=== PATIENT | female | born 1950 | race Caucasian/White ===

== ENCOUNTER 2022-09-15 20:15 | Inpatient (IN) ==
[2022-09-15 21:34] LABS: Basophils # (auto) 0.01 K/uL (0-0.2); Basophils % (auto) 0.2 %; Eosinophils # (auto) 0.09 K/uL (0-0.50); Hematocrit (blood only) 30.1 % (34.1-44.9); Hemoglobin 9.8 g/dl (12.0-16.0); Immature Granulocytes # (auto) 0.04 K/uL (0.00-0.02); Immature Granulocytes % (auto) 0.9 %; Lymphocytes # (auto) 0.78 K/uL (1.2-3.4); Lymphocytes % (auto) 17.5 %; Mean Corpuscular Hgb Conc 32.6 g/dL (32.0-36.0); Mean Corpuscular Volume 101.3 fL (80.0-100.0); Mean Platelet Volume 11.7 fL (9.4-12.3); Monocytes # (auto) 0.69 K/uL (0.24-0.82); Monocytes % (auto) 15.5 %; Neutrophils # (auto) 2.85 K/uL (1.4-6.5); Neutrophils % (auto) 63.9 %; Platelet Count 155 K/uL (130-400); RDW Coefficient of Variation 15.1 % (11.5-14.5); Red Blood Count 2.97 M/uL (3.93-5.22); White Blood Count 4.46 K/ul (4.8-10.8)
[2022-09-15 22:03] LABS: Prothrombin Time 11.1 Seconds (9.0-12.0)
[2022-09-15 22:23] LABS: Albumin Globulin Ratio 1.3 (0.9-2); Albumin Level 3.8 gm/dl (3.4-5.0); BUN Creatinine Ratio 22.9 (10-20); Bilirubin,Total 0.2 mg/dl (0.2-1.0); Calcium 8.9 mg/dl (8.5-10.1); Creatinine Clr Calc Pharmacy 23.7 ml/min; Est GFR (African American) 23.5 ml/min; Est GFR (Non-African American) 20.3 ml/min; Globulin 2.9 gm/dl (2.5-4.0); Magnesium 2.1 mg/dl (1.7-2.4); Potassium 4.8 mmol/L (3.5-5.1); Total Protein 6.7 gm/dl (6.0-8.3)
[2022-09-15] MEDS ORDERED: BUMETANIDE 2 MG in SYRINGE 0 ML IV ONE (22:28)
--- NOTE | 2022-09-15 23:08 | Emergency Department Note ---
History of Present Illness General Chief complaint: Shortness of Breath/Dyspnea Stated complaint: difficulty breathing, fluid retention Time Seen by Provider: 09/15/22 20:55 Source: patient Mode of arrival: EMS Limitations: no limitations History of Present Illness Provider complaint: Increased shortness of breath, weight gain This is a 72-year-old female presents emergency department with concern for increasing shortness of breath of the last week as well as weight gain. Patient states this is consistent with prior episodes of congestive heart failure. She states she does not get swelling in her lower extremities when this happens but her abdomen becomes enlarged. She states she does take a water pill daily and has not missed or skipped any doses. She denies any dietary indiscretions. She denies any fevers, chills, or other URI symptoms. She denies any accompanying chest pain or pressure. She states breathing is worse with any attempt at movement or exertion. Patient does have history of congestive heart failure as well as kidney problems. She states her software integration developer is in [place]. She does not recall when she last had an echo. She last saw her software integration developer back in February. Home Medications Medication Instructions Recorded Confirmed Type aspirin 81 mg tablet,delayed 81 mg PO DAILY 07/05/22 09/15/22 History release (Adult Aspirin Regimen) atorvastatin 10 mg tablet 10 mg PO DAILY 07/05/22 09/15/22 History calcitriol 0.25 mcg capsule 0.25 mcg PO DAILY 07/05/22 09/15/22 History carvedilol 12.5 mg tablet 12.5 mg PO BID 07/05/22 09/15/22 History clopidogrel 75 mg tablet 75 mg PO DAILY 07/05/22 09/15/22 History divalproex 500 mg tablet,delayed 1,000 mg PO BID 07/05/22 09/15/22 History release fluoxetine 40 mg capsule 40 mg PO BID 07/05/22 09/15/22 History hydralazine 50 mg tablet 75 mg PO BID 07/05/22 09/15/22 History insulin glargine 100 unit/mL (3 20 unit subcut BID 07/05/22 09/15/22 History mL) subcutaneous pen (Basaglar KwikPen U-100 Insulin) insulin lispro 100 unit/mL 3 unit subcut TIDM 07/05/22 09/15/22 History subcutaneous pen (Humalog KwikPen (U-100) Insulin) levetiracetam 1,000 mg tablet 1,000 mg PO BID 07/05/22 09/15/22 History levothyroxine 25 mcg capsule 25 mcg PO DAILY 07/05/22 09/15/22 History omega 1-exe-sgo-fish oil 1,000 mg 2 cap PO DAILY 07/05/22 09/15/22 History (120 mg-180 mg) capsule (Fish Oil) pantoprazole 40 mg tablet,delayed 40 mg PO DAILY 07/05/22 09/15/22 History release propranolol 10 mg tablet 10 mg PO BID #60 tabs 07/05/22 09/15/22 Rx valacyclovir 500 mg tablet 500 mg PO DAILY 07/05/22 09/15/22 History lancets 33 gauge (OneTouch Delica #100 ea 07/06/22 08/29/22 Rx Lancets) pen needle, diabetic 32 gauge x #100 ea 07/06/22 08/29/22 Rx 1/4" (BD Ultra-Fine Micro Pen Needle) blood sugar diagnostic (OneTouch #100 ea 07/19/22 08/29/22 Rx Verio test strips) biotin 5 mg tablet 5 mg PO DAILY #30 tabs 07/29/22 09/15/22 Rx dextromethorphan-guaifenesin 5 10 ml PO Q6H PRN cough #180 mL 08/24/22 09/15/22 Rx mg-100 mg/5 mL oral liquid (Mucinex Fast-Max DM Max) alprazolam 0.25 mg tablet 0.25 mg PO DAILY PRN anxiety #30 08/25/22 09/15/22 Rx tabs bumetanide 2 mg tablet 2 mg PO BID 08/29/22 09/15/22 History bumetanide 1 mg tablet 12 mg PO DAILY PRN wt gain 5LBS or 09/15/22 09/15/22 History more over 3 days magnesium oxide 400 mg PO BID 09/15/22 09/15/22 History Allergies Allergy/AdvReac Type Severity Reaction Status Date / Time MARINO Inhibitors Allergy Mild Unknown Verified 09/15/22 21:37 Interferons Allergy Mild Unknown Verified 09/15/22 21:37 Penicillins Allergy Mild Unknown Verified 09/15/22 21:37 Past Med/Surg History Medical History Amputated toe of right foot 2020 Anemia Bleeding disorder CAD (coronary artery disease) Ejaiwfm-Pumod-Ubmem syndrome CHF (congestive heart failure) CKD (chronic kidney disease) Depression with anxiety DM2 (diabetes mellitus, type 2) Gastric peptic ulcer GERD (gastroesophageal reflux disease) Gout Hepatitis C HTN (hypertension), benign Hyperlipidemia Hypothyroid Seizure disorder Tremor Surgical History H/O: section 1981 Hx of tonsillectomy S/P CABG x 4 Stented coronary artery Family History Brother Diabetes Hypertension Father Hypertension Mother Lung disease Denies family history of Breast cancer Colorectal cancer Social History Smoking Status: Former smoker Smoking End Date: 1986; Second Hand Exposure: No; Hx Alcohol Use: No Hx Substance Use: No Preferred Language: [place] Verdean 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 Required: No Beliefs That Will Affect Care: None marital status: Current Living Situation: Personal Care Facility current occupational status: retired Other Information That Helps Us Care for You: No Feels Safe at Home: Yes Safety Concerns: Feels Safe At This Time Dental Care, Regularly: Yes Physical Activity Frequency: Does not Exercise Seatbelt Use: always Assistive Devices: Walker Review of Systems A total of 10 systems reviewed and were otherwise negative All systems reviewed & are unremarkable except as noted in HPI & below Physical Exam Vital Signs Vital Signs - 24 hr 09/15/22 20:40 09/15/22 20:40 09/15/22 20:40 Temperature 36.9 C Temperature Source Oral Pulse Rate 82 Pulse Rate from SpO2 Sensor Respiratory Rate 19 Respiratory Effort / Characteristics Labored Blood Pressure 179/64 H Blood Pressure Mean 102 Pulse Oximetry 95 95 Oxygen Delivery Method Room Air Room Air Oxygen Flow Rate 0 Sepsis Recent Fever Within 48 Hours No Sepsis New/Unexplained Change in Mental Status No Sepsis Action Taken by Nursing No Action Required 09/15/22 22:05 Temperature Temperature Source Pulse Rate 69 Pulse Rate from SpO2 Sensor 71 Respiratory Rate 24 Respiratory Effort / Characteristics Blood Pressure 169/74 H Blood Pressure Mean 105 Pulse Oximetry 95 Oxygen Delivery Method Oxygen Flow Rate Sepsis Recent Fever Within 48 Hours Sepsis New/Unexplained Change in Mental Status Sepsis Action Taken by Nursing GENERAL: alert, well appearing, well nourished, no distress, non-toxic, NC in place EYE EXAM: normal conjunctiva, PERRL and EOM's grossly intact OROPHARYNX: no exudate, no erythema, lips, buccal mucosa, and tongue normal and mucous membranes are moist NECK: supple, no nuchal rigidity, no adenopathy, non-tender LUNGS: Clear to auscultation. Normal chest wall mechanics, no w/r/r HEART: no murmurs, S1 normal and S2 normal ABDOMEN: abdomen soft, non-tender, normo-active bowel sounds, no masses, no rebound or guarding. BACK: Back is symmetrical on inspection and there is no deformity, no midline tenderness, no CVA tenderness. SKIN: no rashes and no bruising UPPER EXTREMITIES: upper extremities are grossly normal. FROM, nml pulses b/l. LOWER EXTREMITIES: No pitting edema. FROM, nml pulses b/l. NEURO EXAM: Normal sensorium, cranial nerves II-XII grossly intact, normal speech, no gross weakness of arms, no gross weakness of legs. Gross sensation intact. Course Administered Medications Aspirin (Aspirin 81 Mg Ectab) 81 mg PO DAILY [facility] Stop: 10/16/22 08:59 Last Admin: 09/18/22 09:08 Dose: 81 mg Documented By: Admin: 09/17/22 08:18 Dose: 81 mg Documented By: Admin: 09/16/22 12:24 Dose: Not Given Documented By: GPF Atorvastatin Calcium (Atorvastatin 10 Mg Tab) 10 mg PO DAILY [facility] Stop: 10/16/22 08:59 Last Admin: 09/18/22 09:07 Dose: 10 mg Documented By: Admin: 09/17/22 08:15 Dose: 10 mg Documented By: Admin: 09/16/22 12:25 Dose: Not Given Documented By: GPF Calcitriol (Calcitriol 0.25 Mcg Capsule) 0.25 mcg PO DAILY [facility] Stop: 10/16/22 08:59 Last Admin: 09/18/22 09:06 Dose: 0.25 mcg Documented By: Admin: 09/17/22 08:18 Dose: 0.25 mcg Documented By: Admin: 09/16/22 12:25 Dose: Not Given Documented By: GPF Carvedilol (Carvedilol 3.125 Mg Tab) 3.125 mg PO BID [facility] Stop: 10/17/22 20:59 Last Admin: 09/18/22 09:10 Dose: 3.125 mg Documented By: Admin: 09/17/22 20:52 Dose: 3.125 mg Documented By: VK Clopidogrel Bisulfate (Clopidogrel Bisulfate 75 Mg Tab) 75 mg PO DAILY [facility] Stop: 10/16/22 08:59 Last Admin: 09/18/22 09:05 Dose: 75 mg Documented By: Admin: 09/17/22 08:17 Dose: 75 mg Documented By: Admin: 09/16/22 12:13 Dose: 75 mg Documented By: GPF Cyanocobalamin (Cyanocobalamin (B-12) 500 Mcg Tablet) 1,000 mcg PO QAM [facility] Stop: 10/16/22 12:29 Last Admin: 09/18/22 09:05 Dose: 1,000 mcg Documented By: Admin: 09/17/22 08:16 Dose: 1,000 mcg Documented By: Admin: 09/16/22 16:20 Dose: Not Given Documented By: GPF Divalproex Sodium (Divalproex Delay Release 500 Mg Tab) 1,000 mg PO BID [facility] Stop: 10/16/22 01:22 Last Admin: 09/18/22 09:08 Dose: 1,000 mg Documented By: Admin: 09/17/22 20:53 Dose: 1,000 mg Documented By: Admin: 09/17/22 08:19 Dose: 1,000 mg Documented By: Admin: 09/16/22 21:50 Dose: Not Given Documented By: Admin: 09/16/22 12:13 Dose: 1,000 mg Documented By: Admin: 09/16/22 01:59 Dose: 1,000 mg Documented By: VK Fluoxetine HCl (Fluoxetine Hcl 20 Mg Cap) 40 mg PO BID@0900,1400 [facility] Stop: 10/16/22 08:59 Last Admin: 09/18/22 07:21 Dose: 40 mg Documented By: Admin: 09/17/22 14:04 Dose: 40 mg Documented By: Admin: 09/17/22 08:16 Dose: 40 mg Documented By: Admin: 09/16/22 16:21 Dose: Not Given Documented By: GPAna Cristina Admin: 09/16/22 12:14 Dose: 40 mg Documented By: GPF Heparin Sodium (Porcine) (Heparin Sod 5,000 Unit/0.5 Ml Vial) 5,000 units SQ Q12 [facility] Stop: 10/17/22 09:49 Last Admin: 09/18/22 09:09 Dose: Not Given Documented By: Admin: 09/17/22 20:54 Dose: Not Given Documented By: Admin: 09/17/22 10:59 Dose: Not Given Documented By: SONYA Hydralazine HCl (Hydralazine Hcl 25 Mg Tab) 75 mg PO BID [facility] Stop: 10/16/22 08:59 Last Admin: 09/18/22 09:04 Dose: 75 mg Documented By: Admin: 09/17/22 20:53 Dose: 75 mg Documented By: Admin: 09/17/22 08:15 Dose: 75 mg Documented By: Admin: 09/16/22 21:50 Dose: Not Given Documented By: Admin: 09/16/22 12:13 Dose: 75 mg Documented By: NEGRITA Bumetanide 2 mg/ Syringe 8 mls @ 4 mls/min IV BID@0900,1700 [facility] Stop: 10/16/22 08:59 Last Admin: 09/16/22 09:30 Dose: 4 mls/min Documented By: NEGRITA Insulin Aspart (Insulin Aspart Per Unit) 0 units SC ACHS [facility] Stop: 10/16/22 07:29 Last Admin: 09/17/22 20:51 Dose: Not Given Documented By: Admin: 09/17/22 17:41 Dose: Not Given Documented By: Admin: 09/17/22 12:44 Dose: 5 units Documented By: SONYA Co-signed By: JUSTIN Admin: 09/17/22 10:02 Dose: 6 units Documented By: SONYA Co-signed By: GRISELDA Admin: 09/16/22 21:16 Dose: 2 units Documented By: PRIETO Co-signed By: BRITTANY Admin: 09/16/22 18:15 Dose: 2 units Documented By: NEGRITA Co-signed By: JUSTIN Admin: 09/16/22 13:16 Dose: 5 units Documented By: GPF Co-signed By: GRISELDA Admin: 09/16/22 09:30 Dose: 8 units Documented By: NEGRITA Co-signed By: JUSTIN Insulin Glargine (Lantus Per Unit Charge) 15 units SQ BID [facility] Stop: 10/17/22 20:59 Last Admin: 09/18/22 09:04 Dose: 15 units Documented By: SONYA Co-signed By: XENA Admin: 09/17/22 21:16 Dose: 15 units Documented By: PRIETO Co-signed By: JESUS Levetiracetam (Levetiracetam 500 Mg Tab) 1,000 mg PO BID [facility] Stop: 10/16/22 01:22 Last Admin: 09/18/22 09:09 Dose: 1,000 mg Documented By: Admin: 09/17/22 20:54 Dose: 1,000 mg Documented By: Admin: 09/17/22 08:18 Dose: 1,000 mg Documented By: Admin: 09/16/22 21:50 Dose: Not Given Documented By: Admin: 09/16/22 12:32 Dose: 1,000 mg Documented By: Admin: 09/16/22 01:59 Dose: 1,000 mg Documented By: PRIETO Levothyroxine Sodium (Levothyroxine Sodium 25 Mcg Tablet) 25 mcg PO DAILYBB [facility] Stop: 10/16/22 06:29 Last Admin: 09/18/22 05:29 Dose: 25 mcg Documented By: Admin: 09/17/22 06:19 Dose: 25 mcg Documented By: Admin: 09/16/22 07:45 Dose: 25 mcg Documented By: GPAna Cristina Magnesium Oxide (Magnesium Oxide 400 Mg Tab) 400 mg PO BID [facility] Stop: 10/16/22 08:59 Last Admin: 09/18/22 09:07 Dose: 400 mg Documented By: Admin: 09/17/22 20:54 Dose: 400 mg Documented By: Admin: 09/17/22 08:17 Dose: 400 mg Documented By: Admin: 09/16/22 21:50 Dose: Not Given Documented By: Admin: 09/16/22 12:32 Dose: Not Given Documented By: GPAna Cristina Miscellaneous (Carbohydrates For Hypoglycemia ) 15 - 30 gm PO UD PRN PRN Reason: Hypoglycemia Protocol Stop: 10/16/22 01:22 Last Admin: 09/17/22 17:22 Dose: 15 gm Documented By: Admin: 09/17/22 17:03 Dose: 30 gm Documented By: SONYA Ondansetron HCl (Ondansetron Inj 2 Mg/Ml 2 Ml Vial) 4 mg IV Q6H PRN PRN Reason: Nausea Stop: 10/16/22 01:22 Last Admin: 09/16/22 16:35 Dose: 4 mg Documented By: Admin: 09/16/22 07:46 Dose: 4 mg Documented By: Admin: 09/16/22 03:53 Dose: 4 mg Documented By: PRIETO Pantoprazole Sodium (Pantoprazole 40 Mg Tab) 40 mg PO DAILY [facility] Stop: 10/16/22 08:59 Last Admin: 09/18/22 09:07 Dose: 40 mg Documented By: Admin: 09/17/22 08:18 Dose: 40 mg Documented By: Admin: 09/16/22 07:45 Dose: 40 mg Documented By: NEGRITA Propranolol HCl (Propranolol Hcl 10 Mg Tab) 10 mg PO BID [facility] Stop: 10/16/22 08:59 Last Admin: 09/18/22 09:06 Dose: 10 mg Documented By: Admin: 09/17/22 20:52 Dose: 10 mg Documented By: Admin: 09/17/22 08:17 Dose: 10 mg Documented By: Admin: 09/16/22 21:50 Dose: Not Given Documented By: Admin: 09/16/22 12:13 Dose: 10 mg Documented By: NEGRITA Valacyclovir HCl (Valacyclovir Hcl 500 Mg Tablet) 500 mg PO Q2D@0900 [facility]; Protocol Stop: 10/16/22 08:59 Last Admin: 09/18/22 09:06 Dose: 500 mg Documented By: Admin: 09/16/22 13:16 Dose: 500 mg Documented By: NEGRITA Discontinued Medications Carvedilol (Carvedilol 12.5 Mg Tab) 12.5 mg PO BID [facility] Stop: 10/16/22 08:59 Last Admin: 09/16/22 12:14 Dose: 12.5 mg Documented By: GPAna Cristina Carvedilol (Carvedilol 6.25 Mg Tab) 6.25 mg PO BID [facility] Stop: 10/16/22 20:59 Last Admin: 09/17/22 08:16 Dose: 6.25 mg Documented By: Admin: 09/16/22 21:50 Dose: Not Given Documented By: PRIETO Bumetanide 2 mg/ Syringe 8 mls @ 4 mls/min IV ONE ONE Stop: 09/15/22 22:29 Last Admin: 09/15/22 23:24 Dose: 4 mls/min Documented By: UZIEL Sodium Chloride (Nss 1000ml) 250 mls @ 999 mls/hr IV .Q16M ONE Stop: 09/16/22 18:18 Last Infusion: 09/16/22 19:05 Dose: 0 mls/hr Documented By: Admin: 09/16/22 18:21 Dose: 999 mls/hr Documented By: NEGRITA Sodium Chloride (Nss) 500 mls @ 50 mls/hr IV .Q10H [facility] Stop: 09/18/22 01:44 Last Infusion: 09/18/22 02:30 Dose: 0 mls/hr Documented By: Admin: 09/17/22 16:04 Dose: 50 mls/hr Documented By: SONYA Insulin Glargine (Lantus Per Unit Charge) 20 units SQ BID [facility] Stop: 10/16/22 08:59 Last Admin: 09/17/22 09:00 Dose: 20 units Documented By: SONYA Co-signed By: GRISELDA Admin: 09/16/22 21:16 Dose: 20 units Documented By: PRIETO Co-signed By: BRITTANY Admin: 09/16/22 09:33 Dose: 20 units Documented By: NEGRITA Co-signed By: JUSTIN Insulin Human Regular (Novolin-R Insulin Per Unit Charge) 6 units SC NOW STA Stop: 09/15/22 23:37 Last Admin: 09/15/22 23:44 Dose: 6 units Documented By: UZIEL Co-signed By: JORGE Medical Decision Making Differential Diagnosis Differential diagnoses includes but is not limited to pneumonia, bronchitis, COPD/Asthma exacerbation, pneumothorax, pulmonary embolism, congestive heart failure, acute coronary syndrome Medical Records Attestation: I reviewed the patient's medical records. Home Medications Current Medication List: was personally reviewed by me Laboratory Data Attestation: I reviewed the patient's lab results. Result diagrams: 09/18/22 04:34 09/18/22 04:34 Lab Results 09/15/22 09/15/22 09/15/22 Range/Units 20:36 20:36 20:36 WBC 4.46 L (4.8-10.8) K/ul RBC 2.97 L (3.93-5.22) M/uL Hgb 9.8 L (12.0-16.0) g/dl Hct 30.1 L (34.1-44.9) % MCV 101.3 H (80.0-100.0) fL MCH 33.0 (25.0-34.0) pg MCHC 32.6 (32.0-36.0) g/dL RDW Std Deviation 56.0 H (36.4-46.3) fL RDW Coeff of Ana 15.1 H (11.5-14.5) % Plt Count 155 (130-400) K/uL MPV 11.7 (9.4-12.3) fL Immature Gran % (Auto) 0.9 % Neut % (Auto) 63.9 % Lymph % (Auto) 17.5 % [place] % (Auto) 15.5 % Eos % (Auto) 2.0 % Baso % (Auto) 0.2 % Neut # (Auto) 2.85 (1.4-6.5) K/uL Lymph # (Auto) 0.78 L (1.2-3.4) K/uL [place] # (Auto) 0.69 (0.24-0.82) K/uL Eos # (Auto) 0.09 (0-0.50) K/uL Baso # (Auto) 0.01 (0-0.2) K/uL Immature Gran # (Auto) 0.04 H (0.00-0.02) K/uL PT 11.1 (9.0-12.0) Seconds INR 1.0 (0.9-1.1) Sodium 139 (136-145) mmol/L Potassium 4.8 (3.5-5.1) mmol/L Chloride 102 (98-107) mmol/L Carbon Dioxide 27 (21-32) mmol/L Anion Gap 10 (3-11) BUN 53 H (6-23) mg/dl Creatinine 2.31 H (0.6-1.2) mg/dl Est Cr Clr Drug Dosing 23.7 ml/min Est GFR ( Amer) 23.5 ml/min Est GFR (Non-Af Amer) 20.3 ml/min BUN/Creatinine Ratio 22.9 H (10-20) Glucose 311 H* (70-99(Fasting)) mg/dl Calcium 8.9 (8.5-10.1) mg/dl Magnesium 2.1 (1.7-2.4) mg/dl Total Bilirubin 0.2 (0.2-1.0) mg/dl AST 14 (13-39) U/L ALT 6 L (7-52) U/L Alkaline Phosphatase 45 (34-104) U/L Troponin I High Sens 27.0 H (0-14) pg/ml B-Natriuretic Peptide (0-100) pg/ml Total Protein 6.7 (6.0-8.3) gm/dl Albumin 3.8 (3.4-5.0) gm/dl Globulin 2.9 (2.5-4.0) gm/dl Albumin/Globulin Ratio 1.3 (0.9-2) Lipase 68 (11-82) U/L SARS-CoV-2 (PCR) (Negative) Influenza Type A (PCR) (Neg) Influenza Type B (PCR) (Neg) RSV (RT-PCR) (Neg) 09/15/22 09/15/22 Range/Units 20:36 22:48 WBC (4.8-10.8) K/ul RBC (3.93-5.22) M/uL Hgb (12.0-16.0) g/dl Hct (34.1-44.9) % MCV (80.0-100.0) fL MCH (25.0-34.0) pg MCHC (32.0-36.0) g/dL RDW Std Deviation (36.4-46.3) fL RDW Coeff of Ana (11.5-14.5) % Plt Count (130-400) K/uL MPV (9.4-12.3) fL Immature Gran % (Auto) % Neut % (Auto) % Lymph % (Auto) % [place] % (Auto) % Eos % (Auto) % Baso % (Auto) % Neut # (Auto) (1.4-6.5) K/uL Lymph # (Auto) (1.2-3.4) K/uL [place] # (Auto) (0.24-0.82) K/uL Eos # (Auto) (0-0.50) K/uL Baso # (Auto) (0-0.2) K/uL Immature Gran # (Auto) (0.00-0.02) K/uL PT (9.0-12.0) Seconds INR (0.9-1.1) Sodium (136-145) mmol/L Potassium (3.5-5.1) mmol/L Chloride (98-107) mmol/L Carbon Dioxide (21-32) mmol/L Anion Gap (3-11) BUN (6-23) mg/dl Creatinine (0.6-1.2) mg/dl Est Cr Clr Drug Dosing ml/min Est GFR ( Amer) ml/min Est GFR (Non-Af Amer) ml/min BUN/Creatinine Ratio (10-20) Glucose (70-99(Fasting)) mg/dl Calcium (8.5-10.1) mg/dl Magnesium (1.7-2.4) mg/dl Total Bilirubin (0.2-1.0) mg/dl AST (13-39) U/L ALT (7-52) U/L Alkaline Phosphatase (34-104) U/L Troponin I High Sens (0-14) pg/ml B-Natriuretic Peptide 923 H (0-100) pg/ml Total Protein (6.0-8.3) gm/dl Albumin (3.4-5.0) gm/dl Globulin (2.5-4.0) gm/dl Albumin/Globulin Ratio (0.9-2) Lipase (11-82) U/L SARS-CoV-2 (PCR) NEGATIVE (Negative) Influenza Type A (PCR) Negative (Neg) Influenza Type B (PCR) Negative (Neg) RSV (RT-PCR) Negative (Neg) Imaging Data My Impression: X-ray: I interpreted the following studies. Chest: A single view study of the chest was reviewed and was negative for cardiomegaly, focal infiltrate, effusion,or wide mediastinum. Appearance of evolving b/l pulmonary edema noted. Sternotomy wires noted. ECG Data Attestation: I personally reviewed and interpreted this ECG as follows: Indication: + SOB/dyspnea Rate (beats per minute): 70 Rhythm: + normal sinus ECG Intervals/blocks: + Right Bundle branch block and + Normal QT ECG [place]: + Left axis deviation ECG ST segments: + Nonspecific ST abnormalities MDM Narrative An order was placed for continuous cardiac monitoring. The monitor shows a rate of _66__ with _normal sinus__ rhythm. This is a 72-year-old female with a complicated past medical history per her report although no prior records here for comparison. Patient concern for recurrent pulmonary edema/congestive heart failure which she has had previously. She states she has had increased shortness of breath, particularly with exertion and accompanying orthopnea over the last several days despite taking her diuretic daily. She denies missing or skipping any doses and denies any dietary indiscretion. Patient with elevated creatinine, elevated troponin, and elevated BNP. Patient was maintained on oxygen for subjective improvement although she was not overtly hypoxic on arrival. Patient given additional dose of IV Bumex and case discussed with hospitalist for additional evaluation and management. Patient had no complaints of shortness of breath or chest discomfort while at rest. Patient also noted to have hyperglycemia and was given a dose of subcu insulin while in the emergency department. No evidence for DKA. Impression & Plan Dyspnea, Elevated brain natriuretic peptide (BNP) level, Hyperglycemia, Elevated troponin Discharge Plan Visit Data Chief Complaint: Shortness of Breath/Dyspnea Stated Complaint: difficulty breathing, fluid retention ED Provider: Janelle Quan Discharge Problem: Dyspnea, Elevated brain natriuretic peptide (BNP) level, Hyperglycemia, Elevated troponin Patient Disposition: Admitted As Inpatient Discharge Instructions Interventions: ED Discharge Assessment Last Done: 09/16/22 00:36
[2022-09-15] MEDS ORDERED: NovoLIN-R INSULIN PER UNIT CHARGE SC STA (23:36)
[2022-09-15 23:37] LABS: Influenza A virus by PCR Negative (Neg); Influenza B virus by PCR Negative (Neg); RSV by PCR Negative (Neg); SARS CoV2 RNA(COVID-19)Cepheid NEGATIVE (Negative)
--- NOTE | 2022-09-16 00:01 | History & Physical Report ---
Date of Service September 16, 2022 Assessment & Plan (1) CHF exacerbation: Plan: CHF exacerbation/CAD/hypertension/cardiomyopathy- The patient will be admitted to telemetry for serial cardiac enzymes, serial EKG's, and cardiac rhythm monitoring Given Bumex 2 mg IV in the ED, will continue twice daily, holding oral dose Outpatient cardiology notes refer to metolazone to be taken as needed, however, this medication is not on her present med list. Follow daily weights, serial BMP and magnesium levels Echocardiogram performed at another facility on 05/13/2022 shows EF of 45-50% Continue aspirin, carvedilol, clopidogrel, hydralazine, propranolol and magnesium oxide (2) HTN (hypertension), benign: Plan: See above (3) DM2 (diabetes mellitus, type 2): Plan: Continue insulin glargine 20 units subcu twice daily Hold standing order for lispro with meals Placed on Accu-Cheks with NovoLog coverage per scale Check hemoglobin A1c (4) Seizure disorder: Plan: Continue divalproex and levetiracetam (5) Hyperlipidemia: Plan: Continue atorvastatin 10 mg daily (6) GERD (gastroesophageal reflux disease): Plan: GERD/peptic ulcer- Continue pantoprazole (7) Hypothyroid: Plan: Continue levothyroxine 25 mcg daily (8) Gastric peptic ulcer: (9) CAD (coronary artery disease): (10) CKD (chronic kidney disease): (11) Depression with anxiety: History of Present Illness Chief Complaint: The patient presents to the emergency department with complaint of shortness of breath and weight gain since last week [facility]. Primary Care Provider: Rola Vazquez The patient is a 72-year-old female with a past medical history including right toe amputation, seizure disorder, hypothyroidism, hypertension, hyperlipidemia, gout, GERD, gastric peptic ulcer, diabetes mellitus, status post CABG x4, CAD, CHF, CKD, bleeding disorder and depression with anxiety. The patient presents to the emergency department as noted above, which she reports symptoms are consistent with previous episodes of CHF. She has been on Bumex and has been taking it as directed. She denies any change in recent dietary habits or activity patterns. Allergies Allergy/AdvReac Type Severity Reaction Status Date / Time MARINO Inhibitors Allergy Mild Unknown Verified 09/15/22 21:37 Interferons Allergy Mild Unknown Verified 09/15/22 21:37 Penicillins Allergy Mild Unknown Verified 09/15/22 21:37 Home Medications Medication Instructions Recorded Confirmed Type aspirin 81 mg tablet,delayed 81 mg PO DAILY 07/05/22 09/15/22 History release (Adult Aspirin Regimen) atorvastatin 10 mg tablet 10 mg PO DAILY 07/05/22 09/15/22 History calcitriol 0.25 mcg capsule 0.25 mcg PO DAILY 07/05/22 09/15/22 History carvedilol 12.5 mg tablet 12.5 mg PO BID 07/05/22 09/15/22 History clopidogrel 75 mg tablet 75 mg PO DAILY 07/05/22 09/15/22 History divalproex 500 mg tablet,delayed 1,000 mg PO BID 07/05/22 09/15/22 History release fluoxetine 40 mg capsule 40 mg PO BID 07/05/22 09/15/22 History hydralazine 50 mg tablet 75 mg PO BID 07/05/22 09/15/22 History insulin glargine 100 unit/mL (3 20 unit subcut BID 07/05/22 09/15/22 History mL) subcutaneous pen (Basaglar KwikPen U-100 Insulin) insulin lispro 100 unit/mL 3 unit subcut TIDM 07/05/22 09/15/22 History subcutaneous pen (Humalog KwikPen (U-100) Insulin) levetiracetam 1,000 mg tablet 1,000 mg PO BID 07/05/22 09/15/22 History levothyroxine 25 mcg capsule 25 mcg PO DAILY 07/05/22 09/15/22 History omega 6-zah-iyy-fish oil 1,000 mg 2 cap PO DAILY 07/05/22 09/15/22 History (120 mg-180 mg) capsule (Fish Oil) pantoprazole 40 mg tablet,delayed 40 mg PO DAILY 07/05/22 09/15/22 History release propranolol 10 mg tablet 10 mg PO BID #60 tabs 07/05/22 09/15/22 Rx valacyclovir 500 mg tablet 500 mg PO DAILY 07/05/22 09/15/22 History lancets 33 gauge (OneTouch Delica #100 ea 07/06/22 08/29/22 Rx Lancets) pen needle, diabetic 32 gauge x #100 ea 07/06/22 08/29/22 Rx 1/4" (BD Ultra-Fine Micro Pen Needle) blood sugar diagnostic (OneTouch #100 ea 07/19/22 08/29/22 Rx Verio test strips) biotin 5 mg tablet 5 mg PO DAILY #30 tabs 07/29/22 09/15/22 Rx dextromethorphan-guaifenesin 5 10 ml PO Q6H PRN cough #180 mL 08/24/22 09/15/22 Rx mg-100 mg/5 mL oral liquid (Mucinex Fast-Max DM Max) alprazolam 0.25 mg tablet 0.25 mg PO DAILY PRN anxiety #30 08/25/22 09/15/22 Rx tabs bumetanide 2 mg tablet 2 mg PO BID 08/29/22 09/15/22 History bumetanide 1 mg tablet 12 mg PO DAILY PRN wt gain 5LBS or 09/15/22 09/15/22 History more over 3 days magnesium oxide 400 mg PO BID 09/15/22 09/15/22 History Past Med/Surg History Medical History Amputated toe of right foot 2020 Anemia Bleeding disorder CAD (coronary artery disease) Wsrulvc-Mtxkv-Hzcme syndrome CHF (congestive heart failure) CKD (chronic kidney disease) Depression with anxiety DM2 (diabetes mellitus, type 2) Gastric peptic ulcer GERD (gastroesophageal reflux disease) Gout Hepatitis C HTN (hypertension), benign Hyperlipidemia Hypothyroid Seizure disorder Tremor Surgical History H/O: section 1981 Hx of tonsillectomy S/P CABG x 4 Stented coronary artery Family History Brother Diabetes Hypertension Father Hypertension Mother Lung disease Denies family history of Breast cancer Colorectal cancer Social History Smoking Status: Former smoker Smoking End Date: 1986; Second Hand Exposure: No; Hx Alcohol Use: No Hx Substance Use: No Preferred Language: Dutch Communication Ability: Effective Correspondence Coordinator Required: No Beliefs That Will Affect Care: None marital status: Current Living Situation: Personal Care Facility current occupational status: retired Other Information That Helps Us Care for You: No Feels Safe at Home: Yes Safety Concerns: Feels Safe At This Time Dental Care, Regularly: Yes Physical Activity Frequency: Does not Exercise Seatbelt Use: always Assistive Devices: Walker Review of Systems Review of Systems: The patient denies chest pains, palpitations, cough, sore throat, fevers, chills, sweats, nausea, vomiting, diarrhea , constipation, abdominal pain, pelvic pain, blood in urine or stool, dysuria, urinary frequency or urgency, lightheadedness, dizziness, headache, memory loss, loss of consciousness, rash, abnormal bruising or bleeding, focal weakness, numbness or tingling in arms or legs, generalized arthralgias or myalgias, back or neck pain, or night sweats. The review of systems is otherwise negative other than for that already noted above, and at least 10 systems have been reviewed. Physical Exam Physical Exam: The patient is awake, alert and oriented 3, well developed and well nourished, normocephalic and atraumatic, lying in bed and in no acute distress. HEENT--PERRL, EOMI, mucous membranes and oropharynx normal Neck--supple. No JVD. No bruits. Thyroid normal, trachea midline, no adenopathy. Heart--normal S1 and S2. No murmurs, rubs or gallops. Lungs--clear bilaterally, no respiratory distress, no accessory muscle use. Abdomen--normal bowel sounds and soft. Nontender. Nondistended. Morbidly obese Extremities--no cyanosis or clubbing. 1+ bilateral pretibial pitting edema. Dermatologic--normal skin turgor, normal color, no abnormal lymph nodes, no rash. Neurologic--cranial nerves II through XII grossly intact. Rheumatologic--limited exam Psychiatric--normal affect. Results & Data Results & Data ([facility]) Vital Signs (Past 12 Hours) Vital Signs Temp Pulse Pulse Resp BP BP Pulse Ox 09/15/22 23:14 64 20 168/82 H 99 09/15/22 22:05 69 24 169/74 H 95 09/15/22 20:40 95 09/15/22 20:40 36.9 C 82 19 179/64 H 95 O2 Del Method O2 Flow Rate 09/15/22 23:14 Room Air 09/15/22 22:05 09/15/22 20:40 Room Air 0 09/15/22 20:40 Room Air Laboratory Results Laboratory Results WBC 3.94 K/ul (4.8-10.8) L 09/16/22 01:55 RBC 2.84 M/uL (3.93-5.22) L 09/16/22 01:55 Hgb 9.3 g/dl (12.0-16.0) L 09/16/22 01:55 Hct 28.9 % (34.1-44.9) L 09/16/22 01:55 MCV 101.8 fL (80.0-100.0) H 09/16/22 01:55 MCH 32.7 pg (25.0-34.0) 09/16/22 01:55 MCHC 32.2 g/dL (32.0-36.0) 09/16/22 01:55 RDW Std Deviation 55.1 fL (36.4-46.3) H 09/16/22 01:55 RDW Coeff of Ana 14.8 % (11.5-14.5) H 09/16/22 01:55 Plt Count 136 K/uL (130-400) 09/16/22 01:55 MPV 11.2 fL (9.4-12.3) 09/16/22 01:55 Immature Gran % (Auto) 0.3 % 09/16/22 01:55 Neut % (Auto) 70.0 % 09/16/22 01:55 Lymph % (Auto) 15.2 % 09/16/22 01:55 Woods % (Auto) 12.7 % 09/16/22 01:55 Eos % (Auto) 1.8 % 09/16/22 01:55 Baso % (Auto) 0.0 % 09/16/22 01:55 Neut # (Auto) 2.76 K/uL (1.4-6.5) 09/16/22 01:55 Lymph # (Auto) 0.60 K/uL (1.2-3.4) L 09/16/22 01:55 Woods # (Auto) 0.50 K/uL (0.24-0.82) 09/16/22 01:55 Eos # (Auto) 0.07 K/uL (0-0.50) 09/16/22 01:55 Baso # (Auto) 0.00 K/uL (0-0.2) 09/16/22 01:55 Immature Gran # (Auto) 0.01 K/uL (0.00-0.02) 09/16/22 01:55 PT 11.1 Seconds (9.0-12.0) 09/15/22 20:36 INR 1.0 (0.9-1.1) 09/15/22 20:36 Sodium 140 mmol/L (136-145) 09/16/22 01:55 Potassium 3.9 mmol/L (3.5-5.1) 09/16/22 01:55 Chloride 103 mmol/L (98-107) 09/16/22 01:55 Carbon Dioxide 29 mmol/L (21-32) 09/16/22 01:55 Anion Gap 8 (3-11) 09/16/22 01:55 BUN 53 mg/dl (6-23) H 09/16/22 01:55 Creatinine 2.15 mg/dl (0.6-1.2) H 09/16/22 01:55 Est Cr Clr Drug Dosing 26.6 ml/min 09/16/22 01:55 Est GFR ( Amer) 25.7 ml/min 09/16/22 01:55 Est GFR (Non-Af Amer) 22.1 ml/min 09/16/22 01:55 BUN/Creatinine Ratio 24.7 (10-20) H 09/16/22 01:55 Glucose 186 mg/dl (70-99(Fasting)) H 09/16/22 01:55 Calcium 8.8 mg/dl (8.5-10.1) 09/16/22 01:55 Phosphorus 3.2 mg/dl (2.5-4.9) 09/16/22 01:55 Magnesium 2.1 mg/dl (1.7-2.4) 09/15/22 20:36 Total Bilirubin 0.2 mg/dl (0.2-1.0) 09/15/22 20:36 AST 14 U/L (13-39) 09/15/22 20:36 ALT 6 U/L (7-52) L 09/15/22 20:36 Alkaline Phosphatase 45 U/L (34-104) 09/15/22 20:36 Troponin I High Sens 28.0 pg/ml (0-14) H 09/16/22 01:55 B-Natriuretic Peptide 923 pg/ml (0-100) H 09/15/22 20:36 Total Protein 6.7 gm/dl (6.0-8.3) 09/15/22 20:36 Albumin 3.6 gm/dl (3.4-5.0) 09/16/22 01:55 Globulin 2.9 gm/dl (2.5-4.0) 09/15/22 20:36 Albumin/Globulin Ratio 1.3 (0.9-2) 09/15/22 20:36 Lipase 68 U/L (11-82) 09/15/22 20:36 SARS-CoV-2 (PCR) NEGATIVE (Negative) 09/15/22 22:48 Influenza Type A (PCR) Negative (Neg) 09/15/22 22:48 Influenza Type B (PCR) Negative (Neg) 09/15/22 22:48 RSV (RT-PCR) Negative (Neg) 09/15/22 22:48 Code Status & VTE Plan Code Status Full code VTE Prophylaxis Plan VTE Prophylaxis will be ordered: Yes
[2022-09-16] MEDS ORDERED: ACETAMINOPHEN 325 MG TAB PO PRN (01:23)
[2022-09-16] MEDS ORDERED: GLUCOSE 10 TAB/TUBE PO PRN (01:23)
[2022-09-16] MEDS ORDERED: GLUCOSE 40% GEL 15 GM TUBE PO PRN (01:23)
[2022-09-16] MEDS ORDERED: ALPRAZolam 0.25 MG TABLET PO PRN (01:23)
[2022-09-16] MEDS ORDERED: DEXTROSE 50% 50 ML SYRINGE IV PRN (01:23)
[2022-09-16] MEDS ORDERED: GLUCAGON FOR INJ 1 MG VIAL SQ PRN (01:23)
[2022-09-16] MEDS: DIVALPROEX DELAY RELEASE 500 MG TAB PO SCH ×3 (01:59→21:50)
[2022-09-16] MEDS: levETIRAcetam 500 MG TAB PO SCH ×3 (01:59→21:50)
[2022-09-16 02:11] LABS: Eosinophils # (auto) 0.07 K/uL (0-0.50); Eosinophils % (auto) 1.8 %; Hematocrit (blood only) 28.9 % (34.1-44.9); Hemoglobin 9.3 g/dl (12.0-16.0); Immature Granulocytes # (auto) 0.01 K/uL (0.00-0.02); Immature Granulocytes % (auto) 0.3 %; Lymphocytes % (auto) 15.2 %; Mean Corpuscular Hemoglobin 32.7 pg (25.0-34.0); Mean Corpuscular Hgb Conc 32.2 g/dL (32.0-36.0); Mean Corpuscular Volume 101.8 fL (80.0-100.0); Mean Platelet Volume 11.2 fL (9.4-12.3); Monocytes % (auto) 12.7 %; Neutrophils # (auto) 2.76 K/uL (1.4-6.5); Platelet Count 136 K/uL (130-400); RDW Coefficient of Variation 14.8 % (11.5-14.5); RDW Standard Deviation 55.1 fL (36.4-46.3); Red Blood Count 2.84 M/uL (3.93-5.22); White Blood Count 3.94 K/ul (4.8-10.8)
[2022-09-16 02:33] LABS: Albumin Level 3.6 gm/dl (3.4-5.0); BUN Creatinine Ratio 24.7 (10-20); Calcium 8.8 mg/dl (8.5-10.1); Creatinine Clr Calc Pharmacy 26.6 ml/min; Est GFR (African American) 25.7 ml/min; Est GFR (Non-African American) 22.1 ml/min; Phosphorus 3.2 mg/dl (2.5-4.9); Potassium 3.9 mmol/L (3.5-5.1)
[2022-09-16] MEDS: ONDANSETRON INJ 2 MG/ML 2 ML VIAL IV PRN ×3 (03:53→16:35)
--- NOTE | 2022-09-16 04:45 | Billing Data ---
Date of Service September 16, 2022 Coding Level of Care Code 83661 Initial Inpt Care Lvl 3
--- NOTE | 2022-09-16 06:53 | XRay Report ---
SINGLE VIEW CHEST CLINICAL HISTORY: Dyspnea. FINDINGS: An AP, portable, upright chest radiograph is obtained. No prior studies are available for c omparison at the time of dictation. The patient is status post midline sternotomy. The heart is enlar ged noting atherosclerotic calcification of the thoracic aorta. The pulmonary vasculature is not roma ested. Interstitial thickening is likely chronic. There is mild elevation of the right hemidiaphragm with bibasilar scarring/atelectasis. The lungs and pleural spaces are otherwise clear. No pneumothora x is seen. The skeletal structures are osteopenic. The bony thorax is grossly intact. IMPRESSION: Cardiomegaly with no acute cardiopulmonary abnormality identified. ACT 112: Negative or not required by law. Electronically signed by: Cristopher Hammond M.D. 09/16/2022 6:52 AM
[2022-09-16] MEDS: PANTOprazole 40 MG TAB PO SCH (07:45)
[2022-09-16] MEDS: LEVOTHYROXINE SODIUM 25 MCG TABLET PO SCH (07:45)
[2022-09-16 08:08] LABS: Estimated Average Glucose 197 mg/dl; Hemoglobin A1C 8.5 % (4.5-5.6)
[2022-09-16] MEDS ORDERED: carvediloL 12.5 MG TAB PO SCH (09:00)
[2022-09-16] MEDS ORDERED: BUMETANIDE 2 MG in SYRINGE 0 ML IV SCH (09:00)
[2022-09-16] MEDS: INSULIN ASPART PER UNIT SC SCH ×4 (09:30→21:16)
[2022-09-16] MEDS: LANTUS PER UNIT CHARGE SQ SCH ×2 (09:33→21:16)
[2022-09-16] MEDS: hydrALAZINE HCL 25 MG TAB PO SCH ×2 (12:13→21:50)
[2022-09-16] MEDS: CLOPIDOGREL BISULFATE 75 MG TAB PO SCH (12:13)
[2022-09-16] MEDS: PROPRANOLOL HCL 10 MG TAB PO SCH ×2 (12:13→21:50)
[2022-09-16] MEDS: FLUoxetine HCL 20 MG CAP PO SCH ×2 (12:14→16:21)
[2022-09-16] MEDS: ASPIRIN 81 MG ECTAB PO SCH (12:24)
[2022-09-16] MEDS: ATORVASTATIN 10 MG TAB PO SCH (12:25)
[2022-09-16] MEDS: CALCITRIOL 0.25 MCG CAPSULE PO SCH (12:25)
[2022-09-16] MEDS: MAGNESIUM OXIDE 400 MG TAB PO SCH ×2 (12:32→21:50)
[2022-09-16] MEDS: valACYclovir HCL 500 MG TABLET PO SCH (13:16)
--- NOTE | 2022-09-16 15:23 | Electrocardiogram Report ---
Test Reason : Blood Pressure : / mmHG Vent. Rate : 070 BPM Atrial Rate : 070 BPM P-R Int : 170 ms QRS Dur : 130 ms QT Int : 448 ms P-R-T Axes : 057 -49 226 degrees QTc Int : 483 ms Normal sinus rhythm Left axis deviation Right bundle branch block Left ventricular hypertrophy with repolarization abnormality Inferior infarct , age undetermined Anterolateral infarct , age undetermined Abnormal ECG No previous ECGs available Confirmed by Nadir Juarez ([id number]) on 09/16/2022 3:23:22 PM Referred By: REFERRED SELF Confirmed By:Nadir Juarez
[2022-09-16] MEDS: CYANOCOBALAMIN (B-12) 500 MCG TABLET PO SCH (16:20)
--- NOTE | 2022-09-16 16:22 | XRay Report ---
XR chest 1V portable HISTORY: b/l rales, flu-like symptoms; eval pneumonia COMPARISON: Chest 09/15/2022. FINDINGS: No pneumothorax. No pleural effusions. The cardiac silhouette remains enlarged. There are l ow lung volumes with mild elevation of the right hemidiaphragm, unchanged. Poststernotomy changes are again noted. Interval improvement in the pulmonary vascular congestion compared to the prior study. No evidence for pulmonary edema. No new focal lung consolidations to suggest a pneumonia. IMPRESSION: Cardiomegaly with interval improvement in the pulmonary vascular congestion. ACT 112: Negative or not required by law. Electronically signed by: Alcon Parker M.D. 09/16/2022 4:21 PM
[2022-09-16 17:47] LABS: BUN Creatinine Ratio 27.9 (10-20); Calcium 8.7 mg/dl (8.5-10.1); Creatinine Clr Calc Pharmacy 25.7 ml/min; Est GFR (African American) 24.7 ml/min; Est GFR (Non-African American) 21.3 ml/min; Potassium 4.6 mmol/L (3.5-5.1)
[2022-09-16] MEDS ORDERED: SODIUM CHLORIDE 0.9% 1000ML 250 ML IV ONE (18:03)
--- NOTE | 2022-09-16 20:01 | Hospitalist Progress Note ---
Date of Service September 16, 2022 Assessment & Plan (1) Nausea, vomiting and diarrhea: Plan: The pt's main symptoms are GI in origin, but she also has viral syndrome type symptoms including fatigue, weakness, nasal congestion, cough, body aches, chills, etc. RSV/flu/COVID testing last pm was negative. Elected to repeat a more comprehensive [facility] respiratory panel - this returned negative. Check c diff test. Repeat cxr this evening without discrete pneumonia. Lactate minimally elevated - she appears volume contracted - gave small fluid bolus (250cc). Holding diuretics. Cont PPI. Cont zofran prn. Check blood cx's; send u/a and urine culture. Hold on systemic antibiotics for now. (2) Pancytopenia: Plan: Uncertain of chronicity. Could be acute due to infectious process. TSH wnl. B12 level low-normal -- supplement B12 1000mcg daily. Folate wnl. Repeat CBC with diff in am. If the CBC continues to worsen then obtain SPEP, UPEP, peripheral smear, etc. (3) Chronic systolic CHF (congestive heart failure): Plan: Echo obtained at [facility] in [facility] in May 2022 with the following - EF 45-50% multiple wall motion abnormalities grade 2 diastolic dysfunction mod-severe MR mod-severe Will lower coreg to 6.25mg BID. Hold diuretics - appears volume contracted from #1. Inderal 10mg BID - for chronic tremor? Not on MARINO/ARB/Entresto due to CKD. Cont hydralazine for now. (4) CKD (chronic kidney disease) stage 4, GFR 15-29 ml/min: Plan: Baseline CrCl appears to be 20s. Baseline creatinine low 2's? BMP am. (5) HTN (hypertension), benign: Plan: Controlled. Lowered coreg by 1/2. Cont hydralazine. Hold diuretics. (6) DM2 (diabetes mellitus, type 2): Plan: a1c noted - 8.5% cont lantus 20 units BID adjust novolog correction & carb ratio coverage (7) Seizure disorder: Plan: Continue divalproex and levetiracetam Checked depakote level -- returned at 99 LFTS wnl (8) Hyperlipidemia: Plan: Continue atorvastatin 10 mg daily (9) GERD (gastroesophageal reflux disease): Plan: Continue pantoprazole (10) Hypothyroid: Plan: Continue levothyroxine 25 mcg daily TSH wnl (11) Gastric peptic ulcer: Plan: h/o cont PPI (12) CAD (coronary artery disease): Plan: s/p CABG x 4 with h/o stents as well no evidence of ischemia mild troponin elevation likely myocardial demand ischemia in setting of illness (13) Depression with anxiety: Plan: Cont fluoxetine BID Cont xanax prn (14) DVT prophylaxis: Plan: add low-dose heparin BID in am tomorrow Plan no contacts listed in chart to communicate with family will inquire with patient tomorrow if she wants me to update any family or contacts Admission and Anticipated Discharge Date Admission Date: September 16, 2022 Subjective patient "feels terrible" had copious diarrhea this am - this has gotten better through the day she has had nausea with emesis very little appetite has cold chills mild cough myalgias eyes are irritated; also with nasal congestion denies dyspnea at rest denies cp denies abdominal pain has tremors - these are chronic tele - NSR Review of Systems Review of Systems: gen - very tired, weak, fatigued cv - no orthopnea pulm - no wheezing GI - no pain, no blood per rectum - no foul-smelling urine; very little UOP throughout the day despite diuretics Physical Exam Physical Exam: gen - sickly appearing, looks dehydrated, weak-appearing; but awake/alert eyes - conjunctiva/sclera injected b/l mouth - MM pasty neck - no JVD heart - RRR, s1 s2, 2/6 systolic murmur LSB lungs - mild, fine b/l basilar rales; no wheeze; no increased work of breathing abd - soft NT ND BS+ ext - pulses 2+ b/l, trace edema b/l neuro - tremors arms noted Results & Data Results & Data ([facility]) Vital Signs (Past 12 Hours) Vital Signs Temp Pulse Resp BP Pulse Ox O2 Del Method 09/16/22 19:58 36.6 C 73 20 161/67 H 95 Room Air 09/16/22 15:39 36.9 C 76 18 125/71 90 Room Air 09/16/22 11:33 36.9 C 67 20 182/75 H 90 Room Air Laboratory Results Laboratory Results - last 24 hr 09/16/22 09/16/22 09/16/22 01:55 07:54 07:55 WBC RBC Hgb Hct MCV MCH MCHC RDW Std Deviation RDW Coeff of Ana Plt Count MPV Immature Gran % (Auto) Neut % (Auto) Lymph % (Auto) [place] % (Auto) Eos % (Auto) Baso % (Auto) Neut # (Auto) Lymph # (Auto) [place] # (Auto) Eos # (Auto) Baso # (Auto) Immature Gran # (Auto) Sodium Potassium Chloride Carbon Dioxide Anion Gap BUN Creatinine Est Cr Clr Drug Dosing Est GFR ( Amer) Est GFR (Non-Af Amer) BUN/Creatinine Ratio Glucose POC Glucose 312 H* 312 H* Estimat Average Glucose 197 Hemoglobin A1c 8.5 H Lactate Calcium Phosphorus Troponin I High Sens Albumin Vitamin B12 Folate Procalcitonin TSH Valproic Acid Adenovirus (PCR) B. pertussis DNA (PCR) B.parapertussis DNA PCR C. pneumoniae DNA (PCR) Coronavirus OC43 (PCR) Coronavirus HKU1 (PCR) Coronavirus 229E (PCR) SARS-CoV-2 (PCR) Coronavirus NL63 (PCR) Human Metapneumovir PCR Influenza Type A (PCR) Influenza Type B (PCR) M. pneumoniae (PCR) Parainfluenza 1 (PCR) Parainfluenza 2 (PCR) Parainfluenza 3 (PCR) Parainfluenza 4 (PCR) RSV (PCR) Entero/Rhino (PCR) 09/16/22 09/16/22 09/16/22 07:57 08:28 08:32 WBC RBC Hgb Hct MCV MCH MCHC RDW Std Deviation RDW Coeff of Ana Plt Count MPV Immature Gran % (Auto) Neut % (Auto) Lymph % (Auto) [place] % (Auto) Eos % (Auto) Baso % (Auto) Neut # (Auto) Lymph # (Auto) [place] # (Auto) Eos # (Auto) Baso # (Auto) Immature Gran # (Auto) Sodium Potassium Chloride Carbon Dioxide Anion Gap BUN Creatinine Est Cr Clr Drug Dosing Est GFR ( Amer) Est GFR (Non-Af Amer) BUN/Creatinine Ratio Glucose POC Glucose 329 H* Estimat Average Glucose Hemoglobin A1c Lactate Calcium Phosphorus Troponin I High Sens 24.8 H Albumin Vitamin B12 251 Folate 10.25 Procalcitonin TSH Valproic Acid Adenovirus (PCR) B. pertussis DNA (PCR) B.parapertussis DNA PCR C. pneumoniae DNA (PCR) Coronavirus OC43 (PCR) Coronavirus HKU1 (PCR) Coronavirus 229E (PCR) SARS-CoV-2 (PCR) Coronavirus NL63 (PCR) Human Metapneumovir PCR Influenza Type A (PCR) Influenza Type B (PCR) M. pneumoniae (PCR) Parainfluenza 1 (PCR) Parainfluenza 2 (PCR) Parainfluenza 3 (PCR) Parainfluenza 4 (PCR) RSV (PCR) Entero/Rhino (PCR) 09/16/22 09/16/22 09/16/22 08:32 11:56 14:02 WBC RBC Hgb Hct MCV MCH MCHC RDW Std Deviation RDW Coeff of Ana Plt Count MPV Immature Gran % (Auto) Neut % (Auto) Lymph % (Auto) [place] % (Auto) Eos % (Auto) Baso % (Auto) Neut # (Auto) Lymph # (Auto) [place] # (Auto) Eos # (Auto) Baso # (Auto) Immature Gran # (Auto) Sodium Potassium Chloride Carbon Dioxide Anion Gap BUN Creatinine Est Cr Clr Drug Dosing Est GFR ( Amer) Est GFR (Non-Af Amer) BUN/Creatinine Ratio Glucose POC Glucose 244 H Estimat Average Glucose Hemoglobin A1c Lactate Calcium Phosphorus Troponin I High Sens 21.9 H Albumin Vitamin B12 Folate Procalcitonin TSH 3.100 Valproic Acid Adenovirus (PCR) B. pertussis DNA (PCR) B.parapertussis DNA PCR C. pneumoniae DNA (PCR) Coronavirus OC43 (PCR) Coronavirus HKU1 (PCR) Coronavirus 229E (PCR) SARS-CoV-2 (PCR) Coronavirus NL63 (PCR) Human Metapneumovir PCR Influenza Type A (PCR) Influenza Type B (PCR) M. pneumoniae (PCR) Parainfluenza 1 (PCR) Parainfluenza 2 (PCR) Parainfluenza 3 (PCR) Parainfluenza 4 (PCR) RSV (PCR) Entero/Rhino (PCR) 09/16/22 09/16/22 09/16/22 16:32 16:32 16:32 WBC RBC Hgb Hct MCV MCH MCHC RDW Std Deviation RDW Coeff of Ana Plt Count MPV Immature Gran % (Auto) Neut % (Auto) Lymph % (Auto) [place] % (Auto) Eos % (Auto) Baso % (Auto) Neut # (Auto) Lymph # (Auto) [place] # (Auto) Eos # (Auto) Baso # (Auto) Immature Gran # (Auto) Sodium 142 Potassium 4.6 Chloride 103 Carbon Dioxide 29 Anion Gap 10 BUN 62 H Creatinine 2.22 H Est Cr Clr Drug Dosing 25.7 Est GFR ( Amer) 24.7 Est GFR (Non-Af Amer) 21.3 BUN/Creatinine Ratio 27.9 H Glucose 194 H POC Glucose Estimat Average Glucose Hemoglobin A1c Lactate 2.4 H* Calcium 8.7 Phosphorus Troponin I High Sens Albumin Vitamin B12 Folate Procalcitonin < 0.05 TSH Valproic Acid Adenovirus (PCR) B. pertussis DNA (PCR) B.parapertussis DNA PCR C. pneumoniae DNA (PCR) Coronavirus OC43 (PCR) Coronavirus HKU1 (PCR) Coronavirus 229E (PCR) SARS-CoV-2 (PCR) Coronavirus NL63 (PCR) Human Metapneumovir PCR Influenza Type A (PCR) Influenza Type B (PCR) M. pneumoniae (PCR) Parainfluenza 1 (PCR) Parainfluenza 2 (PCR) Parainfluenza 3 (PCR) Parainfluenza 4 (PCR) RSV (PCR) Entero/Rhino (PCR) 09/16/22 09/16/22 09/16/22 16:32 16:41 20:05 WBC RBC Hgb Hct MCV MCH MCHC RDW Std Deviation RDW Coeff of Ana Plt Count MPV Immature Gran % (Auto) Neut % (Auto) Lymph % (Auto) [place] % (Auto) Eos % (Auto) Baso % (Auto) Neut # (Auto) Lymph # (Auto) [place] # (Auto) Eos # (Auto) Baso # (Auto) Immature Gran # (Auto) Sodium Potassium Chloride Carbon Dioxide Anion Gap BUN Creatinine Est Cr Clr Drug Dosing Est GFR ( Amer) Est GFR (Non-Af Amer) BUN/Creatinine Ratio Glucose POC Glucose 184 H 179 H Estimat Average Glucose Hemoglobin A1c Lactate Calcium Phosphorus Troponin I High Sens Albumin Vitamin B12 Folate Procalcitonin TSH Valproic Acid 99 Adenovirus (PCR) B. pertussis DNA (PCR) B.parapertussis DNA PCR C. pneumoniae DNA (PCR) Coronavirus OC43 (PCR) Coronavirus HKU1 (PCR) Coronavirus 229E (PCR) SARS-CoV-2 (PCR) Coronavirus NL63 (PCR) Human Metapneumovir PCR Influenza Type A (PCR) Influenza Type B (PCR) M. pneumoniae (PCR) Parainfluenza 1 (PCR) Parainfluenza 2 (PCR) Parainfluenza 3 (PCR) Parainfluenza 4 (PCR) RSV (PCR) Entero/Rhino (PCR) 09/16/22 09/16/22 09/17/22 20:36 21:30 04:04 WBC 3.87 L RBC 2.80 L Hgb 9.1 L Hct 28.3 L MCV 101.1 H MCH 32.5 MCHC 32.2 RDW Std Deviation 56.0 H RDW Coeff of Ana 15.1 H Plt Count 145 MPV 11.4 Immature Gran % (Auto) 0.5 Neut % (Auto) 68.0 Lymph % (Auto) 15.2 Amelia % (Auto) 15.0 Eos % (Auto) 1.0 Baso % (Auto) 0.3 Neut # (Auto) 2.63 Lymph # (Auto) 0.59 L [place] # (Auto) 0.58 Eos # (Auto) 0.04 Baso # (Auto) 0.01 Immature Gran # (Auto) 0.02 Sodium Potassium Chloride Carbon Dioxide Anion Gap BUN Creatinine Est Cr Clr Drug Dosing Est GFR ( Amer) Est GFR (Non-Af Amer) BUN/Creatinine Ratio Glucose POC Glucose Estimat Average Glucose Hemoglobin A1c Lactate Calcium Phosphorus Troponin I High Sens 24.8 H Albumin Vitamin B12 Folate Procalcitonin TSH Valproic Acid Adenovirus (PCR) Not Detected B. pertussis DNA (PCR) Not Detected B.parapertussis DNA PCR Not Detected C. pneumoniae DNA (PCR) Not Detected Coronavirus OC43 (PCR) Not Detected Coronavirus HKU1 (PCR) Not Detected Coronavirus 229E (PCR) Not Detected SARS-CoV-2 (PCR) Not Detected Coronavirus NL63 (PCR) Not Detected Human Metapneumovir PCR Not Detected Influenza Type A (PCR) Not Detected Influenza Type B (PCR) Not Detected M. pneumoniae (PCR) Not Detected Parainfluenza 1 (PCR) Not Detected Parainfluenza 2 (PCR) Not Detected Parainfluenza 3 (PCR) Not Detected Parainfluenza 4 (PCR) Not Detected RSV (PCR) Not Detected Entero/Rhino (PCR) Not Detected 09/17/22 04:04 WBC RBC Hgb Hct MCV MCH MCHC RDW Std Deviation RDW Coeff of Ana Plt Count MPV Immature Gran % (Auto) Neut % (Auto) Lymph % (Auto) Amelia % (Auto) Eos % (Auto) Baso % (Auto) Neut # (Auto) Lymph # (Auto) [place]elia # (Auto) Eos # (Auto) Baso # (Auto) Immature Gran # (Auto) Sodium 141 Potassium 4.5 Chloride 104 Carbon Dioxide 29 Anion Gap 8 BUN 66 H Creatinine 2.46 H Est Cr Clr Drug Dosing 23.2 Est GFR ( Amer) 21.8 Est GFR (Non-Af Amer) 18.8 BUN/Creatinine Ratio 26.8 H Glucose 103 H POC Glucose Estimat Average Glucose Hemoglobin A1c Lactate Calcium 8.4 L Phosphorus 3.5 Troponin I High Sens Albumin 3.4 Vitamin B12 Folate Procalcitonin TSH Valproic Acid Adenovirus (PCR) B. pertussis DNA (PCR) B.parapertussis DNA PCR C. pneumoniae DNA (PCR) Coronavirus OC43 (PCR) Coronavirus HKU1 (PCR) Coronavirus 229E (PCR) SARS-CoV-2 (PCR) Coronavirus NL63 (PCR) Human Metapneumovir PCR Influenza Type A (PCR) Influenza Type B (PCR) M. pneumoniae (PCR) Parainfluenza 1 (PCR) Parainfluenza 2 (PCR) Parainfluenza 3 (PCR) Parainfluenza 4 (PCR) RSV (PCR) Entero/Rhino (PCR) PG Care Time/CCT Total # of Minutes Spent Total Time Spent with Patient: Total time spent is greater than 50% in coordination of care (as documented) at patient's floor/unit and/or counseling patient: Coding Level of Care Code 44078 Subseq Hosp Care Lvl 3 Diagnoses Nausea, vomiting and diarrhea R11.2; R19.7 Pancytopenia D61.818 Chronic systolic CHF (congestive heart failure) I50.22 CKD (chronic kidney disease) stage 4, GFR 15-29 ml/min N18.4 HTN (hypertension), benign I10 DM2 (diabetes mellitus, type 2) E11.9 Seizure disorder G40.909 Hyperlipidemia E78.5 GERD (gastroesophageal reflux disease) K21.9 Hypothyroid E03.9 Gastric peptic ulcer K25.9 CAD (coronary artery disease) I25.10 Depression with anxiety F41.8 DVT prophylaxis Z29.9
[2022-09-16] MEDS: carvediloL 6.25 MG TAB PO SCH (21:50)
[2022-09-16 22:26] LABS: Adenovirus PCR Not Detected (NotDetected); Bordetella parapertussis PCR Not Detected (NotDetected); Bordetella pertussis PCR Not Detected (NotDetected); Chlamydia pneumoniae PCR Not Detected (NotDetected); Coronavirus 229E PCR Not Detected (NotDetected); Coronavirus CoV-2 (COVID19)PCR Not Detected (NotDetected); Coronavirus HKU1 PCR Not Detected (NotDetected); Coronavirus NL63 PCR Not Detected (NotDetected); Coronavirus OC43PCR Not Detected (NotDetected); Human Metapneumovirus PCR Not Detected (NotDetected); Influenza A PCR Not Detected (NotDetected); Influenza B PCR Not Detected (NotDetected); Mycoplasma pneumoniae PCR Not Detected (NotDetected); Parainfluenza Virus 1 PCR Not Detected (NotDetected); Parainfluenza Virus 2 PCR Not Detected (NotDetected); Parainfluenza Virus 3 PCR Not Detected (NotDetected); Parainfluenza Virus 4 PCR Not Detected (NotDetected); Respiratory Syncytial VirusPCR Not Detected (NotDetected); Rhinovirus/Enterovirus PCR Not Detected (NotDetected)
[2022-09-17 04:19] LABS: Basophils # (auto) 0.01 K/uL (0-0.2); Basophils % (auto) 0.3 %; Eosinophils # (auto) 0.04 K/uL (0-0.50); Hematocrit (blood only) 28.3 % (34.1-44.9); Hemoglobin 9.1 g/dl (12.0-16.0); Immature Granulocytes # (auto) 0.02 K/uL (0.00-0.02); Immature Granulocytes % (auto) 0.5 %; Lymphocytes # (auto) 0.59 K/uL (1.2-3.4); Lymphocytes % (auto) 15.2 %; Mean Corpuscular Hemoglobin 32.5 pg (25.0-34.0); Mean Corpuscular Hgb Conc 32.2 g/dL (32.0-36.0); Mean Corpuscular Volume 101.1 fL (80.0-100.0); Mean Platelet Volume 11.4 fL (9.4-12.3); Monocytes # (auto) 0.58 K/uL (0.24-0.82); Neutrophils # (auto) 2.63 K/uL (1.4-6.5); Platelet Count 145 K/uL (130-400); RDW Coefficient of Variation 15.1 % (11.5-14.5); White Blood Count 3.87 K/ul (4.8-10.8)
[2022-09-17 04:42] LABS: Albumin Level 3.4 gm/dl (3.4-5.0); BUN Creatinine Ratio 26.8 (10-20); Calcium 8.4 mg/dl (8.5-10.1); Creatinine Clr Calc Pharmacy 23.2 ml/min; Est GFR (African American) 21.8 ml/min; Est GFR (Non-African American) 18.8 ml/min; Phosphorus 3.5 mg/dl (2.5-4.9); Potassium 4.5 mmol/L (3.5-5.1)
[2022-09-17] MEDS: LEVOTHYROXINE SODIUM 25 MCG TABLET PO SCH (06:19)
[2022-09-17 06:50] LABS: Appearance Urine Turbid (Clear); Bacteria Urine Automated 4+ (Negative); Bilirubin Urine Negative (Negative); Blood Urine Negative (Negative); Cast Urine Automated 0 /lpf (0-5); Color Urine Yellow; Epithelial Cell Urine Auto >30 /lpf (0-5); Glucose Urine UA Negative (Negative); Ketones Urine Negative (Negative); Leukocyte Esterase Urine 3+ (Negative); Nitrite Urine Negative (Negative); Protein Urine 1+ (Negative); RBC Urine Automated 0-4 /hpf (0-4); Specific Gravity Urine 1.015 (1.000-1.030); Urobilinogen Urine Negative (Negative); WBC Urine Automated >30 /hpf (0-5)
[2022-09-17] MEDS: ATORVASTATIN 10 MG TAB PO SCH (08:15)
[2022-09-17] MEDS: hydrALAZINE HCL 25 MG TAB PO SCH ×2 (08:15→20:53)
[2022-09-17] MEDS: carvediloL 6.25 MG TAB PO SCH (08:16)
[2022-09-17] MEDS: CYANOCOBALAMIN (B-12) 500 MCG TABLET PO SCH (08:16)
[2022-09-17] MEDS: FLUoxetine HCL 20 MG CAP PO SCH ×2 (08:16→14:04)
[2022-09-17] MEDS: CLOPIDOGREL BISULFATE 75 MG TAB PO SCH (08:17)
[2022-09-17] MEDS: PROPRANOLOL HCL 10 MG TAB PO SCH ×2 (08:17→20:52)
[2022-09-17] MEDS: MAGNESIUM OXIDE 400 MG TAB PO SCH ×2 (08:17→20:54)
[2022-09-17] MEDS: levETIRAcetam 500 MG TAB PO SCH ×2 (08:18→20:54)
[2022-09-17] MEDS: CALCITRIOL 0.25 MCG CAPSULE PO SCH (08:18)
[2022-09-17] MEDS: PANTOprazole 40 MG TAB PO SCH (08:18)
[2022-09-17] MEDS: ASPIRIN 81 MG ECTAB PO SCH (08:18)
[2022-09-17] MEDS: DIVALPROEX DELAY RELEASE 500 MG TAB PO SCH ×2 (08:19→20:53)
[2022-09-17] MEDS: LANTUS PER UNIT CHARGE SQ SCH ×2 (09:00→21:16)
[2022-09-17] MEDS: INSULIN ASPART PER UNIT SC SCH ×4 (10:02→20:51)
[2022-09-17] MEDS: HEPARIN SOD 5,000 UNIT/0.5 ML VIAL SQ SCH ×2 (10:59→20:54)
[2022-09-17] MEDS ORDERED: SODIUM CHLORIDE 0.9% 500 ML IV SCH (15:45)
[2022-09-17] MEDS: CARBOHYDRATES FOR HYPOGLYCEMIA PO PRN ×2 (17:03→17:22)
--- NOTE | 2022-09-17 20:08 | Hospitalist Progress Note ---
Date of Service September 17, 2022 Assessment & Plan (1) Nausea, vomiting and diarrhea: Plan: Vomiting resolved; nausea, poor appetite, diarrhea persist. RSV/flu/COVID testing negative at admission. [facility] respiratory panel - fully negative. C diff negative. Repeat cxr without discrete pneumonia. ?UTI - will follow culture. Blood cx's negative. Send [facility] stool panel - r/o e.coli, salmonella, etc. Cont PPI. Cont zofran prn. Hold on systemic antibiotics for now. Pt volume contracted on exam today - cont to hold bumex, reduce dose of beta laura, and give 500cc slowly overnight. re-eval tomorrow. diet as tolerated. (2) Pancytopenia: Plan: Uncertain of chronicity. Could be acute due to infectious process. TSH wnl. B12 level low-normal -- supplement B12 1000mcg daily. Folate wnl. Repeat CBC with diff today stable. If the CBC continues to worsen or persists then obtain SPEP, UPEP, peripheral smear, etc. (3) Chronic systolic CHF (congestive heart failure): Plan: Echo obtained at [facility] in [facility] in May 2022 with the following - EF 45-50% multiple wall motion abnormalities grade 2 diastolic dysfunction mod-severe MR mod-severe Will lower coreg to 3.125mg BID as BPs remain normal or low-normal. Hold diuretics - continues to appear volume contracted from #1. Inderal 10mg BID - suspect this is for chronic tremor; unusual to be on 2 beta blockers concurrently. Not on MARINO/ARB/Entresto due to CKD. Cont hydralazine for now. (4) CKD (chronic kidney disease) stage 4, GFR 15-29 ml/min: Plan: Baseline CrCl appears to be 20s. Baseline creatinine low 2's? BMP am for stability. (5) HTN (hypertension), benign: Plan: Controlled. Lower coreg dose again. Cont hydralazine. Hold diuretics. (6) DM2 (diabetes mellitus, type 2): Plan: a1c noted - 8.5% BSGs trended low today thus, cut back lantus to 15 units BID adjust novolog correction & carb ratio coverage (7) Seizure disorder: Plan: Continue divalproex and levetiracetam Checked depakote level -- returned at 99 LFTS wnl (8) Hyperlipidemia: Plan: Continue atorvastatin 10 mg daily (9) GERD (gastroesophageal reflux disease): Plan: Continue pantoprazole (10) Hypothyroid: Plan: Continue levothyroxine 25 mcg daily TSH wnl (11) Gastric peptic ulcer: Plan: h/o cont PPI (12) CAD (coronary artery disease): Plan: s/p CABG x 4 with h/o stents as well no evidence of ischemia mild troponin elevation likely myocardial demand ischemia in setting of illness (13) Depression with anxiety: Plan: Cont fluoxetine BID Cont xanax prn (14) DVT prophylaxis: Plan: low-dose heparin BID Plan no contacts listed in chart to communicate with family I asked permission to contact her son or other family - patient declines such will ask PT/OT to eval patient came from [facility] ([facility]) Admission and Anticipated Discharge Date Admission Date: September 16, 2022 Subjective patient continues to feel poorly fatigued, tired, poor oral intake liquids and solids I saw her mid-afternoon and she had only drank 1 thermos of beverage today continues with nausea, diarrhea (pure liquid) no further vomiting no dyspnea at rest denies abd pain tele overnight wnl Review of Systems Review of Systems: gen - no fevers; fatigue/poor appetite cv - no orthopnea pulm - no cough GI - no blood per rectum - incontinent of urine musculo - still w/ myalgias declines the offer for me to contact her son or other family Physical Exam Physical Exam: gen - sickly appearing, still looks dehydrated, weak-appearing; but awake/alert/oriented eyes - conjunctiva/sclera remain injected b/l but slightly improved mouth - MM still dry neck - no JVD heart - RRR, s1 s2, 2/6 systolic murmur LSB lungs - mild, fine b/l basilar rales; no wheeze; no increased work of breathing abd - soft NT ND BS+ ext - pulses 2+ b/l, trace edema b/l neuro - tremors arms unchanged Results & Data Results & Data ([facility]) Vital Signs (Past 12 Hours) Vital Signs Temp Pulse Pulse Resp BP Pulse Ox O2 Del Method 09/17/22 19:42 36.6 C 63 16 116/55 L 97 Room Air 09/17/22 16:00 36.7 C 62 16 150/77 H 99 Room Air 09/17/22 15:23 63 09/17/22 11:38 37 C 65 16 103/55 L 95 Nasal Cannula 09/17/22 10:53 63 09/17/22 10:46 Nasal Cannula O2 Flow Rate 09/17/22 19:42 09/17/22 16:00 09/17/22 15:23 09/17/22 11:38 1 09/17/22 10:53 09/17/22 10:46 2 Laboratory Results Laboratory Results - last 24 hr 09/16/22 09/16/22 09/17/22 20:36 21:30 04:04 WBC 3.87 L RBC 2.80 L Hgb 9.1 L Hct 28.3 L MCV 101.1 H MCH 32.5 MCHC 32.2 RDW Std Deviation 56.0 H RDW Coeff of Ana 15.1 H Plt Count 145 MPV 11.4 Immature Gran % (Auto) 0.5 Neut % (Auto) 68.0 Lymph % (Auto) 15.2 [place] % (Auto) 15.0 Eos % (Auto) 1.0 Baso % (Auto) 0.3 Neut # (Auto) 2.63 Lymph # (Auto) 0.59 L [place] # (Auto) 0.58 Eos # (Auto) 0.04 Baso # (Auto) 0.01 Immature Gran # (Auto) 0.02 Sodium Potassium Chloride Carbon Dioxide Anion Gap BUN Creatinine Est Cr Clr Drug Dosing Est GFR ( Amer) Est GFR (Non-Af Amer) BUN/Creatinine Ratio Glucose POC Glucose Calcium Phosphorus Troponin I High Sens 24.8 H Albumin Urine Color Urine Appearance Urine pH Ur Specific [place] Urine Protein Urine Glucose (UA) Urine Ketones Urine Blood Urine Nitrite Urine Bilirubin Urine Urobilinogen Ur Leukocyte Esterase Urine WBC (Auto) Urine RBC (Auto) U Hyaline Cast (Auto) U Epithel Cells (Auto) Urine Bacteria (Auto) Stl C. diff Tox B Gene Adenovirus (PCR) Not Detected B. pertussis DNA (PCR) Not Detected B.parapertussis DNA PCR Not Detected C. pneumoniae DNA (PCR) Not Detected Coronavirus OC43 (PCR) Not Detected Coronavirus HKU1 (PCR) Not Detected Coronavirus 229E (PCR) Not Detected SARS-CoV-2 (PCR) Not Detected Coronavirus NL63 (PCR) Not Detected Human Metapneumovir PCR Not Detected Influenza Type A (PCR) Not Detected Influenza Type B (PCR) Not Detected M. pneumoniae (PCR) Not Detected Parainfluenza 1 (PCR) Not Detected Parainfluenza 2 (PCR) Not Detected Parainfluenza 3 (PCR) Not Detected Parainfluenza 4 (PCR) Not Detected RSV (PCR) Not Detected Entero/Rhino (PCR) Not Detected 09/17/22 09/17/22 09/17/22 04:04 06:20 07:38 WBC RBC Hgb Hct MCV MCH MCHC RDW Std Deviation RDW Coeff of Ana Plt Count MPV Immature Gran % (Auto) Neut % (Auto) Lymph % (Auto) [place] % (Auto) Eos % (Auto) Baso % (Auto) Neut # (Auto) Lymph # (Auto) [place] # (Auto) Eos # (Auto) Baso # (Auto) Immature Gran # (Auto) Sodium 141 Potassium 4.5 Chloride 104 Carbon Dioxide 29 Anion Gap 8 BUN 66 H Creatinine 2.46 H Est Cr Clr Drug Dosing 23.2 Est GFR ( Amer) 21.8 Est GFR (Non-Af Amer) 18.8 BUN/Creatinine Ratio 26.8 H Glucose 103 H POC Glucose 103 H Calcium 8.4 L Phosphorus 3.5 Troponin I High Sens Albumin 3.4 Urine Color Yellow Urine Appearance Turbid A Urine pH 5.0 Ur Specific [place] 1.015 Urine Protein 1+ H Urine Glucose (UA) Negative Urine Ketones Negative Urine Blood Negative Urine Nitrite Negative Urine Bilirubin Negative Urine Urobilinogen Negative Ur Leukocyte Esterase 3+ H Urine WBC (Auto) >30 H Urine RBC (Auto) 0-4 U Hyaline Cast (Auto) 0 U Epithel Cells (Auto) >30 H Urine Bacteria (Auto) 4+ H Stl C. diff Tox B Gene Adenovirus (PCR) B. pertussis DNA (PCR) B.parapertussis DNA PCR C. pneumoniae DNA (PCR) Coronavirus OC43 (PCR) Coronavirus HKU1 (PCR) Coronavirus 229E (PCR) SARS-CoV-2 (PCR) Coronavirus NL63 (PCR) Human Metapneumovir PCR Influenza Type A (PCR) Influenza Type B (PCR) M. pneumoniae (PCR) Parainfluenza 1 (PCR) Parainfluenza 2 (PCR) Parainfluenza 3 (PCR) Parainfluenza 4 (PCR) RSV (PCR) Entero/Rhino (PCR) 09/17/22 09/17/22 09/17/22 11:46 12:30 16:57 WBC RBC Hgb Hct MCV MCH MCHC RDW Std Deviation RDW Coeff of Ana Plt Count MPV Immature Gran % (Auto) Neut % (Auto) Lymph % (Auto) [place] % (Auto) Eos % (Auto) Baso % (Auto) Neut # (Auto) Lymph # (Auto) [place] # (Auto) Eos # (Auto) Baso # (Auto) Immature Gran # (Auto) Sodium Potassium Chloride Carbon Dioxide Anion Gap BUN Creatinine Est Cr Clr Drug Dosing Est GFR ( Amer) Est GFR (Non-Af Amer) BUN/Creatinine Ratio Glucose POC Glucose 96 56 L* Calcium Phosphorus Troponin I High Sens Albumin Urine Color Urine Appearance Urine pH Ur Specific [place] Urine Protein Urine Glucose (UA) Urine Ketones Urine Blood Urine Nitrite Urine Bilirubin Urine Urobilinogen Ur Leukocyte Esterase Urine WBC (Auto) Urine RBC (Auto) U Hyaline Cast (Auto) U Epithel Cells (Auto) Urine Bacteria (Auto) Stl C. diff Tox B Gene Negative Cdiff Gene Adenovirus (PCR) B. pertussis DNA (PCR) B.parapertussis DNA PCR C. pneumoniae DNA (PCR) Coronavirus OC43 (PCR) Coronavirus HKU1 (PCR) Coronavirus 229E (PCR) SARS-CoV-2 (PCR) Coronavirus NL63 (PCR) Human Metapneumovir PCR Influenza Type A (PCR) Influenza Type B (PCR) M. pneumoniae (PCR) Parainfluenza 1 (PCR) Parainfluenza 2 (PCR) Parainfluenza 3 (PCR) Parainfluenza 4 (PCR) RSV (PCR) Entero/Rhino (PCR) 09/17/22 09/17/22 09/17/22 17:00 17:18 17:38 WBC RBC Hgb Hct MCV MCH MCHC RDW Std Deviation RDW Coeff of Ana Plt Count MPV Immature Gran % (Auto) Neut % (Auto) Lymph % (Auto) [place] % (Auto) Eos % (Auto) Baso % (Auto) Neut # (Auto) Lymph # (Auto) [place] # (Auto) Eos # (Auto) Baso # (Auto) Immature Gran # (Auto) Sodium Potassium Chloride Carbon Dioxide Anion Gap BUN Creatinine Est Cr Clr Drug Dosing Est GFR ( Amer) Est GFR (Non-Af Amer) BUN/Creatinine Ratio Glucose POC Glucose 53 L* 64 L* 86 Calcium Phosphorus Troponin I High Sens Albumin Urine Color Urine Appearance Urine pH Ur Specific [place] Urine Protein Urine Glucose (UA) Urine Ketones Urine Blood Urine Nitrite Urine Bilirubin Urine Urobilinogen Ur Leukocyte Esterase Urine WBC (Auto) Urine RBC (Auto) U Hyaline Cast (Auto) U Epithel Cells (Auto) Urine Bacteria (Auto) Stl C. diff Tox B Gene Adenovirus (PCR) B. pertussis DNA (PCR) B.parapertussis DNA PCR C. pneumoniae DNA (PCR) Coronavirus OC43 (PCR) Coronavirus HKU1 (PCR) Coronavirus 229E (PCR) SARS-CoV-2 (PCR) Coronavirus NL63 (PCR) Human Metapneumovir PCR Influenza Type A (PCR) Influenza Type B (PCR) M. pneumoniae (PCR) Parainfluenza 1 (PCR) Parainfluenza 2 (PCR) Parainfluenza 3 (PCR) Parainfluenza 4 (PCR) RSV (PCR) Entero/Rhino (PCR) PG Care Time/CCT Total # of Minutes Spent Total Time Spent with Patient: Total time spent is greater than 50% in coordination of care (as documented) at patient's floor/unit and/or counseling patient: Coding Level of Care Code 36936 Subseq Hosp Care Lvl 3 Diagnoses Nausea, vomiting and diarrhea R11.2; R19.7 Pancytopenia D61.818 Chronic systolic CHF (congestive heart failure) I50.22 CKD (chronic kidney disease) stage 4, GFR 15-29 ml/min N18.4 HTN (hypertension), benign I10 DM2 (diabetes mellitus, type 2) E11.9 Seizure disorder G40.909 Hyperlipidemia E78.5 GERD (gastroesophageal reflux disease) K21.9 Hypothyroid E03.9 Gastric peptic ulcer K25.9 CAD (coronary artery disease) I25.10 Depression with anxiety F41.8 DVT prophylaxis Z29.9
[2022-09-17] MEDS: carvediloL 3.125 MG TAB PO SCH (20:52)
[2022-09-18 04:53] LABS: Basophils # (auto) 0.01 K/uL (0-0.2); Basophils % (auto) 0.3 %; Eosinophils % (auto) 2.6 %; Hematocrit (blood only) 28.1 % (34.1-44.9); Hemoglobin 9.1 g/dl (12.0-16.0); Immature Granulocytes # (auto) 0.02 K/uL (0.00-0.02); Immature Granulocytes % (auto) 0.5 %; Lymphocytes # (auto) 0.77 K/uL (1.2-3.4); Lymphocytes % (auto) 20.1 %; Mean Corpuscular Hgb Conc 32.4 g/dL (32.0-36.0); Mean Corpuscular Volume 98.9 fL (80.0-100.0); Mean Platelet Volume 11.1 fL (9.4-12.3); Monocytes # (auto) 0.67 K/uL (0.24-0.82); Monocytes % (auto) 17.5 %; Neutrophils # (auto) 2.26 K/uL (1.4-6.5); Platelet Count 137 K/uL (130-400); RDW Coefficient of Variation 15.1 % (11.5-14.5); Red Blood Count 2.84 M/uL (3.93-5.22); White Blood Count 3.83 K/ul (4.8-10.8)
[2022-09-18 05:15] LABS: Albumin Level 3.2 gm/dl (3.4-5.0); BUN Creatinine Ratio 28.3 (10-20); Calcium 8.4 mg/dl (8.5-10.1); Creatinine Clr Calc Pharmacy 24.9 ml/min; Est GFR (African American) 24.2 ml/min; Est GFR (Non-African American) 20.8 ml/min; Phosphorus 3.8 mg/dl (2.5-4.9); Potassium 3.8 mmol/L (3.5-5.1)
[2022-09-18] MEDS: LEVOTHYROXINE SODIUM 25 MCG TABLET PO SCH (05:29)
[2022-09-18] MEDS: FLUoxetine HCL 20 MG CAP PO SCH ×2 (07:21→13:58)
[2022-09-18] MEDS: hydrALAZINE HCL 25 MG TAB PO SCH ×2 (09:04→21:01)
[2022-09-18] MEDS: LANTUS PER UNIT CHARGE SQ SCH ×2 (09:04→21:04)
[2022-09-18] MEDS: CYANOCOBALAMIN (B-12) 500 MCG TABLET PO SCH (09:05)
[2022-09-18] MEDS: CLOPIDOGREL BISULFATE 75 MG TAB PO SCH (09:05)
[2022-09-18] MEDS: PROPRANOLOL HCL 10 MG TAB PO SCH ×2 (09:06→21:00)
[2022-09-18] MEDS: CALCITRIOL 0.25 MCG CAPSULE PO SCH (09:06)
[2022-09-18] MEDS: valACYclovir HCL 500 MG TABLET PO SCH (09:06)
[2022-09-18] MEDS: MAGNESIUM OXIDE 400 MG TAB PO SCH ×2 (09:07→21:00)
[2022-09-18] MEDS: PANTOprazole 40 MG TAB PO SCH (09:07)
[2022-09-18] MEDS: ATORVASTATIN 10 MG TAB PO SCH (09:07)
[2022-09-18] MEDS: DIVALPROEX DELAY RELEASE 500 MG TAB PO SCH ×2 (09:08→21:01)
[2022-09-18] MEDS: ASPIRIN 81 MG ECTAB PO SCH (09:08)
[2022-09-18] MEDS: levETIRAcetam 500 MG TAB PO SCH ×2 (09:09→21:00)
[2022-09-18] MEDS: HEPARIN SOD 5,000 UNIT/0.5 ML VIAL SQ SCH ×2 (09:09→21:02)
[2022-09-18] MEDS: carvediloL 3.125 MG TAB PO SCH ×2 (09:10→21:01)
[2022-09-18] MEDS: INSULIN ASPART PER UNIT SC SCH ×4 (09:32→20:35)
[2022-09-18] MEDS: ONDANSETRON INJ 2 MG/ML 2 ML VIAL IV PRN (14:57)
[2022-09-19] MEDS: LEVOTHYROXINE SODIUM 25 MCG TABLET PO SCH (05:53)
[2022-09-19 06:12] LABS: Basophils # (auto) 0.01 K/uL (0-0.2); Basophils % (auto) 0.2 %; Eosinophils % (auto) 2.1 %; Hematocrit (blood only) 29.2 % (34.1-44.9); Hemoglobin 9.6 g/dl (12.0-16.0); Immature Granulocytes # (auto) 0.01 K/uL (0.00-0.02); Immature Granulocytes % (auto) 0.2 %; Lymphocytes # (auto) 0.97 K/uL (1.2-3.4); Lymphocytes % (auto) 20.8 %; Mean Corpuscular Hemoglobin 32.3 pg (25.0-34.0); Mean Corpuscular Hgb Conc 32.9 g/dL (32.0-36.0); Mean Corpuscular Volume 98.3 fL (80.0-100.0); Mean Platelet Volume 11.6 fL (9.4-12.3); Monocytes # (auto) 0.89 K/uL (0.24-0.82); Monocytes % (auto) 19.1 %; Neutrophils # (auto) 2.69 K/uL (1.4-6.5); Neutrophils % (auto) 57.6 %; Platelet Count 139 K/uL (130-400); RDW Coefficient of Variation 15.1 % (11.5-14.5); RDW Standard Deviation 54.6 fL (36.4-46.3); Red Blood Count 2.97 M/uL (3.93-5.22); White Blood Count 4.67 K/ul (4.8-10.8)
[2022-09-19 06:40] LABS: BUN Creatinine Ratio 29.9 (10-20); Calcium 8.5 mg/dl (8.5-10.1); Creatinine Clr Calc Pharmacy 26.5 ml/min; Est GFR (African American) 26.2 ml/min; Est GFR (Non-African American) 22.6 ml/min; Potassium 3.9 mmol/L (3.5-5.1)
[2022-09-19 07:18] LABS: Ovalocytes 1+
[2022-09-19] MEDS: INSULIN ASPART PER UNIT SC SCH ×4 (08:58→20:53)
[2022-09-19] MEDS: LANTUS PER UNIT CHARGE SQ SCH ×2 (08:58→21:03)
[2022-09-19] MEDS: DIVALPROEX DELAY RELEASE 500 MG TAB PO SCH ×2 (08:59→20:02)
[2022-09-19] MEDS: hydrALAZINE HCL 25 MG TAB PO SCH ×2 (08:59→20:01)
[2022-09-19] MEDS: MAGNESIUM OXIDE 400 MG TAB PO SCH ×2 (08:59→20:02)
[2022-09-19] MEDS: ASPIRIN 81 MG ECTAB PO SCH (08:59)
[2022-09-19] MEDS: carvediloL 3.125 MG TAB PO SCH ×2 (08:59→20:02)
[2022-09-19] MEDS: levETIRAcetam 500 MG TAB PO SCH ×2 (09:00→20:02)
[2022-09-19] MEDS: FLUoxetine HCL 20 MG CAP PO SCH ×2 (09:00→13:21)
[2022-09-19] MEDS: CALCITRIOL 0.25 MCG CAPSULE PO SCH (09:00)
[2022-09-19] MEDS: PROPRANOLOL HCL 10 MG TAB PO SCH ×2 (09:00→20:02)
[2022-09-19] MEDS: ATORVASTATIN 10 MG TAB PO SCH (09:01)
[2022-09-19] MEDS: CYANOCOBALAMIN (B-12) 500 MCG TABLET PO SCH (09:01)
[2022-09-19] MEDS: CLOPIDOGREL BISULFATE 75 MG TAB PO SCH (09:01)
[2022-09-19] MEDS: PANTOprazole 40 MG TAB PO SCH (09:02)
[2022-09-19] MEDS: HEPARIN SOD 5,000 UNIT/0.5 ML VIAL SQ SCH ×2 (09:02→20:02)
--- NOTE | 2022-09-19 10:37 | Hospitalist Progress Note ---
Date of Service September 18, 2022 Assessment & Plan (1) Nausea, vomiting and diarrhea: Plan: resolved. was likely a viral process. by the time stool biofire was ordered the diarrhea had resolved. RSV/flu/COVID testing negative at admission. Biofire respiratory panel - fully negative. C diff negative. Repeat cxr without discrete pneumonia. urine & blood cx's negative. Cont PPI. Cont zofran prn. NO indication for systemic antibiotics. tolerating diet. supportive care. (2) Pancytopenia: Plan: Uncertain of chronicity. Could be acute due to infectious process. TSH wnl. B12 level low-normal -- supplement B12 1000mcg daily. Folate wnl. Repeat CBC with diff tomorrow am and also obtain formal pathology peripheral smear. Consider SPEP, UPEP. (3) Chronic systolic CHF (congestive heart failure): Plan: Echo obtained at hospital in [facility] in May 2022 with the following - EF 45-50% multiple wall motion abnormalities grade 2 diastolic dysfunction mod-severe MR mod-severe Will lower coreg to 3.125mg BID as BPs remain normal or low-normal. Hold diuretics 1 more day - consider resuming 09/19. Inderal 10mg BID - suspect this is for chronic tremor; unusual to be on 2 beta blockers concurrently. Not on MARINO/ARB/Entresto due to CKD. Cont hydralazine for now. (4) CKD (chronic kidney disease) stage 4, GFR 15-29 ml/min: Plan: Baseline CrCl appears to be 20s. Baseline creatinine low 2's? BMP am for stability. (5) HTN (hypertension), benign: Plan: Controlled. Cont the lower coreg dose again. Cont hydralazine. Hold diuretics until the am. (6) DM2 (diabetes mellitus, type 2): Plan: a1c noted - 8.5% BSGs again low today cut back lantus cut back novolog (7) Seizure disorder: Plan: Continue divalproex and levetiracetam Checked depakote level -- returned at 99 LFTS wnl (8) Hyperlipidemia: Plan: Continue atorvastatin 10 mg daily (9) GERD (gastroesophageal reflux disease): Plan: Continue pantoprazole (10) Hypothyroid: Plan: Continue levothyroxine 25 mcg daily TSH wnl (11) Gastric peptic ulcer: Plan: h/o cont PPI (12) CAD (coronary artery disease): Plan: s/p CABG x 4 with h/o stents as well no evidence of ischemia mild troponin elevation likely myocardial demand ischemia in setting of illness (13) Depression with anxiety: Plan: Cont fluoxetine BID Cont xanax prn (14) DVT prophylaxis: Plan: low-dose heparin BID Plan no contacts listed in chart to communicate with family I asked permission to contact her son or other family - patient declines such will ask PT/OT to eval patient came from [facility] ([facility]) progressing Admission and Anticipated Discharge Date Admission Date: September 16, 2022 Subjective patient feels MUCH better today able to tolerate meals without nausea or emesis diarrhea has stopped fatigue improved minimal dyspnea no fevers or chills no abd pain tele overnight wnl Review of Systems Review of Systems: gen - better energy cv - no orthopnea or pain pulm - no cough GI - no blood per rectum or ongoing diarrhea musculo - myalgias have resolved neuro - chronic R arm tremor at baseline she asks if she can go live in her home in [place] rather than return to [facility] Physical Exam Physical Exam: gen - looks much better today, sitting in chair, pleasant eyes - conjunctiva/sclera injection resolved mouth - MMM neck - no JVD heart - RRR, s1 s2, 2/6 systolic murmur LSB lungs - minimal, fine b/l basilar rales; no wheeze; no increased work of breathing abd - soft NT ND BS+ ext - pulses 2+ b/l, trace edema b/l neuro - tremors R arm at baseline psych - a/o x 3 Results & Data Results & Data ([facility]) Vital Signs (Past 12 Hours) Vital Signs Temp Pulse Pulse Resp BP BP Pulse Ox 09/19/22 08:00 09/19/22 08:03 36.6 C 59 L 18 143/77 H 93 09/19/22 03:33 36.7 C 61 18 149/77 H 93 09/19/22 01:00 09/18/22 23:52 36.8 C 67 18 154/77 H 92 09/18/22 23:00 66 Pulse Ox O2 Del Method O2 Del Method 09/19/22 08:00 Room Air 09/19/22 08:03 Room Air 09/19/22 03:33 Room Air 09/19/22 01:00 91 Room Air 09/18/22 23:52 Room Air 09/18/22 23:00 Laboratory Results Cr 2.2 today urine cx neg blood cx's neg PG Care Time/CCT Total # of Minutes Spent Total Time Spent with Patient: Total time spent is greater than 50% in coordination of care (as documented) at patient's floor/unit and/or counseling patient: Coding Level of Care Code 19668 Subseq Hosp Care Lvl 2 Diagnoses Nausea, vomiting and diarrhea R11.2; R19.7 Pancytopenia D61.818 Chronic systolic CHF (congestive heart failure) I50.22 CKD (chronic kidney disease) stage 4, GFR 15-29 ml/min N18.4 HTN (hypertension), benign I10 DM2 (diabetes mellitus, type 2) E11.9 Seizure disorder G40.909 Hyperlipidemia E78.5 GERD (gastroesophageal reflux disease) K21.9 Hypothyroid E03.9 Gastric peptic ulcer K25.9 CAD (coronary artery disease) I25.10 Depression with anxiety F41.8 DVT prophylaxis Z29.9
--- NOTE | 2022-09-19 19:41 | Hospitalist Progress Note ---
Date of Service September 19, 2022 Assessment & Plan (1) Nausea, vomiting and diarrhea: Plan: resolved. was likely a viral process. by the time stool biofire was ordered the diarrhea had resolved. RSV/flu/COVID testing negative at admission. Biofire respiratory panel - fully negative. C diff negative. Repeat cxr without discrete pneumonia. urine & blood cx's negative. Cont PPI. Cont zofran prn. NO indication for systemic antibiotics. tolerating diet. supportive care. (2) Pancytopenia: Plan: Uncertain of chronicity. Could be acute due to infectious process. TSH wnl. B12 level low-normal -- supplement B12 1000mcg daily. Folate wnl. Peripheral smear completed - no suspicious features of bone marrow problem. Fe studies advised by pathology. If the pancytopenia persists consider SPEP, UPEP. (3) Chronic systolic CHF (congestive heart failure): Plan: Echo obtained at [facility] in [facility] in May 2022 with the following - EF 45-50% multiple wall motion abnormalities grade 2 diastolic dysfunction mod-severe MR mod-severe Have lowered coreg to 3.125mg BID as BPs were low-normal first part of her [facility] stay. Hold diuretics 1 more day - resume tomorrow, 09/20. Inderal 10mg BID - suspect this is for chronic tremor; unusual to be on 2 beta blockers concurrently. Not on MARINO/ARB/Entresto due to CKD. Cont hydralazine for now. (4) CKD (chronic kidney disease) stage 4, GFR 15-29 ml/min: Plan: Baseline CrCl appears to be 20s. Baseline creatinine low 2's? BMP am for stability. (5) HTN (hypertension), benign: Plan: Controlled. Cont the lower coreg dose again. Cont hydralazine. Hold diuretics until the am. Likely we will need to increase the coreg dose soon back to outpatient dosing. (6) DM2 (diabetes mellitus, type 2): Plan: a1c noted - 8.5% BSGs again low or low-normal tdaoy cut back lantus again cut back novolog again (7) Seizure disorder: Plan: Continue divalproex and levetiracetam Checked depakote level -- returned at 99 Is depakote contributing to fatigue?? Consider mild dose adjustment downward if fatigue persists LFTS wnl (8) Hyperlipidemia: Plan: Continue atorvastatin 10 mg daily (9) GERD (gastroesophageal reflux disease): Plan: Continue pantoprazole (10) Hypothyroid: Plan: Continue levothyroxine 25 mcg daily TSH wnl (11) Gastric peptic ulcer: Plan: h/o cont PPI (12) CAD (coronary artery disease): Plan: s/p CABG x 4 with h/o stents as well no evidence of ischemia mild troponin elevation likely was myocardial demand ischemia in setting of il lness (13) Depression with anxiety: Plan: Cont fluoxetine BID Cont xanax prn patient voicing depression - would benefit from outpatient counseling (has very poor support from family, etc) consider psychiatry consult for med management (14) DVT prophylaxis: Plan: low-dose heparin BID Plan attempted to contact Selena Tasia - a friend of Ms Brandon Taylor gave permission yesterday for us to contact Ms Dozier phone - [phone] left message on her voicemail 09/19/22 PM dispo - PT/OT report she can return to [facility] tomorrow ? Admission and Anticipated Discharge Date Admission Date: September 16, 2022 Subjective patient continues to feel better tired & fatigued but no further nausea, emesis or diarrhea no abd pain she again voices she wants to "go home" she previously lived in [place] alone in a house sometime early in 2021 her son - who lives in [facility] - asked her to move to [place] she did so but only stayed a few months she has been estranged from her son since coming back to [facility] upon return to [facility] she has been living at [facility] she doesn't like [facility] - wants to live indepently again she voices depression Review of Systems Review of Systems: gen - no fevers or chills cv - no orthopnea pulm - no dyspnea GI - no further diarrhea - no voiding symptoms Physical Exam Physical Exam: gen - laying in bed flat comfortably without dyspnea; looks tired, but NAD, and a/o x 3 eyes - conjunctiva/sclera injection resolved mouth - MMM neck - no JVD heart - RRR, s1 s2, 2/6 systolic murmur lungs - minimal, fine b/l basilar rales; no wheeze; no increased work of breathing abd - protuberan but soft NT ND BS+ ext - pulses 2+ b/l, no edema neuro - tremors R arm psych - a/o x 3, restricted affect Results & Data Results & Data ([facility]) Vital Signs (Past 12 Hours) Vital Signs Temp Pulse Resp BP Pulse Ox O2 Del Method 09/19/22 16:34 36.6 C 62 18 133/67 91 Room Air 09/19/22 12:40 36.7 C 61 17 131/73 93 Room Air 09/19/22 08:00 Room Air 09/19/22 08:03 36.6 C 59 L 18 143/77 H 93 Room Air Laboratory Results Laboratory Results - last 24 hr 09/18/22 09/19/22 09/19/22 20:16 05:39 05:39 WBC 4.67 L RBC 2.97 L Hgb 9.6 L Hct 29.2 L MCV 98.3 MCH 32.3 MCHC 32.9 RDW Std Deviation 54.6 H RDW Coeff of Ana 15.1 H Plt Count 139 MPV 11.6 Immature Gran % (Auto) 0.2 Neut % (Auto) 57.6 Lymph % (Auto) 20.8 Fisher % (Auto) 19.1 Eos % (Auto) 2.1 Baso % (Auto) 0.2 Neut # (Auto) 2.69 Lymph # (Auto) 0.97 L Fisher # (Auto) 0.89 H Eos # (Auto) 0.10 Baso # (Auto) 0.01 Immature Gran # (Auto) 0.01 Ovalocytes 1+ Peripher Smr Path Cons Sodium 139 Potassium 3.9 Chloride 104 Carbon Dioxide 28 Anion Gap 7 BUN 63 H Creatinine 2.11 H Est Cr Clr Drug Dosing 26.5 Est GFR ( Amer) 26.2 Est GFR (Non-Af Amer) 22.6 BUN/Creatinine Ratio 29.9 H Glucose 69 L POC Glucose 106 H Calcium 8.5 09/19/22 09/19/22 09/19/22 07:38 11:53 16:26 WBC RBC Hgb Hct MCV MCH MCHC RDW Std Deviation RDW Coeff of Ana Plt Count MPV Immature Gran % (Auto) Neut % (Auto) Lymph % (Auto) Fisher % (Auto) Eos % (Auto) Baso % (Auto) Neut # (Auto) Lymph # (Auto) Fisher # (Auto) Eos # (Auto) Baso # (Auto) Immature Gran # (Auto) Ovalocytes Peripher Smr Path Cons Sodium Potassium Chloride Carbon Dioxide Anion Gap BUN Creatinine Est Cr Clr Drug Dosing Est GFR ( Amer) Est GFR (Non-Af Amer) BUN/Creatinine Ratio Glucose POC Glucose 74 103 H 84 Calcium PG Care Time/CCT Total # of Minutes Spent Total Time Spent with Patient: Total time spent is greater than 50% in coordination of care (as documented) at patient's floor/unit and/or counseling patient: Coding Level of Care Code 51117 Subseq Hosp Care Lvl 2 Diagnoses Nausea, vomiting and diarrhea R11.2; R19.7 Pancytopenia D61.818 Chronic systolic CHF (congestive heart failure) I50.22 CKD (chronic kidney disease) stage 4, GFR 15-29 ml/min N18.4 HTN (hypertension), benign I10 DM2 (diabetes mellitus, type 2) E11.9 Seizure disorder G40.909 Hyperlipidemia E78.5 GERD (gastroesophageal reflux disease) K21.9 Hypothyroid E03.9 Gastric peptic ulcer K25.9 CAD (coronary artery disease) I25.10 Depression with anxiety F41.8 DVT prophylaxis Z29.9
[2022-09-19] MEDS ORDERED: LANTUS PER UNIT CHARGE SQ SCH (21:00)
[2022-09-20] MEDS: LEVOTHYROXINE SODIUM 25 MCG TABLET PO SCH (05:50)
[2022-09-20 06:27] LABS: BUN Creatinine Ratio 26.4 (10-20); Calcium 8.2 mg/dl (8.5-10.1); Creatinine Clr Calc Pharmacy 26.9 ml/min; Est GFR (African American) 26.7 ml/min
[2022-09-20 06:42] LABS: Ferritin 49.1 ng/ml (8-388)
[2022-09-20] MEDS: carvediloL 3.125 MG TAB PO SCH (09:18)
[2022-09-20] MEDS: DIVALPROEX DELAY RELEASE 500 MG TAB PO SCH (09:19)
[2022-09-20] MEDS: MAGNESIUM OXIDE 400 MG TAB PO SCH (09:19)
[2022-09-20] MEDS: valACYclovir HCL 500 MG TABLET PO SCH (09:19)
[2022-09-20] MEDS: levETIRAcetam 500 MG TAB PO SCH (09:19)
[2022-09-20] MEDS: FLUoxetine HCL 20 MG CAP PO SCH ×2 (09:20→13:50)
[2022-09-20] MEDS: ASPIRIN 81 MG ECTAB PO SCH (09:21)
[2022-09-20] MEDS: ATORVASTATIN 10 MG TAB PO SCH (09:21)
[2022-09-20] MEDS: PANTOprazole 40 MG TAB PO SCH (09:21)
[2022-09-20] MEDS: CALCITRIOL 0.25 MCG CAPSULE PO SCH (09:21)
[2022-09-20] MEDS: CLOPIDOGREL BISULFATE 75 MG TAB PO SCH (09:21)
[2022-09-20] MEDS: PROPRANOLOL HCL 10 MG TAB PO SCH (09:21)
[2022-09-20] MEDS: hydrALAZINE HCL 25 MG TAB PO SCH (09:21)
[2022-09-20] MEDS: HEPARIN SOD 5,000 UNIT/0.5 ML VIAL SQ SCH ×2 (09:22→09:43)
[2022-09-20] MEDS: CYANOCOBALAMIN (B-12) 500 MCG TABLET PO SCH (09:22)
[2022-09-20] MEDS: INSULIN ASPART PER UNIT SC SCH ×2 (09:32→13:50)
[2022-09-20] MEDS: LANTUS PER UNIT CHARGE SQ SCH (09:35)
--- NOTE | 2022-09-20 13:56 | Discharge Summary ---
Date of Service September 20, 2022 Admission HPI Per Admitting Provider The patient is a 72-year-old female with a past medical history including right toe amputation, seizure disorder, hypothyroidism, hypertension, hyperlipidemia, gout, GERD, gastric peptic ulcer, diabetes mellitus, status post CABG x4, CAD, CHF, CKD, bleeding disorder and depression with anxiety. The patient presents to the emergency department as noted above, which she reports symptoms are consistent with previous episodes of CHF. She has been on Bumex and has been taking it as directed. She denies any change in recent dietary habits or activity patterns. Principal Diagnosis Viral gastroenteritis Discharge Exam gen - laying in bed flat comfortably without dyspnea; NAD, and a/o x 3 eyes - conjunctiva/sclera injection resolved heart - RRR, s1 s2, 2/6 systolic murmur lungs -CTAB, unlabored breathing abd - protuberan but soft NT ND BS+ ext - pulses 2+ b/l, no edema neuro - tremors R arm and face psych - a/o x 3, restricted affect Discharge Data Allergies Allergy/AdvReac Type Severity Reaction Status Date / Time MARINO Inhibitors Allergy Mild Unknown Verified 09/15/22 21:37 Interferons Allergy Mild Unknown Verified 09/15/22 21:37 Penicillins Allergy Mild Unknown Verified 09/15/22 21:37 Consultations 09/15/22 23:17 ED Decision to Admit Stat Hospital Course (1) Nausea, vomiting and diarrhea: resolved. was likely a viral process. by the time stool biofire was ordered the diarrhea had resolved. RSV/flu/COVID testing negative at admission. Biofire respiratory panel - fully negative. C diff negative. Repeat cxr without discrete pneumonia. urine & blood cx's negative. Cont PPI. Cont zofran prn. NO indication for systemic antibiotics. tolerating diet. held diuretics but can now resume on discharge (2) Pancytopenia: Uncertain of chronicity. Could be acute due to infectious process. Consistent with anemia of chronic kidney disease TSH wnl. B12 level low-normal -- supplement B12 1000mcg daily. Folate wnl. Peripheral smear completed - no suspicious features of bone marrow problem. Fe studies advised by pathology. With transferrin sat 13%--> add on FeSO4 325mmg po once daily If the pancytopenia persists consider SPEP, UPEP as na outpt f/u with PCP (3) Chronic systolic CHF (congestive heart failure): Echo obtained at hospital in [facility] in May 2022 with the following - EF 45-50% multiple wall motion abnormalities grade 2 diastolic dysfunction mod-severe MR mod-severe Initially lowered coreg to 3.125mg BID as BPs were low-normal first part of her hospital stay. Ok to resume usual dose on discharge Held diuretics but can now restart Inderal 10mg BID - suspect this is for chronic tremor; unusual to be on 2 beta blockers concurrently. Not on MARINO/ARB/Entresto due to CKD. Cont hydralazine (4) CKD (chronic kidney disease) stage 4, GFR 15-29 ml/min: Baseline CrCl appears to be 20s. Baseline creatinine low 2's? At [facility] ok to resume Bumex (5) HTN (hypertension), benign: Controlled. Cont coreg dose Cont hydralazine. -restart Bumex (6) DM2 (diabetes mellitus, type 2): a1c noted - 8.5% had low glucose here and Lantus lowered With high A1C 8.2%--> restart usual doses of insulin on discharge as she is now eating normally again (7) Seizure disorder: Continue divalproex and levetiracetam Checked depakote level -- returned at 99 Is depakote contributing to fatigue?? Consider mild dose adjustment downward if fatigue persists LFTS wnl (8) Hyperlipidemia: Continue atorvastatin 10 mg daily (9) GERD (gastroesophageal reflux disease): Continue pantoprazole (10) Hypothyroid: Continue levothyroxine 25 mcg daily TSH wnl (11) Gastric peptic ulcer: h/o cont PPI (12) CAD (coronary artery disease): s/p CABG x 4 with h/o stents as well no evidence of ischemia mild troponin elevation likely was myocardial demand ischemia in setting of illness (13) Depression with anxiety: Cont fluoxetine BID Cont xanax prn patient voicing depression - would benefit from outpatient counseling (has very poor support from family, etc) consider psychiatry consult for med management as an outpt (14) DVT prophylaxis: low-dose heparin BID Plan dispo - PT/OT report she can return to [facility]-discharge today Total Time Total Time Spent Total Time Spent (In Minutes): 35 min Discharge Plan Discharge Items Patient Disposition: Personal Long Term Reason For Visit: CHF EX Discharge Diagnosis: Viral gastroenteritis Iron deficiency anemia Activity: Resume your previous activity Non-emergency contact: Primary Care Provider Call non-emergency contact if: you have any medication questions and your symptoms worsen Follow-up/Referrals: Taylor Sigala [Primary Care Provider] - (Follow up within 1 week.) Diet: Carb Consistent or DM2 and Low Sodium (2gm) Addtl Attending Provider Instructions: You were admitted with a likely viral gastroenteritis with nausea/vomiting, and diarrhea. This improved. Your medications will remain the same on discharge. You should talk to your doctor about improved treatment of your depression and the possibility of seeing a therapist. Pending Studies at Discharge: Yes (Final blood cultures-no growth to date) Stand-Alone Forms: My [facility] Skilled Items Patient informed of condition?: Yes DNR: No Discharge Level of Care: Other Communicable Disease: No Discharge Prognosis: Improving Lines: None Urinary Catheter: No Medications and DC Order Prescriptions: New cyanocobalamin (vitamin B-12) 1,000 mcg capsule 1,000 mcg PO DAILY Qty: 30 0RF ferrous sulfate 325 mg (65 mg iron) tablet 325 mg PO DAILY Qty: 30 0RF Continued (DME) lancets [OneTouch Delica Lancets] 33 gauge misc See Rx Instructions .Route Qty: 100 5RF Rx Instructions: Test 3 times a day with meals and PRN up to 3 times E11.9 (DME) pen needle, diabetic [BD Ultra-Fine Micro Pen Needle] 32 gauge x 1/4" needle See Rx Instructions .Route Qty: 100 5RF Rx Instructions: 5 times a day E11.9 (DME) OneTouch Verio test strips Strip See Rx Instructions .Route Qty: 100 5RF Rx Instructions: Test 3 times a day with meals and PRN with a max of 3 times- E11.9 biotin 5 mg tablet 5 mg PO DAILY Qty: 30 0RF Mucinex Fast-Max DM Max 5-100 mg/5 mL liquid 10 ml PO Q6H PRN (Reason: cough) Qty: 180 0RF alprazolam 0.25 mg tablet 0.25 mg PO DAILY PRN (Reason: anxiety) Qty: 30 0RF propranolol 10 mg tablet 10 mg PO BID Qty: 60 2RF aspirin [Adult Aspirin Regimen] 81 mg tablet,delayed release (DR/EC) 81 mg PO DAILY atorvastatin 10 mg tablet 10 mg PO DAILY insulin glargine [Basaglar KwikPen U-100 Insulin] 100 unit/mL (3 mL) insulin pen 20 unit subcut BID calcitriol 0.25 mcg capsule 0.25 mcg PO DAILY carvedilol 12.5 mg tablet 12.5 mg PO BID Rx Instructions: must administer with a meal/food clopidogrel 75 mg tablet 75 mg PO DAILY divalproex 500 mg tablet,delayed release (DR/EC) 1,000 mg PO BID fluoxetine 40 mg capsule 40 mg PO BID Rx Instructions: administer in the morning and at noon/midday insulin lispro [Humalog KwikPen Insulin] 100 unit/mL insulin pen 3 unit subcut TIDM hydralazine 50 mg tablet 75 mg PO BID Rx Instructions: 1 & 1/2 tablet dose levetiracetam 1,000 mg tablet 1,000 mg PO BID levothyroxine 25 mcg capsule 25 mcg PO DAILY omega [id number] oil [Fish Oil] 1,000 mg (120 mg-180 mg) capsule 2 cap PO DAILY pantoprazole 40 mg tablet,delayed release (DR/EC) 40 mg PO DAILY valacyclovir 500 mg tablet 500 mg PO DAILY bumetanide 2 mg tablet 2 mg PO BID magnesium oxide 400 mg magnesium Tablet 400 mg PO BID bumetanide 1 mg Tablet 12 mg PO DAILY PRN (Reason: wt gain 5LBS or more over 3 days) Discharge Orders: Discharge Order (Routine); Ordered 09/20/22 Ordered By: Nika Flores/Other Patient Handouts: High Blood Sugar (Hyperglycemia), Managing Type 2 Diabetes Admission Data Admit Date/Time: 09/16/22 00:00 Attending Provider: Nika Santiago Admit Provider: Mike Cisneros Primary Care Provider: Taylor Sigala Other Providers: Mike Cisneros Coding Level of Care Code D/C DAY MANAGEMENT >30 MINS Diagnoses Nausea, vomiting and diarrhea R11.2; R19.7 Pancytopenia D61.818 Chronic systolic CHF (congestive heart failure) I50.22 CKD (chronic kidney disease) stage 4, GFR 15-29 ml/min N18.4 HTN (hypertension), benign I10 DM2 (diabetes mellitus, type 2) E11.9 Seizure disorder G40.909 Hyperlipidemia E78.5 GERD (gastroesophageal reflux disease) K21.9 Hypothyroid E03.9 Gastric peptic ulcer K25.9 CAD (coronary artery disease) I25.10 Depression with anxiety F41.8 DVT prophylaxis Z29.9
[2022-09-20] MEDS ORDERED: BUMETANIDE 1 MG TAB PO STA (15:06)
== END 2022-09-20 15:50 | disposition home or self-care (01) | DRG 392 ==
LOC: ED 20:15 → 4W 09-16 → SUATTDRO 09-16 → 4W 09-16 00:36

== ENCOUNTER 2022-12-29 17:25 | Inpatient (IN) ==
--- NOTE | 2022-12-29 17:52 | Emergency Department Note ---
Impression & Plan Depression, Elevated troponin I level, Abnormal EKG, Urinary tract infection ED Provider Note NAME: MARTHA RODRIGUES AGE: 72 SEX: F : 1950 ARRIVES VIA: Ambulance INFORMANT: Patient, ED PROVIDER(S): Nadir Stearns DO CHIEF COMPLAINT: Mental health evaluation HPI: The patient is a 72-year-old female who presented to the emergency depart ment by ambulance from her personal group home. The patient has been having problems with depression. She is mostly depressed because of her underlying medical conditions. It sounds though she has not been able to eat properly. She has decreased p.o. intake. She is also had problems sleeping. She was evaluated by the nursing staff and sent to the emergency department for further evaluation. The patient has no history of previous mental health admissions. She states that she has been compliant with her outpatient medications which include medication for a history of seizure disorder hypothyroidism hypertension diabetes as well as heart failure in the past. She has had a history of bypass. She denies any acute issues with her chronic conditions at this time. She denies having any chest pain. She denies having any shortness of breath. She denies having any headache or weakness. ROS: See above HPI for pertinent positives & negatives. A total of 10 systems reviewed and were otherwise negative. PAST MEDICAL HISTORY: See Below PAST SURGICAL HISTORY: See Below FAMILY HISTORY: See Below SOCIAL HISTORY: See Below HOME MEDICATIONS: See Below ALLERGIES: See Below VITALS: See Below PHYSICAL EXAMINATION: GENERAL: The patient is awake and alert. She is somewhat listless appearing. She is not anxious. EYES: The conjunctivae are clear. The pupils are round and reactive. EARS, NOSE, MOUTH AND THROAT: The nose is without any evidence of any deformity. NECK: The neck is nontender and supple. RESPIRATORY: Normal respiratory effort is noted there is no evidence of wheezing rhonchi or rales CARDIOVASCULAR: Regular rate and rhythm noted there no murmurs rubs or gallops normal S1 normal S2. GASTROINTESTINAL: The abdomen is soft. Abdomen is nontender. MUSCULOSKELETAL/EXTREMITIES: There is no evidence of gross deformity full range of motion is noted in the hips and shoulders. SKIN: There is no obvious evidence of any rash. There are no petechiae, pallor or cyanosis noted. NEUROLOGIC: Patient is awake alert and oriented x3 PSYCH: The patient makes poor eye contact at times. Her affect is very flat. She is currently denying any suicidal homicidal ideation. MEDICAL DECISION MAKING: The patient is a 72-year-old female who presented to the emergency department for an evaluation of mental health issues. The patient resides in a personal group home. She is been having worsening depression symptoms especially over the course of the last few days. She has had decreased p.o. intake. She was sent to the emergency department for further evaluation medical clearance. The patient was not able to be medically cleared in the emergency department. She appears to have an elevation in her troponin. She does have ischemic changes on her EKG but these appear old. I discussed patient's laboratory and radiographic studies with her. She was also treated with an antibiotic for presumed urinary tract infection noted on urinalysis. I discussed her condition with the on-call [facility] hospitalist group. They have agreed to evaluate the patient in the emergency department for further management and disposition. Triage Nursing notes reviewed. Prior medical records reviewed Vital Signs: reviewed and remarkable for elevated blood pressure. Differential diagnosis: Mood disorder, infection, hypoglycemia, electrolyte abnormalities, cardiac sources, intracerebral event, toxicologic, trauma, neurologic, as well as other pathologies. ER treatment provided: See below Diagnostics interpreted by me: ECG: EKG was obtained in the emergency department. My interpretation is normal sinus rhythm at 72 bpm. Right bundle branch block pattern was favored. Diffuse ST segment depressions were noted. This was compared to a tracing from September 15, 2022. There was some increase in the ST abnormalities otherwise no significant changes were noted. Cardiac Monitoring: An order was placed for continuous cardiac monitoring. The monitor shows a rate of 72 bpm with sinus rhythm. Laboratory studies: As stated above and show below. Imaging studies: See below. Radiographic imaging was reviewed by myself Consultation(s): I discussed this case with Dr Little ED COURSE: The patient was evaluated with the mental health case managers. The patient had a medical clearance ordered as she would like to evaluate the possibility of inpatient treatment. There was recommendation that a CAT scan of the head be ordered given the possibility she may require inpatient geropsych treatment. Past Med/Surg History Medical History Amputated toe of right foot 2020 Anemia B12 deficiency Bleeding disorder CAD (coronary artery disease) Rogkmml-Klvvf-Cuqja syndrome CHF (congestive heart failure) Depression with anxiety DM2 (diabetes mellitus, type 2) Gastric peptic ulcer GERD (gastroesophageal reflux disease) GI bleed Gout HTN (hypertension), benign Hx of hepatitis C Hyperlipidemia Hypothyroid Iron deficiency anemia Lives in senior facility [facility] Seizure disorder first seizure spring 2020 Stage 4 chronic kidney disease Tremor Surgical History H/O: section 1981 Hx of tonsillectomy S/P CABG x 4 Stented coronary artery Family History Brother Diabetes Hypertension Father Hypertension Mother Lung disease Denies family history of Breast cancer Colorectal cancer Social History Smoking Status: Former smoker Hx Alcohol Use: No Hx Substance Use: No Preferred Language: Armenian Communication Ability: Effective Channeler Required: No Beliefs That Will Affect Care: None marital status: Current Living Situation: Personal Care Facility Current Living Situation Comment: [facility] current occupational status: retired Feels Safe at Home: Yes Dental Care, Regularly: Yes Physical Activity Frequency: Does not Exercise Seatbelt Use: always Assistive Devices: Walker Allergies Allergies Allergy/AdvReac Type Severity Reaction Status Date / Time MARINO Inhibitors Allergy Mild Unknown Verified 12/05/22 09:39 Interferons Allergy Mild Unknown Verified 12/05/22 09:39 Penicillins Allergy Mild Unknown Verified 12/05/22 09:39 Home Meds Home Medications Medication Instructions Recorded Confirmed aspirin 81 mg tablet,delayed 81 mg PO 1600 07/05/22 12/05/22 release (Adult Aspirin Regimen) insulin glargine 100 unit/mL (3 20 unit subcut BID 07/05/22 12/05/22 mL) subcutaneous pen (Basaglar KwikPen U-100 Insulin) insulin lispro 100 unit/mL 3 unit subcut TIDM 07/05/22 12/05/22 subcutaneous pen (Humalog KwikPen (U-100) Insulin) omega 2-rww-utw-fish oil 1,000 mg 2 cap PO DAILY 07/05/22 12/29/22 (120 mg-180 mg) capsule (Fish Oil) magnesium oxide 400 mg PO BID 09/15/22 12/29/22 bumetanide 1 mg tablet 2 mg PO DAILY PRN wt gain 5LBS or 11/09/22 12/29/22 more over 3 days Previous Rx's Medication Instructions Recorded lancets 33 gauge (OneTouch Delica #100 ea 07/06/22 Lancets) blood sugar diagnostic (OneTouch #100 ea 07/19/22 Verio test strips) biotin 5 mg tablet 5 mg PO DAILY #30 tabs 07/29/22 dextromethorphan-guaifenesin 5 10 ml PO Q6H PRN cough #180 mL 08/24/22 mg-100 mg/5 mL oral liquid (Mucinex Fast-Max DM Max) alprazolam 0.25 mg tablet 0.25 mg PO DAILY PRN anxiety #30 08/25/22 tabs cyanocobalamin (vitamin B-12) 1,000 mcg PO DAILY #30 caps 09/20/22 1,000 mcg capsule triamcinolone acetonide 0.1 % 1 applic topical BID PRN rash #15 09/26/22 topical cream grams ferrous sulfate 325 mg (65 mg 325 mg PO DAILY #30 tabs 10/21/22 iron) tablet carbidopa 25 mg-levodopa 100 mg 0.5 tab PO TID #90 tabs 11/09/22 tablet divalproex 500 mg tablet,extended 500 mg PO BID #60 tabs 11/09/22 release 24 hr levetiracetam 1,000 mg tablet 1,000 mg PO BID #60 tabs 11/09/22 acetaminophen 500 mg tablet 500 mg PO QID PRN pain #90 tabs 11/23/22 (Tylenol Extra Strength) atorvastatin 10 mg tablet 10 mg PO DAILY #90 tabs 11/28/22 bumetanide 2 mg tablet 2 mg PO BID #180 tabs 11/28/22 calcitriol 0.25 mcg capsule 0.25 mcg PO DAILY #90 caps 11/28/22 carvedilol 12.5 mg tablet 12.5 mg PO BID #180 tabs 11/28/22 clopidogrel 75 mg tablet 75 mg PO DAILY #90 tabs 11/28/22 hydralazine 50 mg tablet 75 mg PO BID #135 tabs 11/28/22 levothyroxine 25 mcg capsule 25 mcg PO DAILY #90 caps 11/28/22 propranolol 10 mg tablet 10 mg PO BID #60 tabs 11/28/22 valacyclovir 500 mg tablet 500 mg PO DAILY #30 tabs 11/28/22 escitalopram oxalate 10 mg tablet 10 mg PO DAILY #30 tabs 12/06/22 (Lexapro) pantoprazole 40 mg tablet,delayed 40 mg PO DAILY #90 tabs 12/21/22 release pen needle, diabetic 32 gauge x #100 ea 12/28/2211/09" (BD Ultra-Fine Micro Pen Needle) Results & Data (ED) Vital Signs Vital Signs - 24 hr 12/29/22 17:30 12/29/22 20:10 12/29/22 20:49 Temperature 36.5 C 37.0 C Temperature Source Oral Oral Pulse Rate 76 Pulse Rate [Right Finger] 72 Pulse Rhythm [Right Finger] Regular Pulse Strength [Right Finger] Normal Respiratory Rate 16 20 Respiratory Effort / Characteristics Non-Labored Respiratory Depth Normal Respiratory Pattern Regular Blood Pressure 154/76 H Blood Pressure [Right Arm] 211/98 H 197/80 H Blood Pressure Mean 102 Blood Pressure Mean [Right Arm] 135 119 Blood Pressure Position Lying Blood Pressure Position [Right Arm] Lying Pulse Oximetry 99 96 Oxygen Delivery Method Room Air Room Air Sepsis Recent Fever Within 48 Hours No Sepsis New/Unexplained Change in Mental Status No Sepsis Action Taken by Nursing No Action Required Home Medications Current Medication List: was personally reviewed by me Laboratory Data Attestation: I reviewed the patient's lab results. 12/29/22 17:44 12/29/22 17:44 Lab Results 12/29/22 12/29/22 12/29/22 Range/Units 17:44 17:44 17:44 WBC 4.52 L (4.8-10.8) K/ul RBC 2.84 L (4.20-5.40) M/uL Hgb 9.8 L (12.0-16.0) g/dl Hct 29.5 L (37.0-47.0) % MCV 103.9 H (80.0-100.0) fL MCH 34.5 H (25.0-34.0) pg MCHC 33.2 (32.0-36.0) g/dL RDW Std Deviation 58.8 H (36.4-46.3) fL RDW Coeff of Ana 15.8 H (11.5-14.5) % Plt Count 171 (130-400) K/uL MPV 11.5 (9.4-12.4) fL Immature Gran % (Auto) 0.7 % Neut % (Auto) 67.6 % Lymph % (Auto) 18.4 % [place] % (Auto) 11.1 % Eos % (Auto) 1.8 % Baso % (Auto) 0.4 % Neut # (Auto) 3.06 (1.40-6.50) K/uL Lymph # (Auto) 0.83 L (1.2-3.4) K/uL Brewster # (Auto) 0.50 (0.11-0.59) K/uL Eos # (Auto) 0.08 (0-0.50) K/uL Baso # (Auto) 0.02 (0-0.2) K/uL Immature Gran # (Auto) 0.03 (0.01-0.20) K/uL Absolute Nucleated RBC 0.02 (0-0.12) K/uL Nucleated RBC % (auto) 0.4 % PT 10.8 (9.0-12.0) Seconds INR 1.0 (0.9-1.1) APTT 21.9 (21.0-31.0) Seconds PTT Ratio 0.8 Sodium 141 (136-145) mmol/L Potassium 4.6 (3.5-5.1) mmol/L Chloride 97 L (98-107) mmol/L Carbon Dioxide 37 H (21-32) mmol/L Anion Gap 7 (3-11) BUN 53 H (6-23) mg/dl Creatinine 2.16 H (0.6-1.2) mg/dl Est Cr Clr Drug Dosing 25.7 ml/min Est GFR ( Amer) 25.5 ml/min Est GFR (Non-Af Amer) 22.0 ml/min BUN/Creatinine Ratio 24.5 H (10-20) Glucose 233 H (70-99(Fasting)) mg/dl Calcium 9.7 (8.5-10.1) mg/dl Total Bilirubin 0.3 (0.2-1.0) mg/dl AST 11 L (13-39) U/L ALT 5 L (7-52) U/L Alkaline Phosphatase 48 (34-104) U/L Troponin I High Sens 158.0 H* (0-14) pg/ml Total Protein 7.0 (6.0-8.3) gm/dl Albumin 4.0 (3.4-5.0) gm/dl Globulin 3.0 (2.5-4.0) gm/dl Albumin/Globulin Ratio 1.3 (0.9-2) TSH (0.300-4.500) uIu/ml Urine Color Urine Appearance (Clear) Urine pH (4.5-7.5) Ur Specific [place] (1.000-1.030) Urine Protein (Negative) Urine Glucose (UA) (Negative) Urine Ketones (Negative) Urine Blood (Negative) Urine Nitrite (Negative) Urine Bilirubin (Negative) Urine Urobilinogen (Negative) Ur Leukocyte Esterase (Negative) Urine WBC (Auto) (0-5) /hpf Urine RBC (Auto) (0-4) /hpf U Hyaline Cast (Auto) (0-5) /lpf U Epithel Cells (Auto) (0-5) /lpf Urine Bacteria (Auto) (Negative) Urine Yeast Salicylates (3.0-30) mg/dl Urine Opiates Screen (Neg) Ur Methadone, Qual (Neg) Acetaminophen (10-30) ug/ml Urine Barbiturates (Neg) Valproic Acid (50-100) mcg/ml Ur Phencyclidine (PCP) (Neg) U Amphetamin/Meth Scrn (Neg) MDMA (Ecstasy) Screen (Neg) U Benzodiazepines Scrn (Neg) Ur Cocaine Metabolite (Neg) U Marijuana (THC) Screen (Neg) Ethyl Alcohol mg/dL (<10.0) mg/dl SARS-CoV-2, RNA, NAAT (NEGATIVE) 12/29/22 12/29/22 12/29/22 Range/Units 17:44 17:44 17:44 WBC (4.8-10.8) K/ul RBC (4.20-5.40) M/uL Hgb (12.0-16.0) g/dl Hct (37.0-47.0) % MCV (80.0-100.0) fL MCH (25.0-34.0) pg MCHC (32.0-36.0) g/dL RDW Std Deviation (36.4-46.3) fL RDW Coeff of Ana (11.5-14.5) % Plt Count (130-400) K/uL MPV (9.4-12.4) fL Immature Gran % (Auto) % Neut % (Auto) % Lymph % (Auto) % Brewster % (Auto) % Eos % (Auto) % Baso % (Auto) % Neut # (Auto) (1.40-6.50) K/uL Lymph # (Auto) (1.2-3.4) K/uL Brewster # (Auto) (0.11-0.59) K/uL Eos # (Auto) (0-0.50) K/uL Baso # (Auto) (0-0.2) K/uL Immature Gran # (Auto) (0.01-0.20) K/uL Absolute Nucleated RBC (0-0.12) K/uL Nucleated RBC % (auto) % PT (9.0-12.0) Seconds INR (0.9-1.1) APTT (21.0-31.0) Seconds PTT Ratio Sodium (136-145) mmol/L Potassium (3.5-5.1) mmol/L Chloride (98-107) mmol/L Carbon Dioxide (21-32) mmol/L Anion Gap (3-11) BUN (6-23) mg/dl Creatinine (0.6-1.2) mg/dl Est Cr Clr Drug Dosing ml/min Est GFR ( Amer) ml/min Est GFR (Non-Af Amer) ml/min BUN/Creatinine Ratio (10-20) Glucose (70-99(Fasting)) mg/dl Calcium (8.5-10.1) mg/dl Total Bilirubin (0.2-1.0) mg/dl AST (13-39) U/L ALT (7-52) U/L Alkaline Phosphatase (34-104) U/L Troponin I High Sens (0-14) pg/ml Total Protein (6.0-8.3) gm/dl Albumin (3.4-5.0) gm/dl Globulin (2.5-4.0) gm/dl Albumin/Globulin Ratio (0.9-2) TSH 2.883 (0.300-4.500) uIu/ml Urine Color Urine Appearance (Clear) Urine pH (4.5-7.5) Ur Specific [place] (1.000-1.030) Urine Protein (Negative) Urine Glucose (UA) (Negative) Urine Ketones (Negative) Urine Blood (Negative) Urine Nitrite (Negative) Urine Bilirubin (Negative) Urine Urobilinogen (Negative) Ur Leukocyte Esterase (Negative) Urine WBC (Auto) (0-5) /hpf Urine RBC (Auto) (0-4) /hpf U Hyaline Cast (Auto) (0-5) /lpf U Epithel Cells (Auto) (0-5) /lpf Urine Bacteria (Auto) (Negative) Urine Yeast Salicylates < 3.0 L (3.0-30) mg/dl Urine Opiates Screen (Neg) Ur Methadone, Qual (Neg) Acetaminophen < 3 L (10-30) ug/ml Urine Barbiturates (Neg) Valproic Acid 50 (50-100) mcg/ml Ur Phencyclidine (PCP) (Neg) U Amphetamin/Meth Scrn (Neg) MDMA (Ecstasy) Screen (Neg) U Benzodiazepines Scrn (Neg) Ur Cocaine Metabolite (Neg) U Marijuana (THC) Screen (Neg) Ethyl Alcohol mg/dL < 10.0 (<10.0) mg/dl SARS-CoV-2, RNA, NAAT (NEGATIVE) 12/29/22 12/29/22 12/29/22 Range/Units 17:50 18:57 18:57 WBC (4.8-10.8) K/ul RBC (4.20-5.40) M/uL Hgb (12.0-16.0) g/dl Hct (37.0-47.0) % MCV (80.0-100.0) fL MCH (25.0-34.0) pg MCHC (32.0-36.0) g/dL RDW Std Deviation (36.4-46.3) fL RDW Coeff of Ana (11.5-14.5) % Plt Count (130-400) K/uL MPV (9.4-12.4) fL Immature Gran % (Auto) % Neut % (Auto) % Lymph % (Auto) % Brew[place] % (Auto) % Eos % (Auto) % Baso % (Auto) % Neut # (Auto) (1.40-6.50) K/uL Lymph # (Auto) (1.2-3.4) K/uL Brew[place] # (Auto) (0.11-0.59) K/uL Eos # (Auto) (0-0.50) K/uL Baso # (Auto) (0-0.2) K/uL Immature Gran # (Auto) (0.01-0.20) K/uL Absolute Nucleated RBC (0-0.12) K/uL Nucleated RBC % (auto) % PT (9.0-12.0) Seconds INR (0.9-1.1) APTT (21.0-31.0) Seconds PTT Ratio Sodium (136-145) mmol/L Potassium (3.5-5.1) mmol/L Chloride (98-107) mmol/L Carbon Dioxide (21-32) mmol/L Anion Gap (3-11) BUN (6-23) mg/dl Creatinine (0.6-1.2) mg/dl Est Cr Clr Drug Dosing ml/min Est GFR ( Amer) ml/min Est GFR (Non-Af Amer) ml/min BUN/Creatinine Ratio (10-20) Glucose (70-99(Fasting)) mg/dl Calcium (8.5-10.1) mg/dl Total Bilirubin (0.2-1.0) mg/dl AST (13-39) U/L ALT (7-52) U/L Alkaline Phosphatase (34-104) U/L Troponin I High Sens (0-14) pg/ml Total Protein (6.0-8.3) gm/dl Albumin (3.4-5.0) gm/dl Globulin (2.5-4.0) gm/dl Albumin/Globulin Ratio (0.9-2) TSH (0.300-4.500) uIu/ml Urine Color Yellow Urine Appearance Turbid A (Clear) Urine pH 8.0 H (4.5-7.5) Ur Specific [place] 1.009 (1.000-1.030) Urine Protein 1+ H (Negative) Urine Glucose (UA) Negative (Negative) Urine Ketones Negative (Negative) Urine Blood Trace H (Negative) Urine Nitrite Negative (Negative) Urine Bilirubin Negative (Negative) Urine Urobilinogen Negative (Negative) Ur Leukocyte Esterase 3+ H (Negative) Urine WBC (Auto) >30 H (0-5) /hpf Urine RBC (Auto) 0-4 (0-4) /hpf U Hyaline Cast (Auto) 1-5 (0-5) /lpf U Epithel Cells (Auto) 5-10 H (0-5) /lpf Urine Bacteria (Auto) 2+ H (Negative) Urine Yeast Not Reportable Salicylates (3.0-30) mg/dl Urine Opiates Screen Neg (Neg) Ur Methadone, Qual Neg (Neg) Acetaminophen (10-30) ug/ml Urine Barbiturates Neg (Neg) Valproic Acid (50-100) mcg/ml Ur Phencyclidine (PCP) Neg (Neg) U Amphetamin/Meth Scrn Neg (Neg) MDMA (Ecstasy) Screen Neg (Neg) U Benzodiazepines Scrn Neg (Neg) Ur Cocaine Metabolite Neg (Neg) U Marijuana (THC) Screen Neg (Neg) Ethyl Alcohol mg/dL (<10.0) mg/dl SARS-CoV-2, RNA, NAAT NEGATIVE (NEGATIVE) Administered Medications Discontinued Medications Carbidopa/Levodopa (Carbidopa/Levodopa 25/100mg Tab) 0.5 tab PO NOW STA Stop: 12/29/22 20:25 Last Admin: 12/29/22 21:13 Dose: 0.5 tab Documented By: OLIVER Carvedilol (Carvedilol 12.5 Mg Tab) 12.5 mg PO NOW ONE Stop: 12/29/22 20:25 Last Admin: 12/29/22 21:13 Dose: 12.5 mg Documented By: OLIVER Cefdinir (Cefdinir 300 Mg Cap) 600 mg PO ONE STA Stop: 12/29/22 19:23 Last Admin: 12/29/22 19:27 Dose: 600 mg Documented By: JORGE Hydralazine HCl (Hydralazine Hcl 25 Mg Tab) 75 mg PO NOW STA Stop: 12/29/22 20:25 Last Admin: 12/29/22 21:17 Dose: 75 mg Documented By: OLIVER Levetiracetam (Levetiracetam 500 Mg Tab) 1,000 mg PO NOW STA Stop: 12/29/22 20:25 Last Admin: 12/29/22 21:14 Dose: 1,000 mg Documented By: OLIVER Imaging Data Radiologist's Impression: Chest X-Ray 12/29/22 17:44 XR chest 1V portable CLINICAL HISTORY: Medical clearance COMPARISON STUDY: Chest radiograph September 16, 2022. FINDINGS: Median sternotomy wires are noted. Moderate cardiomegaly is unchanged. There is no evidence for pulmonary edema. Mild elevation/eventration of the right hemidiaphragm is unchanged. No consolidation is identified. There is no pneumothorax or pleural effusion. There has been no change in appearance of the chest. IMPRESSION: No acute cardiopulmonary findings. Cardiomegaly. ACT 112: Negative or not required by law. Electronically signed by: Zachariah Vogel M.D. 12/29/2022 8:[address] 12/29/22 17:44 CT OF THE HEAD WITHOUT CONTRAST CLINICAL HISTORY: Medical clearance. COMPARISON STUDY: No previous studies for comparison. CT DOSE: 614.27 mGy.cm TECHNIQUE: Helical axial images of the head were obtained without IV contrast. Automated exposure control was utilized for the study. A dose lowering technique was utilized adhering to the principles of ALARA. FINDINGS: No acute intracranial hemorrhage, midline shift or mass effect is present. White matter hypodensities favor small vessel disease. The ventricular system is unremarkable. The basal cisterns are patent. No extra-axial collections are present. There are no findings to suggest acute dural sinus thrombosis or acute territorial infarct. No significant calvarial abnormalities are present. Visualized portions of the sinuses and mastoid air cells are clear. IMPRESSION: No acute intracranial findings. ACT 112: Negative or not required by law. Electronically signed by: Zachariah Vogel M.D. 12/29/2022 7:04 PM Discharge Plan Visit Data Chief Complaint: Mental Health Evaluation Stated Complaint: [facility] ED Provider: Nadir Stearns Discharge Problem: Depression, Elevated troponin I level, Abnormal EKG, Urinary tract infection Patient Disposition: Being Evaluated by Hospitalist Forms Stand Alone Forms: [facility], Suicide Prevention Resources Prescriptions Prescriptions: No Action (DME) lancets [OneTouch Delica Lancets] 33 gauge misc See Rx Instructions .Route Qty: 100 5RF Rx Instructions: Test 3 times a day with meals and PRN up to 3 times E11.9 (DME) OneTouch Verio test strips Strip See Rx Instructions .Route Qty: 100 5RF Rx Instructions: Test 3 times a day with meals and PRN with a max of 3 times- E11.9 biotin 5 mg tablet 5 mg PO DAILY Qty: 30 0RF Mucinex Fast-Max DM Max 5-100 mg/5 mL liquid 10 ml PO Q6H PRN (Reason: cough) Qty: 180 0RF alprazolam 0.25 mg tablet 0.25 mg PO DAILY PRN (Reason: anxiety) Qty: 30 0RF ferrous sulfate 325 mg (65 mg iron) tablet 325 mg PO DAILY Qty: 30 5RF acetaminophen [Tylenol Extra Strength] 500 mg tablet 500 mg PO QID PRN (Reason: pain) Qty: 90 0RF bumetanide 2 mg tablet 2 mg PO BID Qty: 180 1RF clopidogrel 75 mg tablet 75 mg PO DAILY Qty: 90 1RF carvedilol 12.5 mg tablet 12.5 mg PO BID Qty: 180 1RF Rx Instructions: must administer with a meal/food hydralazine 50 mg tablet 75 mg PO BID Qty: 135 1RF Rx Instructions: 1 & 1/2 tablet dose valacyclovir 500 mg tablet 500 mg PO DAILY Qty: 30 5RF propranolol 10 mg tablet 10 mg PO BID Qty: 60 2RF atorvastatin 10 mg tablet 10 mg PO DAILY Qty: 90 1RF levothyroxine 25 mcg capsule 25 mcg PO DAILY Qty: 90 1RF calcitriol 0.25 mcg capsule 0.25 mcg PO DAILY Qty: 90 1RF escitalopram oxalate [Lexapro] 10 mg tablet 10 mg PO DAILY Qty: 30 2RF pantoprazole 40 mg tablet,delayed release (DR/EC) 40 mg PO DAILY Qty: 90 1RF (DME) pen needle, diabetic [BD Ultra-Fine Micro Pen Needle] 32 gauge x 1/4" needle See Rx Instructions .Route Qty: 100 5RF Rx Instructions: 5 times a day E11.9 aspirin [Adult Aspirin Regimen] 81 mg tablet,delayed release (DR/EC) 81 mg PO 1600 insulin glargine [Basaglar KwikPen U-100 Insulin] 100 unit/mL (3 mL) insulin pen 20 unit subcut BID insulin lispro [Humalog KwikPen Insulin] 100 unit/mL insulin pen 3 unit subcut TIDM omega [id number]-fish oil [Fish Oil] 1,000 mg (120 mg-180 mg) capsule 2 cap PO DAILY triamcinolone acetonide 0.1 % cream 1 applic topical BID PRN (Reason: rash) Qty: 15 0RF levetiracetam 1,000 mg tablet 1,000 mg PO BID Qty: 60 5RF carbidopa-levodopa 25-100 mg tablet 0.5 tab PO TID Qty: 90 3RF divalproex 500 mg tablet extended release 24 hr 500 mg PO BID Qty: 60 2RF magnesium oxide 400 mg magnesium Tablet 400 mg PO BID cyanocobalamin (vitamin B-12) 1,000 mcg capsule 1,000 mcg PO DAILY Qty: 30 0RF bumetanide 1 mg tablet 2 mg PO DAILY PRN (Reason: wt gain 5LBS or more over 3 days) Referrals Referrals: Taylor Sigala [Primary Care Provider] -
[2022-12-29 18:32] LABS: Basophils # (auto) 0.02 K/uL (0-0.2); Basophils % (auto) 0.4 %; Eosinophils # (auto) 0.08 K/uL (0-0.50); Eosinophils % (auto) 1.8 %; Hematocrit (blood only) 29.5 % (37.0-47.0); Hemoglobin 9.8 g/dl (12.0-16.0); Immature Granulocytes # (auto) 0.03 K/uL (0.01-0.20); Immature Granulocytes % (auto) 0.7 %; Lymphocytes # (auto) 0.83 K/uL (1.2-3.4); Lymphocytes % (auto) 18.4 %; Mean Corpuscular Hemoglobin 34.5 pg (25.0-34.0); Mean Corpuscular Hgb Conc 33.2 g/dL (32.0-36.0); Mean Corpuscular Volume 103.9 fL (80.0-100.0); Mean Platelet Volume 11.5 fL (9.4-12.4); Monocytes % (auto) 11.1 %; Neutrophils # (auto) 3.06 K/uL (1.40-6.50); Neutrophils % (auto) 67.6 %; Nucleated RBC # (auto) 0.02 K/uL (0-0.12); Nucleated RBC % (auto) 0.4 %; Platelet Count 171 K/uL (130-400); RDW Coefficient of Variation 15.8 % (11.5-14.5); RDW Standard Deviation 58.8 fL (36.4-46.3); Red Blood Count 2.84 M/uL (4.20-5.40); White Blood Count 4.52 K/ul (4.8-10.8)
[2022-12-29 18:46] LABS: Albumin Globulin Ratio 1.3 (0.9-2); BUN Creatinine Ratio 24.5 (10-20); Bilirubin,Total 0.3 mg/dl (0.2-1.0); Calcium 9.7 mg/dl (8.5-10.1); Creatinine Clr Calc Pharmacy 25.7 ml/min; Est GFR (African American) 25.5 ml/min; Potassium 4.6 mmol/L (3.5-5.1)
[2022-12-29 18:50] LABS: Acetaminophen < 3 ug/ml (10-30); Salicylate < 3.0 mg/dl (3.0-30); Valproic Acid 50 mcg/ml (50-100)
[2022-12-29 18:57] LABS: Partial Thromboplastin Ratio 0.8; Partial Thromboplastin Time 21.9 Seconds (21.0-31.0); Prothrombin Time 10.8 Seconds (9.0-12.0)
--- NOTE | 2022-12-29 19:05 | CT Scan Report ---
CT OF THE HEAD WITHOUT CONTRAST CLINICAL HISTORY: Medical clearance. COMPARISON STUDY: No previous studies for comparison. CT DOSE: 614.27 mGy.cm TECHNIQUE: Helical axial images of the head were obtained without IV contrast. Automated exposure con trol was utilized for the study. A dose lowering technique was utilized adhering to the principles o f ALARA. FINDINGS: No acute intracranial hemorrhage, midline shift or mass effect is present. White matter hyp odensities favor small vessel disease. The ventricular system is unremarkable. The basal cisterns are patent. No extra-axial collections are present. There are no findings to suggest acute dural sinus t hrombosis or acute territorial infarct. No significant calvarial abnormalities are present. Visualize d portions of the sinuses and mastoid air cells are clear. IMPRESSION: No acute intracranial findings. ACT 112: Negative or not required by law. Electronically signed by: Zachariah Vogel M.D. 12/29/2022 7:04 PM
[2022-12-29 19:16] LABS: Appearance Urine Turbid (Clear); Bacteria Urine Automated 2+ (Negative); Bilirubin Urine Negative (Negative); Blood Urine Trace (Negative); Color Urine Yellow; Glucose Urine UA Negative (Negative); Ketones Urine Negative (Negative); Leukocyte Esterase Urine 3+ (Negative); Nitrite Urine Negative (Negative); RBC Urine Automated 0-4 /hpf (0-4); Specific Gravity Urine 1.009 (1.000-1.030); Urobilinogen Urine Negative (Negative); WBC Urine Automated >30 /hpf (0-5)
[2022-12-29 19:18] LABS: Protein Urine 1+ (Negative)
[2022-12-29] MEDS ORDERED: CEFDINIR 300 MG CAP PO STA (19:22)
--- NOTE | 2022-12-29 20:00 | History & Physical Report ---
Date of Service December 29, 2022 Assessment & Plan (1) Elevated troponin I level: Plan: 72-year-old female with history of coronary artery disease status post CABG x4 vessel and 2014, CHF, diabetes, hypertension, hyperlipidemia presenting from her personal intermediate with worsening depression. ER work-up revealed mild elevation of troponin = 158. Initial EKG with some ST segment deviations, overall this appeared similar to prior study from September 2022. Patient denies chest pain, palpitations, cough or shortness of breath. Do not highly suspect ACS at this point. Admit to medical with telemetry Trend troponin Continue home cardiac medications, aspirin 81 mg p.o. daily, atorvastatin 10 mg p.o. daily, carvedilol 12.5 mg p.o. twice daily, Plavix 75 mg p.o. daily Check 2D echo in the morning (2) Urinary tract infection: Plan: Patient reports several days of increased urinary urgency, frequency as well as incontinence. Her urinalysis is turbid with 3+ leukocyte esterase and 2+ bacteria. She was administered cefdinir 600 mg p.o. x1 dose in the ER. Patient is afebrile, hemodynamically stable, nontoxic in appearance. We will continue antibiotic coverage with ceftriaxone 2 g IV daily Follow urine culture (3) Depression with anxiety: Plan: Patient ultimately presenting with worsening depressive symptoms ongoing since February 2022. She admits to acute worsening in her depression after her son asked her to move out and she moved into a new personal care facility. She is quite unhappy with her current living situation. She admits to increased fatigue, poor appetite as well as anhedonia. She has had some suicidal ideations as well, no plan, no history of prior SI or suicide attempt. Ultimately patient may benefit from a [facility] psych bed after medical clearance. Continue escitalopram 10 mg p.o. daily Psychiatry consultation appreciated Patient verbally contracted for safety. She denies feeling suicidal at this time. Will place on suicide precautions with one-to-one sitter for overnight. (4) CHF (congestive heart failure): Plan: Patient with history of chronic combined systolic and diastolic heart failure (EF 45 to 50%, grade 2 diastolic dysfunction, significant RV failure, mild to moderate left atrial enlargement, mild mitral stenosis, moderate to severe mitral regurgitation, moderate to severe aortic stenosis, and severe pulmonary hypertension). Patient presently appears euvolemic. Denies shortness of breath, cough, edema or weight gain. Patient follows with cardiology. Last seen on 12/05/2022. Continue Bumex 2 mg p.o. twice daily Monitor intake and output as well as daily standing weights. Continue carvedilol 12.5 mg p.o. twice daily Continue hydralazine 75 mg p.o. twice daily Patient has not been on MARINO/ARB/Entresto secondary to history of chronic renal insufficiency Check 2D echo (5) CAD (coronary artery disease): Plan: Patient with coronary artery disease status post CABG x4 vessel performed at [place] in 2013. She had recent cardiac stenting. Was recently seen by cardiology on 12/05/2022. At that time patient on aspirin as well as Plavix. Records were to be obtained to understand specifics of her stenting in regards to continued need for dual antiplatelet therapy. No records present in chart. Patient does have mild elevation of troponin of 158. EKG appears to have more chronic changes, no acute ischemia. She denies history of chest pain, palpitations, shortness of breath or dizziness. For now we will continue aspirin 81 mg p.o. daily as well as Plavix 75 mg p.o. daily We will request cardiology records from [place] Continue carvedilol 12.5 mg p.o. twice daily Continue atorvastatin 10 mg p.o. daily (6) DM2 (diabetes mellitus, type 2): Plan: Patient with diabetes, poorly controlled. Last hemoglobin A1c on 09/16/2022 = 8.5. She is on home insulin therapy. Will provide Lantus 15 units twice daily Insulin sliding scale Goal blood sugar [id number] (7) GERD (gastroesophageal reflux disease): Plan: Chronic. Stable. Continue Protonix 40 mg p.o. twice daily (8) Hyperlipidemia: Plan: Chronic. Stable. Continue atorvastatin 10 mg p.o. daily (9) Hypothyroid: Plan: TSH within normal range = 2.883 on 12/29/2022 Continue Synthroid 25 mcg p.o. daily (10) HTN (hypertension), benign: Plan: Blood pressure elevated in ER to 211/98. Patient without symptoms, denies headache, visual disturbance, chest pain or shortness of breath. We will administer evening medications nowcarvedilol, hydralazine. Repeat blood pressure Monitor blood pressure Continue carvedilol and hydralazine (11) Parkinsons disease: Plan: Patient reports recently being diagnosed with Parkinson's. Continue carbidopalevodopa 25 mg / 100 mg 0.5 tablets p.o. 3 times daily History of Present Illness Chief Complaint: Worsening depression [facility] is a 70-year-old female with multiple medical problems to include hypertension, hyperlipidemia, diabetes, CAD status post CABG in 2013, CHF as well as depression and Parkinson's disease presenting from her personal intermediate with complaint of overall doing poorly. Patient started feeling unwell in February 2022 after having a seizure. She was hospitalized for a short while and subsequently discharged to [facility]. She then got COVID 19 and was sent to another intermediate for short time. [place] Her son then informed her that she was too difficult to take care of and she was moved into [facility] personal-intermediate in spring. Patient is overall very unhappy with her personal intermediate she says "that place is horrible" she describes them as "incompetent and dishonest". She reports worsening mood and increased depression since her son asked her to move out. She reports poor appetitehas not eaten anything for 4 days. She reports feeling sad. She has occasional suicidal ideations stating "if I had away I would do something to hurt myself". Patient with no prior SI or suicide attempts. No HI, no VH/AH. Additionally, patient reports some diffuse abdominal pain as well as nausea. She has increased urinary frequency and incontinence. She denies chest pain, palpitations, cough, shortness of breath, diarrhea. No additional complaints at this time In the ER she is afebrile, mildly hypertensive otherwise hemodynamically stable. No respiratory distress. Adequate oxygenation on room air. Discussion with ER attending and case managementpatient will possibly need a [facility] psych bed but due to mild elevation in troponin and acute UTI she will need to be medically cleared first. ER course: Cefdinir 60 mg p.o. Allergies Allergy/AdvReac Type Severity Reaction Status Date / Time MARINO Inhibitors Allergy Mild Unknown Verified 12/05/22 09:39 Interferons Allergy Mild Unknown Verified 12/05/22 09:39 Penicillins Allergy Mild Unknown Verified 12/05/22 09:39 Home Medications Medication Instructions Recorded Confirmed Type aspirin 81 mg tablet,delayed 81 mg PO 1600 07/05/22 12/05/22 History release (Adult Aspirin Regimen) insulin glargine 100 unit/mL (3 20 unit subcut BID 07/05/22 12/05/22 History mL) subcutaneous pen (Basaglar KwikPen U-100 Insulin) insulin lispro 100 unit/mL 3 unit subcut TIDM 07/05/22 12/05/22 History subcutaneous pen (Humalog KwikPen (U-100) Insulin) omega 0-ijd-xaf-fish oil 1,000 mg 2 cap PO DAILY 07/05/22 12/29/22 History (120 mg-180 mg) capsule (Fish Oil) lancets 33 [facility]a 07/06/22 12/05/22 Rx Lancets) blood sugar diagnostic ([facility] 07/19/22 12/05/22 Rx Verio test strips) biotin 5 mg tablet 5 mg PO DAILY #30 tabs 07/29/22 12/29/22 Rx dextromethorphan-guaifenesin 5 10 ml PO Q6H PRN cough #180 mL 08/24/22 12/05/22 Rx mg-100 mg/5 mL oral liquid (Mucinex Fast-Max DM Max) alprazolam 0.25 mg tablet 0.25 mg PO DAILY PRN anxiety #30 08/25/22 12/05/22 Rx tabs magnesium oxide 400 mg PO BID 09/15/22 12/29/22 History cyanocobalamin (vitamin B-12) 1,000 mcg PO DAILY #30 caps 09/20/22 12/05/22 Rx 1,000 mcg capsule triamcinolone acetonide 0.1 % 1 applic topical BID PRN rash #15 09/26/22 12/05/22 Rx topical cream grams ferrous sulfate 325 mg (65 mg 325 mg PO DAILY #30 tabs 10/21/22 12/05/22 Rx iron) tablet bumetanide 1 mg tablet 2 mg PO DAILY PRN wt gain 5LBS or 11/09/22 12/29/22 History more over 3 days carbidopa 25 mg-levodopa 100 mg 0.5 tab PO TID #90 tabs 11/09/22 12/29/22 Rx tablet divalproex 500 mg tablet,extended 500 mg PO BID #60 tabs 11/09/22 12/05/22 Rx release 24 hr levetiracetam 1,000 mg tablet 1,000 mg PO BID #60 tabs 11/09/22 12/05/22 Rx acetaminophen 500 mg tablet 500 mg PO QID PRN pain #90 tabs 11/23/22 12/05/22 Rx (Tylenol Extra Strength) atorvastatin 10 mg tablet 10 mg PO DAILY #90 tabs 11/28/22 12/29/22 Rx bumetanide 2 mg tablet 2 mg PO BID #180 tabs 11/28/22 12/29/22 Rx calcitriol 0.25 mcg capsule 0.25 mcg PO DAILY #90 caps 11/28/22 12/05/22 Rx carvedilol 12.5 mg tablet 12.5 mg PO BID #180 tabs 11/28/22 12/29/22 Rx clopidogrel 75 mg tablet 75 mg PO DAILY #90 tabs 11/28/22 12/29/22 Rx hydralazine 50 mg tablet 75 mg PO BID #135 tabs 11/28/22 12/05/22 Rx levothyroxine 25 mcg capsule 25 mcg PO DAILY #90 caps 11/28/22 12/29/22 Rx propranolol 10 mg tablet 10 mg PO BID #60 tabs 11/28/22 12/29/22 Rx valacyclovir 500 mg tablet 500 mg PO DAILY #30 tabs 11/28/22 12/29/22 Rx escitalopram oxalate 10 mg tablet 10 mg PO DAILY #30 tabs 12/06/22 Rx (Lexapro) pantoprazole 40 mg tablet,delayed 40 mg PO DAILY #90 tabs 12/21/22 12/29/22 Rx release pen needle, diabetic 32 gauge x #100 ea 12/28/22 Rx 1/" (BD Ultra-Fine Micro Pen Needle) Past Med/Surg History Medical History Amputated toe of right foot 2020 Anemia B12 deficiency Bleeding disorder CAD (coronary artery disease) Wrevlie-Pnbay-Yzgjz syndrome CHF (congestive heart failure) Depression with anxiety DM2 (diabetes mellitus, type 2) Gastric peptic ulcer GERD (gastroesophageal reflux disease) GI bleed Gout HTN (hypertension), benign Hx of hepatitis C Hyperlipidemia Hypothyroid Iron deficiency anemia Lives in senior facility [facility] Seizure disorder first seizure spring 2020 Stage 4 chronic kidney disease Tremor Surgical History H/O: section 1981 Hx of tonsillectomy S/P CABG x 4 Stented coronary artery Family History Brother Diabetes Hypertension Father Hypertension Mother Lung disease Denies family history of Breast cancer Colorectal cancer Social History Smoking Status: Former smoker Hx Alcohol Use: No Hx Substance Use: No Preferred Language: Ukrainian Communication Ability: Effective Pin Sorter And Bagger Required: No Beliefs That Will Affect Care: None marital status: Current Living Situation: Personal Care Facility Current Living Situation Comment: [facility] current occupational status: retired Feels Safe at Home: Yes Dental Care, Regularly: Yes Physical Activity Frequency: Does not Exercise Seatbelt Use: always Assistive Devices: Walker Review of Systems Review of Systems: All systems reviewed & are unremarkable except as noted in HPI & below Physical Exam Physical Exam: General: Elderly female patient resting comfortably, NAD, non-toxic in appearance, AA&O x 4 Skin: warm, dry, intact, no rashes or lesions HEENT: NC/AT, PERRL, EOMI, anicteric sclera, conjunctiva without injection, external ear normal to inspection and nontender, nares patent, moist mucus membranes, dentition intact, no oropharyngeal lesions, neck supple, trachea midline, no LAD, no thyromegaly, no JVD Heart: +S1/S2, regular, no 3/6 systolic ejection murmur at right second intercostal space with radiation to bilateral carotids, systolic ejection murmur present at cardiac apex as well Lungs: equal air entry bilaterally, no rales/rhonchi/wheezes Abd: +BS, soft, NT/ND, no masses/organomegaly/ascites Ext: warm, 2+ pulses in UE/LE bilaterally, no clubbing/cyanosis or edema Neuro: nonfocal, patient AA&O x 4, speech intact, no facial droop, moving all extremities on command with equal strength 5/5, tremor noted in right hand, some cogwheel rigidity noted with motion of bilateral wrists Results & Data Results & Data ([facility]) Vital Signs (Past 12 Hours) Vital Signs Temp Pulse Resp BP Pulse Ox O2 Del Method 12/29/22 17:30 36.5 C 76 16 154/76 H 99 Room Air Laboratory Results Laboratory Results WBC 4.52 K/ul (4.8-10.8) L 12/29/22 17:44 RBC 2.84 M/uL (4.20-5.40) L 12/29/22 17:44 Hgb 9.8 g/dl (12.0-16.0) L 12/29/22 17:44 Hct 29.5 % (37.0-47.0) L 12/29/22 17:44 MCV 103.9 fL (80.0-100.0) H 12/29/22 17:44 MCH 34.5 pg (25.0-34.0) H 12/29/22 17:44 MCHC 33.2 g/dL (32.0-36.0) 12/29/22 17:44 RDW Std Deviation 58.8 fL (36.4-46.3) H 12/29/22 17:44 RDW Coeff of Ana 15.8 % (11.5-14.5) H 12/29/22 17:44 Plt Count 171 K/uL (130-400) 12/29/22 17:44 MPV 11.5 fL (9.4-12.4) 12/29/22 17:44 Immature Gran % (Auto) 0.7 % 12/29/22 17:44 Neut % (Auto) 67.6 % 12/29/22 17:44 Lymph % (Auto) 18.4 % 12/29/22 17:44 Mellette % (Auto) 11.1 % 12/29/22 17:44 Eos % (Auto) 1.8 % 12/29/22 17:44 Baso % (Auto) 0.4 % 12/29/22 17:44 Neut # (Auto) 3.06 K/uL (1.40-6.50) 12/29/22 17:44 Lymph # (Auto) 0.83 K/uL (1.2-3.4) L 12/29/22 17:44 Mellette # (Auto) 0.50 K/uL (0.11-0.59) 12/29/22 17:44 Eos # (Auto) 0.08 K/uL (0-0.50) 12/29/22 17:44 Baso # (Auto) 0.02 K/uL (0-0.2) 12/29/22 17:44 Immature Gran # (Auto) 0.03 K/uL (0.01-0.20) 12/29/22 17:44 Absolute Nucleated RBC 0.02 K/uL (0-0.12) 12/29/22 17:44 Nucleated RBC % (auto) 0.4 % 12/29/22 17:44 PT 10.8 Seconds (9.0-12.0) 12/29/22 17:44 INR 1.0 (0.9-1.1) 12/29/22 17:44 APTT 21.9 Seconds (21.0-31.0) 12/29/22 17:44 PTT Ratio 0.8 12/29/22 17:44 Sodium 141 mmol/L (136-145) 12/29/22 17:44 Potassium 4.6 mmol/L (3.5-5.1) 12/29/22 17:44 Chloride 97 mmol/L (98-107) L 12/29/22 17:44 Carbon Dioxide 37 mmol/L (21-32) H 12/29/22 17:44 Anion Gap 7 (3-11) 12/29/22 17:44 BUN 53 mg/dl (6-23) H 12/29/22 17:44 Creatinine 2.16 mg/dl (0.6-1.2) H 12/29/22 17:44 Est Cr Clr Drug Dosing 25.7 ml/min 12/29/22 17:44 Est GFR ( Amer) 25.5 ml/min 12/29/22 17:44 Est GFR (Non-Af Amer) 22.0 ml/min 12/29/22 17:44 BUN/Creatinine Ratio 24.5 (10-20) H 12/29/22 17:44 Glucose 233 mg/dl (70-99(Fasting)) H 12/29/22 17:44 Calcium 9.7 mg/dl (8.5-10.1) 12/29/22 17:44 Total Bilirubin 0.3 mg/dl (0.2-1.0) 12/29/22 17:44 AST 11 U/L (13-39) L 12/29/22 17:44 ALT 5 U/L (7-52) L 12/29/22 17:44 Alkaline Phosphatase 48 U/L (34-104) 12/29/22 17:44 Troponin I High Sens 158.0 pg/ml (0-14) H* 12/29/22 17:44 Total Protein 7.0 gm/dl (6.0-8.3) 12/29/22 17:44 Albumin 4.0 gm/dl (3.4-5.0) 12/29/22 17:44 Globulin 3.0 gm/dl (2.5-4.0) 12/29/22 17:44 Albumin/Globulin Ratio 1.3 (0.9-2) 12/29/22 17:44 TSH 2.883 uIu/ml (0.300-4.500) 12/29/22 17:44 Urine Color Yellow 12/29/22 18:57 Urine Appearance Turbid (Clear) A 12/29/22 18:57 Urine pH 8.0 (4.5-7.5) H 12/29/22 18:57 Ur Specific Simpson 1.009 (1.000-1.030) 12/29/22 18:57 Urine Protein 1+ (Negative) H 12/29/22 18:57 Urine Glucose (UA) Negative (Negative) 12/29/22 18:57 Urine Ketones Negative (Negative) 12/29/22 18:57 Urine Blood Trace (Negative) H 12/29/22 18:57 Urine Nitrite Negative (Negative) 12/29/22 18:57 Urine Bilirubin Negative (Negative) 12/29/22 18:57 Urine Urobilinogen Negative (Negative) 12/29/22 18:57 Ur Leukocyte Esterase 3+ (Negative) H 12/29/22 18:57 Urine WBC (Auto) >30 /hpf (0-5) H 12/29/22 18:57 Urine RBC (Auto) 0-4 /hpf (0-4) 12/29/22 18:57 U Hyaline Cast (Auto) 1-5 /lpf (0-5) 12/29/22 18:57 U Epithel Cells (Auto) 5-10 /lpf (0-5) H 12/29/22 18:57 Urine Bacteria (Auto) 2+ (Negative) H 12/29/22 18:57 Urine Yeast Not Reportable 12/29/22 18:57 Salicylates < 3.0 mg/dl (3.0-30) L 12/29/22 17:44 Urine Opiates Screen Neg (Neg) 12/29/22 18:57 Ur Methadone, Qual Neg (Neg) 12/29/22 18:57 Acetaminophen < 3 ug/ml (10-30) L 12/29/22 17:44 Urine Barbiturates Neg (Neg) 12/29/22 18:57 Valproic Acid 50 mcg/ml (50-100) 12/29/22 17:44 Ur Phencyclidine (PCP) Neg (Neg) 12/29/22 18:57 U Amphetamin/Meth Scrn Neg (Neg) 12/29/22 18:57 MDMA (Ecstasy) Screen Neg (Neg) 12/29/22 18:57 U Benzodiazepines Scrn Neg (Neg) 12/29/22 18:57 Ur Cocaine Metabolite Neg (Neg) 12/29/22 18:57 U Marijuana (THC) Screen Neg (Neg) 12/29/22 18:57 Ethyl Alcohol mg/dL < 10.0 mg/dl (<10.0) 12/29/22 17:44 SARS-CoV-2, RNA, NAAT NEGATIVE (NEGATIVE) 12/29/22 17:50 Impressions Chest X-Ray 12/29/22 17:44 XR chest 1V portable CLINICAL HISTORY: Medical clearance COMPARISON STUDY: Chest radiograph September 16, 2022. FINDINGS: Median sternotomy wires are noted. Moderate cardiomegaly is unchanged. There is no evidence for pulmonary edema. Mild elevation/eventration of the right hemidiaphragm is unchanged. No consolidation is identified. There is no pneumothorax or pleural effusion. There has been no change in appearance of the chest. IMPRESSION: No acute cardiopulmonary findings. Cardiomegaly. ACT 112: Negative or not required by law. Electronically signed by: Zachariah Vogel M.D. 12/29/2022 8:[address] 12/29/22 17:44 CT OF THE HEAD WITHOUT CONTRAST CLINICAL HISTORY: Medical clearance. COMPARISON STUDY: No previous studies for comparison. CT DOSE: 614.27 mGy.cm TECHNIQUE: Helical axial images of the head were obtained without IV contrast. Automated exposure control was utilized for the study. A dose lowering technique was utilized adhering to the principles of ALARA. FINDINGS: No acute intracranial hemorrhage, midline shift or mass effect is present. White matter hypodensities favor small vessel disease. The ventricular system is unremarkable. The basal cisterns are patent. No extra-axial collections are present. There are no findings to suggest acute dural sinus thrombosis or acute territorial infarct. No significant calvarial abnormalities are present. Visualized portions of the sinuses and mastoid air cells are clear. IMPRESSION: No acute intracranial findings. ACT 112: Negative or not required by law. Electronically signed by: Zachariah Vogel M.D. 12/29/2022 7:04 PM PG Care Time/CCT Total # of Minutes Spent Total Time Spent with Patient: Total time spent is greater than 50% in coordination of care (as documented) at patient's floor/unit and/or counseling patient: Coding Level of Care Code 47927 INT INP/OBS CARE 3/75MIN Diagnoses Elevated troponin I level R77.8 Urinary tract infection N39.0 Hematuria presence: without hematuria Urinary tract infection type: site unspecified Depression with anxiety F41.8 CHF (congestive heart failure) I50.9 CAD (coronary artery disease) I25.10 DM2 (diabetes mellitus, type 2) E11.9 GERD (gastroesophageal reflux disease) K21.9 Hyperlipidemia E78.5 Hypothyroid E03.9 HTN (hypertension), benign I10 Parkinsons disease G20 (2) Urinary tract infection Hematuria presence: without hematuria Urinary tract infection type: site unspecified Qualified Code(s): N39.0 - Urinary tract infection, site not specified
[2022-12-29 20:01] LABS: Amphetamines+Metham, Urine Neg (Neg); Barbiturates, Urine Neg (Neg); Benzodiazepine, Urine Neg (Neg); Cocaine, Urine Neg (Neg); MDMA (Ecstacy), Urine Neg (Neg); Methadone, Urine Neg (Neg); Opiate, Urine Neg (Neg); Phencyclidine, Urine Neg (Neg)
--- NOTE | 2022-12-29 20:15 | XRay Report ---
XR chest 1V portable CLINICAL HISTORY: Medical clearance COMPARISON STUDY: Chest radiograph September 16, 2022. FINDINGS: Median sternotomy wires are noted. Moderate cardiomegaly is unchanged. There is no evidence for pulmonary edema. Mild elevation/eventration of the right hemidiaphragm is unchanged. No consolid ation is identified. There is no pneumothorax or pleural effusion. There has been no change in appear ance of the chest. IMPRESSION: No acute cardiopulmonary findings. Cardiomegaly. ACT 112: Negative or not required by law. Electronically signed by: Zachariah Vogel M.D. 12/29/2022 8:13 PM
[2022-12-29] MEDS ORDERED: hydrALAZINE HCL 25 MG TAB PO STA (20:24)
[2022-12-29] MEDS ORDERED: levETIRAcetam 500 MG TAB PO STA (20:24)
[2022-12-29] MEDS ORDERED: CARBIDOPA/LEVODOPA 25/100MG TAB PO STA (20:24)
[2022-12-29] MEDS ORDERED: carvediloL 12.5 MG TAB PO ONE (20:24)
[2022-12-30] MEDS ORDERED: ACETAMINOPHEN 500 MG TAB PO PRN (01:15)
[2022-12-30] MEDS ORDERED: GLUCAGON FOR INJ 1 MG VIAL SQ PRN (01:15)
[2022-12-30] MEDS ORDERED: GLUCOSE 10 TAB/TUBE PO PRN (01:15)
[2022-12-30] MEDS ORDERED: CARBOHYDRATES FOR HYPOGLYCEMIA PO PRN (01:15)
[2022-12-30] MEDS ORDERED: ACETAMINOPHEN 325 MG TAB PO PRN (01:15)
[2022-12-30] MEDS ORDERED: GLUCOSE 40% GEL 15 GM TUBE PO PRN (01:15)
[2022-12-30] MEDS ORDERED: BUMETANIDE 1 MG TAB PO SCH (01:15)
[2022-12-30] MEDS ORDERED: DEXTROSE 50% 50 ML SYRINGE IV PRN (01:15)
[2022-12-30] MEDS: carvediloL 12.5 MG TAB PO SCH ×3 (01:24→21:15)
[2022-12-30] MEDS: hydrALAZINE HCL 25 MG TAB PO SCH ×3 (01:24→21:15)
[2022-12-30] MEDS: INSULIN ASPART PER UNIT SC SCH ×5 (01:52→21:24)
[2022-12-30] MEDS: PROPRANOLOL HCL 10 MG TAB PO SCH ×3 (01:52→21:17)
[2022-12-30] MEDS: levETIRAcetam 500 MG TAB PO SCH ×3 (01:52→21:16)
[2022-12-30] MEDS: LANTUS PER UNIT CHARGE SQ SCH ×3 (01:53→21:24)
[2022-12-30] MEDS: DIVALPROEX EXTENDED RELEASE 500 MG TAB PO SCH ×3 (02:07→21:16)
[2022-12-30] MEDS: LEVOTHYROXINE SODIUM 25 MCG TABLET PO SCH (05:20)
[2022-12-30] MEDS: cefTRIAXone SODIUM 2,000 MG in DEXTROSE 5% 50 ML IV SCH (05:20)
[2022-12-30 08:11] LABS: Hematocrit (blood only) 28.2 % (37.0-47.0); Hemoglobin 9.4 g/dl (12.0-16.0); Mean Corpuscular Hemoglobin 34.6 pg (25.0-34.0); Mean Corpuscular Hgb Conc 33.3 g/dL (32.0-36.0); Mean Corpuscular Volume 103.7 fL (80.0-100.0); Mean Platelet Volume 11.8 fL (9.4-12.4); Platelet Count 163 K/uL (130-400); RDW Coefficient of Variation 16.2 % (11.5-14.5); RDW Standard Deviation 60.3 fL (36.4-46.3); Red Blood Count 2.72 M/uL (4.20-5.40)
[2022-12-30 08:22] LABS: BUN Creatinine Ratio 25.1 (10-20); Calcium 9.5 mg/dl (8.5-10.1); Creatinine Clr Calc Pharmacy 28.9 ml/min; Est GFR (African American) 28.9 ml/min; Est GFR (Non-African American) 24.9 ml/min; Potassium 3.9 mmol/L (3.5-5.1)
[2022-12-30] MEDS ORDERED: ESCITALOPRAM OXALATE 10 MG TAB PO SCH (09:00)
[2022-12-30] MEDS: PANTOprazole 40 MG TAB PO SCH (09:01)
[2022-12-30] MEDS: ATORVASTATIN 10 MG TAB PO SCH (09:01)
[2022-12-30] MEDS: CLOPIDOGREL BISULFATE 75 MG TAB PO SCH (09:01)
[2022-12-30] MEDS: valACYclovir HCL 500 MG TABLET PO SCH (09:01)
[2022-12-30] MEDS: CALCITRIOL 0.25 MCG CAPSULE PO SCH (09:02)
[2022-12-30] MEDS: CARBIDOPA/LEVODOPA 25/100MG TAB PO SCH ×3 (09:03→21:17)
[2022-12-30] MEDS: BUMETANIDE 1 MG TAB PO SCH ×2 (10:44→17:31)
--- NOTE | 2022-12-30 10:51 | Hospitalist Progress Note ---
Date of Service December 30, 2022 Assessment & Plan (1) Depression with anxiety: Plan: Patient presenting from a personal detention with worsening depressive symptoms ongoing since February 2022. She admits to acute worsening in her depression after her son asked her to move out and she moved into a new personal care facility. She is quite unhappy with her current living situation. She admits to increased fatigue, poor appetite as well as anhedonia. She has had some suicidal ideations as well, no plan, no history of prior SI or suicide attempt. Continue escitalopram 10 mg p.o. daily Psychiatry consultation appreciated Patient verbally contracted for safety. She denies feeling suicidal at this time. (2) Elevated troponin I level: Plan: 72-year-old female with history of coronary artery disease status post CABG x4 vessel and 2014, CHF, diabetes, hypertension, hyperlipidemia presenting from her personal detention with worsening depression. ER work-up revealed mild elevation of troponin = 158. Initial EKG with some ST segment deviations, overall this appeared similar to prior study from September 2022. Patient denies chest pain, palpitations, cough or shortness of breath. Do not highly suspect ACS at this point. - Most likely Type 2 IN from acute infection, UTI Trend troponin Continue home cardiac medications, aspirin 81 mg p.o. daily, atorvastatin 10 mg p.o. daily, carvedilol 12.5 mg p.o. twice daily, Plavix 75 mg p.o. daily (3) Urinary tract infection: Plan: Patient reports several days of increased urinary urgency, frequency as well as incontinence. Her urinalysis is turbid with 3+ leukocyte esterase and 2+ bacteria. She was administered cefdinir 600 mg p.o. x1 dose in the ER. Patient is afebrile, hemodynamically stable, nontoxic in appearance. We will continue antibiotic coverage with ceftriaxone 2 g IV daily Follow urine culture (4) CHF (congestive heart failure): Plan: Patient with history of chronic combined systolic and diastolic heart failure (EF 45 to 50%, grade 2 diastolic dysfunction, significant RV failure, mild to moderate left atrial enlargement, mild mitral stenosis, moderate to severe mitral regurgitation, moderate to severe aortic stenosis, and severe pulmonary hypertension). -She appears compensated and euvolemic - Patient follows with cardiology. Last seen on 12/05/2022. Continue Bumex 2 mg p.o. twice daily Monitor intake and output as well as daily standing weights. Continue carvedilol 12.5 mg p.o. twice daily Continue hydralazine 75 mg p.o. twice daily Patient has not been on MARINO/ARB/Entresto secondary to history of chronic renal insufficiency (5) CAD (coronary artery disease): Plan: Patient with coronary artery disease status post CABG x4 vessel performed at [facility] in 2013. She had recent cardiac stenting. Was recently seen by cardiology on 12/05/2022. At that time patient on aspirin as well as Plavix. Records were to be obtained to understand specifics of her stenting in regards to continued need for dual antiplatelet therapy. No records present in chart. Patient does have mild elevation of troponin of 158. EKG appears to have more chronic changes, no acute ischemia. She denies history of chest pain, palpitations, shortness of breath or dizziness. For now we will continue aspirin 81 mg p.o. daily as well as Plavix 75 mg p.o. daily We will request cardiology records from [facility] Continue carvedilol 12.5 mg p.o. twice daily Continue atorvastatin 10 mg p.o. daily (6) DM2 (diabetes mellitus, type 2): Plan: Patient with diabetes, poorly controlled. Last hemoglobin A1c on 09/16/2022 = 8.5. She is on home insulin therapy. Will provide Lantus 15 units twice daily Insulin sliding scale Goal blood sugar [id number] (7) GERD (gastroesophageal reflux disease): Plan: Chronic. Stable. Continue Protonix 40 mg p.o. twice daily (8) Hyperlipidemia: Plan: Chronic. Stable. Continue atorvastatin 10 mg p.o. daily (9) Hypothyroid: Plan: TSH within normal range = 2.883 on 12/29/2022 Continue Synthroid 25 mcg p.o. daily (10) HTN (hypertension), benign: Plan: BP now under better control compared to admission Monitor blood pressure Continue carvedilol and hydralazine (11) Parkinsons disease: Plan: Patient reports recently being diagnosed with Parkinson's. Continue carbidopalevodopa 25 mg / 100 mg 0.5 tablets p.o. 3 times daily Plan continue hospitalization Admission and Anticipated Discharge Date Admission Date: December 29, 2022 Subjective patient seen and examined, still feels very low in spirit Review of Systems Review of Systems: All systems reviewed are negative, apart from the ones contained in the history. Physical Exam Physical Exam: The patient is awake, alert and oriented 3, well developed and well nourished, normocephalic and atraumatic, lying in bed and in no acute distress. HEENT--PERRL, EOMI, mucous membranes and oropharynx mildly dry Neck--supple. No JVD. No bruits. Thyroid normal, trachea midline, no adenopathy. Heart--normal S1 and S2. No murmurs, rubs or gallops. Lungs--clear bilaterally, no respiratory distress, no accessory muscle use. Abdomen--normal bowel sounds and soft. Mild epigastric and left sided abdominal pain Extremities--no cyanosis or clubbing. No edema. Dermatologic--normal skin turgor, normal color, no abnormal lymph nodes, no rash. Neurologic--cranial nerves II through XII grossly intact. Rheumatologic--normal range of motion. Psychiatric--flat affect. Results & Data Results & Data ([facility]) Vital Signs (Past 12 Hours) Vital Signs Temp Pulse Pulse Resp BP BP Pulse Ox 12/30/22 07:13 97.7 F 69 19 163/83 H 93 12/30/22 03:11 99.1 F 66 16 146/75 H 93 12/30/22 01:36 67 12/30/22 01:25 98.2 F 68 16 152/86 H 96 12/29/22 23:31 74 15 137/70 96 O2 Del Method 12/30/22 07:13 Room Air 12/30/22 03:11 Room Air 12/30/22 01:36 12/30/22 01:25 Room Air 12/29/22 23:31 Room Air PG Care Time/CCT Total # of Minutes Spent Total Time Spent with Patient: Total time spent is greater than 50% in coordination of care (as documented) at patient's floor/unit and/or counseling patient: Coding Level of Care Code 34156 SUB INP/OBS CARE 2/35MIN Diagnoses Depression with anxiety F41.8 Elevated troponin I level R77.8 Urinary tract infection N39.0 Hematuria presence: without hematuria Urinary tract infection type: site unspecified CHF (congestive heart failure) I50.9 CAD (coronary artery disease) I25.10 DM2 (diabetes mellitus, type 2) E11.9 GERD (gastroesophageal reflux disease) K21.9 Hyperlipidemia E78.5 Hypothyroid E03.9 HTN (hypertension), benign I10 Parkinsons disease G20 Time Spent (min) 35 (3) Urinary tract infection Hematuria presence: without hematuria Urinary tract infection type: site unspecified Qualified Code(s): N39.0 - Urinary tract infection, site not specified
--- NOTE | 2022-12-30 11:10 | XCELERA ---
[id number]
--- NOTE | 2022-12-30 11:34 | Electrocardiogram Report ---
Test Reason : Blood Pressure : / mmHG Vent. Rate : 072 BPM Atrial Rate : 072 BPM P-R Int : 164 ms QRS Dur : 130 ms QT Int : 486 ms P-R-T Axes : 067 -48 247 degrees QTc Int : 532 ms Normal sinus rhythm Left axis deviation Right bundle branch block Left ventricular hypertrophy with repolarization abnormality Inferior infarct (cited on or before 15-SEP-2022) Anterior infarct (cited on or before 15-SEP-2022) Abnormal ECG When compared with ECG of 15-SEP-2022 20:27, Confirmed by Aaron Augustin ([id number]) on 12/30/2022 11:34:46 AM Referred By: REFERRED SELF Confirmed By:Tim Augustin
--- NOTE | 2022-12-30 14:31 | Psychiatric Consultation ---
Date of Consultation December 30, 2022 Impression / Recommendations Impression 72 yo woman with increased depression and passive SI in context of situational stress of living in a personal long-term with loss of previous independence and limited socialization opportunities with her friends. Diagnostically consistent with adjustment disorder with depressed mood versus major depressive disorder. Unfortunately her QTc is very prolonged-532ms on EKG on 12/29/2022 which significantly limits pharmacotherapy options. However, given that her depression is largely driven by situational stressors/stage of life conflict with loss of independence, medication is unlikely to offer substantial benefit anyway. Once QTc improves/or if deemed to be stable then SSRI or mirtazapine (though has been sleeping a lot) could help with appetite though this seems to be driven by dislike of food options (lots of potatoes)/how it's prepared at her personal long-term rather than lack of appetite due to depression. She feels the most helpful intervention for her mood would be getting to talk so discussed that psychiatric liaisons will try to round daily, and more frequently if possible, to provide support which she is appreciative of. Ideally there would be more ways to increase socialization such as zoom calls with her friends in the community or ways to attend more community events to help with social isolation and low mood. Acute risk of self-harm is deemed to be low. She is having passive SI but no active SI, plan nor intent, no history of prior attempts or prior psych hospitalizations and she lives at personal long-term with supervision and thus limited access to lethal/harmful means and no access to guns. She is future- oriented and can speak to reasons for living including her family and friends. Once medically stable can return to her personal long-term. Overall, I spent a total of 60 minutes with this case including review of chart records, review of labwork, review of EKG QTc, direct evaluation of the patient at bedside, counseling the patient, discussion of the patient with the hospitalist provider, discussion with the psychiatric liason during clinical rounds and documentation in the electronic health record. (1) Parkinsons disease: (2) Depression: Depression Type: unspecified Qualified Code(s): F32.A - Depression, unspecified (3) Abnormal EKG: Plan -Would consider holding escitalopram given prolonged QTc >500ms, but defer to hospitalist and/or cardiology on safety of this -Ideally would discontinue Xanax given high risks of benzodiazepine use in those over age 65 (increased fall risk, can worsen cognition, increases risk of delirium) -Psych liaisons to offer support and explore any possible outpatient therapy options -If QTc improves could consider slow titration of escitalopram versus alterative medication trial, for now will focus on non-pharmacological interventions to help with coping skills and processing loss of independence/role transitions -Not felt to require 1-on-1 or suicide safety measures, discussed with hospitalist Psych History Identifying Data 72 yo woman who lives at [facility] with a history of Parkinson's disease, early stages of dementia/cognitive changes, CHF, CAD, DM t ype II admitted medically for depression, increased sleep and elevated troponin. Psychiatry consulted for recommendations for depression. Chief Complaint "I just want to be at my old home". History of Present Illness Sarah was admitted medically for elevated troponin and worsening depression with increased sleep at her personal long-term. Due to excessive sleep her trazodone was recently discontinued and escitalopram was started at 5mg daily and recently titrated to 10mg daily to help with her mood. She reports ongoing depression due to her worsening health, loss of her apartment, dislike of her personal long-term and social isolation. Tells me "I'm depressed because my life sucks" and expands this is due to "I'm very lonely". Explains her dislike of [facility] as she doesn't like the food they serve (lots of potatoes which she hates) and feels the other residents are all "older and more impaired" so she doesn't feel like she "fits in very well". She has a roommate but states they only talk "on occasion". She endorses passive SI but adamantly denies any active SI, plan nor intent. Can speak to reasons to live including her son and her friends from when she lived near [place]. Says her friends feel [facility] is too far away so they don't come to visit her. She endorses depressive symptoms of increased sleep and decreased appetite though attributes this to not liking the food. 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 Now feels sad if she watching the food network or cooking shows because it reminds of her what she's lost. Did eat breakfast this morning but didn't eat much lunch expressing that she found her chicken sandwich to be "over cooked and too dry". She feels safe in the hospital and states if she were to develop any active SI or feel unable to remain safe that she would let the nurses know. Shows me how she could contact the nurses by utilizing call button. Psychiatric history notable for no history of prior suicide attempts, no history of prior psych hospitalization. History of substance use many years ago (40 yrs ). Allergies Allergy/AdvReac Type Severity Reaction Status Date / Time MARINO Inhibitors Allergy Mild Unknown Verified 12/05/22 09:39 Interferons Allergy Mild Unknown Verified 12/05/22 09:39 Penicillins Allergy Mild Unknown Verified 12/05/22 09:39 Home Medications Medication Instructions Recorded Confirmed Type aspirin 81 mg tablet,delayed 81 mg PO 1600 07/05/22 12/29/22 History release (Adult Aspirin Regimen) insulin glargine 100 unit/mL (3 20 unit subcut BID 07/05/22 12/29/22 History mL) subcutaneous pen (Basaglar KwikPen U-100 Insulin) insulin lispro 100 unit/mL 3 unit subcut TIDM 07/05/22 12/29/22 History subcutaneous pen (Humalog KwikPen (U-100) Insulin) omega 3-grr-rld-fish oil 1,000 mg 2 cap PO DAILY 07/05/22 12/29/22 History (120 mg-180 mg) capsule (Fish Oil) lancets 33 gauge (LytroTouch Delica #100 ea 07/06/22 12/05/22 Rx Lancets) blood sugar diagnostic (LytroTouch #100 ea 07/19/22 12/05/22 Rx Verio test strips) biotin 5 mg tablet 5 mg PO DAILY #30 tabs 07/29/22 12/29/22 Rx dextromethorphan-guaifenesin 5 10 ml PO Q6H PRN cough #180 mL 08/24/22 12/29/22 Rx mg-100 mg/5 mL oral liquid (Mucinex Fast-Max DM Max) alprazolam 0.25 mg tablet 0.25 mg PO DAILY PRN anxiety #30 08/25/22 12/29/22 Rx tabs magnesium oxide 400 mg PO BID 09/15/22 12/29/22 History cyanocobalamin (vitamin B-12) 1,000 mcg PO DAILY #30 caps 09/20/22 12/29/22 Rx 1,000 mcg capsule triamcinolone acetonide 0.1 % 1 applic topical BID PRN rash #15 09/26/22 12/29/22 Rx topical cream grams ferrous sulfate 325 mg (65 mg 325 mg PO DAILY #30 tabs 10/21/22 12/29/22 Rx iron) tablet bumetanide 1 mg tablet 2 mg PO DAILY PRN wt gain 5LBS or 11/09/22 12/29/22 History more over 3 days carbidopa 25 mg-levodopa 100 mg 0.5 tab PO TID #90 tabs 11/09/22 12/29/22 Rx tablet divalproex 500 mg tablet,extended 500 mg PO BID #60 tabs 11/09/22 12/29/22 Rx release 24 hr levetiracetam 1,000 mg tablet 1,000 mg PO BID #60 tabs 11/09/22 12/29/22 Rx acetaminophen 500 mg tablet 500 mg PO QID PRN pain #90 tabs 11/23/22 12/29/22 Rx (Tylenol Extra Strength) atorvastatin 10 mg tablet 10 mg PO DAILY #90 tabs 11/28/22 12/29/22 Rx bumetanide 2 mg tablet 2 mg PO BID #180 tabs 11/28/22 12/29/22 Rx calcitriol 0.25 mcg capsule 0.25 mcg PO DAILY #90 caps 11/28/22 12/29/22 Rx carvedilol 12.5 mg tablet 12.5 mg PO BID #180 tabs 11/28/22 12/29/22 Rx clopidogrel 75 mg tablet 75 mg PO DAILY #90 tabs 11/28/22 12/29/22 Rx hydralazine 50 mg tablet 75 mg PO BID #135 tabs 11/28/22 12/29/22 Rx levothyroxine 25 mcg capsule 25 mcg PO DAILY #90 caps 11/28/22 12/29/22 Rx propranolol 10 mg tablet 10 mg PO BID #60 tabs 11/28/22 12/29/22 Rx valacyclovir 500 mg tablet 500 mg PO DAILY #30 tabs 11/28/22 12/29/22 Rx escitalopram oxalate 10 mg tablet 10 mg PO DAILY #30 tabs 12/06/22 12/29/22 Rx (Lexapro) pantoprazole 40 mg tablet,delayed 40 mg PO DAILY #90 tabs 12/21/22 12/29/22 Rx release pen needle, diabetic 32 gauge x #100 ea 12/28/22 Rx 1/4" (BD Ultra-Fine Micro Pen Needle) Patient History Medical History Amputated toe of right foot 2020 Anemia B12 deficiency Bleeding disorder CAD (coronary artery disease) Ctpklzg-Wganp-Wlphd syndrome CHF (congestive heart failure) Depression with anxiety DM2 (diabetes mellitus, type 2) Gastric peptic ulcer GERD (gastroesophageal reflux disease) GI bleed Gout HTN (hypertension), benign Hx of hepatitis C Hyperlipidemia Hypothyroid Iron deficiency anemia Lives in senior facility [facility] resident Seizure disorder first seizure spring 2020 Stage 4 chronic kidney disease Tremor Surgical History H/O: section 1981 Hx of tonsillectomy S/P CABG x 4 Stented coronary artery Family History Brother Diabetes Hypertension Father Hypertension Mother Lung disease Denies family history of Breast cancer Colorectal cancer Social History Smoking Status: Former smoker Hx Alcohol Use: No Hx Substance Use: No Preferred Language: Kyrgyz Communication Ability: Effective Animal Stunner Required: No Beliefs That Will Affect Care: None marital status: Current Living Situation: Personal Care Facility Current Living Situation Comment: [facility] current occupational status: retired Other Information That Helps Us Care for You: No Feels Safe at Home: Yes Safety Concerns: Feels Safe At This Time Dental Care, Regularly: Yes Physical Activity Frequency: Does not Exercise Seatbelt Use: always Assistive Devices: [facility] Physical Exam Psychiatric: Orientation: alert and oriented x 3 Apperance: appropriately dressed and appropriately groomed Eye Contact: good eye contact Motor Behavior: no abnormal motor movements Speech: normal rate/rhythm/volume of speech Affect: + constricted affect Mood: + depressed mood Thought Process: goal directed thought process Thought Content: reality based without delusions Suicidal Thoughts: denies suicidal plan and denies suicidal intent; + reports suicidal thoughts (intermittent passive SI, denies any active SI) Homicidal Thoughts: denies homicidal thoughts Hallucinations: no auditory hallucinations and no visual hallucinations Cognition: attention grossly intact and language grossly intact Estimated Intelligence: consistent with education level Insight: + limited insight Judgment: + limited judgement Vital Signs (Past 24 Hours): Last Vital Signs Temp 36.8 C 12/30/22 11:58 Pulse 70 12/30/22 11:58 Resp 20 12/30/22 11:58 BP 165/77 H 12/30/22 11:58 Pulse Ox 94 12/30/22 11:58 O2 Del Method Room Air 12/30/22 11:58 Review of Systems All systems reviewed & are unremarkable except as noted in HPI & below Results & Data (PSY) Diagnostic Findings QTc 532ms on EKG on 12/29/2022 Medications Administered Atorvastatin Calcium (Atorvastatin 10 Mg Tab) 10 mg PO DAILY [facility] Stop: 01/29/23 08:59 Last Admin: 12/30/22 09:01 Dose: 10 mg Documented By: RASHID Bumetanide (Bumetanide 1 Mg Tab) 2 mg PO BID17 [facility] Stop: 01/29/23 01:14 Last Admin: 12/30/22 10:44 Dose: 2 mg Documented By: MEG Calcitriol (Calcitriol 0.25 Mcg Capsule) 0.25 mcg PO DAILY [facility] Stop: 01/29/23 08:59 Last Admin: 12/30/22 09:02 Dose: 0.25 mcg Documented By: RASHID Carbidopa/Levodopa (Carbidopa/Levodopa 25/100mg Tab) 0.5 tab PO TID [facility] Stop: 01/29/23 08:59 Last Admin: 12/30/22 09:03 Dose: 0.5 tab Documented By: RASHID Carvedilol (Carvedilol 12.5 Mg Tab) 12.5 mg PO BID [facility] Stop: 01/29/23 01:14 Last Admin: 12/30/22 09:03 Dose: 12.5 mg Documented By: Admin: 12/30/22 01:24 Dose: Not Given Documented By: LORIN Clopidogrel Bisulfate (Clopidogrel Bisulfate 75 Mg Tab) 75 mg PO DAILY [facility] Stop: 01/29/23 08:59 Last Admin: 12/30/22 09:01 Dose: 75 mg Documented By: RASHID Divalproex Sodium (Divalproex Extended Release 500 Mg Tab) 500 mg PO BID [facility] Stop: 01/29/23 01:14 Last Admin: 12/30/22 09:03 Dose: 500 mg Documented By: Admin: 12/30/22 02:07 Dose: 500 mg Documented By: LORIN Escitalopram Oxalate (Escitalopram Oxalate 10 Mg Tab) 10 mg PO DAILY [facility] Stop: 01/29/23 08:59 Last Admin: 12/30/22 09:01 Dose: 10 mg Documented By: RASHID Hydralazine HCl (Hydralazine Hcl 25 Mg Tab) 75 mg PO BID [facility] Stop: 01/29/23 01:14 Last Admin: 12/30/22 09:02 Dose: 75 mg Documented By: Admin: 12/30/22 01:24 Dose: Not Given Documented By: LORIN Ceftriaxone Sodium 2,000 mg/ (Dextrose) 70 mls @ 100 mls/hr IV Q24H [facility]; Protocol Stop: 01/04/23 05:59 Last Infusion: 12/30/22 06:04 Dose: 0 mls/hr Documented By: Admin: 12/30/22 05:20 Dose: 100 mls/hr Documented By: LORIN Insulin Aspart (Insulin Aspart Per Unit) 0 units SC ACHS [facility] Stop: 01/29/23 01:14 Last Admin: 12/30/22 12:13 Dose: 4 units Documented By: MEG Co-signed By: MARIFER Admin: 12/30/22 09:12 Dose: 3 units Documented By: RASHID Co-signed By: MARIFER Admin: 12/30/22 01:52 Dose: 2 units Documented By: LORIN Co-signed By: ROSA MARIA Insulin Glargine (Lantus Per Unit Charge) 15 units SQ BID [facility] Stop: 01/29/23 01:14 Last Admin: 12/30/22 09:12 Dose: 15 units Documented By: RASHID Co-signed By: MARIFER Admin: 12/30/22 01:53 Dose: 15 units Documented By: LORIN Co-signed By: ROSA MARIA Levetiracetam (Levetiracetam 500 Mg Tab) 1,000 mg PO BID [facility] Stop: 01/29/23 01:14 Last Admin: 12/30/22 09:02 Dose: 1,000 mg Documented By: Admin: 12/30/22 01:52 Dose: Not Given Documented By: LORIN Levothyroxine Sodium (Levothyroxine Sodium 25 Mcg Tablet) 25 mcg PO DAILYBB [facility] Stop: 01/29/23 06:29 Last Admin: 12/30/22 05:20 Dose: 25 mcg Documented By: LORIN Pantoprazole Sodium (Pantoprazole 40 Mg Tab) 40 mg PO DAILY [facility] Stop: 01/29/23 08:59 Last Admin: 12/30/22 09:01 Dose: 40 mg Documented By: RASHID Propranolol HCl (Propranolol Hcl 10 Mg Tab) 10 mg PO BID [facility] Stop: 01/29/23 01:14 Last Admin: 12/30/22 09:02 Dose: 10 mg Documented By: Admin: 12/30/22 01:52 Dose: Not Given Documented By: LORIN Valacyclovir HCl (Valacyclovir Hcl 500 Mg Tablet) 500 mg PO DAILY [facility] Stop: 01/29/23 08:59 Last Admin: 12/30/22 09:01 Dose: 500 mg Documented By: RASHID Coding Level of Care Code INP/OBS CONSULT LVL 4, 60 MIN Diagnoses Parkinsons disease G20 Depression F32.A Depression Type: unspecified Abnormal EKG R94.31 Time Spent (min) 60
[2022-12-30] MEDS: ASPIRIN 81 MG ECTAB PO SCH (15:25)
[2022-12-30] MEDS: ALPRAZolam 0.25 MG TABLET PO PRN (21:44)
[2022-12-31] MEDS: MELATONIN 3 MG TAB PO PRN ×2 (00:09→21:11)
[2022-12-31] MEDS: cefTRIAXone SODIUM 2,000 MG in DEXTROSE 5% 50 ML IV SCH (04:55)
[2022-12-31] MEDS: LEVOTHYROXINE SODIUM 25 MCG TABLET PO SCH (04:55)
[2022-12-31 05:56] LABS: Hematocrit (blood only) 26.1 % (37.0-47.0); Hemoglobin 8.9 g/dl (12.0-16.0); Mean Corpuscular Hgb Conc 34.1 g/dL (32.0-36.0); Mean Corpuscular Volume 102.8 fL (80.0-100.0); Mean Platelet Volume 11.3 fL (9.4-12.4); Platelet Count 145 K/uL (130-400); RDW Standard Deviation 61.3 fL (36.4-46.3); Red Blood Count 2.54 M/uL (4.20-5.40); White Blood Count 5.84 K/ul (4.8-10.8)
[2022-12-31 06:11] LABS: BUN Creatinine Ratio 23.4 (10-20); Calcium 9.3 mg/dl (8.5-10.1); Creatinine Clr Calc Pharmacy 29.2 ml/min; Est GFR (African American) 28.5 ml/min; Est GFR (Non-African American) 24.6 ml/min; Potassium 4.1 mmol/L (3.5-5.1)
[2022-12-31] MEDS: INSULIN ASPART PER UNIT SC SCH ×4 (08:49→21:23)
[2022-12-31] MEDS: CALCITRIOL 0.25 MCG CAPSULE PO SCH (08:50)
[2022-12-31] MEDS: ATORVASTATIN 10 MG TAB PO SCH (08:50)
[2022-12-31] MEDS: valACYclovir HCL 500 MG TABLET PO SCH (08:50)
[2022-12-31] MEDS: CLOPIDOGREL BISULFATE 75 MG TAB PO SCH (08:50)
[2022-12-31] MEDS: PANTOprazole 40 MG TAB PO SCH (08:50)
[2022-12-31] MEDS: CARBIDOPA/LEVODOPA 25/100MG TAB PO SCH ×3 (08:51→21:15)
[2022-12-31] MEDS: levETIRAcetam 500 MG TAB PO SCH ×2 (08:51→21:12)
[2022-12-31] MEDS: DIVALPROEX EXTENDED RELEASE 500 MG TAB PO SCH ×2 (08:51→21:14)
[2022-12-31] MEDS: BUMETANIDE 1 MG TAB PO SCH ×2 (08:52→16:56)
[2022-12-31] MEDS: hydrALAZINE HCL 25 MG TAB PO SCH ×2 (08:52→21:13)
[2022-12-31] MEDS: PROPRANOLOL HCL 10 MG TAB PO SCH ×2 (08:52→21:13)
[2022-12-31] MEDS: carvediloL 12.5 MG TAB PO SCH ×2 (08:52→21:16)
[2022-12-31] MEDS: LANTUS PER UNIT CHARGE SQ SCH ×2 (08:53→21:23)
--- NOTE | 2022-12-31 10:13 | Electrocardiogram Report ---
Test Reason : Blood Pressure : / mmHG Vent. Rate : 063 BPM Atrial Rate : 063 BPM P-R Int : 178 ms QRS Dur : 124 ms QT Int : 480 ms P-R-T Axes : 060 -47 213 degrees QTc Int : 491 ms Normal sinus rhythm Left axis deviation Left ventricular hypertrophy with QRS widening Inferior infarct (cited on or before 15-SEP-2022) Anteroseptal infarct (cited on or before 15-SEP-2022) Abnormal ECG When compared with ECG of 29-DEC-2022 18:12, Right bundle branch block is no longer Present Questionable change in initial forces of Septal leads Confirmed by Pito Ruiz ([id number]) on 12/31/2022 10:13:12 AM Referred By: REFERRED SELF Confirmed By:Pito Ruiz
--- NOTE | 2022-12-31 12:56 | Hospitalist Progress Note ---
Date of Service December 31, 2022 Assessment & Plan (1) Depression with anxiety: Plan: Patient presenting from a personal correction with worsening depressive symptoms ongoing since February 2022. She admits to acute worsening in her depression after her son asked her to move out and she moved into a new personal care facility. She is quite unhappy with her current living situation. She admits to increased fatigue, poor appetite as well as anhedonia. She has had some suicidal ideations as well, no plan, no history of prior SI or suicide attempt. Psychiatry consultation appreciated Patient verbally contracted for safety. She denies feeling suicidal at this time. -1:! has been discontinued -Patient is medically stable and medically cleared for inpatient psych -EKG is now wnl, GTc has shortened (2) Elevated troponin I level: Plan: 72-year-old female with history of coronary artery disease status post CABG x4 vessel and 2014, CHF, diabetes, hypertension, hyperlipidemia presenting from her personal correction with worsening depression. ER work-up revealed mild elevation of troponin = 158. Initial EKG with some ST segment deviations, overall this appeared similar to prior study from September 2022. Patient denies chest pain, palpitations, cough or shortness of breath. Do not highly suspect ACS at this point. - Most likely Type 2 UT from acute infection, UTI Trend troponin Continue home cardiac medications, aspirin 81 mg p.o. daily, atorvastatin 10 mg p.o. daily, carvedilol 12.5 mg p.o. twice daily, Plavix 75 mg p.o. daily (3) Urinary tract infection: Plan: Patient reports several days of increased urinary urgency, frequency as well as incontinence. Her urinalysis is turbid with 3+ leukocyte esterase and 2+ bacteria. She was administered cefdinir 600 mg p.o. x1 dose in the ER. Patient is afebrile, hemodynamically stable, nontoxic in appearance. We will continue antibiotic coverage with ceftriaxone 2 g IV daily Follow urine culture (4) CHF (congestive heart failure): Plan: Patient with history of chronic combined systolic and diastolic heart failure (EF 45 to 50%, grade 2 diastolic dysfunction, significant RV failure, mild to moderate left atrial enlargement, mild mitral stenosis, moderate to severe mitral regurgitation, moderate to severe aortic stenosis, and severe pulmonary hypertension). -She appears compensated and euvolemic - Patient follows with cardiology. Last seen on 12/05/2022. Continue Bumex 2 mg p.o. twice daily Monitor intake and output as well as daily standing weights. Continue carvedilol 12.5 mg p.o. twice daily Continue hydralazine 75 mg p.o. twice daily Patient has not been on MARINO/ARB/Entresto secondary to history of chronic renal insufficiency (5) CAD (coronary artery disease): Plan: Patient with coronary artery disease status post CABG x4 vessel performed at [facility] in 2013. She had recent cardiac stenting. Was recently seen by cardiology on 12/05/2022. At that time patient on aspirin as well as Plavix. Records were to be obtained to understand specifics of her stenting in regards to continued need for dual antiplatelet therapy. No records present in chart. Patient does have mild elevation of troponin of 158. EKG appears to have more chronic changes, no acute ischemia. She denies history of chest pain, palpitations, shortness of breath or dizziness. For now we will continue aspirin 81 mg p.o. daily as well as Plavix 75 mg p.o. daily We will request cardiology records from [facility] Continue carvedilol 12.5 mg p.o. twice daily Continue atorvastatin 10 mg p.o. daily (6) DM2 (diabetes mellitus, type 2): Plan: Patient with diabetes, poorly controlled. Last hemoglobin A1c on 09/16/2022 = 8.5. She is on home insulin therapy. Will provide Lantus 15 units twice daily Insulin sliding scale Goal blood sugar 380290 (7) GERD (gastroesophageal reflux disease): Plan: Chronic. Stable. Continue Protonix 40 mg p.o. twice daily (8) Hyperlipidemia: Plan: Chronic. Stable. Continue atorvastatin 10 mg p.o. daily (9) Hypothyroid: Plan: TSH within normal range = 2.883 on 12/29/2022 Continue Synthroid 25 mcg p.o. daily (10) HTN (hypertension), benign: Plan: BP now under better control compared to admission Monitor blood pressure Continue carvedilol and hydralazine (11) Parkinsons disease: Plan: Patient reports recently being diagnosed with Parkinson's. Continue carbidopalevodopa 25 mg / 100 mg 0.5 tablets p.o. 3 times daily Plan Patient is medically stable and medically cleared for inpatient psych Admission and Anticipated Discharge Date Admission Date: December 29, 2022 Subjective patient seen and examined, still feels very depressed Review of Systems Review of Systems: All systems reviewed are negative, apart from the ones contained in the history. Physical Exam Physical Exam: The patient is awake, alert and oriented 3, well developed and well nourished, normocephalic and atraumatic, lying in bed and in no acute distress. HEENT--PERRL, EOMI, mucous membranes and oropharynx mildly dry Neck--supple. No JVD. No bruits. Thyroid normal, trachea midline, no adenopathy. Heart--normal S1 and S2. No murmurs, rubs or gallops. Lungs--clear bilaterally, no respiratory distress, no accessory muscle use. Abdomen--normal bowel sounds and soft. Mild epigastric and left sided abdominal pain Extremities--no cyanosis or clubbing. No edema. Dermatologic--normal skin turgor, normal color, no abnormal lymph nodes, no rash. Neurologic--cranial nerves II through XII grossly intact. Rheumatologic--normal range of motion. Psychiatric--flat affect. Results & Data Results & Data ([facility]) Vital Signs (Past 12 Hours) Vital Signs Temp Pulse Pulse Resp BP Pulse Ox O2 Del Method 12/31/22 11:56 97.9 F 104 H 18 165/73 H 99 Room Air 12/31/22 07:56 97.5 F L 62 16 176/69 H 93 Room Air 12/31/22 07:16 63 12/31/22 06:04 97.9 F 62 18 143/78 H 94 Room Air 12/31/22 01:14 71 PG Care Time/CCT Total # of Minutes Spent Total Time Spent with Patient: Total time spent is greater than 50% in coordination of care (as documented) at patient's floor/unit and/or counseling patient: Coding Level of Care Code 87251 SUB INP/OBS CARE 2/35MIN Diagnoses Depression with anxiety F41.8 Elevated troponin I level R77.8 Urinary tract infection N39.0 Hematuria presence: without hematuria Urinary tract infection type: site unspecified CHF (congestive heart failure) I50.9 CAD (coronary artery disease) I25.10 DM2 (diabetes mellitus, type 2) E11.9 GERD (gastroesophageal reflux disease) K21.9 Hyperlipidemia E78.5 Hypothyroid E03.9 HTN (hypertension), benign I10 Parkinsons disease G20 Time Spent (min) 35 (3) Urinary tract infection Hematuria presence: without hematuria Urinary tract infection type: site unspecified Qualified Code(s): N39.0 - Urinary tract infection, site not specified
[2022-12-31] MEDS: ASPIRIN 81 MG ECTAB PO SCH (16:56)
[2023-01-01] MEDS: ALPRAZolam 0.25 MG TABLET PO PRN (04:23)
[2023-01-01] MEDS: cefTRIAXone SODIUM 2,000 MG in DEXTROSE 5% 50 ML IV SCH (05:42)
[2023-01-01] MEDS: LEVOTHYROXINE SODIUM 25 MCG TABLET PO SCH (05:45)
[2023-01-01] MEDS: INSULIN ASPART PER UNIT SC SCH ×2 (08:48→12:16)
[2023-01-01] MEDS: BUMETANIDE 1 MG TAB PO SCH (08:49)
[2023-01-01] MEDS: PROPRANOLOL HCL 10 MG TAB PO SCH (08:49)
[2023-01-01] MEDS: LANTUS PER UNIT CHARGE SQ SCH (08:49)
[2023-01-01] MEDS: DIVALPROEX EXTENDED RELEASE 500 MG TAB PO SCH (08:49)
[2023-01-01] MEDS: CALCITRIOL 0.25 MCG CAPSULE PO SCH (08:49)
[2023-01-01] MEDS: hydrALAZINE HCL 25 MG TAB PO SCH (08:50)
[2023-01-01] MEDS: CARBIDOPA/LEVODOPA 25/100MG TAB PO SCH ×2 (08:50→13:17)
[2023-01-01] MEDS: valACYclovir HCL 500 MG TABLET PO SCH (08:50)
[2023-01-01] MEDS: carvediloL 12.5 MG TAB PO SCH (08:50)
[2023-01-01] MEDS: CLOPIDOGREL BISULFATE 75 MG TAB PO SCH (08:51)
[2023-01-01] MEDS: ATORVASTATIN 10 MG TAB PO SCH (08:51)
[2023-01-01] MEDS: PANTOprazole 40 MG TAB PO SCH (08:51)
[2023-01-01] MEDS: levETIRAcetam 500 MG TAB PO SCH (08:51)
--- NOTE | 2023-01-01 12:17 | Discharge Summary ---
Date of Service January 01, 2023 Admission HPI Per Admitting Provider Sarah Taylor is a 70-year-old female with multiple medical problems to include hypertension, hyperlipidemia, diabetes, CAD status post CABG in 2013, CHF as well as depression and Parkinson's disease presenting from her personal fdc with complaint of overall doing poorly. Patient started feeling unwell in February 2022 after having a seizure. She was hospitalized for a short while and subsequently discharged to [facility]. She then got COVID 19 and was sent to another fdc for short time. [place] son then informed her that she was too difficult to take care of and she was moved into [facility] personal-fdc in spring. Patient is overall very unhappy with her personal fdc she says "that place is horrible" she describes them as "incompetent and dishonest". She reports worsening mood and increased depression since her son asked her to move out. She reports poor appetitehas not eaten anything for 4 days. She reports feeling sad. She has occasional suicidal ideations stating "if I had away I would do something to hurt myself". Patient with no prior SI or suicide attempts. No HI, no VH/AH. Additionally, patient reports some diffuse abdominal pain as well as nausea. She has increased urinary frequency and incontinence. She denies chest pain, palpitations, cough, shortness of breath, diarrhea. No additional complaints at this time In the ER she is afebrile, mildly hypertensive otherwise hemodynamically stable. No respiratory distress. Adequate oxygenation on room air. Discussion with ER attending and case managementpatient will possibly need a [facility] psych bed but due to mild elevation in troponin and acute UTI she will need to be medically cleared first. ER course: Cefdinir 60 mg p.o. Principal Diagnosis Depression Discharge Exam The patient is awake, alert and oriented 3, well developed and well nourished, normocephalic and atraumatic, lying in bed and in no acute distress. HEENT--PERRL, EOMI, mucous membranes and oropharynx mildly dry Neck--supple. No JVD. No bruits. Thyroid normal, trachea midline, no adenopathy. Heart--normal S1 and S2. No murmurs, rubs or gallops. Lungs--clear bilaterally, no respiratory distress, no accessory muscle use. Abdomen--normal bowel sounds and soft. Mild epigastric and left sided abdominal pain Extremities--no cyanosis or clubbing. No edema. Dermatologic--normal skin turgor, normal color, no abnormal lymph nodes, no ra sh. Neurologic--cranial nerves II through XII grossly intact. Rheumatologic--normal range of motion. Psychiatric--flat affect. Discharge Data Allergies Allergy/AdvReac Type Severity Reaction Status Date / Time MARINO Inhibitors Allergy Mild Unknown Verified 12/05/22 09:39 Interferons Allergy Mild Unknown Verified 12/05/22 09:39 Penicillins Allergy Mild Unknown Verified 12/05/22 09:39 Consultations 12/29/22 19:37 ED Decision to Admit Stat 12/30/22 01:15 Consult Psychiatry Routine 12/30/22 01:36 Consult Psychiatry Routine Ordered Studies 12/29/22 17:44 CT head/brain wo con Stat Hospital Course (1) Depression with anxiety: Patient presenting from a personal fdc with worsening depressive symptoms ongoing since February 2022. She admits to acute worsening in her depression after her son asked her to move out and she moved into a new personal care facility. She is quite unhappy with her current living situation. She admits to increased fatigue, poor appetite as well as anhedonia. She has had some suicidal ideations as well, no plan, no history of prior SI or suicide attempt. Psychiatry consultation appreciated Patient verbally contracted for safety. She denies feeling suicidal at this time. -1:! has been discontinued -Patient is medically stable and medically cleared for inpatient psych -EKG is now wnl, GTc has shortened, however Lexapro has been discontinued at the suggestion of Psych -However, psych determined that patient did not meet the criteria for involuntary psych admission, patient resfused voluntary admission -She will be discharged back to her home (2) Elevated troponin I level: 72-year-old female with history of coronary artery disease status post CABG x4 vessel and 2014, CHF, diabetes, hypertension, hyperlipidemia presenting from her personal fdc with worsening depression. ER work-up revealed mild elevation of troponin = 158. Initial EKG with some ST segment deviations, overall this appeared similar to prior study from September 2022. Patient denies chest pain, palpitations, cough or shortness of breath. Do not highly suspect ACS at this point. - Most likely Type 2 TX from acute infection, UTI Trend troponin Continue home cardiac medications, aspirin 81 mg p.o. daily, atorvastatin 10 mg p.o. daily, carvedilol 12.5 mg p.o. twice daily, Plavix 75 mg p.o. daily (3) Urinary tract infection: Patient reports several days of increased urinary urgency, frequency as well as incontinence. Her urinalysis is turbid with 3+ leukocyte esterase and 2+ bacteria. She was administered cefdinir 600 mg p.o. x1 dose in the ER. Patient is afebrile, hemodynamically stable, nontoxic in appearance. We will continue antibiotic coverage with ceftriaxone 2 g IV daily Follow urine culture (4) CHF (congestive heart failure): Patient with history of chronic combined systolic and diastolic heart failure (EF 45 to 50%, grade 2 diastolic dysfunction, significant RV failure, mild to moderate left atrial enlargement, mild mitral stenosis, moderate to severe mitral regurgitation, moderate to severe aortic stenosis, and severe pulmonary hypertension). -She appears compensated and euvolemic - Patient follows with cardiology. Last seen on 12/05/2022. Continue Bumex 2 mg p.o. twice daily Monitor intake and output as well as daily standing weights. Continue carvedilol 12.5 mg p.o. twice daily Continue hydralazine 75 mg p.o. twice daily Patient has not been on MARINO/ARB/Entresto secondary to history of chronic renal insufficiency (5) CAD (coronary artery disease): Patient with coronary artery disease status post CABG x4 vessel performed at [facility] in 2013. She had recent cardiac stenting. Was recently seen by cardiology on 12/05/2022. At that time patient on aspirin as well as Plavix. Records were to be obtained to understand specifics of her stenting in regards to continued need for dual antiplatelet therapy. No records present in chart. Patient does have mild elevation of troponin of 158. EKG appears to have more chronic changes, no acute ischemia. She denies history of chest pain, palpitations, shortness of breath or dizziness. For now we will continue aspirin 81 mg p.o. daily as well as Plavix 75 mg p.o. daily We will request cardiology records from [place] Continue carvedilol 12.5 mg p.o. twice daily Continue atorvastatin 10 mg p.o. daily (6) DM2 (diabetes mellitus, type 2): Patient with diabetes, poorly controlled. Last hemoglobin A1c on 09/16/2022 = 8.5. She is on home insulin therapy. Will provide Lantus 15 units twice daily Insulin sliding scale Goal blood sugar 354294 (7) GERD (gastroesophageal reflux disease): Chronic. Stable. Continue Protonix 40 mg p.o. twice daily (8) Hyperlipidemia: Chronic. Stable. Continue atorvastatin 10 mg p.o. daily (9) Hypothyroid: TSH within normal range = 2.883 on 12/29/2022 Continue Synthroid 25 mcg p.o. daily (10) HTN (hypertension), benign: BP now under better control compared to admission Monitor blood pressure Continue carvedilol and hydralazine (11) Parkinsons disease: Patient reports recently being diagnosed with Parkinson's. Continue carbidopalevodopa 25 mg / 100 mg 0.5 tablets p.o. 3 times daily Plan Patient is medically stable and medically cleared for inpatient psych Total Time Total Time Spent Total Time Spent (In Minutes): 35 Discharge Plan Discharge Items Patient Disposition: Personal [facility] Reason For Visit: WORSENING DEPRESSION, UTI, ELEVATED TROPONIN Discharge Diagnosis: Depression Activity: Resume your previous activity Non-emergency contact: Primary Care Provider and Psychiatrist Call non-emergency contact if: you have any medication questions and your symptoms worsen Follow-up/Referrals: Taylor Sigala [Primary Care Provider] - Diet: Regular Addtl Attending Provider Instructions: Please make appointment to follow up with Psychiatry Pending Studies at Discharge: No Stand-Alone Forms: My [employer], Smoking Cessation Skilled Items Patient informed of condition?: Yes DNR: Yes Discharge Level of Care: Other Communicable Disease: No Discharge Prognosis: Stable Lines: None Urinary Catheter: No Medications and DC Order Prescriptions: Continued (DME) lancets [OneTouch Delica Lancets] 33 gauge misc See Rx Instructions .Route Qty: 100 5RF Rx Instructions: Test 3 times a day with meals and PRN up to 3 times E11.9 (DME) OneTouch Verio test strips Strip See Rx Instructions .Route Qty: 100 5RF Rx Instructions: Test 3 times a day with meals and PRN with a max of 3 times- E11.9 biotin 5 mg tablet 5 mg PO DAILY Qty: 30 0RF Mucinex Fast-Max DM Max 5-100 mg/5 mL liquid 10 ml PO Q6H PRN (Reason: cough) Qty: 180 0RF alprazolam 0.25 mg tablet 0.25 mg PO DAILY PRN (Reason: anxiety) Qty: 30 0RF ferrous sulfate 325 mg (65 mg iron) tablet 325 mg PO DAILY Qty: 30 5RF acetaminophen [Tylenol Extra Strength] 500 mg tablet 500 mg PO QID PRN (Reason: pain) Qty: 90 0RF bumetanide 2 mg tablet 2 mg PO BID Qty: 180 1RF clopidogrel 75 mg tablet 75 mg PO DAILY Qty: 90 1RF carvedilol 12.5 mg tablet 12.5 mg PO BID Qty: 180 1RF Rx Instructions: must administer with a meal/food hydralazine 50 mg tablet 75 mg PO BID Qty: 135 1RF Rx Instructions: 1 & 1/2 tablet dose valacyclovir 500 mg tablet 500 mg PO DAILY Qty: 30 5RF propranolol 10 mg tablet 10 mg PO BID Qty: 60 2RF atorvastatin 10 mg tablet 10 mg PO DAILY Qty: 90 1RF levothyroxine 25 mcg capsule 25 mcg PO DAILY Qty: 90 1RF calcitriol 0.25 mcg capsule 0.25 mcg PO DAILY Qty: 90 1RF pantoprazole 40 mg tablet,delayed release (DR/EC) 40 mg PO DAILY Qty: 90 1RF (DME) pen needle, diabetic [BD Ultra-Fine Micro Pen Needle] 32 gauge x 1/4" needle See Rx Instructions .Route Qty: 100 5RF Rx Instructions: 5 times a day E11.9 aspirin [Adult Aspirin Regimen] 81 mg tablet,delayed release (DR/EC) 81 mg PO 1600 insulin glargine [Basaglar KwikPen U-100 Insulin] 100 unit/mL (3 mL) insulin pen 20 unit subcut BID insulin lispro [Humalog KwikPen Insulin] 100 unit/mL insulin pen 3 unit subcut TIDM omega [id number] oil [Fish Oil] 1,000 mg (120 mg-180 mg) capsule 2 cap PO DAILY triamcinolone acetonide 0.1 % cream 1 applic topical BID PRN (Reason: rash) Qty: 15 0RF levetiracetam 1,000 mg tablet 1,000 mg PO BID Qty: 60 5RF carbidopa-levodopa 25-100 mg tablet 0.5 tab PO TID Qty: 90 3RF divalproex 500 mg tablet extended release 24 hr 500 mg PO BID Qty: 60 2RF magnesium oxide 400 mg magnesium Tablet 400 mg PO BID cyanocobalamin (vitamin B-12) 1,000 mcg capsule 1,000 mcg PO DAILY Qty: 30 0RF bumetanide 1 mg tablet 2 mg PO DAILY PRN (Reason: wt gain 5LBS or more over 3 days) Discontinued escitalopram oxalate [Lexapro] 10 mg tablet 10 mg PO DAILY Qty: 30 2RF Discharge Orders: Discharge Order (Routine); Ordered 01/01/23 Ordered By: Kelly Childers Admission Data Admit Date/Time: 12/29/22 20:00 Attending Provider: Kelly Childers Admit Provider: Dimple Little Primary Care Provider: Taylor Sigala Other Providers: Dimple Little ; Lyla Brand ; Che Mathews ; Rolf Tovar Coding Level of Care Code HOSP INP/OBS DISCH >30 MIN Diagnoses Depression with anxiety F41.8 Elevated troponin I level R77.8 Urinary tract infection N39.0 Hematuria presence: without hematuria Urinary tract infection type: site unspecified CHF (congestive heart failure) I50.9 CAD (coronary artery disease) I25.10 DM2 (diabetes mellitus, type 2) E11.9 GERD (gastroesophageal reflux disease) K21.9 Hyperlipidemia E78.5 Hypothyroid E03.9 HTN (hypertension), benign I10 Parkinsons disease G20 Time Spent (min) 35
== END 2023-01-01 15:35 | disposition home or self-care (01) | DRG 689 ==
LOC: ED 17:25 → SUATTDRO 20:00 → 2N 20:00

== ENCOUNTER 2023-02-25 01:38 | Inpatient (IN) ==
--- NOTE | 2023-02-25 01:58 | Emergency Department Note ---
History of Present Illness General Chief complaint: Fall Stated complaint: Fall Time Seen by Provider: 02/25/23 01:40 History of Present Illness 72-year-old female presents emergency department with generalized weakness from [facility]. Reportedly she was recently evaluated in our hospital for fall with tailbone injury and had recently returned to [facility] and falling. Patient fell this evening but did not hit her head. Patient denies any chest pain shortness of breath abdominal pain nausea vomiting diarrhea. Patient has no recent infections. Patient is a poor historian to her presentation. Patient states that she typically uses a walker. Home Medications Medication Instructions Recorded Confirmed Type aspirin 81 mg tablet,delayed 81 mg PO .DAILY @ 1600 07/05/22 02/25/23 History release (Adult Aspirin Regimen) omega 0-qce-xcf-fish oil 1,000 mg 2 cap PO DAILY 07/05/22 02/25/23 History (120 mg-180 mg) capsule (Fish Oil) lancets 33 gauge (OneTouch Delica #100 ea 07/06/22 02/14/23 Rx Lancets) biotin 5 mg tablet 5 mg PO DAILY #30 tabs 07/29/22 02/25/23 Rx dextromethorphan-guaifenesin 5 10 ml PO Q6H PRN cough #180 mL 08/24/22 02/25/23 Rx mg-100 mg/5 mL oral liquid (Mucinex Fast-Max DM Max) alprazolam 0.25 mg tablet 0.25 mg PO DAILY PRN anxiety #30 08/25/22 02/25/23 Rx tabs magnesium oxide 400 mg PO BID 09/15/22 02/25/23 History cyanocobalamin (vitamin B-12) 1,000 mcg PO DAILY #30 caps 09/20/22 02/25/23 Rx 1,000 mcg capsule triamcinolone acetonide 0.1 % 1 applic topical BID PRN rash #15 09/26/22 02/25/23 Rx topical cream grams bumetanide 1 mg tablet 2 mg PO DAILY PRN wt gain 5LBS or 11/09/22 02/25/23 History more over 3 days acetaminophen 500 mg tablet 500 mg PO QID PRN pain #90 tabs 11/23/22 02/25/23 Rx (Tylenol Extra Strength) bumetanide 2 mg tablet 2 mg PO BID #180 tabs 11/28/22 02/25/23 Rx calcitriol 0.25 mcg capsule 0.25 mcg PO DAILY #90 caps 11/28/22 02/25/23 Rx carvedilol 12.5 mg tablet 12.5 mg PO BID #180 tabs 11/28/22 02/25/23 Rx clopidogrel 75 mg tablet 75 mg PO DAILY #90 tabs 11/28/22 02/25/23 Rx levothyroxine 25 mcg capsule 25 mcg PO DAILY #90 caps 11/28/22 02/25/23 Rx propranolol 10 mg tablet 10 mg PO BID #60 tabs 11/28/22 02/25/23 Rx valacyclovir 500 mg tablet 500 mg PO DAILY #30 tabs 11/28/22 02/25/23 Rx pantoprazole 40 mg tablet,delayed 40 mg PO DAILY #90 tabs 12/21/22 02/25/23 Rx release pen needle, diabetic 32 gauge x #100 ea 12/28/22 02/14/23 Rx 1/4" (BD Ultra-Fine Micro Pen Needle) insulin lispro 100 unit/mL 3 unit (0.03 mL) subcut TIDM #15 mL 01/02/23 02/25/23 Rx subcutaneous pen (Humalog KwikPen (U-100) Insulin) divalproex 500 mg tablet,extended 500 mg PO BID #56 tabs 01/23/23 02/25/23 Rx release 24 hr blood sugar diagnostic (OneTouch #100 ea 01/27/23 02/14/23 Rx Verio test strips) insulin glargine 100 unit/mL (3 25 unit (0.25 mL) subcut BID #15 mL 01/27/23 02/25/23 Rx mL) subcutaneous pen (Basaglar KwikPen U-100 Insulin) lamotrigine 25 mg tablet (Lamictal) 25 mg PO BID 30 days #60 tabs 02/10/23 02/25/23 Rx levetiracetam 500 mg tablet 500 mg PO BID 30 days #60 tabs 02/10/23 02/25/23 Rx carbidopa 25 mg-levodopa 100 mg 1 tab PO TID #90 tabs 02/14/23 02/25/23 Rx tablet hydralazine 50 mg tablet 75 mg PO BID #135 tabs 02/15/23 02/25/23 Rx sertraline 50 mg tablet 50 mg PO DAILY #30 tabs 02/15/23 02/25/23 Rx atorvastatin 10 mg tablet 10 mg PO QAM 02/25/23 02/25/23 History ferrous sulfate 325 mg (65 mg 325 mg PO QDD 02/25/23 02/25/23 History iron) tablet trazodone 50 mg tablet 50 - 100 mg PO HS PRN insomnia 02/25/23 02/25/23 History Allergies Allergy/AdvReac Type Severity Reaction Status Date / Time MARINO Inhibitors Allergy Unknown [facility] Verified 02/25/23 02:10 MED LIST Interferons Allergy Unknown ON [facility] Verified 02/25/23 02:10 MED LIST Penicillins Allergy Unknown ON [facility] Verified 02/25/23 02:10 MED LIST Past Med/Surg History Medical History Amputated toe of right foot 2020 Anemia B12 deficiency Bleeding disorder CAD (coronary artery disease) Ietolpd-Haxvj-Xossf syndrome CHF (congestive heart failure) Depression with anxiety DM2 (diabetes mellitus, type 2) Gastric peptic ulcer GERD (gastroesophageal reflux disease) GI bleed Gout HTN (hypertension), benign Hx of hepatitis C Hyperlipidemia Hypothyroid Iron deficiency anemia Lives in senior facility [facility] Seizure disorder first seizure spring 2020 Stage 4 chronic kidney disease Tremor Surgical History H/O: section 1981 Hx of tonsillectomy S/P CABG x 4 Stented coronary artery Family History Brother Diabetes Hypertension Father Hypertension Mother Lung disease Denies family history of Breast cancer Colorectal cancer Social History Smoking Status: Former smoker Hx Alcohol Use: No Hx Substance Use: No Preferred Language: [place] Citizen Communication Ability: Effective Radiation Oncology Nurse Required: No Beliefs That Will Affect Care: None marital status: Current Living Situation: Personal Care Facility Current Living Situation Comment: [facility] current occupational status: retired Feels Safe at Home: Yes Dental Care, Regularly: Yes Physical Activity Frequency: Does not Exercise Seatbelt Use: always Assistive Devices: Walker Review of Systems A total of 10 systems reviewed and were otherwise negative Cardiovascular: no chest pain Gastrointestinal: no abdominal pain Physical Exam Vital Signs Vital Signs - 24 hr 02/25/23 01:52 02/25/23 02:01 02/25/23 02:26 Temperature 37.2 C Temperature Source Oral Pulse Rate 102 H 109 H 100 H Pulse Rate from SpO2 Sensor 100 H Pulse Strength Normal Respiratory Rate 18 20 Respiratory Effort / Characteristics Non-Labored Spontaneous Respiratory Depth Normal Respiratory Pattern Regular Blood Pressure 113/44 L 134/60 Blood Pressure Mean 67 84 Blood Pressure Position Lying Pulse Oximetry 88 L 99 Oxygen Delivery Method Room Air Nasal Cannula Oxygen Flow Rate 2 Sepsis Recent Fever Within 48 Hours No Sepsis New/Unexplained Change in Mental Status N/A Sepsis Action Taken by Nursing No Action Required 02/25/23 02:30 02/25/23 03:00 02/25/23 03:34 Temperature 37.1 C Temperature Source Oral Pulse Rate 100 H 80 Pulse Rate from SpO2 Sensor 100 H Pulse Strength Respiratory Rate 19 16 Respiratory Effort / Characteristics Respiratory Depth Respiratory Pattern Blood Pressure 141/75 H 141/59 H Blood Pressure Mean 97 86 Blood Pressure Position Pulse Oximetry 100 100 Oxygen Delivery Method Nasal Cannula Nasal Cannula Oxygen Flow Rate 2 2 Sepsis Recent Fever Within 48 Hours Sepsis New/Unexplained Change in Mental Status Sepsis Action Taken by Nursing 02/25/23 03:30 Temperature Temperature Source Pulse Rate 80 Pulse Rate from SpO2 Sensor Pulse Strength Respiratory Rate Respiratory Effort / Characteristics Respiratory Depth Respiratory Pattern Blood Pressure 135/56 L Blood Pressure Mean 82 Blood Pressure Position Pulse Oximetry 100 Oxygen Delivery Method Nasal Cannula Oxygen Flow Rate 2 Sepsis Recent Fever Within 48 Hours Sepsis New/Unexplained Change in Mental Status Sepsis Action Taken by Nursing GENERAL: Patient is awake alert in no acute distress patient is resting comfo rtably and showing no signs of anxiety EYES: The conjunctivae are clear. The pupils are round and reactive. Head exam normocephalic atraumatic EARS, NOSE, MOUTH AND THROAT: The nose is without any evidence of any deformity. Mucous membranes are moist. Tongue is midline. NECK: The neck is nontender and supple. RESPIRATORY: Normal respiratory effort is noted there is no evidence of wheezing rhonchi or rales CARDIOVASCULAR: Regular rate and rhythm noted there no murmurs rubs or gallops normal S1 normal S2. GASTROINTESTINAL: The abdomen is soft. Abdomen is nontender. There is bruising reportedly from subcutaneous injections to her abdomen PELVIS: The Pelvis is stable. No tenderness to palpation is noted. BACK: No midline tenderness or or step-off noted range of motion in flexion extension as well as rotation no signs of muscle spasm noted ; there is a small area of ecchymosis to the left lower lumbar region MUSCULOSKELETAL/EXTREMITIES: There is no evidence of gross deformity full range of motion is noted in the hips and shoulders. SKIN: There is no obvious evidence of any rash. There are no petechiae, pallor or cyanosis noted. NEUROLOGIC: Patient is awake alert and oriented x3 strength is symmetric; GCS of 15 Course Reevaluation(s) Reevaluation #1: Patient was started on IV fluids, IV Rocephin Time: 03:37 Reevaluation #2: Patient has normal vital signs no evidence of septic shock Time: 03:37 Consultations [facility]ation #1: [facility] Time: 03:45 Administered Medications Ceftriaxone Sodium (Rocephin) 2,000 mg in 70 mls @ 140 mls/hr IV NOW STA Stop: 02/25/23 03:50 Last Admin: 02/25/23 03:33 Dose: 140 mls/hr Documented By: TANIYA Medical Decision Making Medical Records Attestation: I reviewed the patient's medical records. Home Medications Current Medication List: was personally reviewed by me Laboratory Data Attestation: I reviewed the patient's lab results. Labs reviewed by me patient has a urinary tract infection 02/25/23 01:54 02/25/23 01:54 Lab Results 02/25/23 02/25/23 02/25/23 Range/Units 01:54 01:54 01:54 WBC 6.61 (4.8-10.8) K/ul RBC 2.93 L (4.20-5.40) M/uL Hgb 10.1 L (12.0-16.0) g/dl Hct 30.3 L (37.0-47.0) % MCV 103.4 H (80.0-100.0) fL MCH 34.5 H (25.0-34.0) pg MCHC 33.3 (32.0-36.0) g/dL RDW Std Deviation 54.9 H (36.4-46.3) fL RDW Coeff of Ana 14.5 (11.5-14.5) % Plt Count 108 L (130-400) K/uL MPV 12.5 H (9.4-12.4) fL Immature Gran % (Auto) 0.6 % Neut % (Auto) 71.5 % Lymph % (Auto) 12.3 % [place] % (Auto) 10.7 % Eos % (Auto) 4.7 % Baso % (Auto) 0.2 % Neut # (Auto) 4.73 (1.40-6.50) K/uL Lymph # (Auto) 0.81 L (1.2-3.4) K/uL [place] # (Auto) 0.71 H (0.11-0.59) K/uL Eos # (Auto) 0.31 (0-0.50) K/uL Baso # (Auto) 0.01 (0-0.2) K/uL Immature Gran # (Auto) 0.04 (0.01-0.20) K/uL Sodium 137 (136-145) mmol/L Potassium 4.7 (3.5-5.1) mmol/L Chloride 98 (98-107) mmol/L Carbon Dioxide 31 (21-32) mmol/L Anion Gap 8 (3-11) BUN 52 H (6-23) mg/dl Creatinine 2.30 H (0.6-1.2) mg/dl Est Cr Clr Drug Dosing 24.8 ml/min Est GFR ( Amer) 23.6 ml/min Est GFR (Non-Af Amer) 20.4 ml/min BUN/Creatinine Ratio 22.6 H (10-20) Glucose 178 H (70-99(Fasting)) mg/dl Lactate 1.4 (0.4-2.0) mmol/L Calcium 9.4 (8.6-10.3) mg/dl Magnesium 2.2 (1.7-2.4) mg/dl Total Bilirubin 0.3 (0.2-1.0) mg/dl Direct Bilirubin 0.1 (0-0.2) mg/dl AST 8 L (13-39) U/L ALT 3 L (7-52) U/L Alkaline Phosphatase 47 (34-104) U/L Troponin I High Sens 33.4 H (0-14) pg/ml Total Protein 7.0 (6.0-8.3) gm/dl Albumin 3.7 (3.4-5.0) gm/dl Procalcitonin (0-0.5) ng/ml Urine Color Urine Appearance (Clear) Urine pH (4.5-7.5) Ur Specific [place] (1.000-1.030) Urine Protein (Negative) Urine Glucose (UA) (Negative) Urine Ketones (Negative) Urine Blood (Negative) Urine Nitrite (Negative) Urine Bilirubin (Negative) Urine Urobilinogen (Negative) Ur Leukocyte Esterase (Negative) Urine WBC (Auto) (0-5) /hpf Urine RBC (Auto) (0-4) /hpf U Hyaline Cast (Auto) (0-5) /lpf U Epithel Cells (Auto) (0-5) /lpf Urine Bacteria (Auto) (Negative) SARS-CoV-2, RNA, NAAT (NEGATIVE) 02/25/23 02/25/23 02/25/23 Range/Units 01:54 02:01 02:15 WBC (4.8-10.8) K/ul RBC (4.20-5.40) M/uL Hgb (12.0-16.0) g/dl Hct (37.0-47.0) % MCV (80.0-100.0) fL MCH (25.0-34.0) pg MCHC (32.0-36.0) g/dL RDW Std Deviation (36.4-46.3) fL RDW Coeff of Ana (11.5-14.5) % Plt Count (130-400) K/uL MPV (9.4-12.4) fL Immature Gran % (Auto) % Neut % (Auto) % Lymph % (Auto) % [place] % (Auto) % Eos % (Auto) % Baso % (Auto) % Neut # (Auto) (1.40-6.50) K/uL Lymph # (Auto) (1.2-3.4) K/uL [place] # (Auto) (0.11-0.59) K/uL Eos # (Auto) (0-0.50) K/uL Baso # (Auto) (0-0.2) K/uL Immature Gran # (Auto) (0.01-0.20) K/uL Sodium (136-145) mmol/L Potassium (3.5-5.1) mmol/L Chloride (98-107) mmol/L Carbon Dioxide (21-32) mmol/L Anion Gap (3-11) BUN (6-23) mg/dl Creatinine (0.6-1.2) mg/dl Est Cr Clr Drug Dosing ml/min Est GFR ( Amer) ml/min Est GFR (Non-Af Amer) ml/min BUN/Creatinine Ratio (10-20) Glucose (70-99(Fasting)) mg/dl Lactate (0.4-2.0) mmol/L Calcium (8.6-10.3) mg/dl Magnesium (1.7-2.4) mg/dl Total Bilirubin (0.2-1.0) mg/dl Direct Bilirubin (0-0.2) mg/dl AST (13-39) U/L ALT (7-52) U/L Alkaline Phosphatase (34-104) U/L Troponin I High Sens (0-14) pg/ml Total Protein (6.0-8.3) gm/dl Albumin (3.4-5.0) gm/dl Procalcitonin < 0.05 (0-0.5) ng/ml Urine Color Yellow Urine Appearance Cloudy A (Clear) Urine pH 6.0 (4.5-7.5) Ur Specific [place] 1.010 (1.000-1.030) Urine Protein 1+ H (Negative) Urine Glucose (UA) Negative (Negative) Urine Ketones Negative (Negative) Urine Blood Negative (Negative) Urine Nitrite Negative (Negative) Urine Bilirubin Negative (Negative) Urine Urobilinogen Negative (Negative) Ur Leukocyte Esterase 2+ H (Negative) Urine WBC (Auto) >30 H (0-5) /hpf Urine RBC (Auto) 0-4 (0-4) /hpf U Hyaline Cast (Auto) 1-5 (0-5) /lpf U Epithel Cells (Auto) 0-5 (0-5) /lpf Urine Bacteria (Auto) 1+ H (Negative) SARS-CoV-2, RNA, NAAT NEGATIVE (NEGATIVE) Imaging Data Attestation: I personally reviewed and interpreted this imaging study as follows: My Impression: Chest x-ray interpreted by me negative for infiltrate ECG Data Attestation: I personally reviewed and interpreted this ECG as follows: Additional Comments: EKG interpreted by me sinus tachycardia rate of 103 left axis deviation right bundle branch block is present there is no obvious ST segment elevation or depression Telemetry was ordered by me, interpreted as sinus tachycardia rate of 103 MDM Narrative Medical decision making differential diagnosis includes urinary tract infection, metabolic derangement, dehydration, deconditioning Plan is to check labs, EKG, sepsis protocol Prior medical records were reviewed by me EMS gave me bedside report Patient is very weak, patient has a urinary tract infection, patient has no current evidence of septic shock. Patient was given IV fluids and IV Rocephin, patient will be admitted to the the hospitalist program Impression & Plan Acute UTI (urinary tract infection), Falls, Weakness Discharge Plan Visit Data Chief Complaint: Fall Stated Complaint: Fall ED Provider: Ryland Kuhn Discharge Problem: Acute UTI (urinary tract infection), Falls, Weakness Patient Disposition: Admitted As Inpatient Forms Stand Alone Forms: [facility] Prescriptions Prescriptions: No Action (DME) lancets [OneTouch Delica Lancets] 33 gauge misc See Rx Instructions .Route Qty: 100 5RF Rx Instructions: Test 3 times a day with meals and PRN up to 3 times E11.9 biotin 5 mg tablet 5 mg PO DAILY Qty: 30 0RF Mucinex Fast-Max DM Max 5-100 mg/5 mL liquid 10 ml PO Q6H PRN (Reason: cough) Qty: 180 0RF alprazolam 0.25 mg tablet 0.25 mg PO DAILY PRN (Reason: anxiety) Qty: 30 0RF acetaminophen [Tylenol Extra Strength] 500 mg tablet 500 mg PO QID MDD 3 GRAMS APAP/24 HOURS PRN (Reason: pain) Qty: 90 0RF bumetanide 2 mg tablet 2 mg PO BID Qty: 180 1RF Rx Instructions: TAKES AT 0830 & 1500 clopidogrel 75 mg tablet 75 mg PO DAILY Qty: 90 1RF carvedilol 12.5 mg tablet 12.5 mg PO BID Qty: 180 1RF Rx Instructions: must administer with a meal/food valacyclovir 500 mg tablet 500 mg PO DAILY Qty: 30 5RF propranolol 10 mg tablet 10 mg PO BID Qty: 60 2RF levothyroxine 25 mcg capsule 25 mcg PO DAILY Qty: 90 1RF calcitriol 0.25 mcg capsule 0.25 mcg PO DAILY Qty: 90 1RF pantoprazole 40 mg tablet,delayed release (DR/EC) 40 mg PO DAILY Qty: 90 1RF (DME) pen needle, diabetic [BD Ultra-Fine Micro Pen Needle] 32 gauge x 1/4" needle See Rx Instructions .Route Qty: 100 5RF Rx Instructions: 5 times a day E11.9 insulin lispro [Humalog KwikPen Insulin] 100 unit/mL insulin pen 3 unit subcut TIDM Qty: 15 1RF divalproex 500 mg tablet extended release 24 hr 500 mg PO BID Qty: 56 1RF (DME) OneTouch Verio test strips Strip See Rx Instructions .Route Qty: 100 5RF Rx Instructions: Test 3 times a day with meals and PRN with a max of 3 times- E11.9 insulin glargine [Basaglar KwikPen U-100 Insulin] 100 unit/mL (3 mL) insulin pen 25 unit subcut BID Qty: 15 1RF lamotrigine [Lamictal] 25 mg tablet 25 mg PO BID 30 Days Qty: 60 5RF levetiracetam 500 mg tablet 500 mg PO BID 30 Days Qty: 60 5RF hydralazine 50 mg tablet 75 mg PO BID Qty: 135 1RF Rx Instructions: 1 & 1/2 tablet dose sertraline 50 mg tablet 50 mg PO DAILY Qty: 30 2RF carbidopa-levodopa 25-100 mg tablet 1 tab PO TID Qty: 90 5RF Rx Instructions: avoid iron 2 hours prior and after each dose aspirin [Adult Aspirin Regimen] 81 mg tablet,delayed release (DR/EC) 81 mg PO .DAILY @ 1600 omega 2-sro-fmi-fish oil [Fish Oil] 1,000 mg (120 mg-180 mg) capsule 2 cap PO DAILY triamcinolone acetonide 0.1 % cream 1 applic topical BID PRN (Reason: rash) Qty: 15 0RF trazodone 50 mg tablet 50 - 100 mg PO HS PRN (Reason: insomnia) Rx Instructions: 1 to 2 tabs orally at bedtime; PRN; atorvastatin 10 mg tablet 10 mg PO QAM ferrous sulfate 325 mg (65 mg iron) tablet 325 mg PO QDD magnesium oxide 400 mg magnesium Tablet 400 mg PO BID cyanocobalamin (vitamin B-12) 1,000 mcg capsule 1,000 mcg PO DAILY Qty: 30 0RF bumetanide 1 mg tablet 2 mg PO DAILY PRN (Reason: wt gain 5LBS or more over 3 days) Referrals Referrals: Taylor Sigala [Primary Care Provider] -
[2023-02-25 02:18] LABS: Basophils # (auto) 0.01 K/uL (0-0.2); Basophils % (auto) 0.2 %; Eosinophils # (auto) 0.31 K/uL (0-0.50); Eosinophils % (auto) 4.7 %; Hematocrit (blood only) 30.3 % (37.0-47.0); Hemoglobin 10.1 g/dl (12.0-16.0); Immature Granulocytes # (auto) 0.04 K/uL (0.01-0.20); Immature Granulocytes % (auto) 0.6 %; Lymphocytes # (auto) 0.81 K/uL (1.2-3.4); Lymphocytes % (auto) 12.3 %; Mean Corpuscular Hemoglobin 34.5 pg (25.0-34.0); Mean Corpuscular Hgb Conc 33.3 g/dL (32.0-36.0); Mean Corpuscular Volume 103.4 fL (80.0-100.0); Mean Platelet Volume 12.5 fL (9.4-12.4); Monocytes # (auto) 0.71 K/uL (0.11-0.59); Monocytes % (auto) 10.7 %; Neutrophils # (auto) 4.73 K/uL (1.40-6.50); Neutrophils % (auto) 71.5 %; Platelet Count 108 K/uL (130-400); RDW Coefficient of Variation 14.5 % (11.5-14.5); RDW Standard Deviation 54.9 fL (36.4-46.3); Red Blood Count 2.93 M/uL (4.20-5.40); White Blood Count 6.61 K/ul (4.8-10.8)
[2023-02-25 02:27] LABS: Albumin Level 3.7 gm/dl (3.4-5.0); BUN Creatinine Ratio 22.6 (10-20); Bilirubin Direct 0.1 mg/dl (0-0.2); Bilirubin,Total 0.3 mg/dl (0.2-1.0); Calcium 9.4 mg/dl (8.6-10.3); Creatinine Clr Calc Pharmacy 24.8 ml/min; Est GFR (African American) 23.6 ml/min; Est GFR (Non-African American) 20.4 ml/min; Magnesium 2.2 mg/dl (1.7-2.4); Potassium 4.7 mmol/L (3.5-5.1)
[2023-02-25 02:33] LABS: Troponin I High Sensitivity 33.4 pg/ml (0-14)
[2023-02-25 02:43] LABS: Appearance Urine Cloudy (Clear); Bacteria Urine Automated 1+ (Negative); Bilirubin Urine Negative (Negative); Blood Urine Negative (Negative); Color Urine Yellow; Epithelial Cell Urine Auto 0-5 /lpf (0-5); Glucose Urine UA Negative (Negative); Ketones Urine Negative (Negative); Leukocyte Esterase Urine 2+ (Negative); Nitrite Urine Negative (Negative); Protein Urine 1+ (Negative); RBC Urine Automated 0-4 /hpf (0-4); Urobilinogen Urine Negative (Negative); WBC Urine Automated >30 /hpf (0-5)
[2023-02-25] MEDS ORDERED: cefTRIAXone SODIUM 2,000 MG/70 ML BAG IV STA (03:21)
--- NOTE | 2023-02-25 04:12 | History & Physical Report ---
Date of Service February 25, 2023 Assessment & Plan (1) Acute UTI (urinary tract infection): Plan: Urinary tract infection: Urinalysis suggestive of infection. Prior urine culture with mixed yon and lactobacillus species. Patient is afebrile, hemodynamically stable, nontoxic in appearance. We will continue antibiotic coverage with ceftriaxone 2 g IV daily Follow urine culture CHF (congestive heart failure): Patient with history of chronic combined systolic and diastolic heart failure (EF 45 to 50%, grade 2 diastolic dysfunction, significant RV failure, mild to moderate left atrial enlargement, mild mitral stenosis, moderate to severe mitral regurgitation, moderate to severe aortic stenosis, and severe pulmonary hypertension). -She appears compensated and euvolemic - Patient follows with cardiology. Last seen on 12/05/2022. We will hold Bumex for now Monitor intake and output as well as daily standing weights. Continue carvedilol 12.5 mg p.o. twice daily Continue hydralazine 75 mg p.o. twice daily Patient has not been on MARINO/ARB/Entresto secondary to history of chronic renal insufficiency CAD (coronary artery disease): Patient with coronary artery disease status post CABG x4 vessel performed at [place] in 2013. She had recent cardiac stenting. Was recently seen by cardiology on 12/05/2022. At that time patient on aspirin as well as Plavix. Records were to be obtained to understand specifics of her stenting in regards to continued need for dual antiplatelet therapy. No records present in chart. Patient does have mild elevation of troponin of 158. EKG appears to have more chronic changes, no acute ischemia. She denies history of chest pain, palpitations, shortness of breath or dizziness. Continue aspirin 81 mg p.o. daily Continue Plavix 75 mg p.o. daily Continue carvedilol 12.5 mg p.o. twice daily Continue atorvastatin 10 mg p.o. daily DM2 (diabetes mellitus, type 2): Patient with diabetes Last hemoglobin A1c on 01/10/2023 = 7.8. She is on home insulin therapy. Will provide Lantus 18 units twice daily Insulin sliding scale Goal blood sugar 404850 GERD (gastroesophageal reflux disease): Chronic. Stable. Continue Protonix 40 mg p.o. daily Hyperlipidemia: Chronic. Stable. Continue atorvastatin 10 mg p.o. daily Hypothyroid: TSH within normal range = 2.883 on 12/29/2022 Continue Synthroid 25 mcg p.o. daily HTN (hypertension), benign: BP well controlled Monitor blood pressure Continue carvedilol and hydralazine Parkinsons disease: Patient reports recently being diagnosed with Parkinson's. Continue carbidopalevodopa 25 mg / 100 mg 0.5 tablets p.o. 3 times daily Seizure disorder. Patient seizure-free Continue Keppra 500 mg p.o. twice daily Continue Depakote extended release 500 mg p.o. twice daily Continue Lamictal 25 mg p.o. twice daily (2) Weakness: (3) Depression with anxiety: (4) CKD (chronic kidney disease): (5) CHF (congestive heart failure): (6) CAD (coronary artery disease): (7) DM2 (diabetes mellitus, type 2): (8) GERD (gastroesophageal reflux disease): (9) Hyperlipidemia: (10) HTN (hypertension), benign: (11) Hypothyroid: (12) Seizure disorder: History of Present Illness Chief Complaint: Fall, lethargy Primary Care Provider: Rola Vazquez Sarah Taylor is a 72-year-old female with multiple medical problems to include coronary artery disease, congestive heart failure, diabetes, GERD, gout, hypertension, hyperlipidemia, hypothyroidism, CKD and seizure disorder pres [facility]ing from [facility] a [facility]. Patient also with worsening generalized weakness. In the ER she is afebrile, hemodynamically stable, no acute distress Very somnolent. Wants to sleep. She wakes briefly to answer some questions then drifts back off She does deny chest pain, cough, shortness of breath. Denies abdominal pain ER work-up suggestive of UTI. She was administered ceftriaxone Allergies Allergy/AdvReac Type Severity Reaction Status Date / Time MARINO Inhibitors Allergy Unknown ON [facility] Verified 02/25/23 02:10 MED LIST Interferons Allergy Unknown ON [facility] Verified 02/25/23 02:10 MED LIST Penicillins Allergy Unknown ON [facility] Verified 02/25/23 02:10 MED LIST Home Medications Medication Instructions Recorded Confirmed Type aspirin 81 mg tablet,delayed 81 mg PO .DAILY @ 1600 07/05/22 02/25/23 History release (Adult Aspirin Regimen) omega 5-qld-ail-fish oil 1,000 mg 2 cap PO DAILY 07/05/22 02/25/23 History (120 mg-180 mg) capsule (Fish Oil) lancets 33 gauge (OneTouch Delica #100 ea 07/06/22 02/14/23 Rx Lancets) biotin 5 mg tablet 5 mg PO DAILY #30 tabs 07/29/22 02/25/23 Rx dextromethorphan-guaifenesin 5 10 ml PO Q6H PRN cough #180 mL 08/24/22 02/25/23 Rx mg-100 mg/5 mL oral liquid (Mucinex Fast-Max DM Max) alprazolam 0.25 mg tablet 0.25 mg PO DAILY PRN anxiety #30 08/25/22 02/25/23 Rx tabs magnesium oxide 400 mg PO BID 09/15/22 02/25/23 History cyanocobalamin (vitamin B-12) 1,000 mcg PO DAILY #30 caps 09/20/22 02/25/23 Rx 1,000 mcg capsule triamcinolone acetonide 0.1 % 1 applic topical BID PRN rash #15 09/26/22 02/25/23 Rx topical cream grams bumetanide 1 mg tablet 2 mg PO DAILY PRN wt gain 5LBS or 11/09/22 02/25/23 History more over 3 days acetaminophen 500 mg tablet 500 mg PO QID PRN pain #90 tabs 11/23/22 02/25/23 Rx (Tylenol Extra Strength) bumetanide 2 mg tablet 2 mg PO BID #180 tabs 11/28/22 02/25/23 Rx calcitriol 0.25 mcg capsule 0.25 mcg PO DAILY #90 caps 11/28/22 02/25/23 Rx carvedilol 12.5 mg tablet 12.5 mg PO BID #180 tabs 11/28/22 02/25/23 Rx clopidogrel 75 mg tablet 75 mg PO DAILY #90 tabs 11/28/22 02/25/23 Rx levothyroxine 25 mcg capsule 25 mcg PO DAILY #90 caps 11/28/22 02/25/23 Rx propranolol 10 mg tablet 10 mg PO BID #60 tabs 11/28/22 02/25/23 Rx valacyclovir 500 mg tablet 500 mg PO DAILY #30 tabs 11/28/22 02/25/23 Rx pantoprazole 40 mg tablet,delayed 40 mg PO DAILY #90 tabs 02/15/23 04/22/23 Rx release pen needle, diabetic 32 gauge x #100 ea 12/28/22 02/14/23 Rx 1/4" (BD Ultra-Fine Micro Pen Needle) insulin lispro 100 unit/mL 3 unit (0.03 mL) subcut TIDM #15 mL 01/02/23 02/25/23 Rx subcutaneous pen (Humalog KwikPen (U-100) Insulin) divalproex 500 mg tablet,extended 500 mg PO BID #56 tabs 01/23/23 02/25/23 Rx release 24 hr blood sugar diagnostic (OneTouch #100 ea 01/27/23 02/14/23 Rx Verio test strips) insulin glargine 100 unit/mL (3 25 unit (0.25 mL) subcut BID #15 mL 01/27/23 02/25/23 Rx mL) subcutaneous pen (Basaglar KwikPen U-100 Insulin) lamotrigine 25 mg tablet (Lamictal) 25 mg PO BID 30 days #60 tabs 02/10/23 02/25/23 Rx levetiracetam 500 mg tablet 500 mg PO BID 30 days #60 tabs 02/10/23 02/25/23 Rx carbidopa 25 mg-levodopa 100 mg 1 tab PO TID #90 tabs 02/14/23 02/25/23 Rx tablet hydralazine 50 mg tablet 75 mg PO BID #135 tabs 02/15/23 02/25/23 Rx sertraline 50 mg tablet 50 mg PO DAILY #30 tabs 02/15/23 02/25/23 Rx atorvastatin 10 mg tablet 10 mg PO QAM 02/25/23 02/25/23 History ferrous sulfate 325 mg (65 mg 325 mg PO QDD 02/25/23 02/25/23 History iron) tablet trazodone 50 mg tablet 50 - 100 mg PO HS PRN insomnia 02/25/23 02/25/23 History Past Med/Surg History Medical History Amputated toe of right foot 2020 Anemia B12 deficiency Bleeding disorder CAD (coronary artery disease) Usyldyf-Qvhjf-Zbvkc syndrome CHF (congestive heart failure) Depression with anxiety DM2 (diabetes mellitus, type 2) Gastric peptic ulcer GERD (gastroesophageal reflux disease) GI bleed Gout HTN (hypertension), benign Hx of hepatitis C Hyperlipidemia Hypothyroid Iron deficiency anemia Lives in senior facility [facility] Seizure disorder first seizure spring 2020 Stage 4 chronic kidney disease Tremor Surgical History H/O: section 1981 Hx of tonsillectomy S/P CABG x 4 Stented coronary artery Family History Brother Diabetes Hypertension Father Hypertension Mother Lung disease Denies family history of Breast cancer Colorectal cancer Social History Smoking Status: Former smoker Hx Alcohol Use: No Hx Substance Use: No Preferred Language: Bermudian Communication Ability: Effective Insurance Adjustor Required: No Beliefs That Will Affect Care: None marital status: Current Living Situation: Personal Care Facility Current Living Situation Comment: [facility] current occupational status: retired Feels Safe at Home: Yes Dental Care, Regularly: Yes Physical Activity Frequency: Does not Exercise Seatbelt Use: always Assistive Devices: Walker Review of Systems Review of Systems: Other Patient mumbled no when asked standard review of system questions. Physical Exam Physical Exam: General: patient somnolent, answers some questions then falls back asleep. Nontoxic Skin: warm, dry, intact, no rashes or lesions HEENT: NC/AT, PERRL, EOMI, anicteric sclera, conjunctiva without injection, external ear normal to inspection and nontender, nares patent, moist mucus membranes, dentition intact, no oropharyngeal lesions, neck supple, trachea midline, no LAD, no thyromegaly, no JVD Heart: +S1/S2, regular, no m/r/g Lungs: equal air entry bilaterally, no rales/rhonchi/wheezes Abd: +BS, soft, NT/ND, no masses/organomegaly/ascites Ext: warm, 2+ pulses in UE/LE bilaterally, no clubbing/cyanosis or edema Neuro: nonfocal Results & Data Results & Data Vital Signs (Past 12 Hours) Vital Signs Temp Pulse Resp BP Pulse Ox O2 Del Method O2 Flow Rate 02/25/23 03:30 80 135/56 L 100 Nasal Cannula 2 02/25/23 03:34 37.1 C 02/25/23 03:00 80 16 141/59 H 100 Nasal Cannula 2 02/25/23 02:30 100 H 19 141/75 H 100 Nasal Cannula 2 02/25/23 02:26 100 H 20 134/60 99 Nasal Cannula 2 02/25/23 02:01 37.2 C 109 H 18 113/44 L 88 L Room Air 02/25/23 01:52 102 H Laboratory Results Laboratory Results WBC 6.61 K/ul (4.8-10.8) 02/25/23 01:54 RBC 2.93 M/uL (4.20-5.40) L 02/25/23 01:54 Hgb 10.1 g/dl (12.0-16.0) L 02/25/23 01:54 Hct 30.3 % (37.0-47.0) L 02/25/23 01:54 MCV 103.4 fL (80.0-100.0) H 02/25/23 01:54 MCH 34.5 pg (25.0-34.0) H 02/25/23 01:54 MCHC 33.3 g/dL (32.0-36.0) 02/25/23 01:54 RDW Std Deviation 54.9 fL (36.4-46.3) H 02/25/23 01:54 RDW Coeff of Ana 14.5 % (11.5-14.5) 02/25/23 01:54 Plt Count 108 K/uL (130-400) L 02/25/23 01:54 MPV 12.5 fL (9.4-12.4) H 02/25/23 01:54 Immature Gran % (Auto) 0.6 % 02/25/23 01:54 Neut % (Auto) 71.5 % 02/25/23 01:54 Lymph % (Auto) 12.3 % 02/25/23 01:54 [place]ilton % (Auto) 10.7 % 02/25/23 01:54 Eos % (Auto) 4.7 % 02/25/23 01:54 Baso % (Auto) 0.2 % 02/25/23 01:54 Neut # (Auto) 4.73 K/uL (1.40-6.50) 02/25/23 01:54 Lymph # (Auto) 0.81 K/uL (1.2-3.4) L 02/25/23 01:54 Chilton # (Auto) 0.71 K/uL (0.11-0.59) H 02/25/23 01:54 Eos # (Auto) 0.31 K/uL (0-0.50) 02/25/23 01:54 Baso # (Auto) 0.01 K/uL (0-0.2) 02/25/23 01:54 Immature Gran # (Auto) 0.04 K/uL (0.01-0.20) 02/25/23 01:54 Sodium 137 mmol/L (136-145) 02/25/23 01:54 Potassium 4.7 mmol/L (3.5-5.1) 02/25/23 01:54 Chloride 98 mmol/L (98-107) 02/25/23 01:54 Carbon Dioxide 31 mmol/L (21-32) 02/25/23 01:54 Anion Gap 8 (3-11) 02/25/23 01:54 BUN 52 mg/dl (6-23) H 02/25/23 01:54 Creatinine 2.30 mg/dl (0.6-1.2) H 02/25/23 01:54 Est Cr Clr Drug Dosing 24.8 ml/min 02/25/23 01:54 Est GFR ( Amer) 23.6 ml/min 02/25/23 01:54 Est GFR (Non-Af Amer) 20.4 ml/min 02/25/23 01:54 BUN/Creatinine Ratio 22.6 (10-20) H 02/25/23 01:54 Glucose 178 mg/dl (70-99(Fasting)) H 02/25/23 01:54 Lactate 1.4 mmol/L (0.4-2.0) 02/25/23 01:54 Calcium 9.4 mg/dl (8.6-10.3) 02/25/23 01:54 Magnesium 2.2 mg/dl (1.7-2.4) 02/25/23 01:54 Total Bilirubin 0.3 mg/dl (0.2-1.0) 02/25/23 01:54 Direct Bilirubin 0.1 mg/dl (0-0.2) 02/25/23 01:54 AST 8 U/L (13-39) L 02/25/23 01:54 ALT 3 U/L (7-52) L 02/25/23 01:54 Alkaline Phosphatase 47 U/L (34-104) 02/25/23 01:54 Troponin I High Sens 33.4 pg/ml (0-14) H 02/25/23 01:54 Total Protein 7.0 gm/dl (6.0-8.3) 02/25/23 01:54 Albumin 3.7 gm/dl (3.4-5.0) 02/25/23 01:54 Procalcitonin < 0.05 ng/ml (0-0.5) 02/25/23 01:54 Urine Color Yellow 02/25/23 02:15 Urine Appearance Cloudy (Clear) A 02/25/23 02:15 Urine pH 6.0 (4.5-7.5) 02/25/23 02:15 Ur Specific Douglas 1.010 (1.000-1.030) 02/25/23 02:15 Urine Protein 1+ (Negative) H 02/25/23 02:15 Urine Glucose (UA) Negative (Negative) 02/25/23 02:15 Urine Ketones Negative (Negative) 02/25/23 02:15 Urine Blood Negative (Negative) 02/25/23 02:15 Urine Nitrite Negative (Negative) 02/25/23 02:15 Urine Bilirubin Negative (Negative) 02/25/23 02:15 Urine Urobilinogen Negative (Negative) 02/25/23 02:15 Ur Leukocyte Esterase 2+ (Negative) H 02/25/23 02:15 Urine WBC (Auto) >30 /hpf (0-5) H 02/25/23 02:15 Urine RBC (Auto) 0-4 /hpf (0-4) 02/25/23 02:15 U Hyaline Cast (Auto) 1-5 /lpf (0-5) 02/25/23 02:15 U Epithel Cells (Auto) 0-5 /lpf (0-5) 02/25/23 02:15 Urine Bacteria (Auto) 1+ (Negative) H 02/25/23 02:15 SARS-CoV-2, RNA, NAAT NEGATIVE (NEGATIVE) 02/25/23 02:01 PG Care Time/CCT Total # of Minutes Spent Total Time Spent with Patient: Total time spent is greater than 50% in coordination of care (as documented) at patient's floor/unit and/or counseling patient: Coding Level of Care Code 17339 INT INP/OBS CARE 75MIN Diagnoses Acute UTI (urinary tract infection) N39.0 Weakness R53.1 Depression with anxiety F41.8 CKD (chronic kidney disease) N18.9 CHF (congestive heart failure) I50.9 CAD (coronary artery disease) I25.10 DM2 (diabetes mellitus, type 2) E11.9 GERD (gastroesophageal reflux disease) K21.9 Hyperlipidemia E78.5 HTN (hypertension), benign I10 Hypothyroid E03.9 Seizure disorder G40.909
[2023-02-25] MEDS ORDERED: GLUCOSE 10 TAB/TUBE PO PRN (06:02)
[2023-02-25] MEDS ORDERED: GLUCOSE 40% GEL 15 GM TUBE PO PRN (06:02)
[2023-02-25] MEDS ORDERED: traZODone HCL 50 MG TAB PO PRN (06:02)
[2023-02-25] MEDS ORDERED: SODIUM CHLORIDE 0.9% 1000ML 1,000 ML IV SCH (06:02)
[2023-02-25] MEDS ORDERED: DEXTROSE 50% 50 ML SYRINGE IV PRN (06:02)
[2023-02-25] MEDS ORDERED: CARBOHYDRATES FOR HYPOGLYCEMIA PO PRN (06:02)
[2023-02-25] MEDS ORDERED: ALPRAZolam 0.25 MG TABLET PO PRN (06:02)
[2023-02-25] MEDS ORDERED: GLUCAGON FOR INJ 1 MG VIAL SQ PRN (06:02)
--- NOTE | 2023-02-25 07:40 | XRay Report ---
XR chest 1V portable HISTORY: 72 years-old Female Sepsis acute sepsis COMPARISON: 12/29/2022 TECHNIQUE: AP view of the chest FINDINGS: Cardiac silhouette is enlarged. Unchanged right hemidiaphragmatic elevation. Prior median sternotomy. No pneumothorax, pleural effusion, airspace consolidation or overt pulmonary edema. Degenerative jennifer nges of the shoulders and spine. IMPRESSION: Cardiomegaly without acute process. ACT 112: Negative or not required by law. The above report was generated using voice recognition software. It may contain grammatical, syntax o r spelling errors. Electronically signed by: Tod Armenta M.D. 02/25/2023 7:39 AM
[2023-02-25] MEDS: carvediloL 12.5 MG TAB PO SCH ×2 (08:10→21:18)
[2023-02-25] MEDS: PROPRANOLOL HCL 10 MG TAB PO SCH ×2 (08:10→21:19)
[2023-02-25] MEDS: hydrALAZINE HCL 25 MG TAB PO SCH ×2 (08:10→21:19)
[2023-02-25] MEDS: levETIRAcetam 500 MG TAB PO SCH ×2 (08:11→21:19)
[2023-02-25] MEDS: CALCITRIOL 0.25 MCG CAPSULE PO SCH (08:11)
[2023-02-25] MEDS: valACYclovir HCL 500 MG TABLET PO SCH (08:11)
[2023-02-25] MEDS: ATORVASTATIN 10 MG TAB PO SCH (08:11)
[2023-02-25] MEDS: lamoTRIgine 25 MG TAB PO SCH ×2 (08:12→21:19)
[2023-02-25] MEDS: PANTOprazole 40 MG TAB PO SCH (08:12)
[2023-02-25] MEDS: DIVALPROEX EXTENDED RELEASE 500 MG TAB PO SCH ×2 (08:12→21:18)
[2023-02-25] MEDS: SERTRALINE HCL 50 MG TABLET PO SCH (08:12)
[2023-02-25] MEDS: LEVOTHYROXINE SODIUM 25 MCG TABLET PO SCH (08:12)
[2023-02-25] MEDS: CLOPIDOGREL BISULFATE 75 MG TAB PO SCH (08:12)
[2023-02-25] MEDS: CARBIDOPA/LEVODOPA 25/100MG TAB PO SCH ×3 (08:12→21:17)
[2023-02-25] MEDS: LANTUS PER UNIT CHARGE SQ SCH ×2 (09:34→21:20)
[2023-02-25] MEDS: INSULIN ASPART PER UNIT CHARGE SC SCH ×4 (09:35→21:20)
--- NOTE | 2023-02-25 12:10 | History & Physical Bridge Note ---
Date of Service February 25, 2023 History & Physical Bridge Note I have examined the patient, reviewed the History & Physical and in the interval since the performance of the History & Physical I have noted the following changes of clinical significance: no changes noted Patient evelyn in room 359-1. Fatigued appearing and wanting to rest. No chest pain/shortness of breath reported. Does have some slight LE edema, reports she retains her fluid in her abdomen. With Cr elevation 2.3, slightly above baseline, ordered 1L IVF, however was borderline hypotensive on admit w/ systolic 110s. Could have been from some ATN, however no granular casts on UA Checking BNP w/ repeat chemistries for this afternoon. Currently 91% on RA and appears diminished in the bases. CXR "negative" on admit, elevated hemidiaphragm Incentive spirometer ordered Also of note, recently had her sinemet increased for tremors, which she denies being very effective. Will also check ammonia given tremors/abdominal distension. LFTs do not appear to be elevated on review.No prior known hx cirrhosis. Considering stopping fluids and resuming her bumex for this evening but will monitor repeat chemistries. Given EKG w/ sinus tachy on admit, RBB, LAHB will move to monitored bed. Repeat trop w/ chemistries as well, repeating limited echo to look at LV wall motion Supervising Physician Co-Signing Physician Notes The patient was not seen by me. The chart was reviewed. Case discussed with DURAN Salinas. Agree with assessment and plan
[2023-02-25 12:55] LABS: Creatinine Clr Calc Pharmacy 24.4 ml/min; Est GFR (Non-African American) 19.9 ml/min; Potassium 4.6 mmol/L (3.5-5.1)
--- NOTE | 2023-02-25 13:07 | Electrocardiogram Report ---
Test Reason : Blood Pressure : / mmHG Vent. Rate : 103 BPM Atrial Rate : 103 BPM P-R Int : 172 ms QRS Dur : 126 ms QT Int : 376 ms P-R-T Axes : 061 -50 103 degrees QTc Int : 492 ms Sinus tachycardia Possible Left atrial enlargement Left axis deviation Right bundle branch block Left ventricular hypertrophy with repolarization abnormality Inferior infarct (cited on or before 15-SEP-2022) Anterior infarct (cited on or before 15-SEP-2022) Abnormal ECG When compared with ECG of 31-DEC-2022 04:49, Vent. rate has increased BY 40 BPM Right bundle branch block is now Present Questionable change in initial forces of Septal leads Confirmed by Nadir Juarez ([id number]) on 02/25/2023 1:07:00 PM Referred By: REFERRED SELF Confirmed By:Nadir Juarez
[2023-02-25] MEDS: ASPIRIN 81 MG ECTAB PO SCH (15:37)
[2023-02-25] MEDS: BUMETANIDE 2 MG in SYRINGE 0 ML IV SCH (16:54)
--- NOTE | 2023-02-25 17:19 | Communication Note ---
Date of Service: February 25, 2023 Order for bladder scan as UOP not yet recorded. Discussed w/ nursing and bladder scanned post void for ~400+cc urine. Order for dahl to be placed for retention. Renal US also ordered to look for any obstruction causing worsening renal function as well Of note, prior keppra level in February elevated- did have her keppra decreased to 500mg BID as well. Repeat keppra level added to labs for morning as well. To be transferred to monitored bed this evening, room 216. Repeat ECHO pending to look for any new wma, also consulted cards for morning. Appears her most recent stent in February last year, and could potentially be off her plavix given her underlying anemia. Did have hx gastric ulcer/bleeding requiring transfusion in the past. Per outpatient notes, she had been placed on daily protonix. She is also on oral iron supplementation which will need to verify when taking w/ patient due to increased sinemet dosing w/ neuro outpatient for her parkinson s/tremor to ensure not reducing efficacy.
[2023-02-25] MEDS: ACETAMINOPHEN 500 MG TAB PO PRN (23:39)
[2023-02-26] MEDS: cefTRIAXone SODIUM 2,000 MG in DEXTROSE 5% 50 ML IV SCH (05:55)
[2023-02-26] MEDS: LEVOTHYROXINE SODIUM 25 MCG TABLET PO SCH (05:56)
[2023-02-26 08:00] LABS: BUN Creatinine Ratio 23.4 (10-20); Creatinine Clr Calc Pharmacy 24.8 ml/min; Est GFR (African American) 23.5 ml/min; Est GFR (Non-African American) 20.3 ml/min; Magnesium 2.3 mg/dl (1.7-2.4); Potassium 4.6 mmol/L (3.5-5.1)
--- NOTE | 2023-02-26 08:05 | Hospitalist Progress Note ---
Date of Service February 26, 2023 Assessment & Plan (1) Weakness: Plan: Suspected UTI on admission, placed on ceftriaxone 2gm IV daily and monitoring cultures (also has sacral/coccyx fracture) Patient did have elevation in Cr 2.3, slightly above baseline, ordered 1L IVF on admit however appears some borderline hypotension on admit and ?ATN, however no granular casts noted on UA Had been 91% on RA and appeared diminished in the bases and incentive spirometer ordered Sinemet increased by neurology (will need to see if taking w/ her iron/decreased efficacy -- she doesn't do her medications -- will need to clarify on dc instructions to [facility]). --her keppra level prior elevated as well and keppra decreased to 500mg BID outpatient and lamictal had been recently added -> repeat keppra level pending w/ AM labs Ammonia not elevated given tremor. No known hx cirrhosis (however did have hep C s/p Harvoni treatment in the past) Resumed her bumex last evening as well, BNP 690 (was 900s last admission) --> transitioned to 2mg PO BID for today Monitor I&O, daily weights Patient w/ retention after voiding for ~400cc and dahl order placed Moved to monitored bed 02/25 (some PVCs in 70s, this morning, now NSR in 70-80s) Repeat echo obtained to look for any new wma pending cards consulted for this morning -- per Dr Juarez, Dr Cox to see in AM (consider stopping the plavix) Does have hx gastric ulcer/bleeding, on asa/plavix for stent in February last year -- appears could potentiall d/c plavix at this time --defer to cards. Hgb stable at present. Defer occult blood testing given patient on iron at baseline but will increase her protonix to BID Trop trended down on repeat (further elevated most recent admission). Hx CABG/recent PCI 02/2022 PT/OT consults (2) Acute UTI (urinary tract infection): Plan: Urinalysis suggestive of infection. Prior urine culture with mixed yon and lactobacillus species. On ceftriaxone 2gm IV daily Monitor cultures --> repeat collection recommended Will send repeat urine cx from catheter given cloudy appearance of urine Continue ceftriaxone for now CHF (congestive heart failure)/CAD Hx chronic combined systolic and diastolic heart failure, as well as CAD/cardiomyopathy/s/p CABG x 4 in 2013 w/ remote NSTEMI February 2022 in [facility] and is s/p RANDY to vein graft to LAD on Aspirin/Plavix (also hx GI bleeding) Most recent ECHO w/ EF 45 to 50%, grade 2 diastolic dysfunction, significant RV failure, mild to moderate left atrial enlargement, mild mitral stenosis, moderate to severe mitral regurgitation, moderate to severe aortic stenosis, and severe pulmonary hypertension). BNP checked and elevated, IVF discontinued, bumex 2mg IV BID ordered (States her abdomen is where she has fluid retention) Monitor daily weights/I&Os Dahl placed for urinary retention Will place on fluid restriction 1500ml/day change to AHA/DM diet Convert bumex to 2mg PO BID for today (of note, she had used metolazone in the past) Cards consulted for AM Continue carvedilol BID, hydralazine. No MARINO/ARB given progressive CKD CAD (coronary artery disease): Patient with coronary artery disease status post CABG x4 vessel performed at [place] in 2013. She had recent cardiac stenting. Was recently seen by cardiology on 12/05/2022. At that time patient on aspirin as well as Plavix. Records were to be obtained to understand specifics of her stenting in regards to continued need for dual antiplatelet therapy. Does appear DAPT therapy x 1 year (which would be this month) -- defer to cards consult in AM about ability to dc her Plavix given prior elevations in trop to 158 in Feburary this year Trop 33.4 on admit, repeat trended down to 28, no further checks/reports of chest pain Repeat ECHO to look for any new WNL given such Continue DAPT, BB, statin for now Monitor on telemetry DM2 (diabetes mellitus, type 2): Patient with diabetes Last hemoglobin A1c on 01/10/2023 = 7.8. She is on home insulin therapy. Lantus 18u BID, sliding scale BSGs acceptable and will monitor GERD (gastroesophageal reflux disease): Chronic. Hx gastric ulcers/bleed. Denies overt blood in stool but is on iron. Prior outpatient notes w/ reflux symptoms, she reports worse in the morning will increase to BID Hyperlipidemia: Chronic. Stable. Continue atorvastatin 10 mg p.o. daily for now --> Check lipids in AM, given recent stenting/NSTEMi, patient ideally should be on high dose statin HTN (hypertension) BP controlled, continue BB/hydralazine Currently 120/66 Hypothyroid: TSH wnl, continues on synthroid 25mcg daily Parkinsons disease: Patient reports recently being diagnosed with Parkinson's. Continue carbidopalevodopa 25 mg / 100 mg 0.5 tablets p.o. 3 times daily --> neurology increased this to 1tablet TID. Changed to such. Also, patient will ne ed to take apart from her oral iron supplementation Seizure disorder. Patient seizure-free Continue Keppra 500 mg p.o. twice daily Continue Depakote extended release 500 mg p.o. twice daily Continue Lamictal 25 mg p.o. twice daily Repeat keppra level pending given prior elevation in f/u neuro and recent reduction Seizure precautions, however no recent activity reported (3) Depression with anxiety: (4) CKD (chronic kidney disease): (5) CHF (congestive heart failure): (6) CAD (coronary artery disease): (7) DM2 (diabetes mellitus, type 2): (8) GERD (gastroesophageal reflux disease): (9) Hyperlipidemia: (10) HTN (hypertension), benign: (11) Hypothyroid: (12) Seizure disorder: Admission and Anticipated Discharge Date Admission Date: February 25, 2023 Supervising Physician Co-Signing Physician Notes The patient was not seen by me. The chart was reviewed. Case discussed with DURAN Salinas. Agree with assessment and plan Subjective evaluated this morning, took her pills, ate breakfast. picking at lunch. No having any abdominal pain but notes she does have nausea in the mornings. Hx GI bleed but does not feel similar. Will increase reflux medication to twice daily and monitor response. Decent appetite No fever/chills. Discussed monitoring urine cx/continues on antibiotics at present. Got up this morning, working with therapy. Keeps eyes closed a lot of the time, does endorse depression over the past year but no plans/HI/SI at present. Denies any pain at present. Questions/concerns addressed at present. Physical Exam Physical Exam: General: obese female resting in bed, eyes closed for the most part but when asked to open, she was able to without any issues, NAD, but fatigued appearing HEENT: head normocephalic, atraumatic, mm slightly dry, trachea midline Resp: diminished in the bases, poor effort, CV: RRR, +murmur, no significant LE edema, calves nontender GI: +BS, soft, obese, no overt tenderness to palpation, no guarding : dalh w/ cloudy yellow urine MSK/Neuro: no focal deficit, no slurred speech Psych: depressed affect. alert to person/place/time Results & Data Results & Data Vital Signs (Past 12 Hours) Vital Signs Temp Pulse Pulse Resp BP Pulse Ox O2 Del Method 02/26/23 07:56 36.6 C 71 18 121/76 94 Room Air 02/25/23 21:59 82 02/25/23 22:42 37.2 C 79 18 137/69 94 Nasal Cannula O2 Flow Rate 02/26/23 07:56 02/25/23 21:59 02/25/23 22:42 2 Laboratory Results 02/26/23 02/26/23 02/26/23 Range/Units 11:31 07:30 07:30 WBC 4.29 L (4.8-10.8) K/ul RBC 2.48 L (4.20-5.40) M/uL Hgb 8.6 L (12.0-16.0) g/dl Hct 26.2 L (37.0-47.0) % MCV 105.6 H (80.0-100.0) fL MCH 34.7 H (25.0-34.0) pg MCHC 32.8 (32.0-36.0) g/dL RDW Std Deviation 55.4 H (36.4-46.3) fL RDW Coeff of Ana 14.5 (11.5-14.5) % Plt Count 95 L (130-400) K/uL MPV 11.8 (9.4-12.4) fL Platelet Estimate Decreased L (Normal) Sodium (136-145) mmol/L Potassium (3.5-5.1) mmol/L Chloride (98-107) mmol/L Carbon Dioxide (21-32) mmol/L Anion Gap (3-11) BUN (6-23) mg/dl Creatinine (0.6-1.2) mg/dl Est Cr Clr Drug Dosing ml/min Est GFR ( Amer) ml/min Est GFR (Non-Af Amer) ml/min BUN/Creatinine Ratio (10-20) Glucose (70-99(Fasting)) mg/dl POC Glucose 189 H (70-99) mg/dl Calcium (8.6-10.3) mg/dl Magnesium (1.7-2.4) mg/dl Iron (35-150) mcg/dl TIBC (250-450) mcg/dl Unsaturated IBC (155-355) mcg/dl Transferrin % Sat (15-50) % Ferritin (8-388) ng/ml Ammonia (18-72) umol/L Troponin I High Sens (0-14) pg/ml B-Natriuretic Peptide (0-100) pg/ml TSH (0.300-4.500) uIu/ml Lyme Disease IgG Ab Negative (Negative) Lyme Disease IgM Ab Negative (Negative) 02/26/23 02/26/23 02/26/23 Range/Units 07:30 07:30 07:19 WBC (4.8-10.8) K/ul RBC (4.20-5.40) M/uL Hgb (12.0-16.0) g/dl Hct (37.0-47.0) % MCV (80.0-100.0) fL MCH (25.0-34.0) pg MCHC (32.0-36.0) g/dL RDW Std Deviation (36.4-46.3) fL RDW Coeff of Ana (11.5-14.5) % Plt Count (130-400) K/uL MPV (9.4-12.4) fL Platelet Estimate (Normal) Sodium 139 (136-145) mmol/L Potassium 4.6 (3.5-5.1) mmol/L Chloride 100 (98-107) mmol/L Carbon Dioxide 31 (21-32) mmol/L Anion Gap 8 (3-11) BUN 54 H (6-23) mg/dl Creatinine 2.31 H (0.6-1.2) mg/dl Est Cr Clr Drug Dosing 24.8 ml/min Est GFR ( Amer) 23.5 ml/min Est GFR (Non-Af Amer) 20.3 ml/min BUN/Creatinine Ratio 23.4 H (10-20) Glucose 144 H (70-99(Fasting)) mg/dl POC Glucose 139 H (70-99) mg/dl Calcium 9.0 (8.6-10.3) mg/dl Magnesium 2.3 (1.7-2.4) mg/dl Iron 33 L (35-150) mcg/dl TIBC 200 L (250-450) mcg/dl Unsaturated IBC 167 (155-355) mcg/dl Transferrin % Sat 17 (15-50) % Ferritin 103.9 (8-388) ng/ml Ammonia (18-72) umol/L Troponin I High Sens (0-14) pg/ml B-Natriuretic Peptide (0-100) pg/ml TSH 3.839 (0.300-4.500) uIu/ml Lyme Disease IgG Ab (Negative) Lyme Disease IgM Ab (Negative) 02/25/23 02/25/23 02/25/23 Range/Units 20:06 16:32 12:30 WBC (4.8-10.8) K/ul RBC (4.20-5.40) M/uL Hgb (12.0-16.0) g/dl Hct (37.0-47.0) % MCV (80.0-100.0) fL MCH (25.0-34.0) pg MCHC (32.0-36.0) g/dL RDW Std Deviation (36.4-46.3) fL RDW Coeff of Ana (11.5-14.5) % Plt Count (130-400) K/uL MPV (9.4-12.4) fL Platelet Estimate (Normal) Sodium (136-145) mmol/L Potassium (3.5-5.1) mmol/L Chloride (98-107) mmol/L Carbon Dioxide (21-32) mmol/L Anion Gap (3-11) BUN (6-23) mg/dl Creatinine (0.6-1.2) mg/dl Est Cr Clr Drug Dosing ml/min Est GFR ( Amer) ml/min Est GFR (Non-Af Amer) ml/min BUN/Creatinine Ratio (10-20) Glucose (70-99(Fasting)) mg/dl POC Glucose 166 H 148 H 187 H (70-99) mg/dl Calcium (8.6-10.3) mg/dl Magnesium (1.7-2.4) mg/dl Iron (35-150) mcg/dl TIBC (250-450) mcg/dl Unsaturated IBC (155-355) mcg/dl Transferrin % Sat (15-50) % Ferritin (8-388) ng/ml Ammonia (18-72) umol/L Troponin I High Sens (0-14) pg/ml B-Natriuretic Peptide (0-100) pg/ml TSH (0.300-4.500) uIu/ml Lyme Disease IgG Ab (Negative) Lyme Disease IgM Ab (Negative) 02/25/23 02/25/23 02/25/23 Range/Units 12: 12: 12:22 WBC (4.8-10.8) K/ul RBC (4.20-5.40) M/uL Hgb (12.0-16.0) g/dl Hct (37.0-47.0) % MCV (80.0-100.0) fL MCH (25.0-34.0) pg MCHC (32.0-36.0) g/dL RDW Std Deviation (36.4-46.3) fL RDW Coeff of Ana (11.5-14.5) % Plt Count (130-400) K/uL MPV (9.4-12.4) fL Platelet Estimate (Normal) Sodium 138 (136-145) mmol/L Potassium 4.6 (3.5-5.1) mmol/L Chloride 100 (98-107) mmol/L Carbon Dioxide 29 (21-32) mmol/L Anion Gap 9 (3-11) BUN 54 H (6-23) mg/dl Creatinine 2.35 H (0.6-1.2) mg/dl Est Cr Clr Drug Dosing 24.4 ml/min Est GFR ( Amer) 23.0 ml/min Est GFR (Non-Af Amer) 19.9 ml/min BUN/Creatinine Ratio 23.0 H (10-20) Glucose 197 H (70-99(Fasting)) mg/dl POC Glucose (70-99) mg/dl Calcium 9.0 (8.6-10.3) mg/dl Magnesium (1.7-2.4) mg/dl Iron (35-150) mcg/dl TIBC (250-450) mcg/dl Unsaturated IBC (155-355) mcg/dl Transferrin % Sat (15-50) % Ferritin (8-388) ng/ml Ammonia 20.0 (18-72) umol/L Troponin I High Sens 28.0 H (0-14) pg/ml B-Natriuretic Peptide 690 H (0-100) pg/ml TSH (0.300-4.500) uIu/ml Lyme Disease IgG Ab (Negative) Lyme Disease IgM Ab (Negative) Diagnostic Findings Renal Ultrasound 02/25/23 16:14 RENAL ULTRASOUND HISTORY: Acute kidney injury kasandra, eval obstructive process COMPARISON: None. FINDINGS: Right kidney: 9.5 x 4.9 x 4.6 cm. No hydronephrosis. Mild diffuse cortical thinning. No suspicious renal mass lesions.. Left kidney: 11.4 x 5.8 x 5.3 cm. No hydronephrosis. Mild diffuse cortical thinning. No suspicious renal mass lesions. Bladder: Decompressed urinary bladder. Limited exam secondary to patient condition and body habitus. IMPRESSION: Cortical thinning of the kidneys without renal calculi or hydronephrosis. ACT 112: Negative or not required by law. Electronically signed by: Tod Armenta M.D. 02/26/2023 8:04 AM PG Care Time/CCT Total # of Minutes Spent Total Time Spent with Patient: Total time spent is greater than 50% in coordination of care (as documented) at patient's floor/unit and/or counseling patient: Coding Level of Care Code 74659 SUB INP/OBS CARE 3/50MIN Diagnoses Weakness R53.1 Acute UTI (urinary tract infection) N39.0 Depression with anxiety F41.8 CKD (chronic kidney disease) N18.9 CHF (congestive heart failure) I50.9 CAD (coronary artery disease) I25.10 DM2 (diabetes mellitus, type 2) E11.9 GERD (gastroesophageal reflux disease) K21.9 Hyperlipidemia E78.5 HTN (hypertension), benign I10 Hypothyroid E03.9 Seizure disorder G40.909
[2023-02-26 08:12] LABS: Hematocrit (blood only) 26.2 % (37.0-47.0); Hemoglobin 8.6 g/dl (12.0-16.0); Mean Corpuscular Hemoglobin 34.7 pg (25.0-34.0); Mean Corpuscular Hgb Conc 32.8 g/dL (32.0-36.0); Mean Corpuscular Volume 105.6 fL (80.0-100.0); Mean Platelet Volume 11.8 fL (9.4-12.4); Platelet Count 95 K/uL (130-400); Platelet Estimate Decreased (Normal); RDW Coefficient of Variation 14.5 % (11.5-14.5); RDW Standard Deviation 55.4 fL (36.4-46.3); Red Blood Count 2.48 M/uL (4.20-5.40); White Blood Count 4.29 K/ul (4.8-10.8)
[2023-02-26 08:19] LABS: Ferritin 103.9 ng/ml (8-388)
[2023-02-26 08:21] LABS: Lyme Ab IgG w/WB Rflx Negative (Negative); Lyme Ab IgM w/WB Rflx Negative (Negative)
[2023-02-26] MEDS: INSULIN ASPART PER UNIT CHARGE SC SCH ×4 (08:28→20:48)
[2023-02-26] MEDS: SERTRALINE HCL 50 MG TABLET PO SCH (10:21)
[2023-02-26] MEDS: carvediloL 12.5 MG TAB PO SCH ×2 (10:21→20:47)
[2023-02-26] MEDS: DIVALPROEX EXTENDED RELEASE 500 MG TAB PO SCH ×2 (10:21→20:46)
[2023-02-26] MEDS: valACYclovir HCL 500 MG TABLET PO SCH (10:22)
[2023-02-26] MEDS: PANTOprazole 40 MG TAB PO SCH ×2 (10:22→20:47)
[2023-02-26] MEDS: levETIRAcetam 500 MG TAB PO SCH ×2 (10:22→20:45)
[2023-02-26] MEDS: CLOPIDOGREL BISULFATE 75 MG TAB PO SCH (10:22)
[2023-02-26] MEDS: ATORVASTATIN 10 MG TAB PO SCH (10:22)
[2023-02-26] MEDS: hydrALAZINE HCL 25 MG TAB PO SCH ×2 (10:23→20:46)
[2023-02-26] MEDS: CARBIDOPA/LEVODOPA 25/100MG TAB PO SCH ×3 (10:23→20:46)
[2023-02-26] MEDS: PROPRANOLOL HCL 10 MG TAB PO SCH ×2 (10:23→20:45)
[2023-02-26] MEDS: lamoTRIgine 25 MG TAB PO SCH ×2 (10:23→20:45)
[2023-02-26] MEDS: CALCITRIOL 0.25 MCG CAPSULE PO SCH (10:24)
[2023-02-26] MEDS: LANTUS PER UNIT CHARGE SQ SCH ×2 (10:31→20:47)
[2023-02-26] MEDS: BUMETANIDE 2 MG in SYRINGE 0 ML IV SCH (11:25)
--- NOTE | 2023-02-26 13:33 | XCELERA ---
[id number]
[2023-02-26] MEDS: ASPIRIN 81 MG ECTAB PO SCH (16:42)
[2023-02-26] MEDS: BUMETANIDE 1 MG TAB PO SCH (16:42)
[2023-02-27] MEDS: ACETAMINOPHEN 500 MG TAB PO PRN ×2 (03:31→19:52)
[2023-02-27] MEDS: cefTRIAXone SODIUM 2,000 MG in DEXTROSE 5% 50 ML IV SCH (03:33)
[2023-02-27] MEDS: LEVOTHYROXINE SODIUM 25 MCG TABLET PO SCH (06:06)
[2023-02-27 07:27] LABS: Hematocrit (blood only) 24.8 % (37.0-47.0); Hemoglobin 8.1 g/dl (12.0-16.0); Mean Corpuscular Hgb Conc 32.7 g/dL (32.0-36.0); Mean Corpuscular Volume 104.2 fL (80.0-100.0); Platelet Count 101 K/uL (130-400); RDW Coefficient of Variation 14.6 % (11.5-14.5); RDW Standard Deviation 55.6 fL (36.4-46.3); Red Blood Count 2.38 M/uL (4.20-5.40)
[2023-02-27 07:38] LABS: Anion Gap 8 (3-11); BUN Creatinine Ratio 22.3 (10-20); Blood Urea Nitrogen 55 mg/dl (6-23); Calcium 8.6 mg/dl (8.6-10.3); Carbon Dioxide 32 mmol/L (21-32); Chloride 99 mmol/L (98-107); Creatinine Clr Calc Pharmacy 21.5 ml/min; Est GFR (African American) 21.7 ml/min; Est GFR (Non-African American) 18.7 ml/min; Glucose 92 mg/dl (70-99(Fasting)); Potassium 4.2 mmol/L (3.5-5.1); Sodium 139 mmol/L (136-145)
[2023-02-27 07:45] LABS: Alanine Aminotransferase < 3 U/L (7-52); Alkaline Phosphatase 30 U/L (34-104); Aspartate Aminotransferase 7 U/L (13-39); Bilirubin,Total 0.2 mg/dl (0.2-1.0); Chol HDL Ratio 5.2 (0-5); Cholesterol 89 mg/dl (0-200); Globulin 2.9 gm/dl (2.5-4.0); HDL Cholesterol 17 mg/dl; LDL Cholesterol Calculated 38 mg/dl; Magnesium 2.2 mg/dl (1.7-2.4); Total Protein 5.9 gm/dl (6.0-8.3); Triglycerides 170 mg/dl (0-150); VLDL Cholesterol 34 mg/dl (0-30)
[2023-02-27] MEDS: BUMETANIDE 1 MG TAB PO SCH ×2 (07:53→17:07)
[2023-02-27] MEDS: valACYclovir HCL 500 MG TABLET PO SCH (07:53)
[2023-02-27] MEDS: PANTOprazole 40 MG TAB PO SCH ×2 (07:53→19:53)
[2023-02-27] MEDS: carvediloL 12.5 MG TAB PO SCH ×2 (07:53→19:52)
[2023-02-27] MEDS: CALCITRIOL 0.25 MCG CAPSULE PO SCH (07:53)
[2023-02-27] MEDS: hydrALAZINE HCL 25 MG TAB PO SCH ×2 (07:53→19:53)
[2023-02-27] MEDS: CLOPIDOGREL BISULFATE 75 MG TAB PO SCH (07:53)
[2023-02-27] MEDS: SERTRALINE HCL 50 MG TABLET PO SCH (07:53)
[2023-02-27] MEDS: ATORVASTATIN 10 MG TAB PO SCH (07:53)
[2023-02-27] MEDS: CARBIDOPA/LEVODOPA 25/100MG TAB PO SCH ×3 (07:54→19:52)
[2023-02-27] MEDS: levETIRAcetam 500 MG TAB PO SCH ×2 (07:54→19:53)
[2023-02-27] MEDS: DIVALPROEX EXTENDED RELEASE 500 MG TAB PO SCH ×2 (07:54→19:52)
[2023-02-27] MEDS: lamoTRIgine 25 MG TAB PO SCH ×2 (07:54→19:52)
[2023-02-27] MEDS: PROPRANOLOL HCL 10 MG TAB PO SCH ×2 (07:54→19:53)
[2023-02-27] MEDS: INSULIN ASPART PER UNIT CHARGE SC SCH ×4 (07:58→20:03)
[2023-02-27] MEDS: LANTUS PER UNIT CHARGE SQ SCH ×2 (08:09→20:09)
--- NOTE | 2023-02-27 14:03 | Cardiology Consultation ---
Date of Consultation February 27, 2023 Assessment & Plan (1) CHF (congestive heart failure): Acute on chronic combined systolic and diastolic (grade 2 diastolic dysfunction and multivalve disease). Currently she appears euvolemic. In fact, her chest x-ray yesterday did not suggest significant volume overload and the BNP while slightly elevated was not as high as it had been in the past. This is consistent with her known underlying cardiac disease. At this time she should remain on Bumex 2 mg p.o. twice daily but we will need to carefully follow her renal function. Her overall renal function is slightly worse than it was on previous admission. Chronic heart failure regimen currently includes carvedilol 12.5 mg p.o. twice daily and at the Bumex. She previously had low EF but this has significantly improved. We may still want to consider an SGLT2 inhibitor. Does not appear that she would tolerate or need Entresto at this time. Besides, her renal function precludes use of an angiotensin receptor laura. The addition of SGLT2 inhibitor can be performed as an outpatient. From heart failu re standpoint she appears optimized clinically at this time. (2) CAD (coronary artery disease): Prior four-vessel CABG. Severe [place] vessel disease including left main, LAD, obtuse marginal branch of the circumflex, and RCA. Also including occluded vein graft, prior stenting of the SVG to PDA, and more recent stenting of the SVG to LAD. Given the extent of her left main and LAD disease as well as stenting of the SVG to LAD it would be optimal for her to maintain dual antiplatelet therapy lifelong. At least up to 2 years post PCI would be optimal to prevent stent t hrombosis of the SVG to LAD. Such an insult would cause significant problems given the importance of this bypass graft. It has been 1 year since stenting of that graft, therefore, if needed we could temporarily hold the dual antiplatelet therapy for urgent procedures. She will need to continue on guideline directed medical therapy for secondary prevention of coronary artery disease. This curre ntly includes low-dose aspirin, carvedilol, and low-dose atorvastatin. (3) Hyperlipidemia: She is high risk. High intensity statin therapy is recommended. Her LDL was 38 on current dose of atorvastatin. That is more than adequate and we will make no changes at this time. (4) HTN (hypertension), benign: Blood pressure has been creeping up today. Agree with elizabetilol and hydralazine. Consider the addition of long-acting nitrate such as Imdur 30 mg daily. (5) Aortic stenosis: The severity of the aortic stenosis has varied based upon her hemodynamic status at the time of the echocardiogram. For example, mild with low EF but higher degree of aortic stenosis with improved EF. This is typical because low cardiac output can underestimate the severity of aortic stenosis. To a lesser degree the mitral regurgitation calculation can also vary with hemodynamic status. The echocardiogram initially performed on this admission did not measure valvular gradients and so is inadequate with regard to evaluation of . I have reviewed her limited echo which did evaluate the valve more closely. Based on that study her EF is low normal, she seems to have no more than mild to moderate aortic stenosis (some echo criteria moderate some mild), and her mitral regurgitation appears to be at least moderate but it is somewhat eccentric with multiple jets and may be severe. We will settle on moderate to severe mitral regurgitation. These are chronic issues and will be followed as an outpatient. (6) Anemia: This is not new but may be slightly worse. Previous history of GI bleed. However, unless she has significant GI bleed or rapid drop in her H&H I would not discontinue the dual antiplatelet therapy. I would recommend GI evaluation if the stool is positive for blood. Plan At this time, from a cardiovascular standpoint the patient is appropriate for discharge. I would like to see her in follow-up within 2 to 3 weeks. History of Present Illness Attending Physician: Nika Santiago MD History of Present Illness This is a 72-year-old female whom I have seen once in the past at our office. She has a complex past cardiac history and previously followed at [facility] with Dr. Miguel Owen (heart failure/transplant cardiology) and had cardiac catheterization and PCI performed by Dr. Clay Huffman. She presents at this time for recurrent fall. Patient's prior records are available within the chart. They were not available to me when I saw her previously. My review reveals that she has a history of four-vessel coronary artery bypass grafting performed in 2013. At that time she had an SVG to the LAD, SVG to the PDA, SVG to the obtuse marginal, and SVG to the diagonal. She subsequently returned to the hospital with congestive heart failure exacerbation. At that time, her EF was determined to be low by left ventriculogram (20%). She had a cardiac catheterization in January 2022. The right heart cath demonstrated elevated wedge pressure of 32, PA systolic pressure of 68 with a diastolic pressure of 25. The RV pressure was similarly elevated at 62 over 3 mmHg and the right atrial pressure was mildly elevated at 11 mmHg. Left heart cath demonstrated LVEDP of 26. Cardiac output as determined by the method of Andrey was 3.45 L/min with a cardiac index of 1.75 L/min/m. The coronary angiography demonstrated diffuse left main disease of 90%, chronic total occlusion of the proximal LAD, chronic total occlusion of the proximal obtuse marginal branch of the circumflex, and severely diseased RCA. Bypass graft angiography at that time revealed a patent SVG to PDA graft with a previously placed stent which was also patent. The SVG to diagonal was 100% occluded. The SVG to obtuse marginal branch was patent. The SVG to LAD was found to have a 99% occlusion and the patient subsequently had PCI of the SVG to LAD with a 3.5 x 28 mm drug-eluting stent. Per report, the SVG to PDA was stented in March 2018. Subsequent echocardiograms have demonstrated improvement in the patient's ejection fraction. Initial echo from February 2022 showed mild LVH, EF 32%, moderately decreased RV function, left atrial enlargement with left atrial volume index of 41, moderate mitral regurgitation, moderate tricuspid regurgitation, estimated PA systolic pressure of 55 mmHg, and mild aortic stenosis with low cardiac output. A subsequent echocardiogram from May 2022 showed improved EF after PCI and optimization of medical therapy. The EF was 45 to 50%. She had grade 2 diastolic dysfunction, moderate to severe RV systolic dysfunction, moderate to severe mitral regurgitation, and moderate to severe aortic stenosis. The pulmonary hypertension continues to be severe at 72 mmHg systolic pressure. There continue to be at least moderate left atrial enlargement and moderate tricuspid regurgitation. An event monitor done in March 2022 showed only brief episodes of PSVT up to 7 beats. All other abnormalities were isolated ectopic beats of infrequent occurrence. Patient's comorbid disease includes chronic kidney disease, hypertension, ischemic cardiomyopathy (ACC stage III, [place] heart association class III) valvular heart disease, peripheral arterial disease with chronic total occlusion of the left internal carotid artery, hepatitis C, type 2 diabetes for which she requires insulin, and history of GI bleed. She has consistently demonstrated evidence of cor pulmonale secondary to severe pulmonary hypertension with reduced RV systolic function and dilatation of the right ventricle. Today the patient denies any chest pain or shortness of breath. She tells me she typically has fluid retention manifested by increased abdominal girth as well as shortness of breath with fluid in the lungs. She does not typically have lower extremity edema. She is feeling well at this time. She denies any anginal chest pain, dyspnea at rest, syncope, near syncope, orthopnea, PND, racing heartbeat, palpitations, or edema. She voices no other complaints or concerns at this time. She tells me she was admitted because she fell again. No loss of consciousness. Allergies Allergy/AdvReac Type Severity Reaction Status Date / Time MARINO Inhibitors Allergy Unknown ON [facility] Verified 02/25/23 02:10 MED LIST Interferons Allergy Unknown ON [facility] Verified 02/25/23 02:10 MED LIST Penicillins Allergy Unknown ON [facility] Verified 02/25/23 02:10 MED LIST Home Medications Medication Instructions Recorded Confirmed Type aspirin 81 mg tablet,delayed 81 mg PO .DAILY @ 1600 07/05/22 02/25/23 History release (Adult Aspirin Regimen) omega 1-vde-gvw-fish oil 1,000 mg 2 cap PO DAILY 07/05/22 02/25/23 History (120 mg-180 mg) capsule (Fish Oil) lancets 33 gauge (OneTouch Delica #100 ea 07/06/22 02/14/23 Rx Lancets) biotin 5 mg tablet 5 mg PO DAILY #30 tabs 07/29/22 02/25/23 Rx dextromethorphan-guaifenesin 5 10 ml PO Q6H PRN cough #180 mL 08/24/22 02/25/23 Rx mg-100 mg/5 mL oral liquid (Mucinex Fast-Max DM Max) alprazolam 0.25 mg tablet 0.25 mg PO DAILY PRN anxiety #30 08/25/22 02/25/23 Rx tabs magnesium oxide 400 mg PO BID 09/15/22 02/25/23 History cyanocobalamin (vitamin B-12) 1,000 mcg PO DAILY #30 caps 09/20/22 02/25/23 Rx 1,000 mcg capsule triamcinolone acetonide 0.1 % 1 applic topical BID PRN rash #15 09/26/22 02/25/23 Rx topical cream grams bumetanide 1 mg tablet 2 mg PO DAILY PRN wt gain 5LBS or 11/09/22 02/25/23 History more over 3 days acetaminophen 500 mg tablet 500 mg PO QID PRN pain #90 tabs 11/23/22 02/25/23 Rx (Tylenol Extra Strength) bumetanide 2 mg tablet 2 mg PO BID #180 tabs 11/28/22 02/25/23 Rx calcitriol 0.25 mcg capsule 0.25 mcg PO DAILY #90 caps 11/28/22 02/25/23 Rx carvedilol 12.5 mg tablet 12.5 mg PO BID #180 tabs 11/28/22 02/25/23 Rx clopidogrel 75 mg tablet 75 mg PO DAILY #90 tabs 11/28/22 02/25/23 Rx levothyroxine 25 mcg capsule 25 mcg PO DAILY #90 caps 11/28/22 02/25/23 Rx propranolol 10 mg tablet 10 mg PO BID #60 tabs 11/28/22 02/25/23 Rx valacyclovir 500 mg tablet 500 mg PO DAILY #30 tabs 11/28/22 02/25/23 Rx pantoprazole 40 mg tablet,delayed 40 mg PO DAILY #90 tabs 12/21/22 02/25/23 Rx release pen needle, diabetic 32 gauge x #100 ea 12/28/22 02/14/23 Rx 1/4" (BD Ultra-Fine Micro Pen Needle) insulin lispro 100 unit/mL 3 unit (0.03 mL) subcut TIDM #15 mL 01/02/23 02/25/23 Rx subcutaneous pen (Humalog KwikPen (U-100) Insulin) divalproex 500 mg tablet,extended 500 mg PO BID #56 tabs 01/23/23 02/25/23 Rx release 24 hr blood sugar diagnostic (OneTouch #100 ea 01/27/23 02/14/23 Rx Verio test strips) insulin glargine 100 unit/mL (3 25 unit (0.25 mL) subcut BID #15 mL 01/27/23 02/25/23 Rx mL) subcutaneous pen (Basaglar KwikPen U-100 Insulin) lamotrigine 25 mg tablet (Lamictal) 25 mg PO BID 30 days #60 tabs 02/10/23 02/25/23 Rx levetiracetam 500 mg tablet 500 mg PO BID 30 days #60 tabs 02/10/23 02/25/23 Rx carbidopa 25 mg-levodopa 100 mg 1 tab PO TID #90 tabs 02/14/23 02/25/23 Rx tablet hydralazine 50 mg tablet 75 mg PO BID #135 tabs 02/15/23 02/25/23 Rx sertraline 50 mg tablet 50 mg PO DAILY #30 tabs 02/15/23 02/25/23 Rx atorvastatin 10 mg tablet 10 mg PO QAM 02/25/23 02/25/23 History ferrous sulfate 325 mg (65 mg 325 mg PO QDD 02/25/23 02/25/23 History iron) tablet trazodone 50 mg tablet 50 - 100 mg PO HS PRN insomnia 02/25/23 02/25/23 History Patient History Medical History (Updated 02/27/23 @ 17:57 by Hernandez Cox MD, PhD) Amputated toe of right foot 2020 Anemia B12 deficiency Bleeding disorder CAD (coronary artery disease) Whqimph-Gmvae-Vcndz syndrome CHF (congestive heart failure) Depression with anxiety DM2 (diabetes mellitus, type 2) Gastric peptic ulcer GERD (gastroesophageal reflux disease) GI bleed Gout HTN (hypertension), benign Hx of hepatitis C Hyperlipidemia Hypothyroid Iron deficiency anemia Lives in [facility] resident Seizure disorder first seizure spring 2020 Stage 4 chronic kidney disease Tremor Surgical History H/O: section 1981 Hx of tonsillectomy S/P CABG x 4 Stented coronary artery Family History Brother Diabetes Hypertension Father Hypertension Mother Lung disease Denies family history of Breast cancer Colorectal cancer Social History Smoking Status: Former smoker Second Hand Exposure: No; Do You Dip or Chew Tobacco: No; Hx Alcohol Use: No Hx Substance Use: No Preferred Language: Emirati Communication Ability: Effective Rehabilitation Team Lead Required: No Beliefs That Will Affect Care: None marital status: Current Living Situation: Personal Care Facility Current Living Situation Comment: [facility] current occupational status: retired Other Information That Helps Us Care for You: No Feels Safe at Home: Yes Safety Concerns: Feels Safe At This Time Dental Care, Regularly: Yes Physical Activity Frequency: Does not Exercise Seatbelt Use: always Assistive Devices: Walker Review of Systems Review of Systems: Negative except as per HPI Physical Exam Constitutional: WD/WN, vitals as above (Morbidly obese chronically ill- appearing pale) Eyes: Extraocular muscles intact. Sclera are anicteric. ENMT: Oral mucosa is pink, moist, and intact Neck: Thick. No JVD. Soft bilateral bruits transmitted from heart Respiratory: Poor air movement. Do not appreciate any crackles or wheezing. Cardiovascular: Regular rate and rhythm. Grade 2 out of 6 to 3 out of 6 systolic murmur heard throughout the precordium. The PMI is displaced towards the left axilla. S4 gallop. No rubs. No lower extremity edema. Gastrointestinal (Abdomen): Abdomen is very large but soft. Normal bowel sounds Neurologic: Cognition is intact. Speech is fluent. No focal deficits. Moves 4 extremities voluntarily. She has a fairly profound right upper extremity tremor at rest. Psychiatric: A+Ox3, euthymic affect Results & Data Vital Signs (Past 12 Hours) Vital Signs Temp Pulse Resp BP Pulse Ox O2 Del Method O2 Flow Rate 02/27/23 11:56 36.9 C 70 17 155/80 H 97 Nasal Cannula 1 02/27/23 07:20 36.6 C 64 17 149/75 H 97 Nasal Cannula 1 02/27/23 07:00 70 02/27/23 03:00 36.6 C 75 18 130/71 97 Nasal Cannula 1 02/27/23 01:58 Nasal Cannula 1 PG Care Time/CCT Total # of Minutes Spent Total Time Spent with Patient: Total time spent is greater than 50% in coordination of care (as documented) at patient's floor/unit and/or counseling patient: Coding Level of Care Code 04258 INT INP/OBS CARE 3/75MIN Diagnoses CHF (congestive heart failure) I50.9 CAD (coronary artery disease) I25.10 Hyperlipidemia E78.5 HTN (hypertension), benign I10 Aortic stenosis I35.0 Anemia D64.9
[2023-02-27] MEDS: ASPIRIN 81 MG ECTAB PO SCH (17:05)
--- NOTE | 2023-02-27 17:40 | Hospitalist Progress Note ---
Date of Service February 27, 2023 Assessment & Plan (1) Weakness: Plan: Suspected UTI on admission, placed on ceftriaxone 2gm IV daily and monitoring cultures Patient did have elevation in Cr 2.3, slightly above baseline, ordered 1L IVF on admit however appears some borderline hypotension on admit and ?ATN, however no granular casts noted on UA Had been 91% on RA and appeared diminished in the bases and incentive spirometer ordered Sinemet increased by neurology (will need to see if taking w/ her iron/decreased efficacy -- she doesn't do her medications -- will need to clarify on dc instructions to [facility]). --her keppra level prior elevated as well and keppra decreased to 500mg BID outpatient and lamictal had been recently added -> repeat keppra level pending w/ AM labs Ammonia not elevated-checked given tremor. No known hx cirrhosis (however did have hep C s/p Harvoni treatment in the past) No arrhythmias on telemetry Weakness is likely secondary to a combination of her Parkinson's and possible UTI along with renal insufficiency contributing to weakness Also with pancytopenia and possible underlying myelodysplasia? (2) Acute UTI (urinary tract infection): Plan: Urinalysis suggestive of infection. Prior urine culture with mixed yon and lactobacillus species. Remains on ceftriaxone 2gm IV daily Urine culture with mixed yon Repeat urine culture sent and pending (3) Pancytopenia: Plan: With pancytopenia-hemoglobin chronically low and may be anemia of chronic disease B12 and folate checked in the last few months and normal TSH normal WBC count low normal Platelets are newly low-no recent viral illness. Was low prior to admission so not likely secondary to ceftriaxone. SPEP pending, recommend follow-up with hematology as an outpatient Follow CBC (4) Depression with anxiety: Plan: Continue Xanax as needed, sertraline, trazodone (5) CKD (chronic kidney disease): Plan: Creatinine slightly above baseline at 2.4 Okay to continue home p.o. Bumex Appears euvolemic Follow with nephrology as an outpatient -[place] [facility] tomorrow (6) CHF (congestive heart failure): Plan: Hx chronic combined systolic and diastolic heart failure, as well as CAD/cardiomyopathy/s/p CABG x 4 in 2013 w/ remote NSTEMI February 2022 in [facility] and is s/p RANDY to vein graft to LAD on Aspirin/Plavix (also hx GI bleeding) Most recent ECHO w/ EF 45 to 50%, grade 2 diastolic dysfunction, significant RV failure, mild to moderate left atrial enlargement, mild mitral stenosis, moderate to severe mitral regurgitation, moderate to severe aortic stenosis, and severe pulmonary hypertension). BNP checked and elevated, IVF discontinued and restarted on home p.o. Bumex after receiving some IV Bumex here Monitor daily weights/I&Os Dewey placed for urinary retention Continue fluid restriction 1500ml/day Continue AHA/DM diet Continue carvedilol BID, hydralazine. No MARINO/ARB given progressive CKD Appreciate cardiology consultation-repeating limited echo to assess valvular disease (7) CAD (coronary artery disease): Plan: Patient with coronary artery disease status post CABG x4 vessel performed at [place] in 2013. She had recent cardiac stenting. Was recently seen by cardiology on 12/05/2022. At that time patient on aspirin as well as Plavix. Records were to be obtained to understand specifics of her stenting in regards to continued need for dual antiplatelet therapy. Does appear DAPT therapy x 1 year (which would be this month) --cardiology here recommends staying on dual antiplatelet therapy Trop 33.4 on admit, repeat trended down to 28, no further checks/reports of chest pain Repeat ECHO to look for any new WNL given such-no wall motion abnormalities, but repeat limited echo as above as per cardiology to assess valvular disease Continue DAPT, BB, statin for now Monitor on telemetry (8) DM2 (diabetes mellitus, type 2): Plan: Patient with diabetes Last hemoglobin A1c on 01/10/2023 = 7.8. She is on home insulin therapy. Lantus 18u BID, sliding scale BSGs acceptable and will monitor (9) GERD (gastroesophageal reflux disease): Plan: Chronic. Hx gastric ulcers/bleed. Denies overt blood in stool but is on iron. Prior outpatient notes w/ reflux symptoms, she reports worse in the morning Increased PPI to BID (10) Hyperlipidemia: Plan: Chronic. Stable. Continue atorvastatin 10 mg p.o. daily for now -->given CAD, patient ideally should be on high dose statin (11) HTN (hypertension), benign: Plan: BP controlled, continue BB/hydralazine (12) Hypothyroid: Plan: TSH wnl, continues on synthroid 25mcg daily (13) Seizure disorder: Plan: Patient seizure-free Continue Keppra 500 mg p.o. twice daily Continue Depakote extended release 500 mg p.o. twice daily Continue Lamictal 25 mg p.o. twice daily Repeat keppra level pending given prior elevation in f/u neuro and recent reduction Seizure precautions, however no recent activity reported (14) Aortic stenosis: Plan: Mild to moderate Repeating limited echo for further assessment (15) B12 deficiency: Plan: Continue B12 replacement as an outpatient Most recent level checked and normal (16) Parkinsons disease: Plan: reports recently being diagnosed with Parkinson's. Continue carbidopalevodopa 25 mg / 100 mg 0.5 tablets p.o. 3 times daily --> neurology increased this to 1tablet TID. Changed to such. Also, patient will need to take apart from her oral iron supplementation Plan Disposition-continued stay DVT prophylaxis-add SCDs Admission and Anticipated Discharge Date Admission Date: February 26, 2023 Subjective Patient reports feeling better. Not short of breath but remains on oxygen. Pain in her tailbone is improved. Telemetry with normal sinus rhythm and normal rates in the 60s to 70s. Physical Exam Constitutional: WD/WN, vitals as above Respiratory: normal respiratory effort, lungs clear to auscultation Cardiovascular: Rate/Rhythm: regular rate and regular rhythm Extremities: no edema Gastrointestinal (Abdomen): normal bowel sounds, soft, nontender, no hepatosplenomegaly Results & Data Results & Data Vital Signs (Past 12 Hours) Vital Signs Temp Pulse Resp BP Pulse Ox O2 Del Method O2 Flow Rate 02/27/23 15:27 36.8 C 67 17 152/74 H 97 Oxymask 2 02/27/23 15:00 65 02/27/23 11:56 36.9 C 70 17 155/80 H 97 Nasal Cannula 1 02/27/23 07:20 36.6 C 64 17 149/75 H 97 Nasal Cannula 1 02/27/23 07:00 70 Laboratory Results CBC, BMP reviewed PG Care Time/CCT Total # of Minutes Spent Total Time Spent with Patient: Total time spent is greater than 50% in coordination of care (as documented) at patient's floor/unit and/or counseling patient: Coding Level of Care Code 71687 SUB INP/OBS CARE 2/35MIN Diagnoses Weakness R53.1 Acute UTI (urinary tract infection) N39.0 Pancytopenia D61.818 Depression with anxiety F41.8 CKD (chronic kidney disease) N18.9 CHF (congestive heart failure) I50.9 CAD (coronary artery disease) I25.10 DM2 (diabetes mellitus, type 2) E11.9 GERD (gastroesophageal reflux disease) K21.9 Hyperlipidemia E78.5 HTN (hypertension), benign I10 Hypothyroid E03.9 Seizure disorder G40.909 Aortic stenosis I35.0 B12 deficiency E53.8 Parkinsons disease G20
[2023-02-28] MEDS: cefTRIAXone SODIUM 2,000 MG in DEXTROSE 5% 50 ML IV SCH (03:33)
[2023-02-28] MEDS: LEVOTHYROXINE SODIUM 25 MCG TABLET PO SCH (04:12)
[2023-02-28 06:55] LABS: Basophils # (auto) 0.01 K/uL (0-0.2); Basophils % (auto) 0.3 %; Eosinophils # (auto) 0.21 K/uL (0-0.50); Eosinophils % (auto) 6.5 %; Hematocrit (blood only) 25.3 % (37.0-47.0); Hemoglobin 8.4 g/dl (12.0-16.0); Immature Granulocytes # (auto) 0.05 K/uL (0.01-0.20); Immature Granulocytes % (auto) 1.5 %; Lymphocytes # (auto) 0.65 K/uL (1.2-3.4); Lymphocytes % (auto) 20.1 %; Mean Corpuscular Hemoglobin 34.3 pg (25.0-34.0); Mean Corpuscular Hgb Conc 33.2 g/dL (32.0-36.0); Mean Corpuscular Volume 103.3 fL (80.0-100.0); Mean Platelet Volume 12.2 fL (9.4-12.4); Monocytes # (auto) 0.53 K/uL (0.11-0.59); Monocytes % (auto) 16.4 %; Neutrophils # (auto) 1.78 K/uL (1.40-6.50); Neutrophils % (auto) 55.2 %; Platelet Count 104 K/uL (130-400); RDW Coefficient of Variation 14.2 % (11.5-14.5); RDW Standard Deviation 53.5 fL (36.4-46.3); Red Blood Count 2.45 M/uL (4.20-5.40); White Blood Count 3.23 K/ul (4.8-10.8)
[2023-02-28 07:16] LABS: BUN Creatinine Ratio 21.4 (10-20); Calcium 8.6 mg/dl (8.6-10.3); Creatinine Clr Calc Pharmacy 22.6 ml/min; Est GFR (African American) 23.2 ml/min; Magnesium 2.1 mg/dl (1.7-2.4); Potassium 3.9 mmol/L (3.5-5.1)
[2023-02-28] MEDS: DIVALPROEX EXTENDED RELEASE 500 MG TAB PO SCH (08:17)
[2023-02-28] MEDS: INSULIN ASPART PER UNIT CHARGE SC SCH ×2 (08:17→11:58)
[2023-02-28] MEDS: levETIRAcetam 500 MG TAB PO SCH (08:17)
[2023-02-28] MEDS: PANTOprazole 40 MG TAB PO SCH (08:17)
[2023-02-28] MEDS: hydrALAZINE HCL 25 MG TAB PO SCH (08:17)
[2023-02-28] MEDS: lamoTRIgine 25 MG TAB PO SCH (08:17)
[2023-02-28] MEDS: BUMETANIDE 1 MG TAB PO SCH (08:18)
[2023-02-28] MEDS: CALCITRIOL 0.25 MCG CAPSULE PO SCH (08:18)
[2023-02-28] MEDS: CLOPIDOGREL BISULFATE 75 MG TAB PO SCH (08:18)
[2023-02-28] MEDS: ATORVASTATIN 10 MG TAB PO SCH (08:18)
[2023-02-28] MEDS: CARBIDOPA/LEVODOPA 25/100MG TAB PO SCH ×2 (08:18→14:08)
[2023-02-28] MEDS: valACYclovir HCL 500 MG TABLET PO SCH (08:18)
[2023-02-28] MEDS: SERTRALINE HCL 50 MG TABLET PO SCH (08:18)
[2023-02-28] MEDS: carvediloL 12.5 MG TAB PO SCH (08:18)
[2023-02-28] MEDS: PROPRANOLOL HCL 10 MG TAB PO SCH (08:19)
[2023-02-28] MEDS: LANTUS PER UNIT CHARGE SQ SCH (08:24)
[2023-02-28 11:16] LABS: Polychromasia 1+; Toxic Vacuolation 1+
--- NOTE | 2023-02-28 11:45 | Discharge Summary ---
Date of Service February 28, 2023 Admission HPI Per Admitting Provider Sarah Taylor is a 72-year-old female with multiple medical problems to include coronary artery disease, congestive heart failure, diabetes, GERD, gout, hypertension, hyperlipidemia, hypothyroidism, CKD and seizure disorder presenting from her [facility] facility after a [facility]. Patient also with worsening generalized weakness. In the ER she is afebrile, hemodynamically stable, no acute distress Very somnolent. Wants to sleep. She wakes briefly to answer some questions then drifts back off She does deny chest pain, cough, shortness of breath. Denies abdominal pain ER work-up suggestive of UTI. She was administered ceftriaxone Principal Diagnosis Generalized weakness, fall, Coccyx fracture Pancytopenia Discharge Exam Constitutional WD/WN, vitals as above Respiratory normal respiratory effort, lungs clear to auscultation Cardiovascular Rate/Rhythm: regular rate and regular rhythm Extremities: no edema Gastrointestinal (Abdomen) normal bowel sounds, soft, nontender, no hepatosplenomegaly Neurologic Motor/Sensory: + tremor (resting tremor in arms) Psychiatric Orientation: alert, oriented x 3 and cooperative Affect: + flat affect Discharge Data Allergies Allergy/AdvReac Type Severity Reaction Status Date / Time MARINO Inhibitors Allergy Unknown ON [facility] Verified 02/25/23 02:10 MED LIST Interferons Allergy Unknown ON [facility] Verified 02/25/23 02:10 MED LIST Penicillins Allergy Unknown ON [facility] Verified 02/25/23 02:10 MED LIST Consultations 02/25/23 03:44 ED Decision to Admit Stat 02/26/23 06:00 Consult Cardiology Routine Ordered Studies 02/25/23 16:14 US renal/blad retro comp Routine ECHO Hospital Course (1) Weakness: Suspected UTI on admission, placed on ceftriaxone 2gm IV daily but urine culture negative-stopped abx Patient did have elevation in Cr 2.3, slightly above baseline, ordered 1L IVF on admit and then later restarted diuretics Had been 91% on RA and appeared diminished in the bases and incentive spirometer ordered Sinemet increased by neurology-Neurology recommends ensuring this is not taken along with iron tablets due to interaction --her keppra level prior elevated as well and keppra decreased to 500mg BID outpatient and lamictal had been recently added -> repeat keppra level pending Ammonia not elevated-checked given tremor. No known hx cirrhosis (however did have hep C s/p Harvoni treatment in the past) No arrhythmias on telemetry Weakness is likely secondary to a combination of her Parkinson's and possible UTI along with renal insufficiency contributing to weakness Also with pancytopenia and possible underlying myelodysplasia? Needs rehab (2) Acute UTI (urinary tract infection): Urinalysis suggestive of infection initially suspected. Prior urine culture with mixed yon and lactobacillus species. Treated with ceftriaxone 2gm IV daily but then stopped Urine culture with mixed yon Repeat urine culture negative (3) Pancytopenia: With pancytopenia-hemoglobin chronically low and may be anemia of chronic disease B12 and folate checked in the last few months and normal TSH normal WBC count low normal Platelets are newly low-no recent viral illness. Was low prior to admission so not likely secondary to ceftriaxone. Does have a h/o Hep C txd with Harvoni. No liver imaging in our system but pt recently moved to this area. Was seen by GI here x 1 but not for liver issues but rather for h/o anemia and GIB. EGD 2021 no varices. Consider liver imaging as outpt if none recently at previous doctor SPEP pending, recommend follow-up with hematology as an outpatient Follow CBC periodically (4) Depression with anxiety: Continue Xanax as needed, sertraline, trazodone prn (5) CKD (chronic kidney disease): Creatinine slightly above baseline at 2.3 Okay to continue home p.o. Bumex Appears euvolemic Follow with nephrology as an outpatient-has not yet established with Nephrology in this area -DCd Dewey prior to discharge (6) CHF (congestive heart failure): Hx chronic combined systolic and diastolic heart failure, as well as CAD/cardiomyopathy/s/p CABG x 4 in 2013 w/ remote NSTEMI February 2022 in [facility] and is s/p RANDY to vein graft to LAD on Aspirin/Plavix (also hx GI bleeding) Most recent ECHO w/ EF 45 to 50%, grade 2 diastolic dysfunction, significant RV failure, mild to moderate left atrial enlargement, mild mitral stenosis, moderate to severe mitral regurgitation, moderate to severe aortic stenosis, and severe pulmonary hypertension). BNP checked and elevated, IVF discontinued and restarted on home p.o. Bumex after receiving some IV Bumex here Monitor daily weights/I&Os Dewey placed for urinary retention Continue fluid restriction 1500ml/day Continue AHA/DM diet Continue carvedilol BID, hydralazine. No MARINO/ARB given progressive CKD Appreciate cardiology consultation-repeating limited echo to assess valvular disease (7) CAD (coronary artery disease): Patient with coronary artery disease status post CABG x4 vessel performed at [place] in 2013. She had recent cardiac stenting. Was recently seen by cardiology on 12/05/2022. At that time patient on aspirin as well as Plavix. Records were to be obtained to understand specifics of her stenting in regards to continued need for dual antiplatelet therapy. Does appear DAPT therapy x 1 year (which would be this month) --cardiology here recommends staying on dual antiplatelet therapy Trop 33.4 on admit, repeat trended down to 28, no further checks/reports of chest pain Repeat ECHO to look for any new WNL given such-no wall motion abnormalities, but repeat limited echo as above as per cardiology to assess valvular disease Continue DAPT, BB, statin for now (8) DM2 (diabetes mellitus, type 2): Patient with diabetes Last hemoglobin A1c on 01/10/2023 = 7.8. She is on home insulin therapy. Lantus 20u BID, sliding scale Novolog BSGs acceptable and will monitor (9) GERD (gastroesophageal reflux disease): Chronic. Hx gastric ulcers/bleed. Denies overt blood in stool but is on iron. Prior outpatient notes w/ reflux symptoms, she reports worse in the morning Increased PPI to BID (10) Hyperlipidemia: Chronic. Stable. Continue atorvastatin 10 mg p.o. daily for now -->given CAD, patient ideally should be on high dose statin (11) HTN (hypertension), benign: BP controlled, continue BB/hydralazine (12) Hypothyroid: TSH wnl, continues on synthroid 25mcg daily (13) Seizure disorder: Patient seizure-free Continue Keppra 500 mg p.o. twice daily Continue Depakote extended release 500 mg p.o. twice daily Continue Lamictal 25 mg p.o. twice daily Repeat keppra level pending given prior elevation in f/u neuro and recent reduction Seizure precautions, however no recent activity reported f/u with Neuro (14) Aortic stenosis: Mild to moderate Repeating limited echo for further assessment-read pending at time of discharge f/u with Cardiology as outpt (15) B12 deficiency: Continue B12 replacement as an outpatient Most recent level checked and normal (16) Parkinsons disease: reports recently being diagnosed with Parkinson's. Continue carbidopalevodopa 25 mg / 100 mg 0.5 tablets p.o. 3 times daily --> neurology increased this to 1tablet TID. Changed to such. Also, patient will need to take apart from her oral iron supplementation f/u Neuro as outpt (17) Iron deficiency anemia: continue po Fe tabs follow up with Heme transferrin sat here ok at 17% and improved from preivous Plan Disposition-dc to rehab DVT prophylaxis-SCDs Total Time Total Time Spent Total Time Spent (In Minutes): 40 min Discharge Plan Discharge Items Patient Disposition: Transfer Inpatient Rehab Fac Reason For Visit: SOMNOLENCE, FALL, UTI Discharge Diagnosis: Fall, coccyx fracture,generalized weakness Condition on Discharge: Fair Activity: As commented below Lifting: Gradually increase as tolerated Bathing: No limitations Exercise/Sports: Gradually increase as tolerated Weightbearing: Full weightbearing Non-emergency contact: Primary Care Provider Call non-emergency contact if: you have any medication questions and your symptoms worsen Follow-up/Referrals: Taylor Sigala [Primary Care Provider] - Diet: Carb Consistent or DM2 and Low Sodium (2gm) Fluids: 1500ml (6 cups) Addtl Attending Provider Instructions: You were admitted with weakness and a fall. This may have been due to your Parkinson's along with low blood counts and kidney disease. You are improving and will now need rehab to get stronger. Because of your low blood counts, it is recommended that you follow up with a Virtualization Architect after discharge. Pending Studies at Discharge: Yes Studies:: SPEP, Peripheral smear Stand-Alone Forms: [facility] Skilled Items Patient informed of condition?: Yes DNR: Yes Discharge Level of Care: Acute rehab Communicable Disease: No Discharge Prognosis: Improving Lines: None Urinary Catheter: No Medications and DC Order Prescriptions: Continued (DME) lancets [OneTouch Delica Lancets] 33 gauge misc See Rx Instructions .Route Qty: 100 5RF Rx Instructions: Test 3 times a day with meals and PRN up to 3 times E11.9 biotin 5 mg tablet 5 mg PO DAILY Qty: 30 0RF Mucinex Fast-Max DM Max 5-100 mg/5 mL liquid 10 ml PO Q6H PRN (Reason: cough) Qty: 180 0RF alprazolam 0.25 mg tablet 0.25 mg PO DAILY PRN (Reason: anxiety) Qty: 30 0RF acetaminophen [Tylenol Extra Strength] 500 mg tablet 500 mg PO QID MDD 3 GRAMS APAP/24 HOURS PRN (Reason: pain) Qty: 90 0RF bumetanide 2 mg tablet 2 mg PO BID Qty: 180 1RF Rx Instructions: TAKES AT 0830 & 1500 clopidogrel 75 mg tablet 75 mg PO DAILY Qty: 90 1RF carvedilol 12.5 mg tablet 12.5 mg PO BID Qty: 180 1RF Rx Instructions: must administer with a meal/food propranolol 10 mg tablet 10 mg PO BID Qty: 60 2RF levothyroxine 25 mcg capsule 25 mcg PO DAILY Qty: 90 1RF calcitriol 0.25 mcg capsule 0.25 mcg PO DAILY Qty: 90 1RF pantoprazole 40 mg tablet,delayed release (DR/EC) 40 mg PO DAILY Qty: 90 1RF (DME) pen needle, diabetic [BD Ultra-Fine Micro Pen Needle] 32 gauge x 1/4" needle See Rx Instructions .Route Qty: 100 5RF Rx Instructions: 5 times a day E11.9 divalproex 500 mg tablet extended release 24 hr 500 mg PO BID Qty: 56 1RF (DME) OneTouch Verio test strips Strip See Rx Instructions .Route Qty: 100 5RF Rx Instructions: Test 3 times a day with meals and PRN with a max of 3 times- E11.9 lamotrigine [Lamictal] 25 mg tablet 25 mg PO BID 30 Days Qty: 60 5RF levetiracetam 500 mg tablet 500 mg PO BID 30 Days Qty: 60 5RF hydralazine 50 mg tablet 75 mg PO BID Qty: 135 1RF Rx Instructions: 1 & 1/2 tablet dose sertraline 50 mg tablet 50 mg PO DAILY Qty: 30 2RF carbidopa-levodopa 25-100 mg tablet 1 tab PO TID Qty: 90 5RF Rx Instructions: avoid iron 2 hours prior and after each dose aspirin [Adult Aspirin Regimen] 81 mg tablet,delayed release (DR/EC) 81 mg PO .DAILY @ 1600 omega 5-ruf-gbd-fish oil [Fish Oil] 1,000 mg (120 mg-180 mg) capsule 2 cap PO DAILY triamcinolone acetonide 0.1 % cream 1 applic topical BID PRN (Reason: rash) Qty: 15 0RF trazodone 50 mg tablet 50 - 100 mg PO HS PRN (Reason: insomnia) Rx Instructions: 1 to 2 tabs orally at bedtime; PRN; atorvastatin 10 mg tablet 10 mg PO QAM ferrous sulfate 325 mg (65 mg iron) tablet 325 mg PO QDD magnesium oxide 400 mg magnesium Tablet 400 mg PO BID cyanocobalamin (vitamin B-12) 1,000 mcg capsule 1,000 mcg PO DAILY Qty: 30 0RF bumetanide 1 mg tablet 2 mg PO DAILY PRN (Reason: wt gain 5LBS or more over 3 days) Changed valacyclovir 500 mg tablet 500 mg PO Q2D Qty: 15 0RF Rx Instructions: Renal dosing for prophylaxis insulin lispro [Humalog KwikPen Insulin] 100 unit/mL insulin pen See Rx Instructions .ROUTE .COMPLEX Qty: 15 1RF Rx Instructions: Goal Range 110-140, Correction factor 25, carb ratio 15 insulin glargine [Basaglar KwikPen U-100 Insulin] 100 unit/mL (3 mL) insulin pen 20 unit subcut BID Qty: 15 1RF Discharge Orders: Discharge Order (Routine); Ordered 02/28/23 Ordered By: Nika Santiago Admission Data Admit Date/Time: 02/26/23 14:43 Attending Provider: Nika Santiago Admit Provider: Dimple Little Primary Care Provider: Taylor Sigala Other Providers: Dimple Little ; Nadir Juarez ; [facility] Coding Level of Care Code 36562 INP/OBS DISCH >30 MIN Diagnoses Weakness R53.1 Acute UTI (urinary tract infection) N39.0 Pancytopenia D61.818 Depression with anxiety F41.8 CKD (chronic kidney disease) N18.9 CHF (congestive heart failure) I50.9 CAD (coronary artery disease) I25.10 DM2 (diabetes mellitus, type 2) E11.9 GERD (gastroesophageal reflux disease) K21.9 Hyperlipidemia E78.5 HTN (hypertension), benign I10 Hypothyroid E03.9 Seizure disorder G40.909 Aortic stenosis I35.0 B12 deficiency E53.8 Parkinsons disease G20 Iron deficiency anemia D50.9
[2023-03-01 08:56] LABS: Albumin 2.6 g/dL (3.8-4.8); Alpha 1 Globulin 0.4 g/dL (0.2-0.3); Alpha 2 Globulin 0.9 g/dL (0.5-0.9); Beta-1-Globulin 0.3 g/dL (0.4-0.6); Beta-2-Globulin 0.3 g/dL (0.2-0.5); Monoclonal Protein Band 1 DNR g/dL (NONE DETECTED); Monoclonal Protein Band 2 DNR g/dL (NONE DETECTED); Monoclonal Protein Band 3 DNR g/dL (NONE DETECTED); Total Protein 5.5 g/dL (6.1-8.1)
--- NOTE | 2023-03-03 05:41 | Coding Query ---
CONGESTIVE HEART FAILURE To Promote full compliance with coding requirements relating to patient care, physician participation is requested in all cases of family coach uncertainty. Please assist us with the following questions. A diagnosis of Congestive Heart Failure is documented in the patient's medical record. To accurately code this diagnosis and to compare patient severity, we ask that you specify the type of heart failure by placing an X within the parenthesis (x). SYSTOLIC HEART FAILURE ( ) Acute ( ) Chronic ( ) Acute on Chronic ( ) Rheumatic ( ) Unknown DIASTOLIC HEART FAILURE ( ) Acute ( ) Chronic ( ) Acute on Chronic ( ) Rheumatic ( ) Unknown COMBINED SYSTOLIC AND DIASTOLIC HEART FAILURE ( ) Acute ( ) Chronic (x ) Acute on Chronic ( ) Rheumatic ( ) Unknown Was the CHF Present On Admission? Please check the appropriate box: ( x) Present on Admission ( ) Not Present On Admission ( ) Clinically undetermined Thank you Sudheer PRIEST
== END 2023-02-28 15:44 | DRG 56 ==
LOC: 3W 01:38 → ED 01:38 → SUATTDRO 04:12 → 3W 05:26 → 2S 12:23 → SUATTDRO 02-26 14:43

== ENCOUNTER 2023-08-23 15:29 | Observation (INO) ==
--- NOTE | 2023-08-23 16:02 | Emergency Department Note ---
Impression & Plan Non-ST elevation [place] (NSTEMI), Fall from standing, Hematoma of scalp, Generalized weakness, Lightheadedness ED Provider Note HISTORY OF PRESENT ILLNESS: Patient is a 73-year-old female presenting after a fall. Patient reports that she lost her footing while she was walking secondary to her Parkinson's and fell to the ground, striking her head. She denies loss of consciousness. She is on an aspirin daily. Per report, the patient has had an episode of vomiting since she fell. Patient reports that she has been feeling lightheaded throughout the day. Denies any chest pain or shortness of breath. She reports she just feels "off." She currently is complaining of nausea and a headache. ROS: as above PHYSICAL EXAM: Constitutional: Patient appears in no acute distress. HENT: Head: Normocephalic. Hematoma to left posterior head. Eyes: EOMI, PERRL Mouth/Throat: Mucous membranes moist. Neck: Trachea midline. Neck supple. Cardiovascular: RRR, No murmurs, rubs or gallops. Intact distal pulses. Pulmonary/Chest: No respiratory distress. Breath sounds clear and equal bilaterally. No wheezes or rales. Abdominal: Abdomen soft, no tenderness, rebound or guarding. Back: No midline spinal tenderness, no paraspinal tenderness, no CVA tenderness. Patient is able to straight leg raise bilaterally without any pain in the back or hips. Musculoskeletal: No edema, tenderness or deformity noted. Skin: Warm and dry. Patient has a small skin tear to the right wrist Psychiatric: Appropriate mood and affect for situation. Neurological: Alert and keenly responsive. CN II-XII grossly intact, moving all extremities equally and fully. MDM: - Vitals signs showed hypertension. - History obtained via patient. Patient presents with vomiting after a fall. Patient reports she lost her footing while walking secondary to her Parkinson's disease and fell to the ground, striking her head. She denies loss of consciousness. She is on aspirin daily. She has had multiple episodes of vomiting since her fall. She states that she has been feeling lightheaded throughout the day. Denies any chest pain or shortness of breath. States that she just does not feel right. Currently complaining of nausea and a headache. - Chronic conditions affecting care: CKD; Euudyqz-Oyxxp-Ocwtu syndrome - Differential diagnoses include, but are not limited to: CVA; intracranial hemorrhage; ACS; pneumonia; pneumothorax; UTI - Order placed for continuous cardiac monitoring. At this time, monitor showed rate of 75 bpm with normal sinus rhythm, per my interpretation. - External medical records reviewed. EMS run sheet was reviewed. Patient was vitally stable in route. Fingerstick glucose 222. She is given 4 mg Zofran prehospital. - EKG reviewed by myself showed normal sinus rhythm. Rate 80 bpm. QTc 537. No acute ischemic changes. - Laboratory workup interpreted by myself showed normal WBC; normal potassium; baseline CKD; elevated troponin (25.3) - CXR negative for pneumonia, per my interpretation - CT head wo contrast negative for acute intracranial pathology. - CT cervical spine wo contrast negative for acute injury. - The patient's cervical collar was removed today. The patient's imaging was reviewed and the CT C-Spine was negative for acute injury. The patient was alert and oriented prior to her exam. On exam she was non-tender to palpation midline and had full ROM without any neurologic deficits. The patient tolerated this procedure well. - Attempted to get patient up and out of bed for ambulation, but patient was too weak to get up on her own. - Given patient's NSTEMI and lightheadedness, will admit for further workup. - Discussion was had with social media campaign manager about patient's case and need for admission - Hospitalist consulted for admission - [facility] ASSESSMENT AND PLAN: Diagnosis: Fall from standing; lightheadedness; generalized weakness; NSTEMI; hematoma of scalp Plan: Admit Past Med/Surg History Medical History (Updated 08/23/23 @ 22:27 by Bryon Grace DO) Acute kidney injury Anemia due to chronic kidney disease Atopic dermatitis Esdkufj-Jlari-Ynyqd syndrome Patient reports Charcot fracture; not clear if she really has both Gout History of GI bleed History of peptic ulcer Lives in senior [facility] Urinary tract infection Vitamin D deficiency Surgical History H/O: section 1981 Hx of tonsillectomy S/P CABG x 4 Stented coronary artery Family History Brother Diabetes Hypertension Father Hypertension Mother Lung disease Denies family history of Breast cancer Colorectal cancer Social History Smoking Status: Never smoker Age Started Using Tobacco: 16; Age Quit Using Tobacco: 33; Second Hand Exposure: No; Do You Dip or Chew Tobacco: No; Hx Alcohol Use: No Hx Substance Use: No Preferred Language: Amharic Communication Ability: Effective Visual Impairment: Limited Hearing Ability: Normal Roof Bolter Required: No Beliefs That Will Affect Care: None marital status: Current Living Situation: Personal Care Facility Current Living Situation Comment: [facility] current occupational status: retired How many Children do You have: 1 Feels Safe at Home: No Is there a partner from a previous relationship who is making you feel unsafe now?: No Childhood Exposure to Second-Hand Smoke: Yes Diet: regular caffeine: Yes during the past year weight has: remained stable Dental Care, Regularly: Yes Physical Activity Frequency: Does not Exercise Seatbelt Use: always Sunscreen Use: Yes Gender Identity: Female Assistive Devices: Glasses, Walker and Wheelchair Allergies Allergies Allergy/AdvReac Type Severity Reaction Status Date / Time MARINO Inhibitors Allergy Unknown ON [facility] Verified 08/23/23 17:51 MED LIST Interferons Allergy Unknown ON [facility] Verified 08/23/23 17:51 MED LIST Penicillins Allergy Unknown ON [facility] Verified 08/23/23 17:51 MED LIST steroids AdvReac Intermediate rash Uncoded 08/23/23 17:51 Home Meds Home Medications Medication Instructions Recorded Confirmed bumetanide 1 mg tablet 2 mg PO DAILY PRN wt gain 5LBS or 11/09/22 08/23/23 more over 3 days ferrous sulfate 325 mg (65 mg 325 mg PO QDD 02/25/23 08/23/23 iron) tablet trazodone 50 mg tablet 100 mg PO HS 02/25/23 08/23/23 empagliflozin 10 mg tablet 10 mg PO DAILY 03/14/23 08/23/23 (Jardiance) aspirin 81 mg tablet,delayed 81 mg PO DAILY 07/04/23 08/23/23 release (Adult Low Dose Aspirin) hydrocortisone 2.5 % topical cream 1 applic topical BID PRN .. 07/25/23 08/23/23 aripiprazole 2 mg tablet 2 mg PO DAILY 08/23/23 08/23/23 bupropion HCl 300 mg 24 hr tablet, 300 mg PO DAILY 08/23/23 08/23/23 extended release Previous Rx's Medication Instructions Recorded biotin 5 mg tablet 5 mg PO DAILY #30 tabs 07/29/22 cyanocobalamin (vitamin B-12) 1,000 mcg PO DAILY #30 caps 09/20/22 1,000 mcg capsule acetaminophen 500 mg tablet 500 mg PO QID PRN pain #90 tabs 11/23/22 (Tylenol Extra Strength) valacyclovir 500 mg tablet 500 mg PO Q2D #15 tabs 02/28/23 omega 0-pft-opz-fish oil 1,000 mg 2 cap PO DAILY #180 caps 03/16/23 (120 mg-180 mg) capsule (Fish Oil) triamcinolone acetonide 0.1 % 1 applic topical BID PRN skin 04/10/23 topical cream irritation #80 grams white petrolatum 41 % topical 1 applic topical BID PRN dry skin 04/10/23 ointment (Aquaphor Original) #396 grams atorvastatin 10 mg tablet 10 mg PO QPM #90 tabs 05/11/23 bumetanide 2 mg tablet 2 mg PO BID #180 tabs 05/11/23 calcitriol 0.25 mcg capsule 0.25 mcg PO DAILY #90 caps 05/11/23 carvedilol 12.5 mg tablet 12.5 mg PO BID #180 tabs 05/11/23 clopidogrel 75 mg tablet 75 mg PO DAILY #90 tabs 05/11/23 hydralazine 50 mg tablet 75 mg PO BID #180 tabs 05/11/23 levothyroxine 25 mcg tablet 25 mcg PO DAILY #90 tabs 05/11/23 propranolol 10 mg tablet 10 mg PO BID #180 tabs 05/11/23 carbidopa 25 mg-levodopa 100 mg 1 tab PO TID #90 tabs 07/04/23 tablet levetiracetam 500 mg tablet 500 mg PO BID 30 days #60 tabs 07/04/23 [id number] See Rx Instructions topical 07/13/23 vera-vits A,D,and E 20 %-3 % .COMPLEX #28 grams topical cream (Vagisil) alprazolam 0.25 mg tablet 0.25 mg PO DAILY PRN anxiety #30 07/25/23 tabs insulin glargine 100 unit/mL (3 40 unit (0.4 mL) subcut BID #15 mL 07/25/23 mL) subcutaneous pen (Basaglar KwikPen U-100 Insulin) magnesium oxide 400 mg PO DAILY #90 tabs 07/25/23 oxcarbazepine 150 mg tablet 150 mg PO BID 30 days #60 tabs 08/16/23 pantoprazole 40 mg tablet,delayed 40 mg PO BID #60 tabs 08/17/23 release Results & Data (ED) Vital Signs Vital Signs - 24 hr 08/23/23 15:52 08/23/23 15:59 08/23/23 19:45 Pulse Rate 84 Pulse Rate [Right Finger] 72 Pulse Rhythm [Right Finger] Respiratory Rate 18 18 Respiratory Effort / Characteristics Non-Labored Spontaneous Respiratory Depth Normal Respiratory Pattern Regular Blood Pressure 186/71 H Blood Pressure [Right Arm] 161/48 H Blood Pressure Mean 109 Blood Pressure Mean [Right Arm] 85 Blood Pressure Position [Right Arm] Lying Pulse Oximetry 87 L 87 L 91 Oxygen Delivery Method Room Air Nasal Cannula Nasal Cannula Oxygen Flow Rate 0 2 Sepsis Recent Fever Within 48 Hours No Sepsis New/Unexplained Change in Mental Status No Sepsis Action Taken by Nursing No Action Required Oxygen Flow Rate - Titration 3 Pulse Oximetry Post Tiitration 98 08/23/23 21:33 Pulse Rate Pulse Rate [Right Finger] 74 Pulse Rhythm [Right Finger] Regular Respiratory Rate 18 Respiratory Effort / Characteristics Non-Labored Spontaneous Respiratory Depth Normal Respiratory Pattern Regular Blood Pressure Blood Pressure [Right Arm] 198/82 H Blood Pressure Mean Blood Pressure Mean [Right Arm] 120 Blood Pressure Position [Right Arm] Lying Pulse Oximetry 91 Oxygen Delivery Method Room Air Oxygen Flow Rate Sepsis Recent Fever Within 48 Hours Sepsis New/Unexplained Change in Mental Status Sepsis Action Taken by Nursing Oxygen Flow Rate - Titration Pulse Oximetry Post Tiitration Laboratory Data 08/23/23 16:27 08/23/23 Unknown Lab Results 08/23/23 08/23/23 08/23/23 Range/Units 16:27 16:27 20:47 WBC 6.31 (4.8-10.8) K/ul RBC 3.65 L (4.20-5.40) M/uL Hgb 12.0 (12.0-16.0) g/dl Hct 34.7 L (37.0-47.0) % MCV 95.1 (80.0-100.0) fL MCH 32.9 (25.0-34.0) pg MCHC 34.6 (32.0-36.0) g/dL RDW Std Deviation 46.8 H (36.4-46.3) fL RDW Coeff of Ana 13.4 (11.5-14.5) % Plt Count 164 (130-400) K/uL MPV 12.4 (9.4-12.4) fL Immature Gran % (Auto) 0.3 % Neut % (Auto) 75.6 % Lymph % (Auto) 11.1 % Rosebud % (Auto) 11.7 % Eos % (Auto) 0.8 % Baso % (Auto) 0.5 % Neut # (Auto) 4.77 (1.40-6.50) K/uL Lymph # (Auto) 0.70 L (1.20-3.40) K/uL Rosebud # (Auto) 0.74 H (0.11-0.59) K/uL Eos # (Auto) 0.05 (0.00-0.50) K/uL Baso # (Auto) 0.03 (0.00-0.20) K/uL Immature Gran # (Auto) 0.02 (0.01-0.20) K/uL Sodium Cancelled Potassium Cancelled Chloride Cancelled Carbon Dioxide Cancelled Anion Gap Cancelled BUN Cancelled Creatinine Cancelled Est Cr Clr Drug Dosing Cancelled Est GFR ( Amer) Cancelled Est GFR (Non-Af Amer) Cancelled BUN/Creatinine Ratio Cancelled Glucose Cancelled Calcium Cancelled Magnesium Cancelled Total Bilirubin Cancelled AST Cancelled ALT Cancelled Alkaline Phosphatase Cancelled Troponin I High Sens Cancelled 25.5 H Total Protein Cancelled Albumin Cancelled Globulin Cancelled Albumin/Globulin Ratio Cancelled 08/23/23 Range/Units Unknown WBC (4.8-10.8) K/ul RBC (4.20-5.40) M/uL Hgb (12.0-16.0) g/dl Hct (37.0-47.0) % MCV (80.0-100.0) fL MCH (25.0-34.0) pg MCHC (32.0-36.0) g/dL RDW Std Deviation (36.4-46.3) fL RDW Coeff of Ana (11.5-14.5) % Plt Count (130-400) K/uL MPV (9.4-12.4) fL Immature Gran % (Auto) % Neut % (Auto) % Lymph % (Auto) % Rosebud % (Auto) % Eos % (Auto) % Baso % (Auto) % Neut # (Auto) (1.40-6.50) K/uL Lymph # (Auto) (1.20-3.40) K/uL Rosebud # (Auto) (0.11-0.59) K/uL Eos # (Auto) (0.00-0.50) K/uL Baso # (Auto) (0.00-0.20) K/uL Immature Gran # (Auto) (0.01-0.20) K/uL Sodium 136 Potassium 3.9 Chloride 96 L Carbon Dioxide 33 H Anion Gap 7 BUN 30 H Creatinine 2.12 H Est Cr Clr Drug Dosing 25.3 Est GFR ( Amer) 25.9 Est GFR (Non-Af Amer) 22.4 BUN/Creatinine Ratio 14.2 Glucose 140 H Calcium 9.8 Magnesium 1.9 Total Bilirubin 0.3 AST 6 L ALT < 3 L Alkaline Phosphatase 49 Troponin I High Sens 25.3 H Total Protein 7.4 Albumin 4.2 Globulin 3.2 Albumin/Globulin Ratio 1.3 Imaging Data Radiologist's Impression: Cervical Spine CT 08/23/23 15:43 CT cervical spine wo con CLINICAL HISTORY: fall from standing TECHNIQUE: Multidetector row helical CT of the cervical spine was performed without administration of intravenous contrast. Coronal and sagittal reformat ions were obtained. Automated dose lowering techniques and/or adjustment according to patient size were utilized for this exam. Comparison: None available at the time of this dictation. FINDINGS: No acute fractures or subluxations are identified. Degenerative changes are seen in the visualized spine. The alignment is normal. Soft tissues are unremarkable. IMPRESSION: Degenerative changes without evidence of acute bony injury. ACT 112: Negative or not required by law. Electronically signed by: Hugo Ruiz M.D. 08/23/2023 4:50 PM Chest X-Ray 08/23/23 15:43 XR chest 1V portable CLINICAL HISTORY: lightheadedness COMPARISON STUDY: Chest radiograph March 24, 2023. FINDINGS: Median sternotomy wires are noted. Cardiomegaly is unchanged. There is no evidence for pulmonary edema. There is no pneumothorax or pleural effusion. No consolidation is present. The appearance of the chest is unchanged. IMPRESSION: No acute cardiopulmonary findings. No change in appearance of the chest. Cardiomegaly. ACT 112: Negative or not required by law. Electronically signed by: Zachariah Vogel M.D. 08/23/2023 4:[address] 08/23/23 15:43 CT head/brain wo con CLINICAL HISTORY: fall from standing Technique: Contiguous axial CT images of the head were acquired from the base of the skull to the vertex without intravenous contrast administration. Images were viewed in brain, subdural and bone windows. Automated dose lowering techniques and/or adjustment according to patient size were utilized for this exam. Comparison: Comparison is made to CT head 03/24/2023 Findings: Areas of decreased attenuation are present in the periventricular and subcortical white matter bilaterally consistent with small vessel ischemic disease. Generalized cerebral atrophy with commensurate enlargement of the ventricles, sulci, and cisterns is also present. There is no acute intracranial hemorrhage or evidence of acute territorial infarction. No shift of the midline structures, mass effect, or extra-axial abnormalities are shown. Ather osclerotic calcifications are present in the intracranial segments of the internal carotid arteries. Redemonstration of hypodensities compatible with old foci of lacunar infarcts. Imaged portions of the paranasal sinuses and mastoid air cells are clear. The orbits appear normal. There are no acute fractures of the calvaria or scalp swelling. Impression: No acute intracranial hemorrhage, no evidence of acute territorial infarction or other acute intracranial disease process. ACT 112: Negative or not required by law. Electronically signed by: Hugo Ruiz M.D. 08/23/2023 4:18 PM Discharge Plan Visit Data Chief Complaint: Fall Stated Complaint: GLF, HIT L SIDE OF HEAD, NAUSEA ED Provider: Kandice Álvarez Discharge Problem: Non-ST elevation [place] (NSTEMI), Fall from standing, Hematoma of scalp, Gen eralized weakness, Lightheadedness Forms Stand Alone Forms: [facility] [employer] Prescriptions Prescriptions: No Action biotin 5 mg tablet 5 mg PO DAILY Qty: 30 0RF acetaminophen [Tylenol Extra Strength] 500 mg tablet 500 mg PO QID MDD 3 GRAMS APAP/24 HOURS PRN (Reason: pain) Qty: 90 0RF omega 1-ehg-kyo-fish oil [Fish Oil] 1,000 mg (120 mg-180 mg) capsule 2 cap PO DAILY Qty: 180 0RF bumetanide 2 mg tablet 2 mg PO BID Qty: 180 1RF Rx Instructions: TAKES AT 0830 & 1500 clopidogrel 75 mg tablet 75 mg PO DAILY Qty: 90 1RF carvedilol 12.5 mg tablet 12.5 mg PO BID Qty: 180 1RF Rx Instructions: must administer with a meal/food calcitriol 0.25 mcg capsule 0.25 mcg PO DAILY Qty: 90 1RF hydralazine 50 mg tablet 75 mg PO BID Qty: 180 1RF Rx Instructions: 1 & 1/2 tablet dose propranolol 10 mg tablet 10 mg PO BID Qty: 180 2RF levothyroxine 25 mcg tablet 25 mcg PO DAILY Qty: 90 1RF atorvastatin 10 mg tablet 10 mg PO QPM Qty: 90 1RF levetiracetam 500 mg tablet 500 mg PO BID 30 Days Qty: 60 4RF carbidopa-levodopa 25-100 mg tablet 1 tab PO TID Qty: 90 4RF Rx Instructions: avoid iron 2 hours prior and after each dose oxcarbazepine 150 mg tablet 150 mg PO BID 30 Days Qty: 60 1RF pantoprazole 40 mg tablet,delayed release (DR/EC) 40 mg PO BID Qty: 60 5RF hydrocortisone 2.5 % cream 1 applic topical BID PRN (Reason: ..) alprazolam 0.25 mg tablet 0.25 mg PO DAILY PRN (Reason: anxiety) Qty: 30 5RF insulin glargine [Basaglar KwikPen U-100 Insulin] 100 unit/mL (3 mL) insulin pen 40 unit subcut BID Qty: 15 2RF magnesium oxide 400 mg magnesium tablet 400 mg PO DAILY Qty: 90 0RF triamcinolone acetonide 0.1 % cream 1 applic topical BID PRN (Reason: skin irritation) Qty: 80 11RF Rx Instructions: Apply twice daily as needed to eczema flares of the BODY; up to 7 days at a time Aquaphor Original 41 % ointment 1 applic topical BID PRN (Reason: dry skin) Qty: 396 5RF aspirin [Adult Low Dose Aspirin] 81 mg tablet,delayed release (DR/EC) 81 mg PO DAILY Jardiance 10 mg tablet 10 mg PO DAILY Vagisil 20-3 % cream See Rx Instructions topical .COMPLEX Qty: 28 3RF Rx Instructions: apply thin layer topically twice daily perineum; trazodone 50 mg tablet 100 mg PO HS ferrous sulfate 325 mg (65 mg iron) tablet 325 mg PO QDD valacyclovir 500 mg tablet 500 mg PO Q2D Qty: 15 0RF Rx Instructions: Renal dosing for prophylaxis cyanocobalamin (vitamin B-12) 1,000 mcg capsule 1,000 mcg PO DAILY Qty: 30 0RF bumetanide 1 mg tablet 2 mg PO DAILY PRN (Reason: wt gain 5LBS or more over 3 days) bupropion HCl 300 mg tablet extended release 24 hr 300 mg PO DAILY aripiprazole 2 mg Tablet 2 mg PO DAILY Referrals Referrals: Cady Sanches MD [Primary Care Provider] -
--- NOTE | 2023-08-23 16:19 | CT Scan Report ---
CT head/brain wo con CLINICAL HISTORY: fall from standing Technique: Contiguous axial CT images of the head were acquired from the base of the skull to the nia betito without intravenous contrast administration. Images were [facility] Automated dose lowering techniques and/or adjustment according to patient size were utilized for this exam. Comparison: Comparison is made to CT head 03/24/2023 Findings: Areas of decreased attenuation are present in the periventricular and subcortical white matter bilate rally consistent with small vessel ischemic disease. Generalized cerebral atrophy with commensurate e nlargement of the ventricles, sulci, and cisterns is also present. There is no acute intracranial hem orrhage or evidence of acute territorial infarction. No shift of the midline structures, mass effect, or extra-axial abnormalities are shown. Atherosclerotic calcifications are present in the intracran ial segments of the internal carotid arteries. Redemonstration of hypodensities compatible with old f oci of lacunar infarcts. Imaged portions of the paranasal sinuses and mastoid air cells are clear. The orbits appear normal. There are no acute fractures of the calvaria or scalp swelling. Impression: No acute intracranial hemorrhage, no evidence of acute territorial infarction or other acute intracra nial disease process. ACT 112: Negative or not required by law. Electronically signed by: Hugo Ruiz M.D. 08/23/2023 4:18 PM
[2023-08-23 16:45] LABS: Basophils # (auto) 0.03 K/uL (0.00-0.20); Basophils % (auto) 0.5 %; Eosinophils # (auto) 0.05 K/uL (0.00-0.50); Eosinophils % (auto) 0.8 %; Hematocrit (blood only) 34.7 % (37.0-47.0); Immature Granulocytes # (auto) 0.02 K/uL (0.01-0.20); Immature Granulocytes % (auto) 0.3 %; Lymphocytes % (auto) 11.1 %; Mean Corpuscular Hemoglobin 32.9 pg (25.0-34.0); Mean Corpuscular Hgb Conc 34.6 g/dL (32.0-36.0); Mean Corpuscular Volume 95.1 fL (80.0-100.0); Mean Platelet Volume 12.4 fL (9.4-12.4); Monocytes # (auto) 0.74 K/uL (0.11-0.59); Monocytes % (auto) 11.7 %; Neutrophils # (auto) 4.77 K/uL (1.40-6.50); Neutrophils % (auto) 75.6 %; Platelet Count 164 K/uL (130-400); RDW Coefficient of Variation 13.4 % (11.5-14.5); RDW Standard Deviation 46.8 fL (36.4-46.3); Red Blood Count 3.65 M/uL (4.20-5.40); White Blood Count 6.31 K/ul (4.8-10.8)
--- NOTE | 2023-08-23 16:49 | XRay Report ---
XR chest 1V portable CLINICAL HISTORY: lightheadedness COMPARISON STUDY: Chest radiograph March 24, 2023. FINDINGS: Median sternotomy wires are noted. Cardiomegaly is unchanged. There is no evidence for pulm onary edema. There is no pneumothorax or pleural effusion. No consolidation is present. The appearanc e of the chest is unchanged. IMPRESSION: No acute cardiopulmonary findings. No change in appearance of the chest. Cardiomegaly. ACT 112: Negative or not required by law. Electronically signed by: Zachariah Vogel M.D. 08/23/2023 4:48 PM
--- NOTE | 2023-08-23 16:52 | CT Scan Report ---
CT cervical spine wo con CLINICAL HISTORY: fall from standing TECHNIQUE: Multidetector row helical CT of the cervical spine was performed without administration of intravenous contrast. Coronal and sagittal reformations were obtained. Automated dose lowering techn iques and/or adjustment according to patient size were utilized for this exam. Comparison: None available at the time of this dictation. FINDINGS: No acute fractures or subluxations are identified. Degenerative changes are seen in the visualized sp ine. The alignment is normal. Soft tissues are unremarkable. IMPRESSION: Degenerative changes without evidence of acute bony injury. ACT 112: Negative or not required by law. Electronically signed by: Hugo Ruiz M.D. 08/23/2023 4:50 PM
[2023-08-23 19:03] LABS: Anion Gap 7 (3-11); BUN Creatinine Ratio 14.2 (10-20); Blood Urea Nitrogen 30 mg/dl (6-23); Calcium 9.8 mg/dl (8.6-10.3); Carbon Dioxide 33 mmol/L (21-32); Chloride 96 mmol/L (98-107); Creatinine Clr Calc Pharmacy 25.3 ml/min; Est GFR (African American) 25.9 ml/min; Est GFR (Non-African American) 22.4 ml/min; Glucose 140 mg/dl (70-99(Fasting)); Potassium 3.9 mmol/L (3.5-5.1); Sodium 136 mmol/L (136-145)
[2023-08-23 19:06] LABS: Alanine Aminotransferase < 3 U/L (7-52); Albumin Globulin Ratio 1.3 (0.9-2); Albumin Level 4.2 gm/dl (3.4-5.0); Alkaline Phosphatase 49 U/L (34-104); Aspartate Aminotransferase 6 U/L (13-39); Bilirubin,Total 0.3 mg/dl (0.2-1.0); Globulin 3.2 gm/dl (2.5-4.0); Magnesium 1.9 mg/dl (1.7-2.4); Total Protein 7.4 gm/dl (6.0-8.3)
[2023-08-23 19:10] LABS: Troponin I High Sensitivity 25.3 pg/ml (0-14)
--- NOTE | 2023-08-23 22:30 | History & Physical Report ---
Date of Service August 23, 2023 Assessment & Plan (1) Fall from standing: (2) Weak: Plan #Fall from standing, weakness Suspect overall deconditioning, does not appear to be far from baseline Will trend trops, however she has consistent troponin elevation in 20s at [facility] PT/OT evelyn Expect dc back to [facility] tomorrow History of Present Illness Chief Complaint: fall Primary Care Provider: Cady Sanches MD 73 F with extensive PMHx admitted for observation after a fall from standing. Trauma workup including head and neck ct and CXR were negative. She has mildly elevated troponin which appears to be her baseline. Pt reports feeling weak for the last few days, however does not ambulate well at baseline. Denies Fever, Chills, Cough, LIZARRAGA, CP, SOB, N/V/D, LE swelling. Endorses constipation. Orthostatics performed by ED staff were negative. Allergies Allergy/AdvReac Type Severity Reaction Status Date / Time MARINO Inhibitors Allergy Unknown ON [facility] Verified 08/23/23 17:51 MED LIST Interferons Allergy Unknown ON [facility] Verified 08/23/23 17:51 MED LIST Penicillins Allergy Unknown ON [facility] Verified 08/23/23 17:51 MED LIST Corticosteroids AdvReac Intermediate (STEROIDS) Verified 08/23/23 23:53 (Glucocorticoids) Rash Home Medications Medication Instructions Recorded Confirmed Type biotin 5 mg tablet 5 mg PO DAILY #30 tabs 07/29/22 08/23/23 Rx cyanocobalamin (vitamin B-12) 1,000 mcg PO DAILY #30 caps 09/20/22 08/23/23 Rx 1,000 mcg capsule bumetanide 1 mg tablet 2 mg PO DAILY PRN wt gain 5LBS or 11/09/22 08/23/23 His tory more over 3 days acetaminophen 500 mg tablet 500 mg PO QID PRN pain #90 tabs 11/23/22 08/23/23 Rx (Tylenol Extra Strength) ferrous sulfate 325 mg (65 mg 325 mg PO QDD 02/25/23 08/23/23 History iron) tablet trazodone 50 mg tablet 100 mg PO HS 02/25/23 08/23/23 History valacyclovir 500 mg tablet 500 mg PO Q2D #15 tabs 02/28/23 08/23/23 Rx empagliflozin 10 mg tablet 10 mg PO DAILY 03/14/23 08/23/23 History (Jardiance) omega 4-cch-xfz-fish oil 1,000 mg 2 cap PO DAILY #180 caps 03/16/23 08/23/23 Rx (120 mg-180 mg) capsule (Fish Oil) triamcinolone acetonide 0.1 % 1 applic topical BID PRN skin 04/10/23 08/23/23 Rx topical cream irritation #80 grams white petrolatum 41 % topical 1 applic topical BID PRN dry skin 04/10/23 08/08/23 Rx ointment (Aquaphor Original) #396 grams atorvastatin 10 mg tablet 10 mg PO QPM #90 tabs 05/11/23 08/23/23 Rx bumetanide 2 mg tablet 2 mg PO BID #180 tabs 05/11/23 08/23/23 Rx calcitriol 0.25 mcg capsule 0.25 mcg PO DAILY #90 caps 05/11/23 08/23/23 Rx carvedilol 12.5 mg tablet 12.5 mg PO BID #180 tabs 05/11/23 08/23/23 Rx clopidogrel 75 mg tablet 75 mg PO DAILY #90 tabs 05/11/23 08/23/23 Rx hydralazine 50 mg tablet 75 mg PO BID #180 tabs 05/11/23 08/23/23 Rx levothyroxine 25 mcg tablet 25 mcg PO DAILY #90 tabs 05/11/23 08/23/23 Rx propranolol 10 mg tablet 10 mg PO BID #180 tabs 05/11/23 08/23/23 Rx aspirin 81 mg tablet,delayed 81 mg PO DAILY 07/04/23 08/23/23 History release (Adult Low Dose Aspirin) carbidopa 25 mg-levodopa 100 mg 1 tab PO TID #90 tabs 07/04/23 08/23/23 Rx tablet levetiracetam 500 mg tablet 500 mg PO BID 30 days #60 tabs 07/04/23 08/23/23 Rx nizllpkexe-qzayjdihoh-mmkf See Rx Instructions topical 07/13/23 08/23/23 Rx vera-vits A,D,and E 20 %-3 % .COMPLEX #28 grams topical cream (Vagisil) alprazolam 0.25 mg tablet 0.25 mg PO DAILY PRN anxiety #30 07/25/23 08/23/23 Rx tabs hydrocortisone 2.5 % topical cream 1 applic topical BID PRN .. 07/25/23 08/23/23 History insulin glargine 100 unit/mL (3 40 unit (0.4 mL) subcut BID #15 mL 07/25/23 08/23/23 Rx mL) subcutaneous pen (Basaglar KwikPen U-100 Insulin) magnesium oxide 400 mg PO DAILY #90 tabs 07/25/23 08/23/23 Rx oxcarbazepine 150 mg tablet 150 mg PO BID 30 days #60 tabs 08/16/23 08/23/23 Rx pantoprazole 40 mg tablet,delayed 40 mg PO BID #60 tabs 08/17/23 08/23/23 Rx release aripiprazole 2 mg tablet 2 mg PO DAILY 08/23/23 08/23/23 History bupropion HCl 300 mg 24 hr tablet, 300 mg PO DAILY 08/23/23 08/23/23 History extended release Past Med/Surg History Medical History (Updated 08/25/23 @ 00:09 by Leanna Acosta) Acute kidney injury Anemia due to chronic kidney disease Atopic dermatitis Ztcjmtw-Ylqdj-Bhvjs syndrome Patient reports Charcot fracture; not clear if she really has both Gout History of GI bleed History of peptic ulcer Lives in senior facility [facility] resident Non-ST elevation [place] (NSTEMI) Urinary tract infection Vitamin D deficiency Surgical History H/O: section 1981 Hx of tonsillectomy S/P CABG x 4 Stented coronary artery Family History Brother Diabetes Hypertension Father Hypertension Mother Lung disease Denies family history of Breast cancer Colorectal cancer Social History Smoking Status: Former smoker Age Started Using Tobacco: 16; Age Quit Using Tobacco: 33; Second Hand Exposure: No; Do You Dip or Chew Tobacco: No; Hx Alcohol Use: No Hx Substance Use: No Preferred Language: Yemeni Communication Ability: Effective Visual Impairment: Limited Hearing Ability: Normal Agents' Records Clerk Required: No Beliefs That Will Affect Care: None marital status: Current Living Situation: Half-Way Current Living Situation Comment: [facility] current occupational status: retired How many Children do You have: 1 Feels Safe at Home: Yes Childhood Exposure to Second-Hand Smoke: Yes Diet: regular caffeine: Yes during the past year weight has: remained stable Dental Care, Regularly: Yes Physical Activity Frequency: Does not Exercise Seatbelt Use: always Sunscreen Use: Yes Gender Identity: Female Assistive Devices: Walker and Wheelchair Review of Systems Review of Systems: reviewed, per HPI Physical Exam Physical Exam: General: patient resting comfortably, NAD, AA&O x 4, answers questions appropriately and follows commands. Skin: warm, dry, intact HEENT: NC/AT, anicteric sclera, conjunctiva without injection, moist mucus membranes, trachea midline, no thyromegaly, no JVD Heart: +S1/S2, regular, no +systolic murmur Lungs: equal air entry bilaterally, no rales/rhonchi/wheezes Abd: +BS, soft, NT/ND, no masses/organomegaly/ascites Ext: warm, no clubbing/cyanosis or edema Neuro: nonfocal, patient AA&O x 4, speech intact, no facial droop, moving all extremities on command. Results & Data Results & Data Vital Signs (Past 12 Hours) Vital Signs Pulse Pulse Resp BP BP Pulse Ox O2 Del Method 08/23/23 21:33 74 18 198/82 H 91 Room Air 08/23/23 19:45 72 18 161/48 H 91 Nasal Cannula 08/23/23 15:59 87 L Nasal Cannula 08/23/23 15:52 84 18 186/71 H 87 L Room Air O2 Flow Rate 08/23/23 21:33 08/23/23 19:45 2 08/23/23 15:59 0 08/23/23 15:52 Laboratory Results 08/23/23 08/23/23 08/23/23 Range/Units Unknown 20:47 16:27 WBC (4.8-10.8) K/ul RBC (4.20-5.40) M/uL Hgb (12.0-16.0) g/dl Hct (37.0-47.0) % MCV (80.0-100.0) fL MCH (25.0-34.0) pg MCHC (32.0-36.0) g/dL RDW Std Deviation (36.4-46.3) fL RDW Coeff of Ana (11.5-14.5) % Plt Count (130-400) K/uL MPV (9.4-12.4) fL Immature Gran % (Auto) % Neut % (Auto) % Lymph % (Auto) % Mckinley % (Auto) % Eos % (Auto) % Baso % (Auto) % Neut # (Auto) (1.40-6.50) K/uL Lymph # (Auto) (1.20-3.40) K/uL Mckinley # (Auto) (0.11-0.59) K/uL Eos # (Auto) (0.00-0.50) K/uL Baso # (Auto) (0.00-0.20) K/uL Immature Gran # (Auto) (0.01-0.20) K/uL Sodium 136 Cancelled Potassium 3.9 Cancelled Chloride 96 L Cancelled Carbon Dioxide 33 H Cancelled Anion Gap 7 Cancelled BUN 30 H Cancelled Creatinine 2.12 H Cancelled Est Cr Clr Drug Dosing 25.3 Cancelled Est GFR ( Amer) 25.9 Cancelled Est GFR (Non-Af Amer) 22.4 Cancelled BUN/Creatinine Ratio 14.2 Cancelled Glucose 140 H Cancelled Calcium 9.8 Cancelled Magnesium 1.9 Cancelled Total Bilirubin 0.3 Cancelled AST 6 L Cancelled ALT < 3 L Cancelled Alkaline Phosphatase 49 Cancelled Troponin I High Sens 25.3 H 25.5 H Cancelled Total Protein 7.4 Cancelled Albumin 4.2 Cancelled Globulin 3.2 Cancelled Albumin/Globulin Ratio 1.3 Cancelled 08/23/23 Range/Units 16:27 WBC 6.31 (4.8-10.8) K/ul RBC 3.65 L (4.20-5.40) M/uL Hgb 12.0 (12.0-16.0) g/dl Hct 34.7 L (37.0-47.0) % MCV 95.1 (80.0-100.0) fL MCH 32.9 (25.0-34.0) pg MCHC 34.6 (32.0-36.0) g/dL RDW Std Deviation 46.8 H (36.4-46.3) fL RDW Coeff of Ana 13.4 (11.5-14.5) % Plt Count 164 (130-400) K/uL MPV 12.4 (9.4-12.4) fL Immature Gran % (Auto) 0.3 % Neut % (Auto) 75.6 % Lymph % (Auto) 11.1 % Mckinley % (Auto) 11.7 % Eos % (Auto) 0.8 % Baso % (Auto) 0.5 % Neut # (Auto) 4.77 (1.40-6.50) K/uL Lymph # (Auto) 0.70 L (1.20-3.40) K/uL Mckinley # (Auto) 0.74 H (0.11-0.59) K/uL Eos # (Auto) 0.05 (0.00-0.50) K/uL Baso # (Auto) 0.03 (0.00-0.20) K/uL Immature Gran # (Auto) 0.02 (0.01-0.20) K/uL Sodium Potassium Chloride Carbon Dioxide Anion Gap BUN Creatinine Est Cr Clr Drug Dosing Est GFR ( Amer) Est GFR (Non-Af Amer) BUN/Creatinine Ratio Glucose Calcium Magnesium Total Bilirubin AST ALT Alkaline Phosphatase Troponin I High Sens Total Protein Albumin Globulin Albumin/Globulin Ratio Supervising Physician Co-Signing Physician Notes Patient seen and examined, chart reviewed, case discussed with Dr. Grace and I agree with the assessment and plan as above. In brief, patient is a 73yo female presetnign with fall, generalized weakness and ambulatory dysfunction. On exam she is resting comfortably Skin - no rash HEENT - MMM, Neck supple Heart - +S1/S2, regular Lungs - CTA Abd - soft, NT/ND Labs and images reviewed Assessment/Plan -Fall from standing and generalized weakness -PT/OT, fall precautions -Trend troponin -Remainder as above Resident Activity Tracking Resident Involvement: Resident Care Provided Care Provided: Adult Hospital Medicine
[2023-08-23] MEDS ORDERED: BUMETANIDE 1 MG TAB PO PRN (23:45)
[2023-08-23] MEDS ORDERED: ACETAMINOPHEN 500 MG TAB PO PRN (23:45)
[2023-08-23] MEDS ORDERED: ALPRAZolam 0.25 MG TABLET PO PRN (23:45)
[2023-08-23] MEDS ORDERED: TRIAMCINOLONE ACET 0.1% CR 15 GM TUBE TOP PRN (23:45)
[2023-08-24] MEDS ORDERED: GLUCOSE 40% GEL 15 GM TUBE PO PRN (01:22)
[2023-08-24] MEDS ORDERED: CARBOHYDRATES FOR HYPOGLYCEMIA PO PRN (01:22)
[2023-08-24] MEDS ORDERED: GLUCOSE 10 TAB/TUBE PO PRN (01:22)
[2023-08-24] MEDS ORDERED: DEXTROSE 50% 50 ML SYRINGE IV PRN (01:22)
[2023-08-24] MEDS ORDERED: GLUCAGON FOR INJ 1 MG VIAL SQ PRN (01:22)
[2023-08-24] MEDS ORDERED: LEVOTHYROXINE SODIUM 25 MCG TABLET PO SCH (06:30)
--- NOTE | 2023-08-24 06:40 | Electrocardiogram Report ---
Test Reason : Blood Pressure : / mmHG Vent. Rate : 080 BPM Atrial Rate : 080 BPM P-R Int : 212 ms QRS Dur : 156 ms QT Int : 466 ms P-R-T Axes : -11 -57 072 degrees QTc Int : 537 ms Poor data quality, interpretation may be adversely affected Sinus rhythm with 1st degree A-V block Left axis deviation Right bundle branch block Left ventricular hypertrophy with repolarization abnormality ( R in aVL ) Abnormal ECG When compared with ECG of 24-MAR-2023 12:34, No significant change Confirmed by Pito Ruiz ([id number]) on 08/24/2023 6:40:04 AM Referred By: Confirmed By:Pito Ruiz
[2023-08-24 06:52] LABS: Appearance Urine Turbid (Clear); Bacteria Urine Automated 2+ (Negative); Bilirubin Urine Negative (Negative); Blood Urine 1+ (Negative); Color Urine Yellow; Glucose Urine UA 3+ (Negative); Ketones Urine Negative (Negative); Leukocyte Esterase Urine 3+ (Negative); Nitrite Urine Negative (Negative); Protein Urine 2+ (Negative); RBC Urine Automated 0-4 /hpf (0-4); Specific Gravity Urine 1.018 (1.000-1.030); Urobilinogen Urine Negative (Negative); WBC Urine Automated >30 /hpf (0-5); pH Urine 5.5 (4.5-7.5)
[2023-08-24] MEDS ORDERED: OXcarbazepine 150 MG TABLET PO SCH (09:00)
[2023-08-24] MEDS ORDERED: LANTUS PER UNIT CHARGE SQ SCH (09:00)
[2023-08-24] MEDS ORDERED: hydrALAZINE HCL 25 MG TAB PO SCH (09:00)
[2023-08-24] MEDS ORDERED: ASPIRIN 81 MG ECTAB PO SCH (09:00)
[2023-08-24] MEDS ORDERED: levETIRAcetam 500 MG TAB PO SCH (09:00)
[2023-08-24] MEDS ORDERED: MAGNESIUM OXIDE 400 MG TAB PO SCH (09:00)
[2023-08-24] MEDS ORDERED: PROPRANOLOL HCL 10 MG TAB PO SCH (09:00)
[2023-08-24] MEDS ORDERED: CYANOCOBALAMIN (B-12) 500 MCG TABLET PO SCH (09:00)
[2023-08-24] MEDS ORDERED: OMEGA-3 (PURIFIED FISH OIL) 1 GM CAP PO SCH (09:00)
[2023-08-24] MEDS ORDERED: carvediloL 12.5 MG TAB PO SCH (09:00)
[2023-08-24] MEDS ORDERED: ARIPIprazole 1 MG/ML ORAL SOLN 150 ML BTL PO SCH (09:00)
[2023-08-24] MEDS ORDERED: PANTOprazole 40 MG TAB PO SCH (09:00)
[2023-08-24] MEDS ORDERED: CALCITRIOL 0.25 MCG CAPSULE PO SCH (09:00)
[2023-08-24] MEDS ORDERED: BUMETANIDE 1 MG TAB PO SCH (09:00)
[2023-08-24] MEDS ORDERED: buPROPion XL 300 MG TABCR PO SCH (09:00)
[2023-08-24] MEDS ORDERED: CLOPIDOGREL BISULFATE 75 MG TAB PO SCH (09:00)
[2023-08-24] MEDS: CARBIDOPA/LEVODOPA 25/100MG TAB PO SCH ×2 (09:11→14:16)
--- NOTE | 2023-08-24 11:19 | Discharge Summary ---
Date of Service August 24, 2023 Admission HPI Per Admitting Provider 73 F with extensive PMHx admitted for observation after a fall from standing. Trauma workup including head and neck ct and CXR were negative. She has mildly elevated troponin which appears to be her baseline. Pt reports feeling weak for the last few days, however does not ambulate well at baseline. Denies Fever, Chills, Cough, LIZARRAGA, CP, SOB, N/V/D, LE swelling. Endorses constipation. Orthostatics performed by ED staff were negative. Principal Diagnosis Mechanical fall Discharge Exam General-alert and oriented x3, no fevers, no chills HEENT-head atraumatic and normocephalic, pupils equal and reactive to light, extraocular muscles intact Neck-no lymphadenopathy or thyromegaly, trachea midline Chest-clear to auscultation percussion. No rales wheezing or rhonchi Cardiac-regular rate and rhythm, normal S1 and S2 Abdomen-normal bowel sounds, nontender, no hepatosplenomegaly Extremities-no cyanosis, clubbing, or edema Neuro-cranial nerves II through XII intact, motor and sensory function within normal limits, strength symmetrical, no focal deficits Psych-normal affect, normal mood Discharge Data Allergies Allergy/AdvReac Type Severity Reaction Status Date / Time MARINO Inhibitors Allergy Unknown ON [facility] Verified 08/23/23 17:51 MED LIST Interferons Allergy Unknown ON [facility] Verified 08/23/23 17:51 MED LIST Penicillins Allergy Unknown ON [facility] Verified 08/23/23 17:51 MED LIST Corticosteroids AdvReac Intermediate (STEROIDS) Verified 08/23/23 23:53 (Glucocorticoids) Rash Consultations 08/23/23 21:56 ED Decision to Admit Stat Ordered Studies 08/23/23 15:43 CT cervical spine wo con Stat CT head/brain wo con Stat Hospital Course (1) Accident due to mechanical fall without injury: Fortunately she suffered no fractures. She appears to be back to her baseline (2) Anemia due to chronic kidney disease: Most likely due to chronic kidney disease stage IV. No intervention necessary at this time (3) Hypothyroidism: Stable. Continue current thyroid replacement (4) Diabetic peripheral neuropathy associated with type 2 diabetes mellitus: (5) (HFpEF) heart failure with preserved ejection fraction: Stable. Continue current medical management. Monitor intake and output (6) Depression with anxiety: Stable. Continue current medical manage Plan Discharge back to [facility] today, August 24 Total Time Total Time Spent Total Time Spent (In Minutes): 40 minutes Discharge Plan Discharge Items Patient Disposition: Personal Residential Reason For Visit: FALL, TREND TROP Discharge Diagnosis: Mechanical fall Activity: Resume your previous activity Non-emergency contact: Primary Care Provider Call non-emergency contact if: you have any medication questions Follow-up/Referrals: Cady Sanches MD [Primary Care Provider] - 08/31/23 10:30 am (HOSPITAL FOLLOW UP APPOINTMENT WITH PER [facility]) Diet: Carb Consistent or DM2 and Heart Healthy Addtl Attending Provider Instructions: All medications remain the same Pending Studies at Discharge: No Stand-Alone Forms: My [employer], Smoking Cessation Skilled Items Patient informed of condition?: Yes DNR: Yes Discharge Level of Care: Other Communicable Disease: No Discharge Prognosis: Stable Lines: None Urinary Catheter: No Medications and DC Order Prescriptions: Continued biotin 5 mg tablet 5 mg PO DAILY Qty: 30 0RF acetaminophen [Tylenol Extra Strength] 500 mg tablet 500 mg PO QID MDD 3 GRAMS APAP/24 HOURS PRN (Reason: pain) Qty: 90 0RF omega 5-fzf-epn-fish oil [Fish Oil] 1,000 mg (120 mg-180 mg) capsule 2 cap PO DAILY Qty: 180 0RF bumetanide 2 mg tablet 2 mg PO BID Qty: 180 1RF Rx Instructions: TAKES AT 0830 & 1500 clopidogrel 75 mg tablet 75 mg PO DAILY Qty: 90 1RF carvedilol 12.5 mg tablet 12.5 mg PO BID Qty: 180 1RF Rx Instructions: must administer with a meal/food calcitriol 0.25 mcg capsule 0.25 mcg PO DAILY Qty: 90 1RF hydralazine 50 mg tablet 75 mg PO BID Qty: 180 1RF Rx Instructions: 1 & 1/2 tablet dose propranolol 10 mg tablet 10 mg PO BID Qty: 180 2RF levothyroxine 25 mcg tablet 25 mcg PO DAILY Qty: 90 1RF atorvastatin 10 mg tablet 10 mg PO QPM Qty: 90 1RF levetiracetam 500 mg tablet 500 mg PO BID 30 Days Qty: 60 4RF carbidopa-levodopa 25-100 mg tablet 1 tab PO TID Qty: 90 4RF Rx Instructions: avoid iron 2 hours prior and after each dose oxcarbazepine 150 mg tablet 150 mg PO BID 30 Days Qty: 60 1RF pantoprazole 40 mg tablet,delayed release (DR/EC) 40 mg PO BID Qty: 60 5RF hydrocortisone 2.5 % cream 1 applic topical BID PRN (Reason: ..) alprazolam 0.25 mg tablet 0.25 mg PO DAILY PRN (Reason: anxiety) Qty: 30 5RF insulin glargine [Basaglar KwikPen U-100 Insulin] 100 unit/mL (3 mL) insulin pen 40 unit subcut BID Qty: 15 2RF magnesium oxide 400 mg magnesium tablet 400 mg PO DAILY Qty: 90 0RF triamcinolone acetonide 0.1 % cream 1 applic topical BID PRN (Reason: skin irritation) Qty: 80 11RF Rx Instructions: Apply twice daily as needed to eczema flares of the BODY; up to 7 days at a time Aquaphor Original 41 % ointment 1 applic topical BID PRN (Reason: dry skin) Qty: 396 5RF aspirin [Adult Low Dose Aspirin] 81 mg tablet,delayed release (DR/EC) 81 mg PO DAILY Jardiance 10 mg tablet 10 mg PO DAILY Vagisil 20-3 % cream See Rx Instructions topical .COMPLEX Qty: 28 3RF Rx Instructions: apply thin layer topically twice daily perineum; trazodone 50 mg tablet 100 mg PO HS ferrous sulfate 325 mg (65 mg iron) tablet 325 mg PO QDD valacyclovir 500 mg tablet 500 mg PO Q2D Qty: 15 0RF Rx Instructions: Renal dosing for prophylaxis cyanocobalamin (vitamin B-12) 1,000 mcg capsule 1,000 mcg PO DAILY Qty: 30 0RF bumetanide 1 mg tablet 2 mg PO DAILY PRN (Reason: wt gain 5LBS or more over 3 days) bupropion HCl 300 mg tablet extended release 24 hr 300 mg PO DAILY aripiprazole 2 mg Tablet 2 mg PO DAILY Discharge Orders: Discharge Order (Routine); Ordered 08/24/23 Ordered By: Dirk Dubose Admission Data Admit Date/Time: 08/23/23 22:21 Attending Provider: Dirk Dubose Admit Provider: Bryon Grace Primary Care Provider: Cady Sanches Other Providers: Dimple Little Coding Level of Care Code 92257 INP/OBS DISCH >30 MIN Diagnoses Accident due to mechanical fall without injury W19.XXXA Anemia due to chronic kidney disease N18.9; D63.1 Hypothyroidism E03.9 Diabetic peripheral neuropathy associated with type 2 diabetes mellitus E11.42 (HFpEF) heart failure with preserved ejection fraction I50.30 Depression with anxiety F41.8
[2023-08-24] MEDS ORDERED: FERROUS SULFATE 325 MG TAB PO SCH (16:30)
[2023-08-24] MEDS ORDERED: ATORVASTATIN 10 MG TAB PO SCH (21:00)
[2023-08-24] MEDS ORDERED: traZODone HCL 100 MG TAB PO SCH (21:00)
--- NOTE | 2023-08-25 00:38 | Billing Data ---
Date of Service August 23, 2023 Coding Level of Care Code 65149 INT INP/OBS CARE
== END 2023-08-24 15:59 | disposition home or self-care (01) ==
LOC: 3E 15:29 → ED 15:29 → SUATTDRO 22:21 → 3E 08-24 00:14

== ENCOUNTER 2023-11-11 13:41 | Inpatient (IN) ==
--- NOTE | 2023-11-11 14:08 | Emergency Department Note ---
Impression & Plan Acute exacerbation of CHF (congestive heart failure), Non-ST elevation ME (NSTEMI), Hypoxia, Elevated brain natriuretic peptide (BNP) level, Influenza A ED Provider Note HISTORY OF PRESENT ILLNESS: Patient is a 73-year-old female presenting with shortness of breath. Patient presents from [facility]. She reportedly has been getting progressively more ill over the last few weeks. Today she was complaining of significant shortness of breath and chest pressure. Patient does not wear any supplemental oxygen at baseline. She describes the chest pressure as substernal in nature and is a pressure sensation. Is not complaining of any chest pressure on arrival to the ER. She reportedly had a COVID and flu exposure at her facility in the last few days. She is on hospice. Her hospice company is aware that she is here and is concerned that she is having a CHF exacerbation. Patient denies any abdominal pain or vomiting but does report some nausea. Patient is on aspirin and Plavix. ROS: as above PHYSICAL EXAM: Constitutional: Patient appears in no acute distress. HENT: Head: Normocephalic and atraumatic. Eyes: EOMI, PERRL Mouth/Throat: Mucous membranes moist. Neck: Trachea midline. Neck supple. Cardiovascular: RRR, No murmurs, rubs or gallops. Intact distal pulses. Pulmonary/Chest: No respiratory distress. Breath sounds clear and equal bilaterally. Coarse breath sounds bilaterally. Abdominal: Abdomen soft, no tenderness, rebound or guarding. Musculoskeletal: No edema, tenderness or deformity noted. Skin: Warm and dry. No rash, erythema, pallor or cyanosis Psychiatric: Appropriate mood and affect for situation. Neurological: Alert and keenly responsive. CN II-XII grossly intact, moving all extremities equally and fully. MDM: - Vitals signs showed hypoxia. Patient was placed on 2 L nasal cannula. - History obtained via patient. Patient presents with shortness of breath. Patient reports that she has been getting progressively more short of breath over the last few weeks. States that today she had some chest pressure with her shortness of breath. She describes the chest pressure as a substernal sensation. Denies any chest pain arrival to the ER. She reportedly had a COVID and flu exposure at a facility in the last few days. Denies any vomiting but reports some nausea. - Chronic conditions affecting care: CKD; Fdrpqns-Hdjeo-Xssll syndrome - Differential diagnoses include, but are not limited to: Congestive heart failure; acute coronary syndrome; COPD/asthma exacerbation; pulmonary edema; pulmonary embolism; pneumonia; pneumothorax; viral syndrome - Order placed for continuous cardiac monitoring. At this time, monitor showed rate of 90 bpm with normal sinus rhythm, per my interpretation. - External medical records reviewed. EMS run sheet was reviewed. Patient was given a DuoNeb treatment and route with EMS. She was placed on 4 L supplemental oxygen and route. - EKG interpreted by myself showed normal sinus rhythm. Rate 65 bpm. QTc 450. No acute ischemic changes. Noted to have a right bundle branch block. Also noted to have some ST depressions in leads I and aVL. - Laboratory workup interpreted by myself showed normal WBC; stable electrolytes; baseline CKD; elevated troponin (40.9); elevated BNP (1492) - VBG shows slight respiratory acidosis (pH 7.35; PCO2 57) - CXR negative for pneumonia, per my interpretation - Patient given 40 mg IV lasix. - Viral respiratory panel positive for influenza A. - Discussion was had with career center advisor about patient's case and need for admission - Hospitalist, Dr. Rust, consulted for admission - [facility] ASSESSMENT AND PLAN: Diagnosis: CHF exacerbation; hypoxia; elevated BNP; NSTEMI; influenza A Plan: admit Past Med/Surg History Medical History (Updated 11/11/23 @ 16:34 by Alcon Hart PA-C) Non-ST elevation ME (NSTEMI) Anemia due to chronic kidney disease Acute kidney injury History of GI bleed Vitamin D deficiency Atopic dermatitis Urinary tract infection History of peptic ulcer Lives in [facility] resident Ahtmfig-Znlqx-Ajuvo syndrome Patient reports Charcot fracture; not clear if she really has both Gout Surgical History Hx of tonsillectomy H/O: section 1982 Stented coronary artery S/P CABG x 4 Family History Brother Diabetes Hypertension Father Hypertension Mother Lung disease Denies family history of Breast cancer Colorectal cancer Social History Smoking Status: Never smoker Age Started Using Tobacco: 16; Age Quit Using Tobacco: 33; Second Hand Exposure: No; Do You Dip or Chew Tobacco: No; Hx Alcohol Use: No Hx Substance Use: No Preferred Language: [place] Communication Ability: Effective Visual Impairment: Limited Hearing Ability: Normal Algebraist Required: No Beliefs That Will Affect Care: None marital status: Current Living Situation: Long-Term Current Living Situation Comment: [facility] current occupational status: retired How many Children do You have: 1 Feels Safe at Home: Yes Childhood Exposure to Second-Hand Smoke: Yes Diet: regular caffeine: Yes during the past year weight has: remained stable Dental Care, Regularly: Yes Physical Activity Frequency: Does not Exercise Seatbelt Use: always Sunscreen Use: Yes Gender Identity: Female Assistive Devices: Walker and Wheelchair Allergies Allergies Allergy/AdvReac Type Severity Reaction Status Date / Time MARINO Inhibitors Allergy Unknown ON [facility] Verified 08/23/23 17:51 MED LIST Interferons Allergy Unknown ON [facility] Verified 08/23/23 17:51 MED LIST Penicillins Allergy Unknown ON [facility] Verified 08/23/23 17:51 MED LIST Corticosteroids AdvReac Intermediate (STEROIDS) Verified 08/23/23 23:53 (Glucocorticoids) Rash Home Meds Home Medications Medication Instructions Recorded Confirmed ferrous sulfate 325 mg (65 mg 325 mg PO QDD 02/25/23 08/25/23 iron) tablet trazodone 50 mg tablet 100 mg PO HS 02/25/23 08/25/23 empagliflozin 10 mg tablet 10 mg PO DAILY 03/14/23 08/25/23 (Jardiance) aspirin 81 mg tablet,delayed 81 mg PO DAILY 07/04/23 08/25/23 release (Adult Low Dose Aspirin) hydrocortisone 2.5 % topical cream 1 applic topical BID PRN .. 07/25/23 08/25/23 Previous Rx's Medication Instructions Recorded biotin 5 mg tablet 5 mg PO DAILY #30 tabs 07/29/22 cyanocobalamin (vitamin B-12) 1,000 mcg PO DAILY #30 caps 09/20/22 1,000 mcg capsule acetaminophen 500 mg tablet 500 mg PO QID PRN pain #90 tabs 11/23/22 (Tylenol Extra Strength) valacyclovir 500 mg tablet 500 mg PO Q2D #15 tabs 04/25/23 omega 8-xph-vnv-fish oil 1,000 mg 2 cap PO DAILY #180 caps 03/16/23 (120 mg-180 mg) capsule (Fish Oil) triamcinolone acetonide 0.1 % 1 applic topical BID PRN skin 04/10/23 topical cream irritation #80 grams white petrolatum 41 % topical 1 applic topical BID PRN dry skin 04/10/23 ointment (Aquaphor Original) #396 grams atorvastatin 10 mg tablet 10 mg PO QPM #90 tabs 05/11/23 bumetanide 2 mg tablet 2 mg PO BID #180 tabs 05/11/23 calcitriol 0.25 mcg capsule 0.25 mcg PO DAILY #90 caps 05/11/23 carvedilol 12.5 mg tablet 12.5 mg PO BID #180 tabs 05/11/23 clopidogrel 75 mg tablet 75 mg PO DAILY #90 tabs 05/11/23 levothyroxine 25 mcg tablet 25 mcg PO DAILY #90 tabs 05/11/23 carbidopa 25 mg-levodopa 100 mg 1 tab PO TID #90 tabs 07/04/23 tablet levetiracetam 500 mg tablet 500 mg PO BID 30 days #60 tabs 07/04/23 insulin glargine 100 unit/mL (3 40 unit (0.4 mL) subcut BID #15 mL 07/25/23 mL) subcutaneous pen (Basaglar JosuePen U-100 Insulin) magnesium oxide 400 mg PO DAILY #90 tabs 07/25/23 pantoprazole 40 mg tablet,delayed 40 mg PO BID #60 tabs 08/17/23 release bupropion HCl 300 mg 24 hr tablet, 300 mg PO DAILY #30 tabs 08/25/23 extended release alprazolam 0.25 mg tablet 0.25 mg PO DAILY PRN anxiety #30 09/25/23 tabs hydralazine 50 mg tablet 75 mg (1.5 x 50 mg) PO BID #180 10/05/23 tabs bumetanide 1 mg tablet 2 mg (2 x 1 mg) PO DAILY PRN wt 10/12/23 gain 5LBS or more over 3 days #60 tabs fluconazole 150 mg tablet 150 mg PO ONCE #1 tab 10/20/23 propranolol 10 mg tablet 10 mg PO BID #180 tabs 12/18/23 aripiprazole 2 mg tablet 2 mg PO DAILY #30 tabs 10/25/23 oxcarbazepine 150 mg tablet 150 mg PO BID 30 days #60 tabs 10/25/23 polyethylene glycol 3350 17 17 g PO DAILY #119 grams 11/08/23 gram/dose oral powder (Miralax) Results & Data (ED) Vital Signs Vital Signs - 24 hr 11/11/23 13:49 11/11/23 13:51 11/11/23 13:55 Temperature 36.1 C L Temperature Source Oral Pulse Rate 68 65 65 Pulse Rate from SpO2 Sensor 65 Respiratory Rate 15 26 H Blood Pressure 141/74 H Blood Pressure Mean 96 Pulse Oximetry 100 100 Oxygen Delivery Method Nasal Cannula Nasal Cannula Oxygen Flow Rate 3 Sepsis Recent Fever Within 48 Hours No Sepsis New/Unexplained Change in Mental Status N/A Sepsis Action Taken by Nursing No Action Required 11/11/23 14:20 11/11/23 15:20 11/11/23 15:30 Temperature Temperature Source Pulse Rate 64 64 90 Pulse Rate from SpO2 Sensor 65 65 92 H Respiratory Rate 24 16 20 Blood Pressure 164/91 H 155/100 H Blood Pressure Mean 115 118 Pulse Oximetry 100 100 100 Oxygen Delivery Method Nasal Cannula Oxygen Flow Rate 3 Sepsis Recent Fever Within 48 Hours Sepsis New/Unexplained Change in Mental Status Sepsis Action Taken by Nursing 11/11/23 15:33 Temperature Temperature Source Pulse Rate Pulse Rate from SpO2 Sensor Respiratory Rate Blood Pressure Blood Pressure Mean Pulse Oximetry 97 Oxygen Delivery Method Nasal Cannula Oxygen Flow Rate 3 Sepsis Recent Fever Within 48 Hours Sepsis New/Unexplained Change in Mental Status Sepsis Action Taken by Nursing Laboratory Data 11/11/23 14:17 11/11/23 14:17 Lab Results 11/11/23 11/11/23 Range/Units 14:17 14:37 WBC 6.22 (4.8-10.8) K/ul RBC 3.57 L (4.20-5.40) M/uL Hgb 10.8 L (12.0-16.0) g/dl Hct 34.5 L (37.0-47.0) % MCV 96.6 (80.0-100.0) fL MCH 30.3 (25.0-34.0) pg MCHC 31.3 L (32.0-36.0) g/dL RDW Std Deviation 58.2 H (36.4-46.3) fL RDW Coeff of Ana 16.3 H (11.5-14.5) % Plt Count 189 (130-400) K/uL MPV 12.6 H (9.4-12.4) fL Immature Gran % (Auto) 0.3 % Neut % (Auto) 68.5 % Lymph % (Auto) 17.7 % [place] % (Auto) 12.2 % Eos % (Auto) 0.8 % Baso % (Auto) 0.5 % Neut # (Auto) 4.26 (1.40-6.50) K/uL Lymph # (Auto) 1.10 L (1.20-3.40) K/uL [place] # (Auto) 0.76 H (0.11-0.59) K/uL Eos # (Auto) 0.05 (0.00-0.50) K/uL Baso # (Auto) 0.03 (0.00-0.20) K/uL Immature Gran # (Auto) 0.02 (0.01-0.20) K/uL PT 11.9 (9.0-12.0) Seconds INR 1.1 (0.9-1.1) VBG pH 7.35 L (7.36-7.41) VBG pCO2 57 H (38-50) mmHg VBG pO2 26 mmHg VBG HCO3 32 mmol/L VBG O2 Saturation < 60.0 % VBG Base Excess 4.3 mEq/L Sodium 141 (136-145) mmol/L Potassium 4.4 (3.5-5.1) mmol/L Chloride 101 (98-107) mmol/L Carbon Dioxide 31 (21-32) mmol/L Anion Gap 9 (3-11) BUN 52 H (6-23) mg/dl Creatinine 2.16 H (0.6-1.2) mg/dl Est Cr Clr Drug Dosing Not Reportable Est GFR ( Amer) 25.3 ml/min Est GFR (Non-Af Amer) 21.9 ml/min BUN/Creatinine Ratio 24.1 H (10-20) Glucose 86 (70-99(Fasting)) mg/dl Calcium 9.2 (8.6-10.3) mg/dl Magnesium 1.8 (1.7-2.4) mg/dl Total Bilirubin 0.4 (0.2-1.0) mg/dl AST 8 L (13-39) U/L ALT < 3 L (7-52) U/L Alkaline Phosphatase 47 (34-104) U/L Troponin I High Sens 40.9 H (0-14) pg/ml B-Natriuretic Peptide 1492 H (0-100) pg/ml Total Protein 6.8 (6.0-8.3) gm/dl Albumin 3.9 (3.4-5.0) gm/dl Globulin 2.9 (2.5-4.0) gm/dl Albumin/Globulin Ratio 1.3 (0.9-2) Administered Medications Discontinued Medications Furosemide (Furosemide 40 Mg/4 Ml Vial) 40 mg IV ONE ONE Stop: 11/11/23 14:53 Last Admin: 11/11/23 15:27 Dose: 40 mg Documented By: CPB Imaging Data Radiologist's Impression: Chest X-Ray 11/11/23 14:03 XR chest 1V portable CLINICAL HISTORY: Dyspnea. COMPARISON STUDY: Chest radiograph August 23, 2023. FINDINGS: Low lung volumes are unchanged. There are median sternotomy wires. Cardiomegaly is unchanged. No evidence for overt pulmonary edema. There is no consolidation to suggest pneumonia. There has been no significant change in appearance of chest. IMPRESSION: No acute cardiopulmonary findings. No significant change in appearance of the chest. Cardiomegaly. ACT 112: Negative or not required by law. Electronically signed by: Zachariah Vogel M.D. 11/11/2023 2:34 PM Discharge Plan Visit Data Chief Complaint: Shortness of Breath/Dyspnea Stated Complaint: SOB ED Provider: Kandice Álvarez Discharge Problem: Acute exacerbation of CHF (congestive heart failure), Non-ST elevation ME (NSTEMI), Hypoxia, Elevated brain natriuretic peptide (BNP) level, Influenza A Forms Stand Alone Forms: My [employer] Prescriptions Prescriptions: No Action biotin 5 mg tablet 5 mg PO DAILY Qty: 30 0RF acetaminophen [Tylenol Extra Strength] 500 mg tablet 500 mg PO QID MDD 3 GRAMS APAP/24 HOURS PRN (Reason: pain) Qty: 90 0RF omega 2-qha-qdf-fish oil [Fish Oil] 1,000 mg (120 mg-180 mg) capsule 2 cap PO DAILY Qty: 180 0RF bumetanide 2 mg tablet 2 mg PO BID Qty: 180 1RF Rx Instructions: TAKES AT 0830 & 1500 clopidogrel 75 mg tablet 75 mg PO DAILY Qty: 90 1RF carvedilol 12.5 mg tablet 12.5 mg PO BID Qty: 180 1RF Rx Instructions: must administer with a meal/food calcitriol 0.25 mcg capsule 0.25 mcg PO DAILY Qty: 90 1RF levothyroxine 25 mcg tablet 25 mcg PO DAILY Qty: 90 1RF atorvastatin 10 mg tablet 10 mg PO QPM Qty: 90 1RF levetiracetam 500 mg tablet 500 mg PO BID 30 Days Qty: 60 4RF carbidopa-levodopa 25-100 mg tablet 1 tab PO TID Qty: 90 4RF Rx Instructions: avoid iron 2 hours prior and after each dose pantoprazole 40 mg tablet,delayed release (DR/EC) 40 mg PO BID Qty: 60 5RF bupropion HCl 300 mg tablet extended release 24 hr 300 mg PO DAILY Qty: 30 3RF alprazolam 0.25 mg tablet 0.25 mg PO DAILY PRN (Reason: anxiety) Qty: 30 5RF hydralazine 50 mg tablet 75 mg PO BID Qty: 180 1RF Rx Instructions: 1 & 1/2 tablet dose bumetanide 1 mg tablet 2 mg PO DAILY PRN (Reason: wt gain 5LBS or more over 3 days) Qty: 60 5RF fluconazole 150 mg tablet 150 mg PO ONCE Qty: 1 2RF propranolol 10 mg tablet 10 mg PO BID Qty: 180 2RF oxcarbazepine 150 mg tablet 150 mg PO BID 30 Days Qty: 60 1RF aripiprazole 2 mg tablet 2 mg PO DAILY Qty: 30 2RF polyethylene glycol 3350 [Miralax] 17 gram/dose powder 17 g PO DAILY Qty: 119 6RF hydrocortisone 2.5 % cream 1 applic topical BID PRN (Reason: ..) insulin glargine [Basaglar KwikPen U-100 Insulin] 100 unit/mL (3 mL) insulin pen 40 unit subcut BID Qty: 15 2RF magnesium oxide 400 mg magnesium tablet 400 mg PO DAILY Qty: 90 0RF triamcinolone acetonide 0.1 % cream 1 applic topical BID PRN (Reason: skin irritation) Qty: 80 11RF Rx Instructions: Apply twice daily as needed to eczema flares of the BODY; up to 7 days at a time Aquaphor Original 41 % ointment 1 applic topical BID PRN (Reason: dry skin) Qty: 396 5RF aspirin [Adult Low Dose Aspirin] 81 mg tablet,delayed release (DR/EC) 81 mg PO DAILY Jardiance 10 mg tablet 10 mg PO DAILY trazodone 50 mg tablet 100 mg PO HS ferrous sulfate 325 mg (65 mg iron) tablet 325 mg PO QDD valacyclovir 500 mg tablet 500 mg PO Q2D Qty: 15 0RF Rx Instructions: Renal dosing for prophylaxis cyanocobalamin (vitamin B-12) 1,000 mcg capsule 1,000 mcg PO DAILY Qty: 30 0RF Referrals Referrals: Cady Sanches MD [Primary Care Provider] -
--- NOTE | 2023-11-11 14:36 | XRay Report ---
XR chest 1V portable CLINICAL HISTORY: Dyspnea. COMPARISON STUDY: Chest radiograph August 23, 2023. FINDINGS: Low lung volumes are unchanged. There are median sternotomy wires. Cardiomegaly is unchange d. No evidence for overt pulmonary edema. There is no consolidation to suggest pneumonia. There has b een no significant change in appearance of chest. IMPRESSION: No acute cardiopulmonary findings. No significant change in appearance of the chest. Car diomegaly. ACT 112: Negative or not required by law. Electronically signed by: Zachariah Vogel M.D. 11/11/2023 2:34 PM
[2023-11-11 14:37] LABS: Basophils # (auto) 0.03 K/uL (0.00-0.20); Basophils % (auto) 0.5 %; Eosinophils # (auto) 0.05 K/uL (0.00-0.50); Eosinophils % (auto) 0.8 %; Hematocrit (blood only) 34.5 % (37.0-47.0); Hemoglobin 10.8 g/dl (12.0-16.0); Immature Granulocytes # (auto) 0.02 K/uL (0.01-0.20); Immature Granulocytes % (auto) 0.3 %; Lymphocytes % (auto) 17.7 %; Mean Corpuscular Hemoglobin 30.3 pg (25.0-34.0); Mean Corpuscular Hgb Conc 31.3 g/dL (32.0-36.0); Mean Corpuscular Volume 96.6 fL (80.0-100.0); Mean Platelet Volume 12.6 fL (9.4-12.4); Monocytes # (auto) 0.76 K/uL (0.11-0.59); Monocytes % (auto) 12.2 %; Neutrophils # (auto) 4.26 K/uL (1.40-6.50); Neutrophils % (auto) 68.5 %; Platelet Count 189 K/uL (130-400); RDW Coefficient of Variation 16.3 % (11.5-14.5); RDW Standard Deviation 58.2 fL (36.4-46.3); Red Blood Count 3.57 M/uL (4.20-5.40); White Blood Count 6.22 K/ul (4.8-10.8)
[2023-11-11 14:43] LABS: Base Excess VBG 4.3 mEq/L; HCO3 VBG 32 mmol/L; Oxygen Saturation VBG < 60.0 %; PCO2 VBG 57 mmHg (38-50); PO2 VBG 26 mmHg; pH VBG 7.35 (7.36-7.41)
[2023-11-11 14:45] LABS: Anion Gap 9 (3-11); BUN Creatinine Ratio 24.1 (10-20); Blood Urea Nitrogen 52 mg/dl (6-23); Calcium 9.2 mg/dl (8.6-10.3); Carbon Dioxide 31 mmol/L (21-32); Chloride 101 mmol/L (98-107); Est GFR (African American) 25.3 ml/min; Est GFR (Non-African American) 21.9 ml/min; Glucose 86 mg/dl (70-99(Fasting)); Potassium 4.4 mmol/L (3.5-5.1); Sodium 141 mmol/L (136-145)
[2023-11-11 14:46] LABS: Alanine Aminotransferase < 3 U/L (7-52); Albumin Globulin Ratio 1.3 (0.9-2); Albumin Level 3.9 gm/dl (3.4-5.0); Alkaline Phosphatase 47 U/L (34-104); Aspartate Aminotransferase 8 U/L (13-39); Bilirubin,Total 0.4 mg/dl (0.2-1.0); Globulin 2.9 gm/dl (2.5-4.0); Magnesium 1.8 mg/dl (1.7-2.4); Total Protein 6.8 gm/dl (6.0-8.3)
[2023-11-11 14:51] LABS: Troponin I High Sensitivity 40.9 pg/ml (0-14)
[2023-11-11] MEDS ORDERED: FUROSEMIDE 40 MG/4 ML VIAL IV ONE (14:52)
[2023-11-11 15:14] LABS: INR 1.1 (0.9-1.1); Prothrombin Time 11.9 Seconds (9.0-12.0)
[2023-11-11 16:33] LABS: Adenovirus PCR Not Detected (NotDetected); Bordetella parapertussis PCR Not Detected (NotDetected); Bordetella pertussis PCR Not Detected (NotDetected); Chlamydia pneumoniae PCR Not Detected (NotDetected); Coronavirus 229E PCR Not Detected (NotDetected); Coronavirus CoV-2 (COVID19)PCR Not Detected (NotDetected); Coronavirus HKU1 PCR Not Detected (NotDetected); Coronavirus NL63 PCR Not Detected (NotDetected); Coronavirus OC43PCR Not Detected (NotDetected); Human Metapneumovirus PCR Not Detected (NotDetected); Influenza B PCR Not Detected (NotDetected); Mycoplasma pneumoniae PCR Not Detected (NotDetected); Parainfluenza Virus 1 PCR Not Detected (NotDetected); Parainfluenza Virus 2 PCR Not Detected (NotDetected); Parainfluenza Virus 3 PCR Not Detected (NotDetected); Parainfluenza Virus 4 PCR Not Detected (NotDetected); Respiratory Syncytial VirusPCR Not Detected (NotDetected); Rhinovirus/Enterovirus PCR Not Detected (NotDetected)
[2023-11-11 16:35] LABS: Influenza A (H1 2009) PCR DETECTED (NotDetected)
--- NOTE | 2023-11-11 16:39 | History & Physical Report ---
Date of Service November 11, 2023 Assessment & Plan (1) Acute exacerbation of CHF (congestive heart failure): Plan: Worsening SOB/dyspnea x 6-7 days From [facility]; of note, patient is on hospice Per phone call with Lorinhyacinthadina Keenan, hospice has been sending someone to evaluate her this week, and requested that she come in when she became hypoxic at 83% on RA on the morning of 11/11 Elevated BNP at 1492 on arrival CXR revealed no acute cardiopulmonary findings; cardiomegaly Influenza positive on arrival VB.35/57//32 EKG revealed NSR at 65 bpm, with a RBBB; QTc 459 Last echocardiogram on 02/26/2023 revealed LVEF at 55-60% Daily weights 1500mL fluid restriction Hold Bumex 2 mg BID Lasix 40 mg IV BID17 A.m. CBC, BMP (2) Influenza A: Plan: Influenza A H1 2008 PCR + on arrival Exposure likely occurred at intermediate Droplet precautions in place Acute worsening with hypoxia at 83% on RA the morning of 11/11 could indicate that flu is the main culprit Given patient's co-morbidities and timeline of symptoms being 6-7 days with acute worsening on 11/11, will start patient on Tamiflu 75 mg p.o. BID Continuous oxygen as needed to maintain SpO2 >94% Guaifenesin 600mg p.o. q12h for cough (3) Poorly controlled type 2 diabetes mellitus: Plan: Last A1c at 8.2% on 07/11/2023 Glucose 86 on admission Hold Jardiance Patient normally is on insulin glargine 40 units SQ twice daily Recommend Lantus 18 u BID while inpatient SSI; with target BSG range 110-140mg/dL, CF 25, carb ratio 8 T2DM diet BSG ACHS Adjust regimen as needed Pharmacy glycemic management consult (4) Seizure disorder: Plan: Continue Keppra Note: Patient on bupropion which can lower the seizure threshold; will leave on as withdrawal can precipitate seizures, however recommend outpatient eval (5) CKD (chronic kidney disease) stage 4, GFR 15-29 ml/min: Plan: BUN 52, creatinine 2.16 (baseline 1.92), EGFR 21.9 on arrival Avoid nephrotoxic agents (6) Elevated troponin: Plan: Troponin 40.9--> 42.2 on arrival Clinically, patient denies CP at time of admission EKG as needed for chest pain Continuous telemetry monitoring (7) Depression with anxiety: Plan: Continue alprazolam (8) Hyperlipidemia: Plan: Continue atorvastatin (9) HTN (hypertension), benign: Plan: Continue hydralazine (10) Hypothyroidism: Plan: Continue levothyroxine Plan Disposition: Admit to PCU telemetry DNR/DNI T2DM, AHA diet (1500 mL fluid restriction) VTE PPx: Heparin 5000 unit SQ q8h History of Present Illness Chief Complaint: Shortness of breath/dyspnea Primary Care Provider: Cady Sanches MD Sarah is a 73-year-old female with PMH of HFpEF, CKD stage IV, resting tremor, aortic stenosis, seizure disorder, HTN, HLD, GERD, CAD s/p CABG x 4, depression anxiety, T2DM, PAD, and hypothyroidism. She was sent in from [facility] at [facility]ospice for worsening SOB/dyspnea x 6-7 days. While patient is on hospice, they have been sending someone to evaluate her regularly this week. Patient had an acute worsening the morning of 11/11; hypoxic at 83% on RA. At this time, hospice was contacted by [facility], and requested that she come into the hospital. Patient is not on supplemental oxygen at baseline. She was influenza positive on arrival. She endorses SOB both at rest and with exertion. Worse while laying flat. She endorses a productive cough with yellow sputum production since last weekend. She also endorses and intermittent, low-grade fever, but says she has not been taking anything for it. She did not take her regular morning meds today. She reports good compliance with Bumex. She denies any alcohol, tobacco, or recreational drug use. She received her flu shot this year. Patient is hypertensive at 155/100; vitals otherwise stable; 100% SpO2 on 3 LNC. ED course: Lasix 40 mg IV ROS: Patient endorses low-grade fever, productive cough, chills, nightsweats, body aches, SOB at rest, nausea, and diarrhea. Patient denies chest pain, abd pain, vomiting, burning with urination, dysuria, or numbness/tingling in the arms or legs. Spoke on the phone with nursing staff at [facility] ([facility]) who confirmed that hospice was notified of acute drop in oxygen this morning (83% on room air), and thus the patient was asked to come into the hospital. Allergies Allergy/AdvReac Type Severity Reaction Status Date / Time MARINO Inhibitors Allergy Unknown [facility] Verified 11/11/23 17:08 MED LIST Interferons Allergy Unknown ON [facility] Verified 11/11/23 17:08 MED LIST Penicillins Allergy Unknown ON [facility] Verified 11/11/23 17:08 MED LIST Corticosteroids AdvReac Intermediate (STEROIDS) Verified 11/11/23 17:08 (Glucocorticoids) Rash Home Medications Medication Instructions Recorded Confirmed Type biotin 5 mg tablet 5 mg PO DAILY #30 tabs 07/29/22 11/11/23 Rx cyanocobalamin (vitamin B-12) 1,000 mcg PO DAILY #30 caps 09/20/22 11/11/23 Rx 1,000 mcg capsule acetaminophen 500 mg tablet 500 mg PO QID PRN pain #90 tabs 11/23/22 11/11/23 Rx (Tylenol Extra Strength) ferrous sulfate 325 mg (65 mg 325 mg PO QDD 02/25/23 11/11/23 History iron) tablet trazodone 50 mg tablet 100 mg PO HS 02/25/23 11/11/23 History valacyclovir 500 mg tablet 500 mg PO Q2D #15 tabs 02/28/23 11/11/23 Rx empagliflozin 10 mg tablet 10 mg PO DAILY 03/14/23 11/11/23 History (Jardiance) omega 3-mln-him-fish oil 1,000 mg 2 cap PO DAILY #180 caps 03/16/23 11/11/23 Rx (120 mg-180 mg) capsule (Fish Oil) triamcinolone acetonide 0.1 % 1 applic topical BID PRN skin 04/10/23 11/11/23 Rx topical cream irritation #80 grams atorvastatin 10 mg tablet 10 mg PO QPM #90 tabs 05/11/23 11/11/23 Rx bumetanide 2 mg tablet 2 mg PO BID #180 tabs 05/11/23 11/11/23 Rx calcitriol 0.25 mcg capsule 0.25 mcg PO DAILY #90 caps 05/11/23 11/11/23 Rx carvedilol 12.5 mg tablet 12.5 mg PO BID #180 tabs 05/11/23 11/11/23 Rx clopidogrel 75 mg tablet 75 mg PO DAILY #90 tabs 05/11/23 11/11/23 Rx levothyroxine 25 mcg tablet 25 mcg PO DAILY #90 tabs 05/11/23 11/11/23 Rx aspirin 81 mg tablet,delayed 81 mg PO DAILY 07/04/23 11/11/23 History release (Adult Low Dose Aspirin) carbidopa 25 mg-levodopa 100 mg 1 tab PO TID #90 tabs 07/04/23 11/11/23 Rx tablet levetiracetam 500 mg tablet 500 mg PO BID 30 days #60 tabs 07/04/23 11/11/23 Rx hydrocortisone 2.5 % topical cream 1 applic topical BID PRN .. 07/25/23 11/11/23 History magnesium oxide 400 mg PO DAILY #90 tabs 07/25/23 11/11/23 Rx pantoprazole 40 mg tablet,delayed 40 mg PO BID #60 tabs 08/17/23 11/11/23 Rx release bupropion HCl 300 mg 24 hr tablet, 300 mg PO DAILY #30 tabs 08/25/23 11/11/23 Rx extended release hydralazine 50 mg tablet 75 mg (1.5 x 50 mg) PO BID #180 10/05/23 11/11/23 Rx tabs bumetanide 1 mg tablet 2 mg (2 x 1 mg) PO DAILY PRN wt 10/12/23 11/11/23 Rx gain 5LBS or more over 3 days #60 tabs propranolol 10 mg tablet 10 mg PO BID #180 tabs 10/23/23 11/11/23 Rx aripiprazole 2 mg tablet 2 mg PO DAILY #30 tabs 10/25/23 11/11/23 Rx oxcarbazepine 150 mg tablet 150 mg PO BID 30 days #60 tabs 10/25/23 11/11/23 Rx polyethylene glycol 3350 17 17 g PO DAILY #119 grams 11/08/23 11/11/23 Rx gram/dose oral powder (Miralax) acetaminophen 650 mg rectal 650 mg MD Q4H PRN Fever Or Pain 11/11/23 11/11/23 History suppository alprazolam 0.25 mg tablet 0.25 mg PO DAILY anxiety 11/11/23 11/11/23 History diazepam 5 mg tablet 5 mg PO Q6 PRN .seizure/severe 11/11/23 11/11/23 History nausea glycopyrrolate 1 mg tablet 2 mg PO Q4 PRN .TERMINAL SECRETIONS 11/11/23 11/11/23 History insulin glargine 100 unit/mL (3 40 unit subcut BID 11/11/23 11/11/23 History mL) subcutaneous pen (Basaglar KwikPen U-100 Insulin) lorazepam 1 mg tablet 1 mg PO DIRECTED PRN Anxiety 11/11/23 11/11/23 History mineral oil-hydrophil petrolat 1 applic topical BID PRN .dry skin 11/11/23 11/11/23 History topical ointment (Aquaphor topical ointment) morphine concentrate 100 mg/5 mL 0 mg sublingual .Q30MIN PRN 11/11/23 11/11/23 History (20 mg/mL) oral solution .PAIN/AIR HUNGER promethazine 25 mg tablet 25 mg PO Q6H PRN .N/V 11/11/23 11/11/23 History Past Med/Surg History Medical History (Updated 11/11/23 @ 16:37 by Alcon Hart PA-C) Non-ST elevation PR (NSTEMI) Anemia due to chronic kidney disease Acute kidney injury History of GI bleed Vitamin D deficiency Atopic dermatitis Urinary tract infection History of peptic ulcer Lives in senior facility [facility] resident Uajlnhs-Ztwiz-Kxouc syndrome Patient reports Charcot fracture; not clear if she really has both Gout Surgical History Hx of tonsillectomy H/O: section 1982 Stented coronary artery S/P CABG x 4 Family History Brother Diabetes Hypertension Father Hypertension Mother Lung disease Denies family history of Breast cancer Colorectal cancer Social History Smoking Status: Former smoker Tobacco Type: Cigarettes Age Started Using Tobacco: 16; Age Quit Using Tobacco: 33; Second Hand Exposure: No; Do You Dip or Chew Tobacco: No; Tobacco Cessation Education Requested by Patient: No Hx Alcohol Use: No Hx Substance Use: No Preferred Language: Setswana Communication Ability: Effective Visual Impairment: Limited Hearing Ability: Normal Hook Up Required: No Beliefs That Will Affect Care: None marital status: Current Living Situation: Detention Current Living Situation Comment: [employer] [facility] RESIDENT current occupational status: retired How many Children do You have: 1 Other Information That Helps Us Care for You: No Feels Safe at Home: Yes Safety Concerns: Feels Safe At This Time Childhood Exposure to Second-Hand Smoke: Yes Diet: regular caffeine: Yes during the past year weight has: remained stable Dental Care, Regularly: Yes Physical Activity Frequency: Does not Exercise Seatbelt Use: always Sunscreen Use: Yes Gender Identity: Female Assistive Devices: Wheelchair Review of Systems Review of Systems: See HPI above Physical Exam Physical Exam: General: Mild respiratory distress; lethargic; raspy voice; non-toxic appearing; cooperative HEENT: normocephalic, atraumatic; no scleral icterus; PERRLA w/ EOMs intact; moist mucus membrane; vision and hearing grossly intact Neck: supple; + JVD; no lymphadenopathy; trachea midline Skin: warm, dry without signs of tenting; no cyanosis; no rashes, bruising, lesions, or erythema noted CV: chest wall NTP; RRR; S1/S2 normal; 2/6 systolic ejection murmur auscultated at the second ICS MCL; pulses intact and symmetric at radial, DP, and PT Lungs: mild respiratory distress; labored breathing; symmetrical chest wall expansion; expiratory wheeze auscultated across all lung duran bilaterally ABD: Soft, NTP; BS present; no rebound/guarding; mild distention secondary to patient's body habitus MSK: no tics or fasciculations; nonpitting edema in the LEs B/L, nonerythematous Neuro: A&Ox3; flat mood and affect; fluent speech; no focal deficits; sensation grossly intact in the LEs B/L Results & Data Results & Data Vital Signs (Past 12 Hours) Vital Signs Temp Pulse Resp BP Pulse Ox O2 Del Method O2 Flow Rate 11/11/23 15:33 97 Nasal Cannula 3 11/11/23 15:30 90 20 155/100 H 100 11/11/23 15:20 64 16 164/91 H 100 11/11/23 14:20 64 24 100 Nasal Cannula 3 11/11/23 13:55 36.1 C L 65 26 H 141/74 H 100 Nasal Cannula 11/11/23 13:51 65 11/11/23 13:49 68 15 100 Nasal Cannula 3 Laboratory Results Abnormal lab results 11/11/23 11/11/23 Range/Units 14:17 14:37 RBC 3.57 L (4.20-5.40) M/uL Hgb 10.8 L (12.0-16.0) g/dl Hct 34.5 L (37.0-47.0) % MCHC 31.3 L (32.0-36.0) g/dL RDW Std Deviation 58.2 H (36.4-46.3) fL RDW Coeff of Ana 16.3 H (11.5-14.5) % MPV 12.6 H (9.4-12.4) fL Lymph # (Auto) 1.10 L (1.20-3.40) K/uL [place] # (Auto) 0.76 H (0.11-0.59) K/uL VBG pH 7.35 L (7.36-7.41) VBG pCO2 57 H (38-50) mmHg BUN 52 H (6-23) mg/dl Creatinine 2.16 H (0.6-1.2) mg/dl BUN/Creatinine Ratio 24.1 H (10-20) AST 8 L (13-39) U/L ALT < 3 L (7-52) U/L Troponin I High Sens 40.9 H (0-14) pg/ml B-Natriuretic Peptide 1492 H (0-100) pg/ml Diagnostic Findings Chest X-Ray 11/11/23 14:03 XR chest 1V portable CLINICAL HISTORY: Dyspnea. COMPARISON STUDY: Chest radiograph August 23, 2023. FINDINGS: Low lung volumes are unchanged. There are median sternotomy wires. Cardiomegaly is unchanged. No evidence for overt pulmonary edema. There is no consolidation to suggest pneumonia. There has been no significant change in appearance of chest. IMPRESSION: No acute cardiopulmonary findings. No significant change in appearance of the chest. Cardiomegaly. ACT 112: Negative or not required by law. Electronically signed by: Zachariah Vogel M.D. 11/11/2023 2:34 PM Code Status & VTE Plan Code Status DNR/DNI VTE Prophylaxis Plan VTE Prophylaxis will be ordered: Yes Supervising Physician Co-Signing Physician Notes Patient seen and examined, chart reviewed, case discussed with ISSA Hart and I agree with the assessment and plan as above except as otherwise noted Labs and images reviewed 73yo F with progressive sx of SoB which began ~ 6-7 days ago but were much worse in the last 24 hours. Chest x-ray does not show overt pulmonary edema or consolidations, BNP is acutely elevated from her baseline. Additionally she is flu positive. She is on hospice who has been seeing her daily, did recommend hospital admission for management of potentially reversible cause both acute fluid overload and H1 influenza. Patient's symptoms started around 6 to 7 days ago and have been worse in the last 24 hours unclear duration of flu but given onset of less than 10 days and may be as short as 24 hours and her comorbidity Tamiflu is reasonable. 5-day Tamiflu course ordered. Agree with continued gentle IV diuresis at this time, admission to PCU. Should patient worsen escalation of care or invasive procedures are not within her hospice/comfort oriented goals of care; admission for treatment of flu/acute heart failure is within her goals as these are potentially reversible/treatable and is okay with a short-term hospital stay. Agree with assessment and management as above PG Care Time/CCT Total # of Minutes Spent Total Time Spent with Patient: Total time spent is greater than 50% in coordination of care (as documented) at patient's floor/unit and/or counseling patient: C[place] [address] INT INP/OBS CARE 3/75MIN Patient Type Established History Comprehensive Exam Comprehensive Medical Decision Making High Complexity Diagnoses Acute exacerbation of CHF (congestive heart failure) I50.9 Influenza A J10.1 Poorly controlled type 2 diabetes mellitus E11.65 Seizure disorder G40.909 CKD (chronic kidney disease) stage 4, GFR 15-29 ml/min N18.4 Elevated troponin R79.89 Depression with anxiety F41.8 Hyperlipidemia E78.5 HTN (hypertension), benign I10 Hypothyroidism E03.9
[2023-11-11] MEDS ORDERED: GLUCOSE 10 TAB/TUBE PO PRN (17:55)
[2023-11-11] MEDS ORDERED: GLUCOSE 40% GEL 15 GM TUBE PO PRN (17:55)
[2023-11-11] MEDS ORDERED: diazePAM 5 MG TABLET PO PRN (17:55)
[2023-11-11] MEDS ORDERED: GLUCAGON FOR INJ 1 MG VIAL SQ PRN (17:55)
[2023-11-11] MEDS ORDERED: PHARMACY GLYCEMIC MGMT CONSULT PRN (17:55)
[2023-11-11] MEDS ORDERED: DEXTROSE 50% 50 ML SYRINGE IV PRN (17:55)
[2023-11-11] MEDS ORDERED: CARBOHYDRATES FOR HYPOGLYCEMIA PO PRN (17:55)
[2023-11-11] MEDS ORDERED: ACETAMINOPHEN 325 MG TAB PO PRN (17:55)
[2023-11-11] MEDS ORDERED: TRIAMCINOLONE ACET 0.1% CR 15 GM TUBE TOP PRN (17:55)
[2023-11-11 18:45] LABS: Appearance Urine Cloudy (Clear); Bacteria Urine Automated 2+ (Negative); Bilirubin Urine Negative (Negative); Blood Urine Trace (Negative); Cast Urine Automated 0 /lpf (0-5); Color Urine Yellow; Epithelial Cell Urine Auto 0-5 /lpf (0-5); Glucose Urine UA Negative (Negative); Ketones Urine Negative (Negative); Leukocyte Esterase Urine 3+ (Negative); Nitrite Urine Negative (Negative); Protein Urine 1+ (Negative); RBC Urine Automated 0-4 /hpf (0-4); Specific Gravity Urine 1.011 (1.000-1.030); Urobilinogen Urine Negative (Negative); WBC Urine Automated >30 /hpf (0-5)
[2023-11-11] MEDS: carvediloL 12.5 MG TAB PO SCH (20:16)
[2023-11-11] MEDS: PANTOprazole 40 MG TAB PO SCH (20:16)
[2023-11-11] MEDS: guaiFENesin 600 MG TABCR PO SCH (20:17)
[2023-11-11] MEDS: hydrALAZINE HCL 25 MG TAB PO SCH (20:18)
--- NOTE | 2023-11-11 20:44 | Pharmacy Report ---
Pharmacy Glycemic Short Note 2 - Date of Service November 11, 2023 - Glycemic Short BSG Results (Last 24 hours): 11/11/23 11/11/23 14:17 18:31 Glucose 86 POC Glucose 76 OUTPATIENT ANTIDIABETIC REGIMEN: * Jardiance 10 mg daily, Basaglar 40 units bid ASSESSMENT: * 73 year old admitted with CHF exacerbation - pharmacy consulted for glycemic management. BSGs < 100 on admission - will hold PM basal this evening and will resume tomorrow AM PLAN FOR INPATIENT GLYCEMIC CONTROL: * Hold outpatient oral diabetes medications * Basal insulin * Lantus - awaiting AM BSG * Bolus insulin * NovoLog per scale ACHS or Q6hrs while NPO * Goal Range: Low 110 mg/dL - High 140 mg/dL * Correction Factor: 25 mg/dL/unit * Nutritional / Prandial insulin per carb ratio of 1 unit per 8 grams CHO consumed
[2023-11-11] MEDS ORDERED: OSELTAMIVIR PHOSPHATE 75 MG CAP PO SCH (21:00)
[2023-11-11] MEDS ORDERED: LANTUS PER UNIT CHARGE SQ SCH (21:00)
[2023-11-11] MEDS: OSELTAMIVIR PHOSPHATE SUSP 30 MG/5 ML UDP PO SCH (21:49)
[2023-11-11] MEDS: OXcarbazepine 150 MG TABLET PO SCH (21:50)
[2023-11-11] MEDS: ATORVASTATIN 10 MG TAB PO SCH (21:51)
[2023-11-11] MEDS: levETIRAcetam 500 MG TAB PO SCH (21:51)
[2023-11-11] MEDS: traZODone HCL 100 MG TAB PO SCH (21:52)
[2023-11-11] MEDS: CARBIDOPA/LEVODOPA 25/100MG TAB PO SCH (21:52)
[2023-11-11] MEDS: PROPRANOLOL HCL 10 MG TAB PO SCH (21:53)
[2023-11-11] MEDS: INSULIN ASPART PER UNIT CHARGE SC SCH (21:53)
[2023-11-11] MEDS: HEPARIN SOD 5,000 UNIT/0.5 ML VIAL SQ SCH (21:57)
[2023-11-12 04:05] LABS: Basophils # (auto) 0.02 K/uL (0.00-0.20); Basophils % (auto) 0.3 %; Eosinophils # (auto) 0.06 K/uL (0.00-0.50); Hematocrit (blood only) 34.6 % (37.0-47.0); Hemoglobin 10.4 g/dl (12.0-16.0); Immature Granulocytes # (auto) 0.02 K/uL (0.01-0.20); Immature Granulocytes % (auto) 0.3 %; Lymphocytes % (auto) 17.2 %; Mean Corpuscular Hemoglobin 29.5 pg (25.0-34.0); Mean Corpuscular Hgb Conc 30.1 g/dL (32.0-36.0); Mean Corpuscular Volume 98.3 fL (80.0-100.0); Mean Platelet Volume 13.2 fL (9.4-12.4); Monocytes # (auto) 0.55 K/uL (0.11-0.59); Monocytes % (auto) 9.5 %; Neutrophils # (auto) 4.16 K/uL (1.40-6.50); Neutrophils % (auto) 71.7 %; Platelet Count 164 K/uL (130-400); RDW Coefficient of Variation 16.3 % (11.5-14.5); RDW Standard Deviation 59.4 fL (36.4-46.3); Red Blood Count 3.52 M/uL (4.20-5.40); White Blood Count 5.81 K/ul (4.8-10.8)
[2023-11-12 04:24] LABS: Calcium 8.9 mg/dl (8.6-10.3); Creatinine Clr Calc Pharmacy 28.1 ml/min; Est GFR (African American) 26.5 ml/min; Est GFR (Non-African American) 22.9 ml/min; Potassium 3.9 mmol/L (3.5-5.1)
[2023-11-12] MEDS: HEPARIN SOD 5,000 UNIT/0.5 ML VIAL SQ SCH ×4 (05:16→22:18)
[2023-11-12] MEDS ORDERED: ALPRAZolam 0.5 MG TABLET PO STA (05:17)
[2023-11-12] MEDS: LEVOTHYROXINE SODIUM 25 MCG TABLET PO SCH (07:55)
[2023-11-12] MEDS: INSULIN ASPART PER UNIT CHARGE SC SCH ×4 (09:17→21:32)
[2023-11-12] MEDS: ASPIRIN 81 MG ECTAB PO SCH (09:41)
[2023-11-12] MEDS: ARIPIprazole 1 MG/ML ORAL SOLN 150 ML BTL PO SCH (09:41)
[2023-11-12] MEDS: ALPRAZolam 0.5 MG TABLET PO SCH (09:41)
[2023-11-12] MEDS: buPROPion XL 300 MG TABCR PO SCH (09:42)
[2023-11-12] MEDS: CARBIDOPA/LEVODOPA 25/100MG TAB PO SCH ×3 (09:42→21:20)
[2023-11-12] MEDS: carvediloL 12.5 MG TAB PO SCH ×3 (09:43→21:25)
[2023-11-12] MEDS: FUROSEMIDE 40 MG/4 ML VIAL IV SCH ×2 (09:44→17:26)
[2023-11-12] MEDS: CLOPIDOGREL BISULFATE 75 MG TAB PO SCH (09:44)
[2023-11-12] MEDS: guaiFENesin 600 MG TABCR PO SCH ×2 (09:46→21:21)
[2023-11-12] MEDS: hydrALAZINE HCL 25 MG TAB PO SCH ×2 (09:46→21:21)
[2023-11-12] MEDS: levETIRAcetam 500 MG TAB PO SCH ×2 (09:46→21:21)
[2023-11-12] MEDS: MAGNESIUM OXIDE 400 MG TAB PO SCH (09:47)
[2023-11-12] MEDS: OSELTAMIVIR PHOSPHATE SUSP 30 MG/5 ML UDP PO SCH (09:47)
[2023-11-12] MEDS: OXcarbazepine 150 MG TABLET PO SCH ×2 (09:48→21:20)
[2023-11-12] MEDS: PANTOprazole 40 MG TAB PO SCH ×2 (09:48→21:20)
[2023-11-12] MEDS: PROPRANOLOL HCL 10 MG TAB PO SCH ×2 (09:48→21:20)
--- NOTE | 2023-11-12 14:34 | Pharmacy Report ---
Pharmacy Glycemic Short Note 2 - Date of Service November 12, 2023 - Glycemic Short BSG Results (Last 24 hours): 11/11/23 11/11/23 11/11/23 14:17 18:31 21:38 Glucose 86 POC Glucose 76 107 H 11/12/23 11/12/23 11/12/23 03:18 08:43 11:53 Glucose 109 H POC Glucose 123 H 161 H OUTPATIENT ANTIDIABETIC REGIMEN: * Jardiance 10 mg daily * Basaglar 40 units bid HbA1c = 8.2% ASSESSMENT: 11/12: * BSGs yesterday were 76-107 mg/dl. Fasting BSG today was 109 mg/dl. Pre-lunch BSG = 161 mg/dl. * Holding off on basal insulin since BSGs have been low or at goal. Will resume at HS on a scale based on BSG. * Novolog continued the same as yesterday. 11/11/23 * 73 year old admitted with CHF exacerbation - pharmacy consulted for glycemic management. BSGs < 100 on admission - will hold PM basal this evening and will resume tomorrow AM PLAN FOR INPATIENT GLYCEMIC CONTROL: * Hold outpatient oral diabetes medications * Basal insulin * Lantus 0-15 units SC scale HS based on BSG * Bolus insulin * NovoLog per scale ACHS or Q6hrs while NPO * Goal Range: Low 110 mg/dL - High 140 mg/dL * Correction Factor: 25 mg/dL/unit * Nutritional / Prandial insulin per carb ratio of 1 unit per 8 grams CHO consumed
[2023-11-12] MEDS ORDERED: ALBUT/IPRATROP 3MG/0.5MG NEB 3 ML VIAL NEB STA (14:39)
--- NOTE | 2023-11-12 14:42 | Hospitalist Progress Note ---
Date of Service November 12, 2023 Assessment & Plan (1) Influenza A: Plan: Day #2 of 5 of renally-dosed tamiflu BID With acute hypoxic/hypercapnic resp failure Diurese with IV lasix Nebs Consider steroids, although there is debate about increased mortality with use o f steroids in flu cases repeat a cxr - r/o developing bacterial superinfection (2) Poorly controlled type 2 diabetes mellitus: Plan: Last A1c at 8.2% on 07/11/2023 hold Jardiance Patient normally is on insulin glargine 40 units SQ twice daily cont basal-bolus insulin Pharmacy glycemic management consult was placed by admitting team (3) Seizure disorder: Plan: Continue Keppra Note: Patient on bupropion which can lower the seizure threshold Continue oxcarbazepine (4) CKD (chronic kidney disease) stage 4, GFR 15-29 ml/min: Plan: admit parameters - BUN 52, creatinine 2.16 (baseline 1.92) daily BMP while here especially because of IV diuretics (5) Elevated troponin: Plan: Troponin 40.9--> 42.2 on arrival Likely myocardial demand ischemia in setting of flu A infection (6) Depression with anxiety: Plan: Continue alprazolam (7) Hyperlipidemia: Plan: Continue atorvastatin (8) HTN (hypertension), benign: Plan: Continue hydralazine Cont coreg (9) Hypothyroidism: Plan: Continue levothyroxine TSH 07/29 wnl (10) Acute on chronic diastolic (congestive) heart failure: Plan: diurese daily labs serial exams (11) Acute respiratory failure with hypoxia and hypercapnia: Plan: 2nd to fluA infection with bronchitis 2nd to #10 tamiflu, nebs, etc diurese BIPAP was ordered BEFORE I found out from her son by phone that patient was indeed fully enrolled in hospice program at her [facility] would remove BIPAP and switch back to NC o2 (12) Acute metabolic encephalopathy: Plan: 2nd to hypercapnia, FluA infection, etc (13) Hospice care patient: Plan: pt's son confirmed with me by phone late this evening that patient was enrolled in hospice at [facility] will have social work contact [facility] tomorrow about this (14) CAD (coronary artery disease): Plan: no ischemic sx's at this time Plan son extensively updated by phone this evening he stated that she has been on hospice for several weeks/months - exact date he wasn't sure pt sent to hospital when she was discovered to be hypoxia uncertain of the entire circumstances will update son again tomorrow once we contact [facility] Admission and Anticipated Discharge Date Admission Date: November 11, 2023 Subjective patient very groggy during the visit was sleeping hard when I first got to the bedside she did awake, but kept falling asleep her speech was very slow and a little slurred she says she "lives in [place]" c/o cough and shortness of breath "I feel terrible" no appetite Review of Systems Review of Systems: cv - no chest pain pulm - cough/congestion/dyspneic GI - no abd pain or nausea Physical Exam Physical Exam: gen - obese, snoring when she was sleeping, severe cough, lethargic/weak neck - unable to assess for JVD mouth - MM dry heart - RRR, s1 s2 - heart tones very distant lungs - DIFFUSE/severe wheezes b/l, crackles b/l, coughing, mild tachypnea abd - soft NT ext - minimal edema, pulses 2+ b/l psych - lethargic neuro - voice and speech are slow Results & Data Results & Data Vital Signs (Past 12 Hours) Vital Signs Temp Pulse Pulse Resp BP Pulse Ox Pulse Ox 11/12/23 17:29 58 L 19 130/80 99 11/12/23 17:17 80 23 97 11/12/23 15:16 57 L 23 125/74 98 11/12/23 15:16 98 11/12/23 14:54 57 L 11/12/23 14:28 83 24 99 O2 Del Method O2 Del Method O2 Flow Rate O2 Flow Rate FiO2 11/12/23 17:29 Nasal Cannula 2 11/12/23 17:17 50 11/12/23 15:16 Nasal Cannula 2 11/12/23 15:16 Nasal Cannula 2 11/12/23 14:54 11/12/23 14:28 50 Laboratory Results Laboratory Results - last 48 hr 11/11/23 11/11/23 11/11/23 14:17 14:37 15:33 WBC 6.22 RBC 3.57 L Hgb 10.8 L Hct 34.5 L MCV 96.6 MCH 30.3 MCHC 31.3 L RDW Std Deviation 58.2 H RDW Coeff of Ana 16.3 H Plt Count 189 MPV 12.6 H Immature Gran % (Auto) 0.3 Neut % (Auto) 68.5 Lymph % (Auto) 17.7 [place] % (Auto) 12.2 Eos % (Auto) 0.8 Baso % (Auto) 0.5 Neut # (Auto) 4.26 Lymph # (Auto) 1.10 L [place] # (Auto) 0.76 H Eos # (Auto) 0.05 Baso # (Auto) 0.03 Immature Gran # (Auto) 0.02 PT 11.9 INR 1.1 VBG pH 7.35 L VBG pCO2 57 H VBG pO2 26 VBG HCO3 32 VBG O2 Saturation < 60.0 VBG Base Excess 4.3 Sodium 141 Potassium 4.4 Chloride 101 Carbon Dioxide 31 Anion Gap 9 BUN 52 H Creatinine 2.16 H Est Cr Clr Drug Dosing Not Reportable Est GFR ( Amer) 25.3 Est GFR (Non-Af Amer) 21.9 BUN/Creatinine Ratio 24.1 H Glucose 86 POC Glucose Calcium 9.2 Magnesium 1.8 Total Bilirubin 0.4 AST 8 L ALT < 3 L Alkaline Phosphatase 47 Ammonia Troponin I High Sens 40.9 H B-Natriuretic Peptide 1492 H Total Protein 6.8 Albumin 3.9 Globulin 2.9 Albumin/Globulin Ratio 1.3 Procalcitonin Urine Color Urine Appearance Urine pH Ur Specific Elmer Urine Protein Urine Glucose (UA) Urine Ketones Urine Blood Urine Nitrite Urine Bilirubin Urine Urobilinogen Ur Leukocyte Esterase Urine WBC (Auto) Urine RBC (Auto) U Hyaline Cast (Auto) U Epithel Cells (Auto) Urine Bacteria (Auto) Nasal Influ A H1 2008 PCR DETECTED A* Adenovirus (PCR) Not Detected B. pertussis DNA (PCR) Not Detected B.parapertussis DNA PCR Not Detected C. pneumoniae DNA (PCR) Not Detected Coronavirus OC43 (PCR) Not Detected Coronavirus HKU1 (PCR) Not Detected Coronavirus 229E (PCR) Not Detected SARS-CoV-2 (PCR) Not Detected Coronavirus NL63 (PCR) Not Detected Human Metapneumovir PCR Not Detected Influenza Type B (PCR) Not Detected M. pneumoniae (PCR) Not Detected Parainfluenza 1 (PCR) Not Detected Parainfluenza 2 (PCR) Not Detected Parainfluenza 3 (PCR) Not Detected Parainfluenza 4 (PCR) Not Detected RSV (PCR) Not Detected Entero/Rhino (PCR) Not Detected 11/11/23 11/11/23 11/11/23 17:09 18:30 18:31 WBC RBC Hgb Hct MCV MCH MCHC RDW Std Deviation RDW Coeff of Ana Plt Count MPV Immature Gran % (Auto) Neut % (Auto) Lymph % (Auto) [place] % (Auto) Eos % (Auto) Baso % (Auto) Neut # (Auto) Lymph # (Auto) [place] # (Auto) Eos # (Auto) Baso # (Auto) Immature Gran # (Auto) PT INR VBG pH VBG pCO2 VBG pO2 VBG HCO3 VBG O2 Saturation VBG Base Excess Sodium Potassium Chloride Carbon Dioxide Anion Gap BUN Creatinine Est Cr Clr Drug Dosing Est GFR ( Amer) Est GFR (Non-Af Amer) BUN/Creatinine Ratio Glucose POC Glucose 76 Calcium Magnesium Total Bilirubin AST ALT Alkaline Phosphatase Ammonia Troponin I High Sens 42.2 H B-Natriuretic Peptide Total Protein Albumin Globulin Albumin/Globulin Ratio Procalcitonin Urine Color Yellow Urine Appearance Cloudy A Urine pH 6.0 Ur Specific [place] 1.011 Urine Protein 1+ H Urine Glucose (UA) Negative Urine Ketones Negative Urine Blood Trace H Urine Nitrite Negative Urine Bilirubin Negative Urine Urobilinogen Negative Ur Leukocyte Esterase 3+ H Urine WBC (Auto) >30 H Urine RBC (Auto) 0-4 U Hyaline Cast (Auto) 0 U Epithel Cells (Auto) 0-5 Urine Bacteria (Auto) 2+ H Nasal Influ A H1 2008 PCR Adenovirus (PCR) B. pertussis DNA (PCR) B.parapertussis DNA PCR C. pneumoniae DNA (PCR) Coronavirus OC43 (PCR) Coronavirus HKU1 (PCR) Coronavirus 229E (PCR) SARS-CoV-2 (PCR) Coronavirus NL63 (PCR) Human Metapneumovir PCR Influenza Type B (PCR) M. pneumoniae (PCR) Parainfluenza 1 (PCR) Parainfluenza 2 (PCR) Parainfluenza 3 (PCR) Parainfluenza 4 (PCR) RSV (PCR) Entero/Rhino (PCR) 11/11/23 11/12/23 11/12/23 21:38 03:18 08:43 WBC 5.81 RBC 3.52 L Hgb 10.4 L Hct 34.6 L MCV 98.3 MCH 29.5 MCHC 30.1 L RDW Std Deviation 59.4 H RDW Coeff of Ana 16.3 H Plt Count 164 MPV 13.2 H Immature Gran % (Auto) 0.3 Neut % (Auto) 71.7 Lymph % (Auto) 17.2 [place] % (Auto) 9.5 Eos % (Auto) 1.0 Baso % (Auto) 0.3 Neut # (Auto) 4.16 Lymph # (Auto) 1.00 L [place] # (Auto) 0.55 Eos # (Auto) 0.06 Baso # (Auto) 0.02 Immature Gran # (Auto) 0.02 PT INR VBG pH VBG pCO2 VBG pO2 VBG HCO3 VBG O2 Saturation VBG Base Excess Sodium 140 Potassium 3.9 Chloride 102 Carbon Dioxide 28 Anion Gap 10 BUN 54 H Creatinine 2.08 H Est Cr Clr Drug Dosing 28.1 Est GFR ( Amer) 26.5 Est GFR (Non-Af Amer) 22.9 BUN/Creatinine Ratio 26.0 H Glucose 109 H POC Glucose 107 H 123 H Calcium 8.9 Magnesium Total Bilirubin AST ALT Alkaline Phosphatase Ammonia Troponin I High Sens B-Natriuretic Peptide Total Protein Albumin Globulin Albumin/Globulin Ratio Procalcitonin Urine Color Urine Appearance Urine pH Ur Specific [place] Urine Protein Urine Glucose (UA) Urine Ketones Urine Blood Urine Nitrite Urine Bilirubin Urine Urobilinogen Ur Leukocyte Esterase Urine WBC (Auto) Urine RBC (Auto) U Hyaline Cast (Auto) U Epithel Cells (Auto) Urine Bacteria (Auto) Nasal Influ A H1 2008 PCR Adenovirus (PCR) B. pertussis DNA (PCR) B.parapertussis DNA PCR C. pneumoniae DNA (PCR) Coronavirus OC43 (PCR) Coronavirus HKU1 (PCR) Coronavirus 229E (PCR) SARS-CoV-2 (PCR) Coronavirus NL63 (PCR) Human Metapneumovir PCR Influenza Type B (PCR) M. pneumoniae (PCR) Parainfluenza 1 (PCR) Parainfluenza 2 (PCR) Parainfluenza 3 (PCR) Parainfluenza 4 (PCR) RSV (PCR) Entero/Rhino (PCR) 11/12/23 11/12/23 11/12/23 11:53 15:05 17:29 WBC RBC Hgb Hct MCV MCH MCHC RDW Std Deviation RDW Coeff of Ana Plt Count MPV Immature Gran % (Auto) Neut % (Auto) Lymph % (Auto) [place] % (Auto) Eos % (Auto) Baso % (Auto) Neut # (Auto) Lymph # (Auto) [place] # (Auto) Eos # (Auto) Baso # (Auto) Immature Gran # (Auto) PT INR VBG pH 7.31 L VBG pCO2 56 H VBG pO2 45 VBG HCO3 28 VBG O2 Saturation 66.4 VBG Base Excess 0.8 Sodium Potassium Chloride Carbon Dioxide Anion Gap BUN Creatinine Est Cr Clr Drug Dosing Est GFR ( Amer) Est GFR (Non-Af Amer) BUN/Creatinine Ratio Glucose POC Glucose 161 H 139 H Calcium Magnesium Total Bilirubin AST ALT Alkaline Phosphatase Ammonia 26.0 Troponin I High Sens B-Natriuretic Peptide Total Protein Albumin Globulin Albumin/Globulin Ratio Procalcitonin 0.07 Urine Color Urine Appearance Urine pH Ur Specific [place] Urine Protein Urine Glucose (UA) Urine Ketones Urine Blood Urine Nitrite Urine Bilirubin Urine Urobilinogen Ur Leukocyte Esterase Urine WBC (Auto) Urine RBC (Auto) U Hyaline Cast (Auto) U Epithel Cells (Auto) Urine Bacteria (Auto) Nasal Influ A H1 2009 PCR Adenovirus (PCR) B. pertussis DNA (PCR) B.parapertussis DNA PCR C. pneumoniae DNA (PCR) Coronavirus OC43 (PCR) Coronavirus HKU1 (PCR) Coronavirus 229E (PCR) SARS-CoV-2 (PCR) Coronavirus NL63 (PCR) Human Metapneumovir PCR Influenza Type B (PCR) M. pneumoniae (PCR) Parainfluenza 1 (PCR) Parainfluenza 2 (PCR) Parainfluenza 3 (PCR) Parainfluenza 4 (PCR) RSV (PCR) Entero/Rhino (PCR) PG Care Time/CCT Total # of Minutes Spent Total Time Spent with Patient: Total time spent is greater than 50% in coordination of care (as documented) at patient's floor/unit and/or counseling patient: Coding Level of Care Code 60573 SUB INP/OBS CARE 3/50MIN Diagnoses Influenza A J10.1 Poorly controlled type 2 diabetes mellitus E11.65 Seizure disorder G40.909 CKD (chronic kidney disease) stage 4, GFR 15-29 ml/min N18.4 Elevated troponin R79.89 Depression with anxiety F41.8 Hyperlipidemia E78.5 HTN (hypertension), benign I10 Hypothyroidism E03.9 Acute on chronic diastolic (congestive) heart failure I50.33 Acute respiratory failure with hypoxia and hypercapnia J96.01; J96.02 Acute metabolic encephalopathy G93.41 Hospice care patient Z51.5 CAD (coronary artery disease) I25.10
--- NOTE | 2023-11-12 15:02 | XRay Report ---
XR chest 1V portable CLINICAL HISTORY: diffuse wheezes/crackles, flu; eval pneumonia COMPARISON STUDY: Chest radiograph November 11, 2023. FINDINGS: Median sternotomy wires are incidentally noted. Moderate cardiomegaly is unchanged. There i s no evidence for pulmonary edema. No consolidation is identified. There is no pneumothorax or pleura l effusion. Low lung volumes are again noted. The appearance of the chest is unchanged. IMPRESSION: No acute cardiopulmonary findings. No change in appearance of the chest. ACT 112: Negative or not required by law. Electronically signed by: Zachariah Vogel M.D. 11/12/2023 3:00 PM
[2023-11-12 15:17] LABS: Base Excess VBG 0.8 mEq/L; HCO3 VBG 28 mmol/L; Oxygen Saturation VBG 66.4 %; PCO2 VBG 56 mmHg (38-50); PO2 VBG 45 mmHg; pH VBG 7.31 (7.36-7.41)
[2023-11-12] MEDS ORDERED: cefTRIAXone SODIUM 2000MG/50ML D5W IV ONE (17:19)
[2023-11-12] MEDS: cefTRIAXone SODIUM 2,000 MG in DEXTROSE 5 % MINI-B 50 ML IV SCH (17:26)
[2023-11-12] MEDS: FERROUS SULFATE 325 MG TAB PO SCH (18:00)
[2023-11-12 18:35] LABS: Base Excess VBG 2.9 mEq/L; HCO3 VBG 30 mmol/L; Oxygen Saturation VBG 79.8 %; PCO2 VBG 54 mmHg (38-50); PO2 VBG 50 mmHg; pH VBG 7.35 (7.36-7.41)
[2023-11-12] MEDS: ATORVASTATIN 10 MG TAB PO SCH (21:20)
[2023-11-12] MEDS: traZODone HCL 100 MG TAB PO SCH (21:21)
[2023-11-12] MEDS: ALBUT/IPRATROP 3MG/0.5MG NEB 3 ML VIAL NEB SCH (21:21)
[2023-11-12] MEDS: LANTUS PER UNIT CHARGE SC SCH (22:15)
--- NOTE | 2023-11-12 22:40 | Electrocardiogram Report ---
Test Reason : Blood Pressure : / mmHG Vent. Rate : 065 BPM Atrial Rate : 065 BPM P-R Int : 160 ms QRS Dur : 122 ms QT Int : 442 ms P-R-T Axes : 046 -49 -89 degrees QTc Int : 459 ms Normal sinus rhythm Left axis deviation Right bundle branch block Minimal voltage criteria for LVH, may be normal variant ( R in aVL ) Inferior infarct (cited on or before 11-NOV-2023) Anterolateral infarct , age undetermined Abnormal ECG When compared with ECG of 23-AUG-2023 16:07, No significant change Confirmed by Jaspreet Nicholas ([id number]) on 11/12/2023 10:40:07 PM Referred By: Cady Sanches Confirmed By:Jaspreet Nicholas
[2023-11-13 03:37] LABS: Basophils # (auto) 0.02 K/uL (0.00-0.20); Basophils % (auto) 0.3 %; Eosinophils # (auto) 0.09 K/uL (0.00-0.50); Eosinophils % (auto) 1.5 %; Hematocrit (blood only) 31.9 % (37.0-47.0); Hemoglobin 9.7 g/dl (12.0-16.0); Immature Granulocytes # (auto) 0.01 K/uL (0.01-0.20); Immature Granulocytes % (auto) 0.2 %; Lymphocytes # (auto) 0.78 K/uL (1.20-3.40); Lymphocytes % (auto) 12.9 %; Mean Corpuscular Hemoglobin 29.5 pg (25.0-34.0); Mean Corpuscular Hgb Conc 30.4 g/dL (32.0-36.0); Mean Platelet Volume 12.7 fL (9.4-12.4); Monocytes # (auto) 0.49 K/uL (0.11-0.59); Monocytes % (auto) 8.1 %; Neutrophils # (auto) 4.64 K/uL (1.40-6.50); Platelet Count 161 K/uL (130-400); RDW Coefficient of Variation 16.4 % (11.5-14.5); RDW Standard Deviation 58.4 fL (36.4-46.3); Red Blood Count 3.29 M/uL (4.20-5.40); White Blood Count 6.03 K/ul (4.8-10.8)
[2023-11-13 03:49] LABS: BUN Creatinine Ratio 24.8 (10-20); Calcium 8.7 mg/dl (8.6-10.3); Creatinine Clr Calc Pharmacy 24.5 ml/min; Est GFR (African American) 22.5 ml/min; Est GFR (Non-African American) 19.4 ml/min; Potassium 4.1 mmol/L (3.5-5.1)
[2023-11-13] MEDS: LEVOTHYROXINE SODIUM 25 MCG TABLET PO SCH (06:26)
[2023-11-13] MEDS: HEPARIN SOD 5,000 UNIT/0.5 ML VIAL SQ SCH ×3 (06:26→21:05)
[2023-11-13] MEDS: ALBUT/IPRATROP 3MG/0.5MG NEB 3 ML VIAL NEB SCH ×4 (07:20→20:27)
[2023-11-13] MEDS: INSULIN ASPART PER UNIT CHARGE SC SCH ×4 (10:06→21:15)
[2023-11-13] MEDS: ALPRAZolam 0.5 MG TABLET PO SCH (10:43)
[2023-11-13] MEDS: OSELTAMIVIR PHOSPHATE SUSP 30 MG/5 ML UDP PO SCH (10:44)
[2023-11-13] MEDS: ARIPIprazole 1 MG/ML ORAL SOLN 150 ML BTL PO SCH (10:45)
[2023-11-13] MEDS: ASPIRIN 81 MG ECTAB PO SCH (10:45)
[2023-11-13] MEDS: buPROPion XL 300 MG TABCR PO SCH (10:45)
[2023-11-13] MEDS: levETIRAcetam 500 MG TAB PO SCH ×2 (10:46→21:01)
[2023-11-13] MEDS: CARBIDOPA/LEVODOPA 25/100MG TAB PO SCH ×3 (10:46→21:03)
[2023-11-13] MEDS: guaiFENesin 600 MG TABCR PO SCH ×2 (10:47→21:03)
[2023-11-13] MEDS: PANTOprazole 40 MG TAB PO SCH ×2 (10:47→21:03)
[2023-11-13] MEDS: hydrALAZINE HCL 25 MG TAB PO SCH ×2 (10:48→21:04)
[2023-11-13] MEDS: OXcarbazepine 150 MG TABLET PO SCH ×2 (10:48→21:04)
[2023-11-13] MEDS: MAGNESIUM OXIDE 400 MG TAB PO SCH (10:48)
[2023-11-13] MEDS: PROPRANOLOL HCL 10 MG TAB PO SCH ×2 (10:49→21:04)
[2023-11-13] MEDS: CLOPIDOGREL BISULFATE 75 MG TAB PO SCH (10:49)
[2023-11-13] MEDS: FUROSEMIDE 40 MG/4 ML VIAL IV SCH (11:25)
[2023-11-13] MEDS: carvediloL 12.5 MG TAB PO SCH ×2 (12:12→21:03)
[2023-11-13] MEDS: FERROUS SULFATE 325 MG TAB PO SCH ×2 (17:51→17:54)
[2023-11-13] MEDS: cefTRIAXone SODIUM 2,000 MG in DEXTROSE 5 % MINI-B 50 ML IV SCH (18:11)
[2023-11-13] MEDS: ONDANSETRON INJ 2 MG/ML 2 ML VIAL IV PRN (20:10)
--- NOTE | 2023-11-13 20:59 | Hospitalist Progress Note ---
Date of Service November 13, 2023 Assessment & Plan (1) Influenza A: Plan: Day #3 of 5 of renally-dosed tamiflu BID With acute hypoxic/hypercapnic resp failure Cr loi overnight with IV lasix - hold diuretics Cont Nebs QID Defer on steroids (2) Acute respiratory failure with hypoxia and hypercapnia: Plan: 2nd to fluA infection with bronchitis 2nd to acute/chronic diastolic CHF tamiflu, nebs, etc has received diuresis NC O2 (3) Hospice care patient: Plan: social work staff confirmed with her [facility] that patient indeed has been on hospice last 1-2 months patient will return to [facility] with hospice services in place once again would NOT escalate any of her care beyond what we are currently doing defer on AM labs tomorrow no further BIPAP etc (4) Acute on chronic diastolic (congestive) heart failure: Plan: diuresed, now creatinine rising will hold lasix today reassess tomorrow (5) Acute metabolic encephalopathy: Plan: 2nd to hypercapnia, FluA infection, etc ongoing (6) Poorly controlled type 2 diabetes mellitus: Plan: Last A1c at 8.2% on 07/11/2023 hold Jardiance Patient normally is on insulin glargine 40 units SQ twice daily cont basal-bolus insulin Pharmacy glycemic management consult was placed by admitting team - defer Rx to them (7) Seizure disorder: Plan: Continue Keppra Note: Patient on bupropion which can lower the seizure threshold but with hospice status will leave meds as is Continue oxcarbazepine (8) CKD (chronic kidney disease) stage 4, GFR 15-29 ml/min: Plan: admit parameters - BUN 52, creatinine 2.16 Baseline Cr 1.92 Cr today has risen again with diuretics - will place IV lasix on hold today (9) Elevated troponin: Plan: Troponin 40.9--> 42.2 on arrival Likely myocardial demand ischemia in setting of flu A infection (10) Depression with anxiety: Plan: Continue alprazolam (11) Hyperlipidemia: Plan: Would d/c statin at discharge in light of hospice status (12) HTN (hypertension), benign: Plan: Continue hydralazine Cont coreg (13) Hypothyroidism: Plan: Continue levothyroxine TSH 07/29 wnl (14) CAD (coronary artery disease): Plan: no ischemic sx's at this time Plan son extensively updated by phone yesterday evening I updated pt's close friend Selena (listed as first [employer] contact) questions answered update given dispo - [facility] with hospice services Admission and Anticipated Discharge Date Admission Date: November 11, 2023 Subjective during my visit she was sleeping she did awaken and answer a couple of questions but quickly returned to sleep again states she is tired she c/o cough staff in the ER report ongoing poor appetite/intake she remains on NC O2 was coughing during my bedside visit Review of Systems Review of Systems: Unobtainable due to cognitive status Physical Exam Physical Exam: gen - obese, lethargic, only able to open eyes for a minute at most, no acute distress, coughing neck - unable to assess for JVD heart - RRR, s1 s2 - heart tones very distant but 1-2/6 systolic murmur present LSB lungs - wheezes b/l - modestly improved, crackles b/l - modestly improved; coughing, tachypnea improved abd - soft NT BS+; no HSM ext - no edema, pulses 2+ b/l psych - lethargic neuro - speech is low-pitched and slow Results & Data Results & Data Vital Signs (Past 12 Hours) Vital Signs Temp Pulse Pulse Resp BP BP BP 11/13/23 20:01 36.8 C 61 19 145/74 H 11/13/23 16:00 36.7 C 62 20 131/76 11/13/23 14:38 60 15 11/13/23 14:15 59 L 18 142/91 H 11/13/23 13:05 11/13/23 13:00 58 L 15 11/13/23 12:30 61 15 11/13/23 12:00 63 18 11/13/23 11:30 61 15 11/13/23 11:00 63 18 11/13/23 10:47 158/97 H 11/13/23 10:47 66 19 11/13/23 10:30 60 18 11/13/23 10:00 60 22 11/13/23 09:30 60 15 11/13/23 09:00 59 L 22 Pulse Ox O2 Del Method O2 Flow Rate 11/13/23 20:01 93 Room Air 11/13/23 16:00 94 Nasal Cannula 1 11/13/23 14:38 99 Nasal Cannula 3 11/13/23 14:15 99 Nasal Cannula 11/13/23 13:05 Nasal Cannula 2 11/13/23 13:00 98 11/13/23 12:30 97 11/13/23 12:00 92 11/13/23 11:30 98 11/13/23 11:00 99 11/13/23 10:47 11/13/23 10:47 99 11/13/23 10:30 99 11/13/23 10:00 99 11/13/23 09:30 99 11/13/23 09:00 98 Laboratory Results Laboratory Results - last 24 hr 11/12/23 11/13/23 11/13/23 21:30 03:20 08:31 WBC 6.03 RBC 3.29 L Hgb 9.7 L Hct 31.9 L MCV 97.0 MCH 29.5 MCHC 30.4 L RDW Std Deviation 58.4 H RDW Coeff of Ana 16.4 H Plt Count 161 MPV 12.7 H Immature Gran % (Auto) 0.2 Neut % (Auto) 77.0 Lymph % (Auto) 12.9 [place] % (Auto) 8.1 Eos % (Auto) 1.5 Baso % (Auto) 0.3 Neut # (Auto) 4.64 Lymph # (Auto) 0.78 L [place] # (Auto) 0.49 Eos # (Auto) 0.09 Baso # (Auto) 0.02 Immature Gran # (Auto) 0.01 Sodium 137 Potassium 4.1 Chloride 100 Carbon Dioxide 26 Anion Gap 11 BUN 59 H Creatinine 2.38 H D Est Cr Clr Drug Dosing 24.5 Est GFR ( Amer) 22.5 Est GFR (Non-Af Amer) 19.4 BUN/Creatinine Ratio 24.8 H Glucose 138 H POC Glucose 134 H 135 H Calcium 8.7 11/13/23 11/13/23 11/13/23 12:52 17:55 20:35 WBC RBC Hgb Hct MCV MCH MCHC RDW Std Deviation RDW Coeff of Ana Plt Count MPV Immature Gran % (Auto) Neut % (Auto) Lymph % (Auto) [place] % (Auto) Eos % (Auto) Baso % (Auto) Neut # (Auto) Lymph # (Auto) [place] # (Auto) Eos # (Auto) Baso # (Auto) Immature Gran # (Auto) Sodium Potassium Chloride Carbon Dioxide Anion Gap BUN Creatinine Est Cr Clr Drug Dosing Est GFR ( Amer) Est GFR (Non-Af Amer) BUN/Creatinine Ratio Glucose POC Glucose 149 H 159 H 153 H Calcium PG Care Time/CCT Total # of Minutes Spent Total Time Spent with Patient: Total time spent is greater than 50% in coordination of care (as documented) at patient's floor/unit and/or counseling patient: Coding Level of Care Code 78299 SUB INP/OBS CARE 2/35MIN Diagnoses Influenza A J10.1 Acute respiratory failure with hypoxia and hypercapnia J96.01; J96.02 Hospice care patient Z51.5 Acute on chronic diastolic (congestive) heart failure I50.33 Acute metabolic encephalopathy G93.41 Poorly controlled type 2 diabetes mellitus E11.65 Seizure disorder G40.909 CKD (chronic kidney disease) stage 4, GFR 15-29 ml/min N18.4 Elevated troponin R79.89 Depression with anxiety F41.8 Hyperlipidemia E78.5 HTN (hypertension), benign I10 Hypothyroidism E03.9 CAD (coronary artery disease) I25.10
[2023-11-13] MEDS: ATORVASTATIN 10 MG TAB PO SCH (21:05)
[2023-11-13] MEDS: traZODone HCL 100 MG TAB PO SCH (21:05)
[2023-11-13] MEDS: LANTUS PER UNIT CHARGE SC SCH (21:15)
[2023-11-14] MEDS ORDERED: ALPRAZolam 0.25 MG TABLET PO STA (05:45)
[2023-11-14] MEDS: HEPARIN SOD 5,000 UNIT/0.5 ML VIAL SQ SCH ×3 (05:59→21:07)
[2023-11-14] MEDS: LEVOTHYROXINE SODIUM 25 MCG TABLET PO SCH (06:12)
[2023-11-14] MEDS: ALBUT/IPRATROP 3MG/0.5MG NEB 3 ML VIAL NEB SCH ×4 (08:00→19:34)
[2023-11-14] MEDS: PROPRANOLOL HCL 10 MG TAB PO SCH ×2 (09:27→21:05)
[2023-11-14] MEDS: ARIPIprazole 1 MG/ML ORAL SOLN 150 ML BTL PO SCH (09:27)
[2023-11-14] MEDS: carvediloL 12.5 MG TAB PO SCH ×2 (09:28→21:04)
[2023-11-14] MEDS: ASPIRIN 81 MG ECTAB PO SCH (09:28)
[2023-11-14] MEDS: OXcarbazepine 150 MG TABLET PO SCH ×2 (09:28→21:07)
[2023-11-14] MEDS: CLOPIDOGREL BISULFATE 75 MG TAB PO SCH (09:28)
[2023-11-14] MEDS: hydrALAZINE HCL 25 MG TAB PO SCH ×2 (09:28→21:05)
[2023-11-14] MEDS: guaiFENesin 600 MG TABCR PO SCH ×2 (09:28→21:04)
[2023-11-14] MEDS: PANTOprazole 40 MG TAB PO SCH ×2 (09:28→21:06)
[2023-11-14] MEDS: CARBIDOPA/LEVODOPA 25/100MG TAB PO SCH ×3 (09:28→21:06)
[2023-11-14] MEDS: buPROPion XL 300 MG TABCR PO SCH (09:28)
[2023-11-14] MEDS: MAGNESIUM OXIDE 400 MG TAB PO SCH (09:28)
[2023-11-14] MEDS: levETIRAcetam 500 MG TAB PO SCH ×2 (09:28→21:06)
[2023-11-14] MEDS: INSULIN ASPART PER UNIT CHARGE SC SCH ×4 (09:32→21:35)
[2023-11-14] MEDS: OSELTAMIVIR PHOSPHATE SUSP 30 MG/5 ML UDP PO SCH (09:32)
--- NOTE | 2023-11-14 10:21 | Hospitalist Progress Note ---
Date of Service November 14, 2023 Assessment & Plan (1) Influenza A: Plan: Day #4 of 5 of renally-dosed tamiflu With acute hypoxic/hypercapnic resp failure resolving - room air O2 sat today 93%, oxygen stopped Cont Nebs QID did not require steroids improving plan to return to her personal-custod[facility] with hospice today, however, snowstorm impeded transportation (2) Acute respiratory failure with hypoxia and hypercapnia: Plan: 2nd to fluA infection with bronchitis 2nd to acute/chronic diastolic CHF tamiflu, nebs, etc has received diuresis resolved (3) Hospice care patient: Plan: social work staff confirmed with her [facility] that patient indeed has been on hospice last 1-2 months patient will return to [facility] with hospice services in place once again (4) Acute on chronic diastolic (congestive) heart failure: Plan: diuresed, now creatinine rising Lasix held 11/13, resumed usual dose bumex 2 mg po bid (5) Acute metabolic encephalopathy: Plan: 2nd to hypercapnia, FluA infection, etc improved, now alert (6) Poorly controlled type 2 diabetes mellitus: Plan: Last A1c at 8.2% on 07/11/2023 hold Jardiance Patient normally is on insulin glargine 40 units SQ twice daily cont basal-bolus insulin Pharmacy glycemic management consult was placed by admitting team - defer Rx to them blood glucose at/near goal 11/14 (7) Seizure disorder: Plan: Continue Keppra Note: Patient on bupropion which can lower the seizure threshold but with hospice status will leave meds as is Continue oxcarbazepine (8) CKD (chronic kidney disease) stage 4, GFR 15-29 ml/min: Plan: admit parameters - BUN 52, creatinine 2.16 Baseline Cr 1.92 (9) Elevated troponin: Plan: Troponin 40.9--> 42.2 on arrival Likely myocardial demand ischemia in setting of flu A infection (10) Depression with anxiety: Plan: Continue alprazolam (11) Hyperlipidemia: Plan: Would d/c statin at discharge in light of hospice status (12) HTN (hypertension), benign: Plan: Continue hydralazine Cont coreg (13) Hypothyroidism: Plan: Continue levothyroxine TSH 07/29 wnl (14) CAD (coronary artery disease): Plan: no ischemic sx's at this time Plan son extensively updated by phone evening 11/12 dispo - [facility] with hospice services awaiting transport Admission and Anticipated Discharge Date Admission Date: November 11, 2023 Subjective to be is awake and alert, she is a poor historian but able to report that she does have a cough but is not feeling short of breath and that her name is Lakesha denies chest or abdominal pain and denies nausea vomiting or diarrhea Physical Exam 2 Physical Exam: PHYSICAL EXAMINATION Last 24h vital signs reviewed, see documentation in flowsheet General: comfortable appearing, no distress, sitting up in bed awake HEENT: Normocephalic, atraumatic, pupils round and equal, sclerae anicteric, no conjunctival injection, moist mucus membranes Lungs: Normal respiratory effort. slightly coarse to auscultation bilaterally. coughing present with setting high 90s on 1 L oxygen when I rounded Heart: Regular rate and rhythm, no murmurs. No JVD Abdomen: Soft, nontender, nondistended. Bowel sounds present. Extremities: Warm, dry, well-perfused. No extremity edema. Neuro: Alert and oriented x 1, face symmetric, moves 4 extremities well Psych: Normal affect and behavior Results & Data Results & Data Vital Signs (Past 12 Hours) Vital Signs Temp Pulse Pulse Resp BP Pulse Ox O2 Del Method 11/14/23 08:00 81 18 97 Nasal Cannula 11/14/23 07:54 36.4 C L 81 20 130/59 L 95 Nasal Cannula 11/14/23 07:35 Nasal Cannula 11/14/23 03:28 36.2 C L 81 18 146/85 H 94 Nasal Cannula 11/14/23 00:06 36.6 C 56 L 18 116/68 95 Nasal Cannula 11/14/23 00:01 Room Air 11/13/23 23:43 59 L O2 Flow Rate 11/14/23 08:00 1 11/14/23 07:54 1 11/14/23 07:35 2 11/14/23 03:28 1.5 11/14/23 00:06 1.5 11/14/23 00:01 11/13/23 23:43 Laboratory Results 11/13/23 03:20 11/13/23 03:20 PG Care Time/CCT Total # of Minutes Spent Total Time Spent with Patient: Total time spent is greater than 50% in coordination of care (as documented) at patient's floor/unit and/or counseling patient: Coding Level of Care Code 26062 SUB INP/OBS CARE 2MIN Diagnoses Influenza A J10.1 Acute respiratory failure with hypoxia and hypercapnia J96.01; J96.02 Hospice care patient Z51.5 Acute on chronic diastolic (congestive) heart failure I50.33 Acute metabolic encephalopathy G93.41 Poorly controlled type 2 diabetes mellitus E11.65 Seizure disorder G40.909 CKD (chronic kidney disease) stage 4, GFR 15-29 ml/min N18.4 Elevated troponin R79.89 Depression with anxiety F41.8 Hyperlipidemia E78.5 HTN (hypertension), benign I10 Hypothyroidism E03.9 CAD (coronary artery disease) I25.10
--- NOTE | 2023-11-14 12:47 | Pharmacy Report ---
Pharmacy Glycemic Short Note 2 - Date of Service November 14, 2023 - Glycemic Short BSG Results (Last 24 hours): 11/13/23 11/13/23 11/13/23 12:52 17:55 20:35 POC Glucose 149 H 159 H 153 H 11/14/23 11/14/23 07:56 11:56 POC Glucose 160 H 184 H OUTPATIENT ANTIDIABETIC REGIMEN: * Jardiance 10 mg daily * Basaglar 40 units bid HbA1c = 8.2% ASSESSMENT: 11/13: * BSGs yesterday 135-159 mg/dL with minimal insulin * Fasting 160 mg/dL- will adjust lantus scale for this eveing * Continue current novolog parameters 11/12: * BSGs yesterday were 76-107 mg/dl. Fasting BSG today was 109 mg/dl. Pre-lunch BSG = 161 mg/dl. * Holding off on basal insulin since BSGs have been low or at goal. Will resume at HS on a scale based on BSG. * Novolog continued the same as yesterday. 11/11/23 * 73 year old admitted with CHF exacerbation - pharmacy consulted for glycemic management. BSGs < 100 on admission - will hold PM basal this evening and will resume tomorrow AM PLAN FOR INPATIENT GLYCEMIC CONTROL: * Hold outpatient oral diabetes medications * Basal insulin * Lantus 10-15 units SC scale HS based on BSG * Bolus insulin * NovoLog per scale ACHS or Q6hrs while NPO * Goal Range: Low 110 mg/dL - High 140 mg/dL * Correction Factor: 25 mg/dL/unit * Nutritional / Prandial insulin per carb ratio of 1 unit per 8 grams CHO consumed
[2023-11-14] MEDS: BUMETANIDE 1 MG TAB PO SCH (16:45)
[2023-11-14] MEDS: FERROUS SULFATE 325 MG TAB PO SCH (16:46)
[2023-11-14] MEDS: cefTRIAXone SODIUM 2,000 MG in DEXTROSE 5 % MINI-B 50 ML IV SCH (16:46)
[2023-11-14] MEDS: ONDANSETRON INJ 2 MG/ML 2 ML VIAL IV PRN (18:31)
[2023-11-14] MEDS ORDERED: ALPRAZolam 0.25 MG TABLET PO SCH (21:00)
[2023-11-14] MEDS: ATORVASTATIN 10 MG TAB PO SCH (21:06)
[2023-11-14] MEDS: traZODone HCL 100 MG TAB PO SCH (21:06)
[2023-11-14] MEDS: LANTUS PER UNIT CHARGE SC SCH (21:35)
[2023-11-14] MEDS ORDERED: ONDANSETRON INJ 2 MG/ML 2 ML VIAL IV STA (21:40)
[2023-11-15] MEDS: HEPARIN SOD 5,000 UNIT/0.5 ML VIAL SQ SCH (05:42)
[2023-11-15] MEDS: LEVOTHYROXINE SODIUM 25 MCG TABLET PO SCH (06:19)
[2023-11-15] MEDS: ALBUT/IPRATROP 3MG/0.5MG NEB 3 ML VIAL NEB SCH ×2 (07:42→11:27)
[2023-11-15] MEDS: ARIPIprazole 1 MG/ML ORAL SOLN 150 ML BTL PO SCH (08:20)
[2023-11-15] MEDS: ASPIRIN 81 MG ECTAB PO SCH (08:21)
[2023-11-15] MEDS: BUMETANIDE 1 MG TAB PO SCH (08:21)
[2023-11-15] MEDS: CARBIDOPA/LEVODOPA 25/100MG TAB PO SCH (08:21)
[2023-11-15] MEDS: carvediloL 12.5 MG TAB PO SCH (08:22)
[2023-11-15] MEDS: guaiFENesin 600 MG TABCR PO SCH (08:22)
[2023-11-15] MEDS: CLOPIDOGREL BISULFATE 75 MG TAB PO SCH (08:22)
[2023-11-15] MEDS: OXcarbazepine 150 MG TABLET PO SCH (08:23)
[2023-11-15] MEDS: levETIRAcetam 500 MG TAB PO SCH (08:23)
[2023-11-15] MEDS: hydrALAZINE HCL 25 MG TAB PO SCH (08:23)
[2023-11-15] MEDS: MAGNESIUM OXIDE 400 MG TAB PO SCH (08:23)
[2023-11-15] MEDS: PROPRANOLOL HCL 10 MG TAB PO SCH (08:24)
[2023-11-15] MEDS: buPROPion XL 300 MG TABCR PO SCH (08:24)
[2023-11-15] MEDS: PANTOprazole 40 MG TAB PO SCH (08:24)
[2023-11-15] MEDS: OSELTAMIVIR PHOSPHATE SUSP 30 MG/5 ML UDP PO SCH (08:25)
[2023-11-15] MEDS: ONDANSETRON INJ 2 MG/ML 2 ML VIAL IV PRN (08:39)
[2023-11-15] MEDS: INSULIN ASPART PER UNIT CHARGE SC SCH (09:54)
[2023-11-15 11:38] VITALS: BP 121/70; PULSE 52; RESP 21; TEMP 98.1; O2SAT 100
--- NOTE | 2023-11-15 20:34 | Discharge Summary ---
Date of Service November 15, 2023 Admission HPI Per Admitting Provider Sarah is a 73-year-old female with PMH of HFpEF, CKD stage IV, resting tremor, aortic stenosis, seizure disorder, HTN, HLD, GERD, CAD s/p CABG x 4, depression anxiety, T2DM, PAD, and hypothyroidism. She was sent in from [facility] for worsening SOB/dyspnea x 6-7 days. While patient is on hospice, they have been sending someone to evaluate her regularly this week. Patient had an acute worsening the morning of 11/11; hypoxic at 83% on RA. At this time, hospice was contacted by [facility], and requested that she come into the hospital. Patient is not on supplemental oxygen at baseline. She was influenza positive on arrival. She endorses SOB both at rest and with exertion. Worse while laying flat. She endorses a productive cough with yellow sputum production since last weekend. She also endorses and intermittent, low-grade fever, but says she has not been taking anything for it. She did not take her regular morning meds today. She reports good compliance with Bumex. She denies any alcohol, tobacco, or recreational drug use. She received her flu shot this year. Patient is hypertensive at 155/100; vitals otherwise stable; 100% SpO2 on 3 LNC. ED course: Lasix 40 mg IV ROS: Patient endorses low-grade fever, productive cough, chills, nightsweats, body aches, SOB at rest, nausea, and diarrhea. Patient denies chest pain, abd pain, vomiting, burning with urination, dysuria, or numbness/tingling in the arms or legs. Spoke on the phone with nursing staff at [facility] ([facility]) who confirmed that hospice was notified of acute drop in oxygen this morning (83% on room air), and thus the patient was asked to come into the hospital. Principal Diagnosis Acute respiratory failure with hypoxia and hypercapnia due to Influenza A Discharge Exam PHYSICAL EXAMINATION Last 24h vital signs reviewed, see documentation in flowsheet General: comfortable appearing, no distress HEENT: Normocephalic, atraumatic, pupils round and equal, sclerae anicteric, no conjunctival injection, moist mucus membranes Lungs: Normal respiratory effort. Clear to auscultation bilaterally. occasional coughing Heart: Regular rate and rhythm, no murmurs. No JVD Abdomen: Soft, nontender, nondistended. Bowel sounds present. Extremities: Warm, dry, well-perfused. No extremity edema. Neuro: Alert and oriented x self, pleasantly confused, face symmetric, moves 4 extremities well Psych: Normal affect and behavior Discharge Data Allergies Allergy/AdvReac Type Severity Reaction Status Date / Time MARINO Inhibitors Allergy Unknown ON [facility] Verified 11/11/23 17:08 MED LIST Interferons Allergy Unknown ON [facility] Verified 11/11/23 17:08 MED LIST Penicillins Allergy Unknown ON [facility] Verified 11/11/23 17:08 MED LIST Corticosteroids AdvReac Intermediate (STEROIDS) Verified 11/11/23 17:08 (Glucocorticoids) Rash Consultations 11/11/23 16:03 ED Decision to Admit Stat Ordered Studies 11/13/23 03:20 11/13/23 03:20 Chest X-Ray 11/11/23 14:03 XR chest 1V portable CLINICAL HISTORY: Dyspnea. COMPARISON STUDY: Chest radiograph August 23, 2023. FINDINGS: Low lung volumes are unchanged. There are median sternotomy wires. Cardiomegaly is unchanged. No evidence for overt pulmonary edema. There is no consolidation to suggest pneumonia. There has been no significant change in appearance of chest. IMPRESSION: No acute cardiopulmonary findings. No significant change in appearance of the chest. Cardiomegaly. ACT 112: Negative or not required by law. Electronically signed by: Zachariah Vogel M.D. 11/11/2023 2:34 PM Chest X-Ray 11/12/23 14:41 XR chest 1V portable CLINICAL HISTORY: diffuse wheezes/crackles, flu; eval pneumonia COMPARISON STUDY: Chest radiograph November 11, 2023. FINDINGS: Median sternotomy wires are incidentally noted. Moderate cardiomegaly is unchanged. There is no evidence for pulmonary edema. No consolidation is identified. There is no pneumothorax or pleural effusion. Low lung volumes are again noted. The appearance of the chest is unchanged. IMPRESSION: No acute cardiopulmonary findings. No change in appearance of the chest. ACT 112: Negative or not required by law. Electronically signed by: Zachariah Vogel M.D. 11/12/2023 3:00 PM Hospital Course (1) Influenza A: treated with 5 days of renally-dosed tamiflu With acute hypoxic/hypercapnic resp failure resolving - room air O2 sat today 90-93%, oxygen stopped did not require steroids improving planned to return to her personal-senior care with resumption of hospice 11/14, however, snowstorm impeded transportation. stable for discharge today (2) Acute respiratory failure with hypoxia and hypercapnia: 2nd to fluA infection with bronchitis 2nd to acute/chronic diastolic CHF treated with tamiflu, nebs, diuresis and improved (3) Hospice care patient: social work staff confirmed with her [facility] that patient indeed has been on hospice last 1-2 months patient will return to [facility] with hospice services in place once again (4) Acute on chronic diastolic (congestive) heart failure: diuresed Lasix held 11/13 for increased Cr, resumed usual dose bumex 2 mg po bid after that (5) Acute metabolic encephalopathy: 2nd to hypercapnia, FluA infection, etc improved, now more alert (6) Poorly controlled type 2 diabetes mellitus: Last A1c at 8.2% on 07/11/2023 resumed home regimen (7) Seizure disorder: Continue Keppra Note: Patient on bupropion which can lower the seizure threshold but with hospice status will leave meds as is Continue oxcarbazepine (8) CKD (chronic kidney disease) stage 4, GFR 15-29 ml/min: admit parameters - BUN 52, creatinine 2.16 Baseline Cr 1.92 (9) Elevated troponin: Troponin 40.9--> 42.2 on arrival Likely myocardial demand ischemia in setting of flu A infection (10) Depression with anxiety: Continue alprazolam (11) Hyperlipidemia: Would d/c statin at discharge in light of hospice status (12) HTN (hypertension), benign: Continue hydralazine Cont coreg (13) Hypothyroidism: Continue levothyroxine TSH 07/29 wnl (14) CAD (coronary artery disease): no ischemic sx's at this time Plan son extensively updated by phone evening 11/12 Total Time Total Time Spent Total Time Spent (In Minutes): 25 minutes spent coordinating care for discharge Discharge Plan Discharge Items Patient Disposition: Personal [facility] Reason For Visit: FLU A, ACUTE ON CHRONIC CHF EXACERBATION Discharge Diagnosis: influenza A, acute on chronic heart failure Condition on Discharge: Fair Activity: Resume your previous activity Non-emergency contact: Primary Care Provider Call non-emergency contact if: you have any medication questions and your symptoms worsen Follow-up/Referrals: Cady Sanches MD [Primary Care Provider] - Diet: Carb Consistent or DM2 Addtl Attending Provider Instructions: You were treated for influenza A with oseltamivir and supportive care You were treated for exacerbation of heart failure with extra diuretics You were treated for possible UTI with antibiotics Level of alertness improved Low oxygen level and shortness of breath improved Pending Studies at Discharge: Yes (Blood cultures - negative to date) Stand-Alone Forms: [facility] [employer], Smoking Cessation Skilled Items Patient informed of condition?: Yes DNR: Yes Discharge Level of Care: Other Communicable Disease: Yes (Influenza A) Discharge Prognosis: Stable Lines: None Urinary Catheter: No Medications and DC Order Prescriptions: New oseltamivir [Tamiflu] 6 mg/mL Suspension For Reconstitution 30 mg PO DAILY Qty: 5 0RF levofloxacin 250 mg tablet 250 mg PO DAILY 3 Days Qty: 3 0RF Continued biotin 5 mg tablet 5 mg PO DAILY Qty: 30 0RF acetaminophen [Tylenol Extra Strength] 500 mg tablet 500 mg PO QID MDD 3 GRAMS APAP/24 HOURS PRN (Reason: pain) Qty: 90 0RF omega 4-kle-vyf-fish oil [Fish Oil] 1,000 mg (120 mg-180 mg) capsule 2 cap PO DAILY Qty: 180 0RF bumetanide 2 mg tablet 2 mg PO BID Qty: 180 1RF Rx Instructions: TAKES AT 0830 & 1500 clopidogrel 75 mg tablet 75 mg PO DAILY Qty: 90 1RF carvedilol 12.5 mg tablet 12.5 mg PO BID Qty: 180 1RF Rx Instructions: must administer with a meal/food calcitriol 0.25 mcg capsule 0.25 mcg PO DAILY Qty: 90 1RF levothyroxine 25 mcg tablet 25 mcg PO DAILY Qty: 90 1RF atorvastatin 10 mg tablet 10 mg PO QPM Qty: 90 1RF levetiracetam 500 mg tablet 500 mg PO BID 30 Days Qty: 60 4RF carbidopa-levodopa 25-100 mg tablet 1 tab PO TID Qty: 90 4RF Rx Instructions: avoid iron 2 hours prior and after each dose pantoprazole 40 mg tablet,delayed release (DR/EC) 40 mg PO BID Qty: 60 5RF bupropion HCl 300 mg tablet extended release 24 hr 300 mg PO DAILY Qty: 30 3RF hydralazine 50 mg tablet 75 mg PO BID Qty: 180 1RF Rx Instructions: 1 & 1/2 tablet dose bumetanide 1 mg tablet 2 mg PO DAILY PRN (Reason: wt gain 5LBS or more over 3 days) Qty: 60 5RF propranolol 10 mg tablet 10 mg PO BID Qty: 180 2RF oxcarbazepine 150 mg tablet 150 mg PO BID 30 Days Qty: 60 1RF aripiprazole 2 mg tablet 2 mg PO DAILY Qty: 30 2RF polyethylene glycol 3350 [Miralax] 17 gram/dose powder 17 g PO DAILY Qty: 119 6RF hydrocortisone 2.5 % cream 1 applic topical BID PRN (Reason: ..) magnesium oxide 400 mg magnesium tablet 400 mg PO DAILY Qty: 90 0RF triamcinolone acetonide 0.1 % cream 1 applic topical BID PRN (Reason: skin irritation) Qty: 80 11RF Rx Instructions: Apply twice daily as needed to eczema flares of the BODY; up to 7 days at a time aspirin [Adult Low Dose Aspirin] 81 mg tablet,delayed release (DR/EC) 81 mg PO DAILY Jardiance 10 mg tablet 10 mg PO DAILY trazodone 50 mg tablet 100 mg PO HS ferrous sulfate 325 mg (65 mg iron) tablet 325 mg PO QDD valacyclovir 500 mg tablet 500 mg PO Q2D Qty: 15 0RF glycopyrrolate 1 mg Tablet 2 mg PO Q4 PRN (Reason: .TERMINAL SECRETIONS) Rx Instructions: MIX WITH SMALL AMOUNT OF WATER & GIVE SL acetaminophen 650 mg Suppository 650 mg ND Q4H PRN (Reason: Fever Or Pain) morphine concentrate 100 mg/5 mL (20 mg/mL) Solution 0 mg sublingual .Q30MIN PRN (Reason: .PAIN/AIR HUNGER) Rx Instructions: GIVE 0.5ML-1ML Aquaphor Ointment 1 applic TOPICAL BID PRN (Reason: .dry skin) promethazine 25 mg Tablet 25 mg PO Q6H PRN (Reason: .N/V) lorazepam 1 mg Tablet 1 mg PO DIRECTED PRN (Reason: Anxiety) Rx Instructions: Q HOUR PRN FOR ANXIETY diazepam 5 mg Tablet 5 mg PO Q6 PRN (Reason: .seizure/severe nausea) Rx Instructions: OR SL alprazolam 0.25 mg tablet 0.25 mg PO DAILY insulin glargine [Basaglar KwikPen U-100 Insulin] 100 unit/mL (3 mL) Insulin Pen 40 unit SUBCUT BID cyanocobalamin (vitamin B-12) 1,000 mcg capsule 1,000 mcg PO DAILY Qty: 30 0RF Discharge Orders: Discharge Order (Routine); Ordered 11/15/23 Ordered By: Helen Tamez Admission Data Admit Date/Time: 11/11/23 17:11 Attending Provider: Helen Tamez Admit Provider: Wero Rust Primary Care Provider: Cady Sanches Other Providers: Wero Rust Other Interventions: Discharge Summary Assessment (RN) Last Done: 11/14/23 11:59 Coding Level of Care Code 75569 IN/OBS DISCH 30 MIN/LESS Diagnoses Influenza A J10.1 Acute respiratory failure with hypoxia and hypercapnia J96.01; J96.02 Hospice care patient Z51.5 Acute on chronic diastolic (congestive) heart failure I50.33 Acute metabolic encephalopathy G93.41 Poorly controlled type 2 diabetes mellitus E11.65 Seizure disorder G40.909 CKD (chronic kidney disease) stage 4, GFR 15-29 ml/min N18.4 Elevated troponin R79.89 Depression with anxiety F41.8 Hyperlipidemia E78.5 HTN (hypertension), benign I10 Hypothyroidism E03.9 CAD (coronary artery disease) I25.10
== END 2023-11-15 13:03 | disposition hospice, home (50) | DRG 193 ==
LOC: ED 13:41 → EDINP 17:11 → SUATTDRO 17:11 → EDINP 11-12 17:56 → 4W 11-13 15:53